=== PATIENT | female | born 1950 | race Caucasian/White ===

== ENCOUNTER 2019-07-21 15:05 | Emergency (ER) | payer OTHER, BC ==
--- OUTSIDE RECORDS SUMMARY | 2019-07-21 15:08 | XMS REPORT | Summary of Care ---
:1950 Author Organization [facility] - Health Address [address] [place] [address] Care Team Providers Name Role Phone David Justyn Primary Care Provider Reason for Visit Reason Comments Intake Referral Encounter Details Date Type Department Care Team Description 11/07/2018 Telephone [facility] Transplant- Juana Falk, Intake Referral [place] [facility] 24[address] [facility] [address] [place] [address] [place], [place] [phone] Allergies No Known Allergiesdocumented as of this encounter (statuses as of 11/07/2018) Medications Medication Sig Dispensed Refills Start Date End Date Status INSULIN SYRINGES /" 31guage 1 month 0 01/09/2008 Active (DISPOSABLE) 1 ML MISC SYRG nebivolol (BYSTOLIC) Take 10 mg by 0 Active 10 mg tablet mouth daily. cloniDINE (CATAPRES) Take 0.2 mg by 0 Active 0.2 mg tablet mouth 3 (three) times daily. PREGABALIN (LYRICA Take by mouth. 0 Active ORAL) ERGOCALCIFEROL, Take by mouth. 0 Active VITAMIN D2, (VITAMIN D ORAL) amLODIPine (NORVASC) 5 Take 5 mg by mouth 0 Active mg tablet daily. allopurinol 100 mg Take 100 mg by 0 Active tablet mouth daily. calcitriol 0.25 mcg Take 0.25 mcg by 0 Active capsuleIndications: mouth. Type 2 diabetes mellitus with ESRD (end-stage renal disease) sevelamer (RENVELA) TK 1 T PO WITH 0 02/01/2017 Active 800 mg EACH MEAL tabletIndications: Type 2 diabetes mellitus with ESRD (end-stage renal disease) Insulin [place], Use as directed- 4 360 Each 3 09/11/2017 Active Disposable, (BD times daily with INSULIN PEN NEEDLE UF) lantus and NOvolog 31 gauge x 5/16" NdleIndications: Type 2 diabetes mellitus with ESRD (end-stage renal disease) blood sugar diagnostic Use as directed. 300 Strip 3 09/11/2017 Active stripIndications: Type Up to 3 times 2 diabetes mellitus daily. E 11.22 with ESRD (end-stage renal disease) insulin aspart U-100 INJECT 10 TO 16 45 mL 0 02/28/2018 Active (NOVOLOG FLEXPEN U-100 UNITS UNDER THE INSULIN) 100 unit/mL SKIN THREE TIMES injectionIndications: DAILY BEFORE MEALS Type 2 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 disease not on chronic dialysis, with long-term current use of insulin flash glucose scanning 1 Each daily. 1 Each 0 03/13/2018 Active reader (FREESTYLE CRISTHIAN 10 DAY READER) MiscIndications: Type 2 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 disease not on chronic dialysis, with long-term current use of insulin flash glucose sensor 1 Each every 10 3 Kit 5 03/13/2018 Active (FREESTYLE CRISTHIAN 10 (ten) days. DAY SENSOR) KitIndications: Type 2 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 disease not on chronic dialysis, with long-term current use of insulin insulin degludec inject 36-44 Units 40 mL 3 08/13/2018 Active (TRESIBA FLEXTOUCH under the skin U-100) 100 unit/mL (3 every morning. mL) InPnIndications: Type 2 diabetes mellitus with ESRD (end-stage renal disease) documented as of this encounter (statuses as of 11/07/2018) Active Problems Problem Noted Date Type 2 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 d isease not on 10/31/2016 chronic dialysis, with long-term current use of insuli n Essential hypertension 05/03/2016 CKD (chronic kidney disease), stage 5 05/03/2016 documented as of this encounter (statuses as of 11/07/2018) Resolved Problems Problem Noted Date Resolved Date Type 2 diabetes mellitus without complications 07/06/2015 10/31/2016 documented as of this encounter (statuses as of 11/07/2018) Social History Tobacco Use Types Packs/Day Years Used Date Never Smoker Alcohol Use Drinks/Week oz/Week Comments No 0 Standard drinks or equivalent 0.0 Sex Assigned at Date Recorded Not on file Job Start Date Occupation Industry Not on file Not on file Not on file Travel History Travel Start Travel End No recent travel history available. documented as of this encounter Last Filed Vital Signs Not on filedocumented in this encounter Plan of Treatment Date Type Specialty Care Team Description 03/13/2019 Office Visit Endocrinology Diabetes & Taty Mckeon Iqb al, Metabolism MD Health Maintenance Due Date Last Done Comments HEPATITIS C (HCV) SCREEN 1950 CREATININE (SERUM) 08/12/1959 EYE EXAM 08/12/1959 LDL-C 08/12/1959 DTaP,Tdap,and Td Vaccines (1 - 1968 Tdap) MAMMOGRAM 1989 COLONOSCOPY 08/12/1999 Zoster Recombinant Vaccine 08/12/1999 (SHINGRIX) (1 of 2) Medicare Wellness Visit 2014 Osteoporosis Screening 2014 PNEUMOCOCCAL VACCINES 65+ (1 of 2 2014 - PCV13) HgA1C 09/11/2018 03/13/2018, 09/11/2017, 06/08/2017, Additional history exists INFLUENZA VACCINE 12/09/2018 FOOT EXAM 03/13/2019 03/13/2018, 03/13/2018, 09/11/2017, Additional history exists documented as of this encounter Results Not on filedocumented in this encounter Insurance Payer Benefit Plan / Subscriber ID Effective Phone Address T ype Group Dates MEDICARE MEDICARE PART A xxxxxxxxxxx 2014-Pres [phone] [address] [place] X Medicare & B ent [phone] [place] [address] BCBS OF BCBS [id number] 2014-Pres [phone] [facility] TRADITIONAL ent [phone] [place] [address] documented as of this encounter
--- OUTSIDE RECORDS SUMMARY | 2019-07-21 15:08 | XMS REPORT ---
:1950 Author Organization [facility] t Address [address] [place] [address] [address]. Bust[address] [place] [address] Care Team Providers Name Role Phone Unavailable Unavailable Unavailable Payers Payer Name Policy Type Policy Number Effective Date Expiration D ate Problems This patient has no known problems. Allergies, Adverse Reactions, Alerts This patient has no known allergies or adverse reactions. Medications This patient has no known medications. Procedures and Interventions Procedure Date / Time Performed Performing Clinici an [id number] 2019-05-24 00:00:00 8U4DSTD 2019-05-24 00:00:00 3K4OYVJ 2019-05-24 00:00:00 7U0GEDP 2019-05-24 00:00:00 9J1Z58S 2019-05-12 00:00:00 7D0X41K 2019-05-12 00:00:00 9F6T09Q 2019-05-12 00:00:00 8Z9O56Z 2019-05-12 00:00:00 8N2O51B 2019-05-12 00:00:00 0K9J27H 2019-05-12 00:00:00 8R5M00W 2019-05-12 00:00:00 2S3L27C 2019-05-12 00:00:00 0T0A36F 2019-05-12 00:00:00 5J3R92M 2019-05-12 00:00:00 8W9J70K 2019-05-12 00:00:00 2R7R91T 2019-05-12 00:00:00 0L8O60D 2019-05-12 00:00:00 7E1Y64C 2019-05-12 00:00:00 3I3S72D 2019-05-12 00:00:00 3L4L70G 2019-05-12 00:00:00 0J3L12X 2019-05-12 00:00:00 6Z7N95R 2019-05-12 00:00:00 6N5E56T 2019-05-12 00:00:00 9D9C36K 2019-05-12 00:00:00 7J9J26Z 2019-05-12 00:00:00 7G2W52X 2019-05-12 00:00:00 2C8Q79F 2019-05-12 00:00:00 7T3C20T 2019-05-12 00:00:00 1F9P05M 2019-05-12 00:00:00 4F1P37B 2019-05-12 00:00:00 6O5T18R 2019-05-12 00:00:00 8L6A56P 2019-05-12 00:00:00 2Q4I57R 2019-05-12 00:00:00 6E8H37E 2019-05-12 00:00:00 3R0E38U 2019-05-12 00:00:00 4W2P82F 2019-05-12 00:00:00 4G1T07P 2019-05-12 00:00:00 1H2Z50A 2019-05-12 00:00:00 7E5V48P 2019-05-12 00:00:00 5N0HHSS 2019-04-23 00:00:00 6U8NIBZ 2019-04-23 00:00:00 8P6NTES 2019-04-23 00:00:00 3J8HKBA 2019-04-23 00:00:00 7U3JFLH 2019-04-23 00:00:00 3X1RDPS 2019-04-23 00:00:00
--- OUTSIDE RECORDS SUMMARY | 2019-07-21 15:08 | XMS REPORT | Summary of Care ---
:1950 Author Organization [facility] - [facility] Address [address] [place] [address] Care Team Providers Name Role Phone Justyn Hernandez Primary Care Provider Encounter Details Date Type Department Care Team Description 11/07/2018 Hospital Encounter [facility] Tissue Antigen Lab Radha, Casi Hatch MD [address] [place] [id number] [id number] [place], [place] [id number] Allergies No Known Allergiesdocumented as of this encounter (statuses as of 11/10/2018) Medications Medication Sig Dispensed Refills Start Date End Date Status INSULIN SYRINGES 04/11" 31guage 1 month 0 01/09/2008 Active (DISPOSABLE) [...] mellitus with ESRD (end-stage renal disease) Insulin [place], Use as directed- 4 360 Each 3 [...] as of this encounter (statuses as of 11/10/2018) Active Problems Problem Noted Date Type 2 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 d isease not on 10/31/2016 chronic dialysis, with long-term current use of insuli n Essential hypertension 05/03/2016 CKD (chronic kidney disease), stage 5 05/03/2016 documented as of this encounter (statuses as of 11/10/2018) Resolved Problems Problem Noted Date Resolved Date Type 2 diabetes mellitus without complications 07/06/2015 10/31/2016 documented as of this encounter (statuses as of 11/10/2018) Social History Tobacco Use Types Packs/Day Years [...] [place] X Medicare & B ent [id number] [place] [address] BCBS OF BCBS [id number] 2014-Pres [phone] [facility] TRADITIONAL ent [phone] [place] [address] documented as of this encounter
--- OUTSIDE RECORDS SUMMARY | 2019-07-21 15:08 | XMS REPORT | Summary of Care ---
:1950 Author Organization [facility] Address [address] [place] [address] Care Team Providers Name Role Phone David Justyn Primary Care Provider Encounter Details Date Type Department Care Team Description 11/07/2018 Letter (Out) [facility] MD [place] 2660 [facility] 301 [facility] [id number] [place], [place] [phone] [place], [place] [phone] Allergies No Known Allergiesdocumented as of this [...] mellitus with ESRD (end-stage renal disease) Insulin [place], Use as directed- 4 360 Each 3 [...] TORITO X Medicare & B ent [id number] [place] [address] BCBS OF BCBS [id number] 2014-Pres [phone] [facility] TRADITIONAL ent [phone] [place] [address] documented as of this encounter
--- OUTSIDE RECORDS SUMMARY | 2019-07-21 15:08 | XMS REPORT | Summary of Care ---
:1950 Author Organization [facility] - Health Address [address] [place] [address] Care Team Providers Name Role Phone David Justyn Primary Care Provider Reason for Visit Reason Comments Intake Referral Encounter Details Date Type Department Care Team Description 11/07/[address] [facility] Transplant- Juana Falk, Intake Referral [place] [facility] 2440 [facility] [address] [place] [address] [place], [place] [phone] Allergies No Known Allergiesdocumented as of this encounter (statuses as of 11/08/2018) Medications Medication Sig Dispensed Refills Start Date End Date Status INSULIN SYRINGES /2" 31guage 1 month 0 01/09/2008 Active (DISPOSABLE) [...] mellitus with ESRD (end-stage renal disease) Insulin [place], Use as directed- 4 360 Each 3 [...] as of this encounter (statuses as of 11/08/2018) Active Problems Problem Noted Date Type 2 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 d isease not on 10/31/2016 chronic dialysis, with long-term current use of insuli n Essential hypertension 05/03/2016 CKD (chronic kidney disease), stage 5 05/03/2016 documented as of this encounter (statuses as of 11/08/2018) Resolved Problems Problem Noted Date Resolved Date Type 2 diabetes mellitus without complications 07/06/2015 10/31/2016 documented as of this encounter (statuses as of 11/08/2018) Social History Tobacco Use Types Packs/Day Years [...] [place] X Medicare & B ent [id number] [place] [address] BCBS OF BCBS [id number] 2014-Pres [phone] [facility] TRADITIONAL ent [phone] [place] [address] documented as of this encounter
--- OUTSIDE RECORDS SUMMARY | 2019-07-21 15:09 | XMS REPORT | Summary of Care ---
:1950 Author Organization [facility] - [facility] Address [address] [place] [address] Care Team Providers Name Role Phone Justyn Hernandez Primary Care Provider Reason for Visit Reason Comments Refill Request Encounter Details Date Type Department Care Team Description 11/13/2018 Refill [facility] Endocrinology- Ramirez iLm Refill Request [address] Professional Office Compa [address] [place], [place] [phone] [place] [address] [address] [place] [address] Allergies No Known Allergiesdocumented as of this encounter (statuses as of 11/13/2018) Medications Medication Sig Dispensed Refills Start Date End Date Status INSULIN SYRINGES 04/11" 31guage 1 month 0 01/09/2008 Active (DISPOSABLE) 1 ML MISC SYRG nebivolol Take 10 mg by 0 Active (BYSTOLIC) 10 mg mouth daily. tablet cloniDINE Take 0.2 mg by 0 Activ e (CATAPRES) 0.2 mg mouth 3 tablet (three) times daily. PREGABALIN (LYRICA Take by 0 A ctive ORAL) mouth. ERGOCALCIFEROL, Take by 0 Acti ve VITAMIN D2, mouth. (VITAMIN D ORAL) amLODIPine Take 5 mg by 0 Active (NORVASC) 5 mg mouth daily. tablet allopurinol 100 mg Take 100 mg by 0 Active tablet mouth daily. calcitriol 0.25 Take 0.25 mcg 0 Active mcg by mouth. capsuleIndications : Type 2 diabetes mellitus with ESRD (end-stage renal disease) sevelamer TK 1 T PO 0 02/01/2017 Active (RENVELA) 800 mg WITH EACH MEAL tabletIndications: Type 2 diabetes mellitus with ESRD (end-stage renal disease) Insulin [place], Use as 360 Each 3 09/11/2017 Ac tive Disposable, (BD directed- 4 INSULIN PEN NEEDLE times daily UF) 31 gauge x with lantus 5/16" and NOvolog NdleIndications: Type 2 diabetes mellitus with ESRD (end-stage renal disease) blood sugar Use as 300 Strip 3 09/11/2017 Active diagnostic directed. Up stripIndications: to 3 times Type 2 diabetes daily. E 11.22 mellitus with ESRD (end-stage renal disease) flash glucose 1 Each daily. 1 Each 0 03/13/2018 A ctive scanning reader (FREESTYLE CRISTHIAN 10 DAY READER) MiscIndications: Type 2 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 disease not on chronic dialysis, with long-term current use of insulin flash glucose 1 Each every 3 Kit 5 03/13/2018 Ac tive sensor (FREESTYLE 10 (ten) days. CRISTHIAN 10 DAY SENSOR) KitIndications: Type 2 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 disease not on chronic dialysis, with long-term current use of insulin insulin degludec inject 36-44 40 mL 3 08/13/2018 Active (TRESIBA FLEXTOUCH Units under U-100) 100 unit/mL the skin every (3 mL) morning. InPnIndications: Type 2 diabetes mellitus with ESRD (end-stage renal disease) insulin aspart INJECT 10 TO 45 mL 0 11/13/2018 A ctive U-100 (NOVOLOG 16 UNITS UNDER FLEXPEN U-100 THE SKIN THREE INSULIN) 100 TIMES DAILY unit/mL (3 mL) BEFORE MEALS injectionIndicatio ns: Type 2 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 disease not on chronic dialysis, with long-term current use of insulin insulin aspart INJECT 10 TO 45 mL 0 02/28/2018 11/13/2018 Discontinued U-100 (NOVOLOG 16 UNITS UNDER FLEXPEN U-100 THE SKIN THREE INSULIN) 100 TIMES DAILY unit/mL BEFORE MEALS injectionIndicatio ns: Type 2 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 disease not on chronic dialysis, with long-term current use of insulin documented as of this encounter (statuses as of 11/13/2018) Active Problems Problem Noted Date Type 2 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 d isease not on 10/31/2016 chronic dialysis, with long-term current use of insuli n Essential hypertension 05/03/2016 CKD (chronic kidney disease), stage 5 05/03/2016 documented as of this encounter (statuses as of 11/13/2018) Resolved Problems Problem Noted Date Resolved Date Type 2 diabetes mellitus without complications 07/06/2015 10/31/2016 documented as of this encounter (statuses as of 11/13/2018) Social History Tobacco Use Types Packs/Day Years [...] 03/13/2019 Office Visit Endocrinology Diabetes & Taty Mckeonb al, Metabolism MD Health Maintenance Due Date [...] Results Not on filedocumented in this encounter Visit Diagnoses Diagnosis Type 2 diabetes mellitus with stage 5 ch ronic kidney disease not on chronic dialysis, with long-term current use of insulin documented in this encounter Insurance Payer Benefit Plan / Subscriber ID Effective Phone Address T ype Group Dates MEDICARE MEDICARE PART A xxxxxxxxxxx 2014-Pres [phone] [address] [place] X Medicare & B ent [phone] [id number] [place]ICH[place] [phone] BCBS OF [facility] [id number] 2014-Pres [phone] [facility] ent [phone] [place] [address] documented as of this encounter
--- OUTSIDE RECORDS SUMMARY | 2019-07-21 15:09 | XMS REPORT | Summary of Care ---
:1950 Author Organization [facility] - Health Address [address] [place] [address] Care Team Providers Name Role Phone David Justyn Primary Care Provider Reason for Visit Reason Comments Appointment Encounter Details Date Type Department Care Team Description 05/16/2019 Telephone [facility] Transplant- Juana Falk MD Appointment [place] [facility] 2440 [place] [address] 2660 [facility] [phone] [place], [place] [address] [phone] Allergies No Known Allergiesdocumented as of this encounter (statuses as of 05/16/2019) Medications Medication Sig Dispensed Refills Start Date [...] mellitus with ESRD (end-stage renal disease) Insulin [place], Use as directed- 4 360 Each 3 09/11/2017 Active Disposable, (BD times daily with INSULIN PEN NEEDLE UF) lantus and NOvolog 31 gauge x 5/16" NdleIndications: Type 2 diabetes mellitus with ESRD (end-stage renal disease) blood sugar diagnostic Use as directed. 300 Strip 3 09/11/2017 Active stripIndications: Type Up to 3 times 2 diabetes mellitus daily. E 11.22 with ESRD (end-stage renal disease) flash glucose scanning 1 Each daily. 1 Each 0 03/13/2018 Active reader (FREESTYLE CRISTHIAN 10 DAY READER) MiscIndications: Type 2 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 disease not on chronic dialysis, with long-term current use of insulin flash glucose sensor 1 Each every 10 3 Kit 5 03/13/2018 Active (FREESTYLE CRISTHAIN 10 (ten) days. DAY SENSOR) KitIndications: Type [...] INJECT 10 TO 16 45 mL 0 11/13/2018 Active (NOVOLOG FLEXPEN U-100 UNITS UNDER THE INSULIN) 100 unit/mL SKIN THREE TIMES (3 mL) DAILY BEFORE MEALS injectionIndications: Type 2 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 disease not on chronic dialysis, with long-term current use of insulin documented as of this encounter (statuses as of 05/16/2019) Active Problems Problem Noted Date Type 2 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 d isease not on 10/31/2016 chronic dialysis, with long-term current use of insuli n Essential hypertension 05/03/2016 CKD (chronic kidney disease), stage 5 05/03/2016 documented as of this encounter (statuses as of 05/16/2019) Resolved Problems Problem Noted Date Resolved Date Type 2 diabetes mellitus without complications 07/06/2015 10/31/2016 documented as of this encounter (statuses as of 05/16/2019) Social History Tobacco Use Types Packs/Day Years [...] Treatment Date Type Specialty Care Team Description 05/29/2019 Office Visit Endocrinology Diabetes & Andrés, Koby manuel MD Metabolism 2660 [place] [address] [phone] 06/05/2019 Office Visit Nephrology Juana Falk MD 2440 [place] [address] [phone] Health Maintenance Due Date Last Done Comments HEPATITIS C (HCV) SCREEN 1950 CREATININE (SERUM) 08/12/1959 EYE EXAM 08/12/1959 LDL-C 08/12/1959 DTaP,Tdap,and Td Vaccines (1 - 1960 Tdap) Breast Cancer Screening 1989 (MAMMOGRAM) COLONOSCOPY 08/12/1999 Zoster Recombinant Vaccine 08/12/1999 (SHINGRIX) (1 of 2) Medicare Wellness Visit 2014 Osteoporosis Screening 2014 PNEUMOCOCCAL VACCINES 65+ (1 of 2 2014 - PCV13) HgA1C 09/11/2018 03/13/2018, 09/11/2017, 06/08/2017, Additional history exists INFLUENZA VACCINE (#1) 2018 FOOT EXAM 03/13/2019 03/13/2018, 03/13/2018, 09/11/2017, Additional history exists documented as of this encounter Results Not on filedocumented in this encounter Insurance Payer Benefit Plan / Subscriber ID Effective Phone Address T ype Group Dates MEDICARE MEDICARE PART A xxxxxxxxxxx 2014-Pres [phone] [address] [place] X Medicare & B ent [id number] [place] [address] BCBS OF [facility] [id number] 2014-Pres [phone] O [facility] ent [phone] [place] [address] documented as of this encounter
--- OUTSIDE RECORDS SUMMARY | 2019-07-21 15:10 | XMS REPORT | Summary of Care ---
:1950 Author Organization [facility] Address [address] [place] [address] Care Team Providers Name Role Phone Justyn Hernandez Primary Care Provider Reason for Visit Reason Comments Rx Concern/Question Encounter Details Date Type Department Care Team Description 05/31/2019 Telephone [facility] ividence Ramirez Dorman MD Rx Concern/Question Endocrinology- [address] Professional Office Compa [address] [place], [place] [address] [place] [address] [address] [place] [address] [facility] [phone] Allergies No Known Allergiesdocumented as of this encounter (statuses as of 05/31/2019) Medications Medication Sig Dispensed Refills Start Date [...] mellitus with ESRD (end-stage renal disease) Insulin [place], Use as directed- 4 360 Each 3 [...] as of this encounter (statuses as of 05/31/2019) Active Problems Problem Noted Date Type 2 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 d isease not on 10/31/2016 chronic dialysis, with long-term current use of insuli n Essential hypertension 05/03/2016 CKD (chronic kidney disease), stage 5 05/03/2016 documented as of this encounter (statuses as of 05/31/2019) Resolved Problems Problem Noted Date Resolved Date Type 2 diabetes mellitus without complications 07/06/2015 10/31/2016 documented as of this encounter (statuses as of 05/31/2019) Social History Tobacco Use Types Packs/Day Years [...] Treatment Date Type Specialty Care Team Description 07/02/2019 Office Visit Nephrology Melina Matthews MD [address] [place], [place] [address] 09/04/2019 Office Visit Endocrinology Diabetes & Bowen, Koby manuel MD Metabolism 2660 [place] [address] [phone] Health Maintenance Due Date Last Done Comments [...] TORITO X Medicare & B ent [id number] [place] [phone] BCBS OF [facility] [id number] 2014-Pres [phone] O [facility] ent [phone] [place] [address] documented as of this encounter
--- OUTSIDE RECORDS SUMMARY | 2019-07-21 15:10 | XMS REPORT | Summary of Care ---
:1950 Author Organization [facility] Address [address] [place] [address] Care Team Providers Name Role Phone Hernandez Justyn Primary Care Provider Reason for Visit Reason Comments Pre-Transplant Appointment Encounter Details Date Type Department Care Team Description 06/13/2019 Telephone [facility] [employer] Dileep Juana Pre-Transp lant; Transplant-[place] MD Belen Appointment [facility] [address] [facility] [address] [place] [address] [phone] Allergies No Known Allergiesdocumented as of this encounter (statuses as of 06/18/2019) Medications Medication Sig Dispensed Refills Start Date End Date Status INSULIN SYRINGES 1/2" 31guage 1 month 0 01/09/2008 Active (DISPOSABLE) [...] mellitus with ESRD (end-stage renal disease) Insulin [place], Use as directed- 4 360 Each 3 [...] as of this encounter (statuses as of 06/18/2019) Active Problems Problem Noted Date Type 2 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 d isease not on 10/31/2016 chronic dialysis, with long-term current use of insuli n Essential hypertension 05/03/2016 CKD (chronic kidney disease), stage 5 05/03/2016 documented as of this encounter (statuses as of 06/18/2019) Resolved Problems Problem Noted Date Resolved Date Type 2 diabetes mellitus without complications 07/06/2015 10/31/2016 documented as of this encounter (statuses as of 06/18/2019) Social History Tobacco Use Types Packs/Day Years [...] Treatment Date Type Specialty Care Team Description 09/04/2019 Office Visit Endocrinology Diabetes & Koby Bowen MD Metabolism [address] [place] [address] [phone] Health Maintenance Due Date Last Done Comments [...] [place] X Medicare & B ent [id number] UNRUL[place] RICHARDS [address] BCBS OF BCBS [id number] 2014-Pres [phone] [facility] TRADITIONAL ent [phone] [place] [address] documented as of this encounter
--- OUTSIDE RECORDS SUMMARY | 2019-07-21 15:10 | XMS REPORT | Summary of Care ---
:1950 Author Organization [facility] - [facility] Address [address] [place] [address] Care Team Providers Name Role Phone Justyn Hernandez Primary Care Provider Reason for Visit Reason Comments Pre Evaluation Lab work. Encounter Details Date Type Department Care Team Description 05/16/2019 Case Management [facility] Transplant- Cassie, Pre Evaluation (Lab [place] Melina Vee MD work.) [facility]ty [facility] [address] [place] [address] [phone] Allergies No Known Allergiesdocumented as of this [...] mellitus with ESRD (end-stage renal disease) Insulin [place], Use as directed- 4 360 Each 3 [...] daily. 1 Each 0 03/13/2018 Active reader ([employer] CRISTHI[employer] 10 DAY READER) MiscIndications: Type 2 [...] Signs Not on filedocumented in this encounter Progress Notes Salome García RN - 05/16/2019 12:28 PM CSTLab per MD delegation orders for pre kidney transplant evaluation. [employer] IN[employer] documented in this encounter Plan of Treatment Date Type Specialty Care Team Description 05/29/2019 Office Visit Endocrinology Diabetes & Bowen, Koby manuel MD Metabolism [address] [place] [address] [phone] 06/05/2019 Office Visit Nephrology Juana Falk MD [address] [place] [address] [phone] Name Type Priority Associated Diagnoses Order S chedule C-Peptide, Serum or LAB Routine End stage renal Expec bette: Plasma disease 05/16/2019, Pre-transplant Expires: evaluation for 11/14/2019 kidney transplan t Other specified pre-operative examination CBC with Differential LAB Routine End stage renal Exp ected: disease 05/16/2019, Pre-transplant Expires: evaluation for 11/14/2019 kidney transplan t Other specified pre-operative examination Prothrombin Time / INR LAB Routine End stage renal Ex pected: disease 05/16/2019, Pre-transplant Expires: evaluation for 11/14/2019 kidney transplan t Other specified pre-operative examination aPTT LAB Routine End stage renal Expected: disease 05/16/2019, Pre-transplant Expires: evaluation for 11/14/2019 kidney transplan t Other specified pre-operative examination Complete Metabolic Panel LAB Routine End stage renal Expected: disease 05/16/2019, Pre-transplant Expires: evaluation for 11/14/2019 kidney transplan t Other specified pre-operative examination ABO RH LAB Routine End stage renal Expected: disease 05/16/2019, Pre-transplant Expires: evaluation for 11/14/2019 kidney transplan t Other specified pre-operative examination ABO RH LAB Routine End stage renal Expected: disease 05/16/2019, Pre-transplant Expires: evaluation for 11/14/2019 kidney transplan t Other specified pre-operative examination Lipase, Serum LAB Routine End stage renal Expected: disease 05/16/2019, Pre-transplant Expires: evaluation for 11/14/2019 kidney transplan t Other specified pre-operative examination Amylase, Serum LAB Routine End stage renal Expected: disease 05/16/2019, Pre-transplant Expires: evaluation for 11/14/2019 kidney transplan t Other specified pre-operative examination Intact PTH Calcium Group LAB Routine End stage renal Expected: disease 05/16/2019, Pre-transplant Expires: evaluation for 11/14/2019 kidney transplan t Other specified pre-operative examination Lipid Panel (Total LAB Routine End stage renal Expect ed: Cholesterol, disease 05/16/2019, Triglycerides, HDL) Pre-transplant s: evaluation for 11/14/2019 kidney transplan t Other specified pre-operative examination Misc. Sendout- Drugs of LAB Routine End stage renal E xpected: Abuse 9 Panel, Serum or disease 05/16/2019, Plasma -KYUP# :[id number] Pre-transplant Ex gerardo: (Screen with Reflex to evaluation for 09/2019 Confirmation/Quantitation kidney transplant ) Other specified pre-operative examination Glycosylated Henoglobin LAB Routine End stage renal E xpected: (A1C) disease 05/16/2019, Pre-transplant Expires: evaluation for 11/14/2019 kidney transplan t Other specified pre-operative examination Hepatitis B Surface LAB Routine End stage renal Expec bette: Antigen disease 05/16/2019, Pre-transplant Expires: evaluation for 11/14/2019 kidney transplan t Other specified pre-operative examination Hepatitis B Surface LAB Routine End stage renal Expec bette: Antibody disease 05/16/2019, Pre-transplant Expires: evaluation for 11/14/2019 kidney transplan t Other specified pre-operative examination HBC Antibody (IGM & IGG) LAB Routine End stage renal Expected: disease 05/16/2019, Pre-transplant Expires: evaluation for 11/14/2019 kidney transplan t Other specified pre-operative examination HCV Antibody LAB Routine End stage renal Expected: disease 05/16/2019, Pre-transplant Expires: evaluation for 11/14/2019 kidney transplan t Other specified pre-operative examination HAV Antibody (IGG & IGM) LAB Routine End stage renal Expected: disease 05/16/2019, Pre-transplant Expires: evaluation for 11/14/2019 kidney transplan t Other specified pre-operative examination HIV 1/2 AG-AB WITH REFLEX LAB Routine End stage renal Expected: disease 05/16/2019, Pre-transplant Expires: evaluation for 11/14/2019 kidney transplan t Other specified pre-operative examination Cytomegalovirus (CMV) LAB Routine End stage renal Exp ected: Antibody IGG disease 05/16/2019, Pre-transplant Expires: evaluation for 11/14/2019 kidney transplan t Other specified pre-operative examination Alexx- Bai Virus (EBV) LAB Routine End stage renal Expected: Antibody IGG disease 05/16/2019, Pre-transplant Expires: evaluation for 11/14/2019 kidney transplan t Other specified pre-operative examination Toxoplasma IGG Antibody LAB Routine End stage renal E xpected: disease 05/16/2019, Pre-transplant Expires: evaluation for 11/14/2019 kidney transplan t Other specified pre-operative examination HSV 1 and 2 Glycoprotein LAB Routine End stage renal Expected: G IGG disease 05/16/2019, Pre-transplant Expires: evaluation for 11/14/2019 kidney transplan t Other specified pre-operative examination GALV ONLY - SYPHILIS LAB Routine Pre-transplant Expec bette: IGG/IGM evaluation for 05/16/2019, kidney transplan t Expires: Other specified 11/14/2019 pre-operative examination End stage renal disease VZV Antibody Screen LAB Routine End stage renal Expec bette: disease 05/16/2019, Pre-transplant Expires: evaluation for 11/14/2019 kidney transplan t Other specified pre-operative examination Thyroid Stimulating LAB Routine End stage renal Expec bette: Hormone (TSH) disease 05/16/2019, Pre-transplant Expires: evaluation for 11/14/2019 kidney transplan t Other specified pre-operative examination Urinalysis (UA) LAB Routine End stage renal Expected: disease 05/16/2019, Pre-transplant Expires: evaluation for 11/14/2019 kidney transplan t Other specified pre-operative examination Serum Protein LAB Routine End stage renal Expected: Electrophoresis - Age > disease 05/16/2019, 40 years old or UA w/+ Pre-transplant Exp ires: protein. evaluation for 11/14/2019 kidney transplan t Other specified pre-operative examination HLA-ABC-DR Typing Renal LAB Routine End stage renal E xpected: disease 05/16/2019, Pre-transplant Expires: evaluation for 11/14/2019 kidney transplan t Other specified pre-operative examination Antibody Screen (PRA LAB Routine End stage renal Expe cted: (RENAL)) disease 05/16/2019, Pre-transplant Expires: evaluation for 11/14/2019 kidney transplan t Other specified pre-operative examination QUANTIFERON-TB GOLD LAB Routine End stage renal Expec bette: disease 05/16/2019, Pre-transplant Expires: evaluation for 11/14/2019 kidney transplan t Other specified pre-operative examination CHEST 2 VIEWS IMAGING Routine Pre-transplant Expected: evaluation for 05/16/2019, kidney transplan t Expires: Other specified 11/14/2019 pre-operative examination End stage renal disease EKG-12 LEAD ROUTINE HEART STATION Routine Pre-transplant Expec bette: evaluation for 05/16/2019, kidney transplan t Expires: Other specified 11/14/2019 pre-operative examination End stage renal disease LYMPHOCYTE CROSSMATCH LAB Routine Pre-transplant Expe cted: evaluation for 05/16/2019, kidney transplan t Expires: Other specified 11/14/2019 pre-operative examination End stage renal disease Health Maintenance Due Date Last Done Comments [...] filedocumented in this encounter Visit Diagnoses Diagnosis Pre-transplant evaluation for kidney tra nsplant - Primary Other specified pre-operative examinatio n End stage renal disease documented in this encounter Insurance Payer Benefit Plan / Subscriber ID Effective Phone Address T e Group Dates MEDICARE MEDICARE PART A xxxxxxxxxxx 2014-Pres [phone] [address] [place] Medicare & B ent [id number] UNRULY RICHARDS [phone] BCBS OF BCBS [id number] 2014-Pres [phone] [facility] TRADITIONAL ent [phone] [place] [address] documented as of this encounter
--- OUTSIDE RECORDS SUMMARY | 2019-07-21 15:11 | XMS REPORT | Summary of Care ---
:[address] [facility] Address [address] [place] [address] Care Team Providers Name Role Phone Justyn Hernandez Primary Care Provider Reason for Visit Reason Comments Refill Request Encounter Details Date Type Department Care Team Description 07/13/2019 Refill [facility] Endocrinology- Taty Mckeon MD Refill Request [facility] [address] [place] [address] Dr. 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 d isease not on 10/31/2016 chronic dialysis, with long-term current use of insuli n Essential hypertension 05/03/2016 CKD (chronic kidney disease), stage 5 05/03/2016 documented as of this encounter (statuses as of 07/15/2019) Resolved Problems Problem Noted Date Resolved Date Type 2 diabetes mellitus without complications 07/06/2015 10/31/2016 documented as of this encounter (statuses as of 07/15/2019) Social History Tobacco Use Types Packs/Day Years [...] Diabetes & Koby Bowen MD Metabolism [address] [place], [place] [id number] Health Maintenance Due Date Last Done Comments [...] Diagnoses Diagnosis Type 2 diabetes mellitus with ESRD (end- stage renal disease) Type II or unspecified type diabetes radha litus with renal manifestations, not stated as uncontrolled documented in this encounter Insurance Payer Benefit Plan / Subscriber ID Effective Phone Address T ype Group Dates MEDICARE MEDICARE PART A xxxxxxxxxxx 2014-Pres [phone] [address] [place] Medicare & B ent [phone] UNRULY RICHARDS [phone] BCBS OF BCBS [id number] 2014-Pres [phone] [facility] TRADITIONAL ent [phone] [place] [address] documented as of this encounter
--- OUTSIDE RECORDS SUMMARY | 2019-07-21 15:11 | XMS REPORT | Summary of Care ---
:1950 Author Organization [facility] Address [address] [place] [address] Care Team Providers Name Role Phone David Justyn Primary Care Provider Reason for Visit Reason Comments Follow-up appointment Encounter Details Date Type Department Care Team Description 07/15/2019 Telephone [facility] Darlene Bowen MD Follow-up (appointment Endocrinology- [address] [place] [address] ) [facility] [address] [place] [address] Allergies No Known Allergiesdocumented as of this encounter (statuses as of 07/17/2019) Medications Medication Sig Dispensed Refills Start Date [...] mellitus with ESRD (end-stage renal disease) Insulin [place], Use as directed- 4 360 Each 3 [...] as of this encounter (statuses as of 07/17/2019) Active Problems Problem Noted Date Type 2 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 d isease not on 10/31/2016 chronic dialysis, with long-term current use of insuli n Essential hypertension 05/03/2016 CKD (chronic kidney disease), stage 5 05/03/2016 documented as of this encounter (statuses as of 07/17/2019) Resolved Problems Problem Noted Date Resolved Date Type 2 diabetes mellitus without complications 07/06/2015 10/31/2016 documented as of this encounter (statuses as of 07/17/2019) Social History Tobacco Use Types Packs/Day Years [...] Treatment Date Type Specialty Care Team Description 07/23/2019 Telemedicine Visit Endocrinology Diabetes & BowenDarlene MD Metabolism [address] [place] [address] [phone] Health Maintenance Due Date Last Done Comments [...] [place]OR[place]O X Medicare & B ent [id number] [id number] UNRUL[place] RICHARDS [phone] BCBS OF BC [id number] 2014-Pres [phone] [facility] TRADITIONAL ent [phone] [place] [address] documented as of this encounter
--- OUTSIDE RECORDS SUMMARY | 2019-07-21 15:11 | XMS REPORT | Summary of Care ---
:1950 Author Organization [facility] Address [address] [place] [address] Care Team Providers Name Role Phone Justyn Hernandez Primary Care Provider Reason for Visit Reason Comments Refill Request Encounter Details Date Type Department Care Team Description 07/13/2019 Refill [facility] Endocrinology- Taty Mckeon MD Refill Request [facility] [address] [place] [address] Dr. Sharma [address] [place] [address] Allergies No Known Allergiesdocumented as of [...] mellitus with ESRD (end-stage renal disease) Insulin [place], Use as directed- 4 360 Each 3 [...] Diabetes & Koby Bowen MD Metabolism [address] [place], [place] 727743 Health Maintenance Due Date Last Done Comments [...] TORITO X Medicare & B ent [id number] [place] RICHAR[place] [phone] BCBS OF BCBS [id number] 2014-Pres [phone] [facility] TRADITIONAL ent [phone] [place] [address] documented as of this encounter
--- OUTSIDE RECORDS SUMMARY | 2019-07-21 15:11 | XMS REPORT | Summary of Care ---
:1950 Author Organization [facility] Address [address] [place] [address] Care Team Providers Name Role Phone David Justyn Primary Care Provider Reason for Visit Reason Comments Pre Evaluation Drop letter sent to patient Encounter Details Date Type Department Care Team Description 06/27/2019 Case Management [facility] Transplant- Saundra Falk re Evaluation [place] Juana Glover MD (Drop letter sent [facility] [address] [place] [address] to patient ) [address] [place] [address] [phone] Allergies No Known Allergiesdocumented as of this encounter (statuses as of 06/27/2019) Medications Medication Sig Dispensed Refills Start Date [...] mellitus with ESRD (end-stage renal disease) Insulin [place], Use as directed- 4 360 Each 3 [...] daily. 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 Patient is hospitalized and at her request her case is being dropped. documented in this encounter Plan of Treatment Date Type Specialty Care Team Description 09/04/2019 Office Visit Endocrinology Diabetes & Koby Bowen MD [address] 018373 Health Maintenance Due Date Last Done Comments [...] TORITO X Medicare & B ent [id number] [place] RICHAR[place] [address] BCBS [facility] [id number] 2014-Pres [phone] O [facility] TRADITIONAL ent [phone] [place] [address] documented as of this encounter
[2019-07-21 15:46] LABS: Absolute Lymphocytes (CBC) 1.9 K/uL (0.7-4.9); Basophils % 0.4 % (0-1.3); Hematocrit 32.8 % (36.0-45.0); Lymphocytes % 15.6 % (15.3-44.8); MPV 9.6 fL (7.6-11.3); RBC Red Blood Cell Count 3.51 M/uL (3.86-4.86)
[2019-07-21] MEDS ORDERED: CEFTRIAXONE/SWI 1gm 1 GM/10 ML SYR ONE (15:47)
[2019-07-21 15:55] LABS: Protime INR 1.03
[2019-07-21 16:16] LABS: ALT/SGPT 13 U/L (12-78); AST/SGOT 14 U/L (15-37); Albumin 2.1 g/dL (3.4-5.0); Alkaline Phosphatase 109 U/L (45-117); Amylase Level 33 U/L (25-115); BUN Blood Urea Nitrogen 48 mg/dL (7-18); Bicarbonate 26 mmol/L (21-32); Bilirubin Direct 0.1 mg/dL (0-0.2); Bilirubin Total 0.2 mg/dL (0.2-1.0); CKMB Creatine Kinase MB 3.8 ng/mL (0.3-3.6); Creatine Phosphokinase 35 U/L (26-192); Glucose Level 111 mg/dL (74-106); Lipase 60 U/L (73-393); Potassium 4.8 mmol/L (3.5-5.1); Protein, Total 5.8 g/dL (6.4-8.2); Sodium Level 137 mmol/L (136-145); Troponin (Emerg Dept Use Only) < 0.02 ng/mL (0.0-0.045)
--- NOTE | 2019-07-21 16:27 | RAD REPORT ---
EXAM DESCRIPTION: CT - Head Brain Wo Cont - 07/21/2019 4:19 pm CLINICAL HISTORY: Alteration of awareness/confusion COMPARISON: None TECHNIQUE: Computed axial tomography of the head was obtained. IV contrast was not requested. All CT scans are performed using dose optimization technique as appropriate and may include automated exposure control or mA/KV adjustment according to patient size. FINDINGS: An intracranial bleed is not seen . The ventricles are normal in caliber. No extra-axial fluid collection is noted. Fluid is present within left maxillary sinus which may indicate acute sinusitis IMPRESSION: No acute intracranial abnormality is seen. If patient's symptoms persist MRI of the bra in would be recommended.
--- NOTE | 2019-07-21 16:46 | RAD REPORT ---
EXAM DESCRIPTION: [place] Single View07/21/2019 3:53 pm CLINICAL HISTORY: abd pain COMPARISON: 2017 FINDINGS: The lungs appear clear of acute infiltrate. The heart is normal size IMPRESSION: No acute abnormalities displayed
--- NOTE | 2019-07-21 16:46 | RAD REPORT ---
EXAM DESCRIPTION: CT - Abdomen Pelvis Wo Contrast - 07/21/2019 4:20 pm CLINICAL HISTORY: Abdominal pain COMPARISON: None TECHNIQUE: Computed axial tomography of the abdomen and pelvis was obtained. IV and oral contrast we re not requested. All CT scans are performed using dose optimization technique as appropriate and may include automated exposure control or mA/KV adjustment according to patient size. FINDINGS: The evaluation of solid organs, vessels and bowel is limited secondary to the lack of con trast administration. Small densities within the gallbladder. Gallbladder wall is not thickened. A 5 millimeter density wit hin the common bile duct. Mild dilatation of the common bile duct Coarse vascular calcifications. Renal cortical thinning. Small renal cysts suspected. No hydronephrosis. The liver, spleen, and pancreas appear grossly normal. 15 millimeter right adrenal nodule. Left adren al gland are unremarkable Diverticula without evidence of diverticulitis. Peritoneal catheter within the pelvis IMPRESSION: Cholelithiasis. 5 millimeter density within the common bile duct probably a stone. There is mild dilatation of the co mmon bile duct 15 millimeter right adrenal nodule nonspecific but probably benign. Follow up CT could be obtained in 6 months to assess stability. Alternatively an MRI could be obtained
--- NOTE | 2019-07-21 17:57 | ER ---
Nurse's Notes [facility] Name: Marquita Ramirez Age: 68 yrs Sex: Female : 1950 Arrival Date: 07/21/2019 Time: 15:06 Bed 5 Private MD: Diagnosis: Altered mental status, unspecified;End stage renal disease-peritoneal dialysis Presentation: 07/20 15:02 Initial Sepsis Screen: Does the patient meet any 2 criteria? No. Patient's initial sv sepsis screen is negative. Does the patient have a suspected source of infection? No. Patient's initial sepsis screen is negative. Risk Assessment: Do you want to hurt yourself or someone else? Unable to obtain. Onset of symptoms was July 21, 2019. 15:04 Chief complaint: EMS states: AMS noted today, granddaughter reports she had a fall sv yesterday after tripping, bruising to BLE. BS-94 97.9. A\T\O x 2-3. 15:24 Chief complaint: Patient's son or daughter states: AMS that began this morning. ss Daughter reports that patient was admitted end of April with a UTI that also caused a change in her mental status similar to today. Pt has bruising to her L calf/ and foot that was reportedly caused by a fall from standing yesterday. Denies cough/ fever. Coronavirus screen: Proceed with normal triage. Patient denies a cough. Patient denies shortness of breath or difficulty breathing. Patient denies measured and/or subjective temperature greater than 100.4F prior to today's visit. Patient denies travel on a cruise ship or to a country the [facility] currently lists as an affected area. Patient denies contact with known and/or suspected case of COVID-19. Ebola Screen: Patient denies exposure to infectious person. Patient denies travel to an Ebola-affected area in the 21 days before illness onset. 15:24 Method Of Arrival: EMS: [facility] 15:24 Acuity: SHADIA 3 Triage Assessment: 15:10 General: Appears in no apparent distress. comfortable, obese, well developed, Behavior sv is calm, cooperative, appropriate for age. Pain: Denies pain. Neuro: Level of Consciousness is obeys commands, confused, lethargic, Oriented to person, Moves all extremities. Cardiovascular: Patient's skin is warm and dry. Pulses are palpable in right radial artery and left radial artery Rhythm is sinus rhythm. Respiratory: Airway is patent Respiratory effort is even, unlabored, Respiratory pattern is regular, symmetrical. Derm: Skin is normal, Bruising that is dark purple, on right leg and left leg. Musculoskeletal: Range of motion: intact in all extremities. Historical: - Allergies: 16:38 No Known Allergies; sv - Home Meds: 16:38 Tylenol #3 1 tab TID prn Oral [Active]; allopurinol 100 mg Oral tab nightly [Active]; sv aspirin 81 mg Oral TbEC 1 tab once daily [Active]; bethanechol chloride 5 mg oral tab 3 times per day [Active]; bumetanide 2 mg Oral tab 1 tab 2 times per day [Active]; Plavix 75 mg Oral tab 1 tab once daily [Active]; Colace 100 mg oral cap 1 cap once daily [Active]; gabapentin 100 mg oral cap 2 caps 3 times per day [Active]; Protonix 40 mg Oral TbEC nightly [Active]; Pravachol 40 mg Oral tab 1 tab nightly [Active]; Renvela 800 mg oral tab 4 tabs 3 times per day [Active]; Vitqamin B1 1 tab daily [Active]; Dialy-kp 1 tab daily [Active]; Probiotics [Active]; calcitriol oral oral every other day [Active]; Vitamin D2 50,000 units a week for 12 weeks [Active]; Vitamin D3 50,000 units a month [Active]; midodrine 2.5 mg oral tab 2 tabs BID [Active]; alprazolam 0.25 mg Oral tab daily prn [Active]; hydroxyzine HCl 25 mg Oral tab BID prn [Active]; Zofran 4mg QID prn [Active]; Baclofen Oral bedtime prn [Active]; - PMHx: 16:38 Peritoneal dialysis; sv - Immunization history:: Adult Immunizations up to date. - Social history:: Smoking status: Patient denies any tobacco usage or history of. Screenin:52 Abuse screen: Denies threats or abuse. Denies injuries from another. Nutritional sv screening: No deficits noted. Tuberculosis screening: No symptoms or risk factors identified. Fall Risk Fall in past 12 months (25 points). No secondary diagnosis (0 pts). IV access (20 points). Ambulatory Aid- None/Bed Rest/Nurse Assist (0 pts). Gait- Normal/Bed Rest/Wheelchair (0 pts) Mental Status- Overestimates/Forgets Limitations (15 pts.). Total Gonsalez Fall Scale indicates High Risk Score (45 or more points). Fall prevention measures have been instituted. Side Rails Up X 2 Placed Close to Nursing Station Frequent Obs/Assessments Occuring As available patient and family educated on Fall Prevention Program and Strategies. Assessment: 16:30 Reassessment: returned from CT. em 16:30 Reassessment: Patient appears in no apparent distress at this time. No changes from sv previously documented assessment. 17:23 Reassessment: Patient appears in no apparent distress at this time. Patient and/or em family updated on plan of care and expected duration. Pain level reassessed. pt resting with eyes closed, respirations even and unlabored, skin pink warm and dry. 18:15 Reassessment: Patient appears in no apparent distress at this time. Patient and/or em family updated on plan of care and expected duration. Pain level reassessed. pending transfer. 19:00 General: Appears uncomfortable, Behavior is calm, cooperative, appropriate for age. ea Pain: Denies pain. Neuro: Level of Consciousness is awake, Oriented to person. Cardiovascular: Patient's skin is warm and dry. Respiratory: Derm: Skin is pink, warm \T\ dry. 20:32 Reassessment: Pt resting with eyes closed, respirations even and unlabored. Pt responds ea to verbal stimulus, oriented to self. Respirations even and unlabored, chest expansion even and symmetrical. 21:18 Reassessment: Patient and/or family updated on plan of care and expected duration. Pain ea level reassessed. [facility] at facility for transfer. Pt alert and oriented to self. Respirations even and unlabored, chest expansions even and symmetrical. No s/s of pain or discomfort noted at this time. Pt left ED via stretcher per EMS. Pt tolerating well. Vital Signs: 15:02 BP 140 / 71; Pulse 86; Resp 15; Temp 98.2; Pulse Ox 100% ; Pain 0/10; sv 16:37 BP 139 / 49; Pulse 83; Resp 18; Pulse Ox 100% on R/A; em 17:25 BP 113 / 44; Pulse 79; Resp 15; Pulse Ox 99% on R/A; em 18:14 BP 132 / 57; Pulse 76; Resp 16; Pulse Ox 99% on R/A; em 19:00 BP 146 / 55; Pulse 86; Resp 15; Pulse Ox 100% ; ea 20:30 BP 134 / 57; Pulse 80; Resp 16; Pulse Ox 100% ; ea ED Course: 15:06 Patient arrived in ED. sv 15:07 Ramos Raymundo NP is PHCP. pm1 15:07 Deandre Haywood MD is Attending Physician. pm1 15:10 Patient has correct armband on for positive identification. Bed in low position. Call sv light in reach. Side rails up X2. threat monitoring analyst on. Pulse ox on. NIBP on. Door closed. Warm blanket given. Head of bed elevated. 15:15 First set of blood cultures drawn by me. Inserted saline lock: 22 gauge in right upper sv arm, using aseptic technique. Blood collected. Flushed right with 5 ml normal saline. 15:15 Arm band placed on. sv 15:27 Triage completed. ss 15:36 Guille Anton, RN is Primary Nurse. em 15:44 attempted straight cath pt did not produce any urine. due to pt being on dialysis pt kj1 unable to produce urine ,UNRULY Beasley notified. 15:53 Primary Nurse role handed off by Guille Anton, WHITNEY sv 15:53 Misti Baxter, RN is Primary Nurse. sv 15:53 Chest Single View XRAY In Process Unspecified. EDMS 16:19 CT Head Brain wo Cont In Process Unspecified. EDMS 16:19 CT Abd/Pelvis - Without Contrast In Process Unspecified. EDMS 16:24 Patient moved back from CT. sv 16:34 Inserted saline lock: 20 gauge in left antecubital area, using aseptic technique. Blood em collected. 16:34 Second set of blood cultures drawn by me. em 18:07 Knee Right 3 View XRAY In Process Unspecified. EDMS 18:08 Knee Left 3 View XRAY In Process Unspecified. EDMS 19:10 Primary Nurse role handed off by Misti Baxter, RN sv 19:51 Shonda Mckeon, RN is Primary Nurse. ea 21:21 No provider procedures requiring assistance completed. Patient transferred, IV remains ea in place. Administered Medications: 15:47 Drug: Rocephin 1 grams Route: IV; Rate: calculated rate; Site: right upper arm; sv 15:50 Follow up: Response: No adverse reaction; IV Status: Completed infusion; IV Intake: 10mlsv Intake: 15:50 IV: 10ml; Total: 10ml. sv Outcome: 17:57 ER care complete, transfer ordered by . pm1 20:20 Transferred Note: report called to WHITNEY ROB sg 21:21 Condition: stable ea 21:22 Patient left the ED. ea Signatures: Dispatcher [employer] Misti Leiva, RN Liborio Carlos RN Guille Aldana RN Kori Vilchis RN WHITNEY ss Ramos Raymundo, SOLUTION ARCHITECT SOLUTION ARCHITECT pm1 Shonda Mckeon RN RN ea Jackson, Kandis kj1
--- NOTE | 2019-07-21 17:58 | EDPHYS ---
Physician Documentation [facility] Name: Marquita Ramirez Age: 68 yrs Sex: Female : 1950 Arrival Date: 07/21/2019 Time: 15:06 Bed 5 Private MD: ED Physician Deandre Haywood HPI: 07/20 15:31 This 68 yrs old Female presents to ER via EMS with complaints of Altered pm1 Mental Status. 15:31 The patient presents with decreased mental status. Onset: The symptoms/episode pm1 began/occurred last night. Possible causes: possible urinary tract infection. Last time the patient had altered mental status about 1 month ago she had a urinary tract infection per daughter in law. Associated signs and symptoms: Pertinent negatives: Patient with no complaints yesterday or today per daughter in law. Patient's baseline: Neuro: Motor: no deficits, Ambulation: walks with assist only, uses walker, Patient is typically alert and orient x 3 with some short term memory issues per daughter in law. hospitalization about 1 month ago at [facility] for similar presentation and was diagnosed with UTI. No fever, cough, vomiting, diarrhea. Patient alert and oriented to person only. Information obtained from daughter in law. 16:05 daughter in law reports that patient with fall yesterday on to her knees resulting in pm1 bruising to knees bilaterally. Patient uses walker for ambulation. Historical: - Allergies: 16:38 No Known Allergies; sv - Home Meds: 16:38 Tylenol #3 1 tab TID prn Oral [Active]; allopurinol 100 mg Oral tab nightly [Active]; sv aspirin 81 mg Oral TbEC 1 tab once daily [Active]; bethanechol chloride 5 mg oral tab 3 times per day [Active]; bumetanide 2 mg Oral tab 1 tab 2 times per day [Active]; Plavix 75 mg Oral tab 1 tab once daily [Active]; Colace 100 mg oral cap 1 cap once daily [Active]; gabapentin 100 mg oral cap 2 caps 3 times per day [Active]; Protonix 40 mg Oral TbEC nightly [Active]; Pravachol 40 mg Oral tab 1 tab nightly [Active]; Renvela 800 mg oral tab 4 tabs 3 times per day [Active]; Vitqamin B1 1 tab daily [Active]; Dialy-kp 1 tab daily [Active]; Probiotics [Active]; calcitriol oral oral every other day [Active]; Vitamin D2 50,000 units a week for 12 weeks [Active]; Vitamin D3 50,000 units a month [Active]; midodrine 2.5 mg oral tab 2 tabs BID [Active]; alprazolam 0.25 mg Oral tab daily prn [Active]; hydroxyzine HCl 25 mg Oral tab BID prn [Active]; Zofran 4mg QID prn [Active]; Baclofen Oral bedtime prn [Active]; - PMHx: 16:38 Peritoneal dialysis; sv - Immunization history:: Adult Immunizations up to date. - Social history:: Smoking status: Patient denies any tobacco usage or history of. ROS: 15:39 Unable to obtain ROS due to altered mental status. pm1 16:05 Constitutional: Negative for fever, chills, and weight loss, Cardiovascular: Negative pm1 for chest pain, palpitations, and edema, Respiratory: Negative for shortness of breath, cough, wheezing, and pleuritic chest pain, Abdomen/GI: Negative for abdominal pain, nausea, vomiting, diarrhea, and constipation, Back: Negative for injury and pain. 16:05 : Negative for injury, bleeding, discharge, and swelling, MS/Extremity: Negative for injury and deformity. 16:05 Neuro: Positive for altered mental status, information obtained from daughter in law in the waiting room since patient alert only to name. Exam: 16:05 Head/Face: Normocephalic, atraumatic. pm1 16:05 Neck: Trachea midline, no thyromegaly or masses palpated, and no cervical lymphadenopathy. Supple, full range of motion without nuchal rigidity, or vertebral point tenderness. No Meningismus. Chest/axilla: Normal chest wall appearance and motion. Nontender with no deformity. No lesions are appreciated. 16:05 Back: No spinal tenderness. No costovertebral tenderness. Full range of motion. 16:05 MS/ Extremity: Pulses equal, no cyanosis. Neurovascular intact. Full, normal range of motion. 16:05 Constitutional: The patient appears in no acute distress, non-diaphoretic, non-toxic, well developed, well hydrated, well groomed, well nourished. 16:05 Cardiovascular: Rate: normal, Rhythm: regular, Pulses: no pulse deficits are appreciated, Edema: is not appreciated. 16:05 Respiratory: Exam negative for acute changes, respiratory distress, shortness of breath. 16:05 Abdomen/GI: Inspection: obese no signs of cellulitis or infection around peritoneal dialysis catheter, Palpation: abdomen is soft and non-tender, in all quadrants, mass, is not appreciated, rebound tenderness, is not appreciated. 16:05 Skin: Appearance: normal except for affected area, ecchymosis, noted on the, right knee and left knee, that are mild. 16:05 Neuro: Orientation: to person, Motor: moves all fours. Vital Signs: 15:02 BP 140 / 71; Pulse 86; Resp 15; Temp 98.2; Pulse Ox 100% ; Pain 0/10; sv 16:37 BP 139 / 49; Pulse 83; Resp 18; Pulse Ox 100% on R/A; em 17:25 BP 113 / 44; Pulse 79; Resp 15; Pulse Ox 99% on R/A; em 18:14 BP 132 / 57; Pulse 76; Resp 16; Pulse Ox 99% on R/A; em 19:00 BP 146 / 55; Pulse 86; Resp 15; Pulse Ox 100% ; ea 20:30 BP 134 / 57; Pulse 80; Resp 16; Pulse Ox 100% ; ea MDM: 15:17 Patient medically screened. pm1 17:05 ED course: Daughter in law reports that the was no complaints of any abdominal pain pm1 today or yesterday. She ate breakfast today without any issues. 17:07 Data reviewed: vital signs. Data interpreted: Pulse oximetry: on room air is 100 %. pm1 Interpretation: normal. 17:52 Physician consultation: Maki Sams MD was called at 17:20, was contacted at 17:52, pm1 regarding consult, patient's condition, after a discussion of the case, a recommendation for transfer due to peritoneal dialysis. He would like [facility] and would see her there if she is able to be transferred there. 18:00 Counseling: I had a detailed discussion with the patient and/or guardian regarding: the pm1 historical points, exam findings, and any diagnostic results supporting the discharge/admit diagnosis, lab results, radiology results, the need to transfer to another facility, discussed with daughter in law discussion with her loan and credit manager and recommendation for transfer. 19:35 Physician consultation: MD Tierney Accepted to [facility] without MD to pmVictor M report. 07/20 15:21 Order name: Amylase, Serum; Complete Time: 16:29 pm07/20 15:21 Order name: Basic Metabolic Panel; Complete Time: 16:29 pm07/20 15:21 Order name: Blood Culture Adult (2) pm1 07/20 15:21 Order name: CBC with Diff; Complete Time: 15:54 pm07/20 15:21 Order name: Ckmb; Complete Time: 16:29 pm07/20 15:21 Order name: CPK; Complete Time: 16:29 pm07/20 15:21 Order name: Lactate; Complete Time: 16:06 pm07/20 15:21 Order name: LFT's; Complete Time: 16:29 pm07/20 15:21 Order name: Lipase; Complete Time: 16:29 pm07/20 15:21 Order name: Procalcitonin; Complete Time: 16:51 pm07/20 15:21 Order name: Protime (+inr); Complete Time: 16:06 pm07/20 15:21 Order name: Ptt, Activated; Complete Time: 16:06 pm07/20 15:21 Order name: Troponin (emerg Dept Use Only); Complete Time: 16:29 pm07/20 15:21 Order name: CT Head Brain wo Cont; Complete Time: 16:29 pm07/20 15:21 Order name: Chest Single View XRAY; Complete Time: 16:50 pm07/20 15:21 Order name: Accucheck; Complete Time: 15:48 pm07/20 15:21 Order name: Cardiac monitoring; Complete Time: 15:48 pm07/20 15:21 Order name: EKG - Nurse/Tech; Complete Time: 15:48 pm07/20 15:21 Order name: IV Saline Lock - Large Bore; Complete Time: 15:48 pm07/20 15:21 Order name: Labs collected and sent; Complete Time: 15:48 pm1 07/20 15:21 Order name: O2 Per Protocol; Complete Time: 15:48 pm07/20 15:21 Order name: O2 Sat Monitoring; Complete Time: 15:48 pm07/20 15:21 Order name: AMMONIA; Complete Time: 16:06 pm1 07/20 15:21 Order name: CT Abd/Pelvis - Without Contrast; Complete Time: 16:50 pm1 07/20 15:43 Order name: Glucose, Ancillary Testing; Complete Time: 15:54 EDMS 07/20 17:33 Order name: Knee Right 3 View XRAY; Complete Time: 18:33 pm1 07/20 17:33 Order name: Knee Left 3 View XRAY; Complete Time: 18:33 pm1 Administered Medications: 15:47 Drug: Rocephin 1 grams Route: IV; Rate: calculated rate; Site: right upper arm; sv 15:50 Follow up: Response: No adverse reaction; IV Status: Completed infusion; IV Intake: 10mlsv Disposition: 07/21/19 17:57 Transfer ordered to Other Acute Care Facility. Diagnosis are Altered mental status, unspecified, End stage renal disease - peritoneal dialysis. - Reason for transfer: Higher level of care. - Accepting physician is Jain [place]. - Condition is Stable. - Problem is new. - Symptoms are unchanged. Signatures: Dispatcher [employer] [facility] Misti Baxter RN RN Ramos Pat, [place] VICE PRESIDENT OF OPERATIONS pm1 Shonda Mckeon RN RN ea Corrections: (The following items were deleted from the chart) 21:22 17:57 07/21/2019 17:57 Transfer ordered to Other Acute Care Facility. Diagnosis is ea Altered mental status, unspecified; End stage renal disease - peritoneal dialysis. Reason for transfer: Higher level of care. Accepting physician is Jain [place]. Condition is Stable. Problem is new. Symptoms are unchanged. pm1
--- NOTE | 2019-07-21 18:28 | RAD REPORT ---
EXAM DESCRIPTION: RAD - Knee Left 3 View - 07/21/2019 6:08 pm CLINICAL HISTORY: Left knee pain FINDINGS: No fracture or dislocation is seen. The bones are osteoporotic. Vascular calcifications are present. Mild joint space narrowing
--- NOTE | 2019-07-21 18:28 | RAD REPORT ---
EXAM DESCRIPTION: RAD - Knee Right 3 View - 07/21/2019 6:08 pm CLINICAL HISTORY: Right knee pain FINDINGS: No fracture or dislocation is seen. Osteoporosis. Vascular calcifications. Mild joint space narrowing
[2019-07-21 21:35] VITALS: O2SAT 100
[2019-07-21 21:36] VITALS: BP 134/57
--- NOTE | 2019-07-22 16:18 | EKG ---
Test Date: 2019-07-21 Test Time: 15:17:03 Mechanical Development Engineer: MARK MEASUREMENT RESULTS: Intervals: Rate: 87 WI: 108 QRSD: 76 QT: 350 QTc: 421 [place]: P: 91 WI: 108 QRS: 32 T: -7 INTERPRETIVE STATEMENTS: Sinus rhythm with short [place] Otherwise normal ECG No previous ECG available for comparison Electronically Signed On 07-22-19 16:16:23 CDT by Farzad Gu
== END 2019-07-21 21:22 ==
LOC: ER 15:05
DX: N18.6 End stage renal disease (principal); W19.XXXA Unspecified fall, initial encounter; Y93.89 Activity, other specified; Y92.9 Unspecified place or not applicable; Z99.2 Dependence on renal dialysis; Z79.01 Long term (current) use of anticoagulants; Z79.82 Long term (current) use of aspirin
CPT/HCPCS: 93005; 87040 ×2; 85025; 80048; 36415; 82140; 82150; 82550; 85610; 82947; 80076; 83605; 85730; 84484; 82553; 83690; 84145; 70450; 74176; 71045; 73562 ×2; J0696; 96374; 99285

== ENCOUNTER 2020-01-07 12:01 | Day surgery (SDC) | payer OTHER, BC ==
--- OUTSIDE RECORDS SUMMARY | 2020-01-07 12:06 | XMS REPORT | Clinical Summary ---
:1950 Author Organization [facility] Address [address] [place] [address] Care Team Providers Name Role Phone Justyn Hernandez MD Primary Care Provider Allergies Active Allergy Reactions Severity Noted Date Comments Glycopyrrolate Anxiety Low 04/07/2017 Medications Medication Sig Dispensed Refills Start End Status Date Date allopurinol (ZYLOPRIM) Take 100 mg by 0 Active 100 MG tablet mouth nightly. nebivolol (BYSTOLIC) 5 Take 5 mg by 0 Active MG tablet mouth every evening. insulin ASPART Inject 10-16 0 Ac tive (NovoLOG) 100 unit/mL Units under injection the skin 3 (three) times a day before meals. Per Sliding Scale acetaminophen-codeine Take 1 tablet 0 Active (TYLENOL WITH CODEINE by mouth daily #3) 300-30 mg per as needed for tablet moderate pain. pantoprazole Take 40 mg by 0 Act veena (PROTONIX) 40 MG EC mouth nightly. tablet docusate sodium Take 100 mg by 0 Active (COLACE) 100 MG mouth daily. capsule clopidogrel (PLAVIX) Take 75 mg by 0 Active 75 mg tablet mouth daily. MACK-ANTON RX 1-60-300 Take 1 tablet 3 Active mg-mg-mcg tablet by mouth daily. lansoprazole Take 15 mg by 0 Act veena (PREVACID) 15 MG mouth nightly. capsule aspirin (ECOTRIN) 81 Take 81 mg by 0 Active MG enteric coated mouth daily. tablet calcium carbonate Chew 1 tablet 0 Active (TUMS) 200 mg calcium 4 (four) times (500 mg) chewable a day as tablet needed for indigestion or heartburn. thiamine mononitrate, Take 100 mg by 0 Active vit B1, (B-1) 100 mg mouth daily. tablet bethanechol Take 5 mg by 0 Activ e (URECHOLINE) 5 MG mouth 3 tablet (three) times a day. gabapentin (NEURONTIN) Take 200 mg by 0 Active 100 mg capsule mouth 3 (three) times a day. sevelamer (RENVELA) Take 800 mg by 0 Active 800 mg tablet mouth 3 (three) times a day with meals. vit B complex-vitamin Take 1 tablet 0 Active C-folic acid by mouth (NEPHRO-ANTON OTC) 0.8 daily. mg tablet CALCITRIOL ORAL Take by mouth. 0 Active ergocalciferol Take 50,000 0 Act veena (VITAMIN D2) 50,000 Units by mouth unit capsule once a week. cholecalciferol, Take 50,000 0 A ctive vitamin D3, (VITAMIN Units by mouth D3 ORAL) every 30 (thirty) days. midodrine (PROAMATINE) Take 2.5 mg by 0 Active 2.5 MG tablet mouth 2 (two) times a day. ALPRAZolam (XANAX) Take 0.25 mg 0 Active 0.25 MG tablet by mouth daily as needed for anxiety. hydrOXYzine (VISTARIL) Take 25 mg by 0 Active 25 MG capsule mouth 2 (two) times a day as needed for itching. ondansetron (ZOFRAN) 4 Take 4 mg by 0 Active MG tablet mouth 4 (four) times a day as needed for nausea or vomiting. BACLOFEN ORAL Take by mouth 0 Ac tive nightly as needed. insulin degludec Inject 22 0 Act veena (Tresiba FlexTouch Units under U-100) 100 unit/mL (3 the skin mL) insulin pen nightly. pravastatin Take 1 tablet 30 tablet 0 10/22/19 Acti ve (PRAVACHOL) 40 mg (40 mg total) 20 tablet by mouth nightly. calcitriol (ROCALTROL) Take 0.25 mcg 0 05/12 Discontinued 0.25 MCG capsule by mouth 020 (St op Taking at daily. Discharge) pregabalin (LYRICA) 75 Take 75 mg by 0 05/12 Discontinued MG capsule mouth nightly. 020 (Sto p Taking at Discharge) sevelamer (RENVELA) Take 2,400 mg 0 Discontinued 800 mg tablet by mouth 3 020 (Stop Taking at (three) times Discha rge) a day with meals. insulin degludec Inject 42 0 Dis continued (TRESIBA FLEXTOUCH Units under 020 (Stop Taking at U-100) 100 unit/mL (3 the skin Discharge) mL) insulin pen nightly. lisinopril Take 20 mg by 0 Disco ntinued (PRINIVIL,ZESTRIL) 20 mouth every 019 (Med List mg tablet morning. Cleanup) metoclopramide Take 5 mg by 0 Di scontinued (REGLAN) 5 MG tablet mouth 4 (four) 019 (Med List times a day. Cleanup ) BISACODYL ORAL Take 1 tablet 0 D iscontinued by mouth 019 (Med List daily. Cleanup) ergocalciferol Take 50,000 0 Dis continued (VITAMIN D2) 50,000 Units by mouth 020 (Med List unit capsule once a week. ( Cl eanup) Monday ) ALPRAZolam (XANAX) Take 0.25 mg 3 Discontinued 0.25 MG tablet by mouth 020 (Stop Taking at nightly as Discharge ) needed. CONTOUR NEXT TEST CHECK BLOOD 3 12/05/19 Discontinued STRIPS strip test SUGAR TID 18 019 (M ed List strips Cleanup) AURYXIA 210 mg iron 0 11/30/19 Discontinued tablet 18 019 (Med List Cleanup) gentamicin (GARAMYCIN) Apply 1 3 Discontinued 0.1 % cream application 020 (Stop Taking at topically Discharge) daily. With each dressing change. FREESTYLE 28 gauge USE 3 12/04/19 D iscontinued lancets DIRECTED UP TO 18 019 (Med List TID. Cleanup) BD ULTRA-FINE MINI PEN USE 3 12/02/19 Discontinued NEEDLE 31 gauge x DIRECTED QID 18 019 (Med List 06/23" needle WITH LANTUS Clean up) AND NOVOLOG. amLODIPine (NORVASC) Take 10 mg by 0 02/26 Discontinued 10 mg tablet mouth daily. 019 (Med List Cleanup) pravastatin Take 1 tablet 90 tablet 2 01/24/20 Disc ontinued (PRAVACHOL) 40 MG (40 mg total) 18 020 (Reorder) tablet by mouth nightly. furosemide (LASIX) 80 Take 80 mg by 0 05/12 Discontinued mg tablet mouth every 020 (Stop Ta maynor at morning. Discharge) thiamine mononitrate, Take 0.5 15 tablet 0 02/29/20 Discontinued vit B1, (B-1) 100 mg tablets (50 mg 19 019 tablet total) by mouth daily for 30 days. thiamine mononitrate, Take 0.5 15 tablet 0 02/29/20 vit B1, (B-1) 100 mg tablets (50 mg 19 019 tablet total) by mouth daily for 30 days. methylPREDNISolone Take 1 tablet 30 tablet 0 02/28/20 (MEDROL) 4 MG tablet (4 mg total) 19 019 by mouth Medrol Dose Pack Scheduling ONLY for 30 days. methylPREDNISolone Take 1 tablet 90 tablet 0 02/29/20 (MEDROL) 4 MG tablet (4 mg total) 19 019 by mouth 3 times daily around food for 30 days. methylPREDNISolone Take 1 tablet 70 tablet 0 03/01/20 (MEDROL) 4 MG tablet (4 mg total) 19 019 by mouth 4 times daily tapering for 30 days. methylPREDNISolone Take 1 tablet 30 tablet 0 02/28/20 (MEDROL) 8 MG tablet (8 mg total) 19 019 by mouth nightly - one time for 30 days. methylPREDNISolone Take 1 tablet 30 tablet 0 02/29/20 (MEDROL) 8 MG tablet (8 mg total) 19 019 by mouth nightly - one time for 30 days. cholecalciferol, Take 50,000 0 D iscontinued vitamin D3, 1,250 mcg Units by mouth 020 (Stop Taking at (50,000 unit) capsule every 30 Discharge) (thirty) days. First of month levETIRAcetam (KEPPRA) Take 250 mg by 0 Discontinued 250 MG tablet mouth nightly. 020 ALPRAZolam (XANAX) Take 1 tablet 0 05/12/19 0.25 MG tablet (0.25 mg 20 020 total) by mouth 2 (two) times a day as needed for anxiety for up to 14 days. furosemide (LASIX) 40 Take 3 tablets 42 tablet 0 05/13/1927/05 mg tablet (120 mg total) 20 020 by mouth every morning for 14 days. insulin GLARGINE Inject 10 10 mL 11 05/12/19 Exp ired (LANTUS) 100 unit/mL Units under 20 020 injection (vial) the skin nightly for 30 days. pregabalin (LYRICA) 25 Take 1 capsule 0 05/12/19 MG capsule (25 mg total) 20 020 by mouth nightly for 30 days. sevelamer (RENVELA) Take 4 tablets 360 tablet 0 05/12/1906/09 800 mg tablet (3,200 mg 20 020 total) by mouth 3 (three) times a day with meals for 30 days. hydrOXYzine (ATARAX) Take 1 tablet 0 05/12/1905/19 25 MG tablet (25 mg total) 20 020 by mouth every 8 (eight) hours as needed for itching for up to 7 days. levoFLOXacin Take 1 tablet 7 tablet 0 05/12/19 Exp ired (LEVAQUIN) 250 MG (250 mg total) 20 020 tablet by mouth every other day for 15 days. BUMETanide (BUMEX) 2 Take 2 mg by 0 Discontinued MG tablet mouth 2 (two) 020 (Stop Taking at times a day. Dischar ge) amoxicillin (AMOXIL) Take 1 capsule 5 capsule 0 08/01/19/ 8 500 MG capsule (500 mg total) 20 020 by mouth daily for 5 days. acetaminophen-codeine Take 1 tablet 15 tablet 0 07/31/1907/10 7 (TYLENOL WITH CODEINE by mouth every 20 020 #3) 300-30 mg per 6 (six) hours tabletIndications: as needed for acute pain moderate pain for up to 5 days .acute pain. Active Problems Patient Care Coordination Note CENTERHOLD - RECURRING UTI. Consents signed: HBV+ & KDPI> 85% Don ors (scanned into Media) Problem Noted Date Toxic metabolic encephalopathy 07/25/2019 ESRD on peritoneal dialysis 07/25/2019 Chronic hypotension 07/25/2019 Acute cystitis without hematuria 07/25/2019 Fever 07/22/2019 Left-sided weakness 02/26/2019 Dyslipidemia 11/02/2017 Hospital discharge follow-up 11/01/2017 S/P coronary angioplasty 11/01/2017 Weakness 09/19/2017 Long-term insulin use in type 2 diabetes 05/19/2017 Encounters Date Type Specialty Care Team Description 12/17/2019 Lab Franko Yancey MD 11/20/2019 Refill Cardiology Edin Rojas, Med Refill 10/28/2019 Lab Franko Yancey MD 10/22/2019 Refill Cardiology Edin Rojas, Med Refill 10/22/2019 Refill Cardiology Mila, Med Refill REGGIE Wahl 08/22/2019 Lab Franko Yancey MD 08/22/2019 Travel 08/01/2019 Telephone Urology Lisa Rodriguez MA 08/01/2019 Travel 07/31/2019 Documentation Transplant Oralia Torres, WHITNEY 07/21/2019 - Hospital Encounter General Internal Tierney, Acute cystitis without 07/31/2019 Medicine MD Nancy hematuria (Primary Dx) Marquez Montes MD 07/21/2019 Travel 07/15/2019 Lab Franko Yancey MD 07/15/2019 Travel 06/18/2019 Abstract Transplant Mildred Alexandra, WHITNEY 06/14/2019 Lab Franko Yancey MD 05/09/2019 - Emergency General Internal Guharoy, Encephalopa thy (Primary Dx); 05/12/2019 Medicine Malik Cronin MD Weakness; Kev, Salman Urinary tract i nfection without hematuria, site unspecified; MD Trudy Tremors of nerv ous system; Falls frequentl y; ESRD on periton eal dialysis (HCC) 05/01/2019 Lab Franko Yancey MD 03/27/2019 Lab Franko Yancey MD 02/25/2019 - Hospital Encounter General Internal Marj, Left- sided weakness (Primary Dx); 02/27/2019 Medicine Jennifer Hyperkalemia DO Yogi Zaragoza Asma Fazal, MD Patel, Ruchita, MD 02/21/2019 Lab Lab Franko Albrecht MD 01/17/2019 Lab Lab Franko Albrecht MD after 01/06/2019 Family History Medical History Relation Name Comments Cancer Father Hypertension Father Cancer Mother Relation Name Status Comments Father Mother Social History Tobacco Use Types Packs/Day Years Used Date Never Smoker Smokeless Tobacco: Never Used Tobacco Cessation: Counseling Given: No Alcohol Use Drinks/Week oz/Week Comments No Sex Assigned at Date Recorded Not on file Last Filed Vital Signs Vital Sign Reading Time Taken Comments Blood Pressure 128/59 07/31/2019 4:03 PM CDT Pulse 102 07/31/2019 4:03 PM CDT Temperature 36.2 C (97.2 F) 07/31/2019 12:03 PM CDT Respiratory Rate 16 07/31/2019 4:03 PM CDT Oxygen Saturation 95% 07/31/2019 4:03 PM CDT Inhaled Oxygen Concentration - - Weight 79.2 kg (174 lb 8 oz) 07/31/2019 4:58 AM CDT Height 162.6 cm (5' 4") 07/26/2019 2:46 PM CDT Body Mass Index 29.95 07/26/2019 2:46 PM CDT Plan of Treatment Health Maintenance Due Date Last Done Comments DIABETIC RETINAL EYE EXAM 1950 DIABETIC FOOT EXAM 08/12/1959 COLONOSCOPY SCREENING 08/12/1999 SHINGLES VACCINES (#1) 08/12/1999 65+ PNEUMOCOCCAL VACCINE (1 of 1 - PPSV23) 2014 INFLUENZA VACCINE 11/09/2019 BREAST CANCER SCREENING 01/12/2020 01/11/2018, 01/11/2018 Implants Implanted Type Area Crime Prevention Worker Device Shelf Model / Identifier Expiration Serial / Lot Date Stent Cornorary Syst Synergy (Mr) 2.50mm X 16mm - [id number] Coronary N/A: BSC 07/17/2018 [id number] / Implanted: Qty: 1 on 09/25/2017 by Jaswant Madrigal MD at [facility] Stents N/A INTERVENTIONAL / CARDIOLOGY [id number] Catheter Pd [place] Curl Cath 2cuff 15fr 62.5cm - [id number] Impla ntable N/A: FEDERICO 07/20/2021 [id number] / Implanted: Qty: 1 on 04/14/2017 by Esteban Rodrigues MD at [facility] Infusion Ports N/A INSTRUMENT CO / or Accessories [id number] Catheter Cv Powerline Dlmn Al 6fr - [id number] Surgical N/A: BARD ACCESS 12/08/2021 [id number] / Implanted: 09/22/2017 at [facility] (Quantity not on file) Im plants; N/A SYSTEMS / Expanders; [id number] Extenders; Surgical Wires Additional Caridac Stents (1.5t Only [facility]) Description:no documents. 1.5T only in [facility] Urinary Stent (2017) 1.5t Only ([facility]) Description:Urinary Stent (2016). NO do cuments. 1.5T only ([facility] practice) Procedures Procedure Name Priority Date/Time Associated Comments Diagnosis SINGLE ANTIGEN BEADS Routine 10/24/2019 6:00 Res ults for this PM CDT procedure are i n the results section. POC GLUCOSE Routine 07/31/2019 5:01 Results for this PM CDT procedure are i n the results section. POC GLUCOSE Routine 07/31/2019 12:05 Results for this PM CDT procedure are i n the results section. POC GLUCOSE Routine 07/31/2019 8:04 Results for this AM CDT procedure are i n the results section. POC GLUCOSE Routine 07/30/2019 8:43 Results for this PM CDT procedure are i n the results section. POC GLUCOSE Routine 07/30/2019 4:05 Results for this PM CDT procedure are i n the results section. POC GLUCOSE Routine 07/30/2019 11:36 Results for this AM CDT procedure are i n the results section. POC GLUCOSE Routine 07/30/2019 8:04 Results for this AM CDT procedure are i n the results section. ESTIMATED GFR Routine 07/30/2019 4:30 Results fo r this AM CDT procedure are i n the results section. HC COMPLETE BLD COUNT Routine 07/30/2019 4:30 Re sults for this W/AUTO DIFF AM CDT procedure are i n the results section. COMPREHENSIVE METABOLIC Routine 07/30/2019 4:30 Results for this PANEL AM CDT procedure are i n the results section. POC GLUCOSE Routine 07/29/2019 9:17 Results for this PM CDT procedure are i n the results section. POC GLUCOSE Routine 07/29/2019 6:01 Results for this PM CDT procedure are i n the results section. POC GLUCOSE Routine 07/29/2019 4:57 Results for this PM CDT procedure are i n the results section. POC GLUCOSE Routine 07/29/2019 12:45 Results for this PM CDT procedure are i n the results section. POC GLUCOSE Routine 07/29/2019 7:56 Results for this AM CDT procedure are i n the results section. SMEAR REVIEW Routine 07/29/2019 7:45 Results for this AM CDT procedure are i n the results section. ESTIMATED GFR Routine 07/29/2019 7:45 Results fo r this AM CDT procedure are i n the results section. HC COMPLETE BLD COUNT Routine 07/29/2019 7:45 Re sults for this W/AUTO DIFF AM CDT procedure are i n the results section. COMPREHENSIVE METABOLIC Routine 07/29/2019 7:45 Results for this PANEL AM CDT procedure are i n the results section. POC GLUCOSE Routine 07/28/2019 8:59 Results for this PM CDT procedure are i n the results section. POC GLUCOSE Routine 07/28/2019 4:54 Results for this PM CDT procedure are i n the results section. CT HEAD WO CONTRAST Routine 07/28/2019 2:00 Resu lts for this PM CDT procedure are i n the results section. POC GLUCOSE Routine 07/28/2019 1:39 Results for this PM CDT procedure are i n the results section. ARTERIAL BLOOD GAS Routine 07/28/2019 1:27 Resul ts for this PM CDT procedure are i n the results section. AMMONIA LEVEL Routine 07/28/2019 1:12 Results fo r this PM CDT procedure are i n the results section. POC GLUCOSE Routine 07/28/2019 12:07 Results for this PM CDT procedure are i n the results section. POC GLUCOSE Routine 07/28/2019 7:29 Results for this AM CDT procedure are i n the results section. ESTIMATED GFR Routine 07/28/2019 6:45 Results fo r this AM CDT procedure are i n the results section. HC COMPLETE BLD COUNT Routine 07/28/2019 6:45 Re sults for this W/AUTO DIFF AM CDT procedure are i n the results section. COMPREHENSIVE METABOLIC Routine 07/28/2019 6:45 Results for this PANEL AM CDT procedure are i n the results section. POC GLUCOSE Routine 07/27/2019 8:37 Results for this PM CDT procedure are i n the results section. POC GLUCOSE Routine 07/27/2019 5:41 Results for this PM CDT procedure are i n the results section. POC GLUCOSE Routine 07/27/2019 12:40 Results for this PM CDT procedure are i n the results section. POC GLUCOSE Routine 07/27/2019 8:19 Results for this AM CDT procedure are i n the results section. ESTIMATED GFR Routine 07/27/2019 6:00 Results fo r this AM CDT procedure are i n the results section. COMPREHENSIVE METABOLIC Routine 07/27/2019 6:00 Results for this PANEL AM CDT procedure are i n the results section. HC COMPLETE BLD COUNT Routine 07/27/2019 6:00 Re sults for this W/AUTO DIFF AM CDT procedure are i n the results section. POC GLUCOSE Routine 07/26/2019 8:42 Results for this PM CDT procedure are i n the results section. POC GLUCOSE Routine 07/26/2019 4:18 Results for this PM CDT procedure are i n the results section. XR FOOT 3+ VW LEFT Routine 07/26/2019 2:44 Resul ts for this PM CDT procedure are i n the results section. POC GLUCOSE Routine 07/26/2019 11:42 Results for this AM CDT procedure are i n the results section. POC GLUCOSE Routine 07/26/2019 7:28 Results for this AM CDT procedure are i n the results section. ESTIMATED GFR Routine 07/26/2019 5:30 Results fo r this AM CDT procedure are i n the results section. HC COMPLETE BLD COUNT Routine 07/26/2019 5:30 Re sults for this W/AUTO DIFF AM CDT procedure are i n the results section. BASIC METABOLIC PANEL Routine 07/26/2019 5:30 Re sults for this AM CDT procedure are i n the results section. POC GLUCOSE Routine 07/25/2019 8:42 Results for this PM CDT procedure are i n the results section. POC GLUCOSE Routine 07/25/2019 4:35 Results for this PM CDT procedure are i n the results section. XR KNEE 1 OR 2 VW LEFT Routine 07/25/2019 3:40 R esults for this PM CDT procedure are i n the results section. XR TIBIA FIBULA 2 VW Routine 07/25/2019 3:39 Res ults for this LEFT PM CDT procedure are i n the results section. US DUPLEX VENOUS LOWER Routine 07/25/2019 3:17 R esults for this EXTREMITY LEFT PM CDT procedure are in the results section. POC GLUCOSE Routine 07/25/2019 12:39 Results for this PM CDT procedure are i n the results section. POC GLUCOSE Routine 07/25/2019 7:55 Results for this AM CDT procedure are i n the results section. ESTIMATED GFR Routine 07/25/2019 5:00 Results fo r this AM CDT procedure are i n the results section. BASIC METABOLIC PANEL Routine 07/25/2019 5:00 Re sults for this AM CDT procedure are i n the results section. POC GLUCOSE Routine 07/24/2019 8:47 Results for this PM CDT procedure are i n the results section. POC GLUCOSE Routine 07/24/2019 4:42 Results for this PM CDT procedure are i n the results section. URINE CULTURE Routine 07/24/2019 4:36 Results fo r this PM CDT procedure are i n the results section. URINALYSIS SCREEN AND Routine 07/24/2019 3:55 Re sults for this MICROSCOPY, WITH REFLEX PM CDT proc edure are in TO CULTURE the results section. POC GLUCOSE Routine 07/24/2019 12:27 Results for this PM CDT procedure are i n the results section. MRI BRAIN WO CONTRAST Routine 07/24/2019 11:53 Re sults for this AM CDT procedure are i n the results section. POC GLUCOSE Routine 07/24/2019 8:20 Results for this AM CDT procedure are i n the results section. SMEAR REVIEW Routine 07/24/2019 5:45 Results for this AM CDT procedure are i n the results section. ESTIMATED GFR Routine 07/24/2019 5:45 Results fo r this AM CDT procedure are i n the results section. COMPREHENSIVE METABOLIC Routine 07/24/2019 5:45 Results for this PANEL AM CDT procedure are i n the results section. HC COMPLETE BLD COUNT Routine 07/24/2019 5:45 Re sults for this W/AUTO DIFF AM CDT procedure are i n the results section. POC GLUCOSE Routine 07/23/2019 9:44 Results for this PM CDT procedure are i n the results section. POC GLUCOSE Routine 07/23/2019 3:59 Results for this PM CDT procedure are i n the results section. POC GLUCOSE Routine 07/23/2019 11:42 Results for this AM CDT procedure are i n the results section. URINE CULTURE Routine 07/23/2019 11:36 Results fo r this AM CDT procedure are i n the results section. URINALYSIS SCREEN AND Routine 07/23/2019 11:10 Re sults for this MICROSCOPY, WITH REFLEX AM CDT proc edure are in TO CULTURE the results section. PHOSPHORUS LEVEL Routine 07/23/2019 9:29 Results for this AM CDT procedure are i n the results section. CT HEAD WO CONTRAST Routine 07/23/2019 9:14 Resu lts for this AM CDT procedure are i n the results section. CT ABDOMEN PELVIS WO Routine 07/23/2019 9:13 Res ults for this CONTRAST AM CDT procedure are i n the results section. POC GLUCOSE Routine 07/23/2019 8:01 Results for this AM CDT procedure are i n the results section. POC GLUCOSE Routine 07/23/2019 5:41 Results for this AM CDT procedure are i n the results section. POC GLUCOSE Routine 07/22/2019 11:13 Results for this PM CDT procedure are i n the results section. POC GLUCOSE Routine 07/22/2019 10:08 Results for this PM CDT procedure are i n the results section. POC GLUCOSE Routine 07/22/2019 8:59 Results for this PM CDT procedure are i n the results section. POC GLUCOSE Routine 07/22/2019 6:37 Results for this PM CDT procedure are i n the results section. EEG SLEEP/COMA Routine 07/22/2019 5:25 Results f or this PM CDT procedure are i n the results section. HEPATITIS B SURFACE AB, Routine 07/22/2019 1:10 Results for this QUANTITATIVE PM CDT procedure are i n the results section. HEPATITIS B SURFACE Routine 07/22/2019 1:10 Resu lts for this ANTIGEN PM CDT procedure are i n the results section. VENOUS BLOOD GAS Routine 07/22/2019 1:10 Results for this PM CDT procedure are i n the results section. AMMONIA LEVEL Routine 07/22/2019 1:10 Results fo r this PM CDT procedure are i n the results section. BLOOD CULTURE, AEROBIC Routine 07/22/2019 1:10 R esults for this & ANAEROBIC PM CDT procedure are i n the results section. BLOOD CULTURE, AEROBIC Routine 07/22/2019 1:10 R esults for this & ANAEROBIC PM CDT procedure are i n the results section. XR CHEST 1 VW PORTABLE Routine 07/22/2019 12:06 R esults for this PM CDT procedure are i n the results section. POC GLUCOSE Routine 07/22/2019 12:02 Results for this PM CDT procedure are i n the results section. POC GLUCOSE Routine 07/22/2019 9:20 Results for this AM CDT procedure are i n the results section. ESTIMATED GFR Routine 07/22/2019 4:53 Results fo r this AM CDT procedure are i n the results section. COMPREHENSIVE METABOLIC Routine 07/22/2019 4:53 Results for this PANEL AM CDT procedure are i n the results section. HC COMPLETE BLD COUNT Routine 07/22/2019 4:53 Re sults for this W/AUTO DIFF AM CDT procedure are i n the results section. COVID-19 QUALITATIVE Routine 07/22/2019 12:45 Res ults for this PCR AM CDT procedure are i n the results section. SINGLE ANTIGEN BEADS Routine 06/11/2019 1:27 Res ults for this PM EAR MACHINE OPERATOR procedure are i n the results section. POC GLUCOSE Routine 05/12/2019 12:58 Results for this PM EAR MACHINE OPERATOR procedure are i n the results section. POC GLUCOSE Routine 05/12/2019 7:07 Results for this AM EAR MACHINE OPERATOR procedure are i n the results section. ESTIMATED GFR Routine 05/12/2019 5:30 Results fo r this AM EAR MACHINE OPERATOR procedure are i n the results section. BASIC METABOLIC PANEL Routine 05/12/2019 5:30 Re sults for this AM EAR MACHINE OPERATOR procedure are i n the results section. HC COMPLETE BLD COUNT Routine 05/12/2019 5:30 Re sults for this W/AUTO DIFF AM EAR MACHINE OPERATOR procedure are i n the results section. PHOSPHORUS LEVEL Routine 05/12/2019 5:30 Results for this AM EAR MACHINE OPERATOR procedure are i n the results section. POC GLUCOSE Routine 05/11/2019 8:41 Results for this PM EAR MACHINE OPERATOR procedure are i n the results section. ESTIMATED GFR STAT 05/11/2019 6:30 Results fo r this PM EAR MACHINE OPERATOR procedure are i n the results section. BASIC METABOLIC PANEL STAT 05/11/2019 6:30 Re sults for this PM EAR MACHINE OPERATOR procedure are i n the results section. POC GLUCOSE Routine 05/11/2019 5:50 Results for this PM EAR MACHINE OPERATOR procedure are i n the results section. POC GLUCOSE Routine 05/11/2019 12:05 Results for this PM EAR MACHINE OPERATOR procedure are i n the results section. POC GLUCOSE Routine 05/11/2019 7:17 Results for this AM EAR MACHINE OPERATOR procedure are i n the results section. PHOSPHORUS LEVEL Routine 05/11/2019 6:48 Results for this AM EAR MACHINE OPERATOR procedure are i n the results section. POC GLUCOSE Routine 05/10/2019 8:55 Results for this PM EAR MACHINE OPERATOR procedure are i n the results section. POC GLUCOSE Routine 05/10/2019 4:57 Results for this PM EAR MACHINE OPERATOR procedure are i n the results section. XR SACRUM AND COCCYX Routine 05/10/2019 3:27 Res ults for this PM EAR MACHINE OPERATOR procedure are i n the results section. XR LUMBAR SPINE 2 OR 3 Routine 05/10/2019 3:27 R esults for this VW PM EAR MACHINE OPERATOR procedure are i n the results section. MRI CERVICAL SPINE WO Routine 05/10/2019 3:14 Re sults for this CONTRAST PM EAR MACHINE OPERATOR procedure are i n the results section. MRI BRAIN WO CONTRAST STAT 05/10/2019 3:12 Re sults for this PM EAR MACHINE OPERATOR procedure are i n the results section. POC GLUCOSE Routine 05/10/2019 9:44 Results for this AM EAR MACHINE OPERATOR procedure are i n the results section. POC GLUCOSE Routine 05/10/2019 9:19 Results for this AM EAR MACHINE OPERATOR procedure are i n the results section. CELL COUNT AND Routine 05/10/2019 8:50 Results f or this DIFFERENTIAL, BODY AM EAR MACHINE OPERATOR procedure are in FLUID the results section. ANAEROBIC CULTURE Routine 05/10/2019 8:50 Result s for this AM EAR MACHINE OPERATOR procedure are i n the results section. GRAM STAIN Routine 05/10/2019 8:50 Results for this AM EAR MACHINE OPERATOR procedure are i n the results section. AEROBIC CULTURE Routine 05/10/2019 8:50 Results for this AM EAR MACHINE OPERATOR procedure are i n the results section. POC GLUCOSE Routine 05/10/2019 7:36 Results for this AM EAR MACHINE OPERATOR procedure are i n the results section. ESTIMATED GFR Routine 05/10/2019 5:55 Results fo r this AM EAR MACHINE OPERATOR procedure are i n the results section. BASIC METABOLIC PANEL Routine 05/10/2019 5:55 Re sults for this AM EAR MACHINE OPERATOR procedure are i n the results section. HC COMPLETE BLD COUNT Routine 05/10/2019 5:55 Re sults for this W/AUTO DIFF AM EAR MACHINE OPERATOR procedure are i n the results section. POC GLUCOSE Routine 05/09/2019 9:57 Results for this PM EAR MACHINE OPERATOR procedure are i n the results section. HEPATITIS B SURFACE Routine 05/09/2019 9:08 Resu lts for this ANTIGEN PM EAR MACHINE OPERATOR procedure are i n the results section. LACTIC ACID LEVEL, Timed 05/09/2019 9:08 Resul ts for this SEPSIS - NOW AND REPEAT PM EAR MACHINE OPERATOR proc edure are in 2X EVERY 3 HOURS the results section. POC GLUCOSE Routine 05/09/2019 7:39 Results for this PM EAR MACHINE OPERATOR procedure are i n the results section. LACTIC ACID LEVEL, Timed 05/09/2019 6:08 Resul ts for this SEPSIS - NOW AND REPEAT PM EAR MACHINE OPERATOR proc edure are in 2X EVERY 3 HOURS the results section. US CAROTID DUPLEX Routine 05/09/2019 5:44 Result s for this BILATERAL PM EAR MACHINE OPERATOR procedure are i n the results section. IONIZED CALCIUM STAT 05/09/2019 3:55 Results for this PM EAR MACHINE OPERATOR procedure are i n the results section. AMMONIA LEVEL STAT 05/09/2019 3:55 Results fo r this PM EAR MACHINE OPERATOR procedure are i n the results section. HEMOGLOBIN A1C STAT 05/09/2019 3:55 Results f or this PM EAR MACHINE OPERATOR procedure are i n the results section. LIPID PANEL STAT 05/09/2019 3:55 Results for this PM EAR MACHINE OPERATOR procedure are i n the results section. THYROID STIMULATING STAT 05/09/2019 3:55 Resu lts for this HORMONE PM EAR MACHINE OPERATOR procedure are i n the results section. VITAMIN B1 LEVEL, WHOLE STAT 05/09/2019 3:55 Results for this BLOOD PM EAR MACHINE OPERATOR procedure are i n the results section. VITAMIN B12 LEVEL Routine 05/09/2019 3:55 Result s for this PM EAR MACHINE OPERATOR procedure are i n the results section. CT HEAD WO CONTRAST STAT 05/09/2019 3:18 Resu lts for this PM EAR MACHINE OPERATOR procedure are i n the results section. ESTIMATED GFR STAT 05/09/2019 2:40 Results fo r this PM EAR MACHINE OPERATOR procedure are i n the results section. THYROID STIMULATING STAT 05/09/2019 2:40 Resu lts for this HORMONE PM EAR MACHINE OPERATOR procedure are i n the results section. B NATRIURETIC PEPTIDE STAT 05/09/2019 2:40 Re sults for this PM EAR MACHINE OPERATOR procedure are i n the results section. LACTIC ACID LEVEL, STAT 05/09/2019 2:40 Resul ts for this SEPSIS - NOW AND REPEAT PM EAR MACHINE OPERATOR proc edure are in 2X EVERY 3 HOURS the results section. TROPONIN STAT 05/09/2019 2:40 Results for this PM EAR MACHINE OPERATOR procedure are i n the results section. COMPREHENSIVE METABOLIC STAT 05/09/2019 2:40 Results for this PANEL PM EAR MACHINE OPERATOR procedure are i n the results section. HC COMPLETE BLD COUNT STAT 05/09/2019 2:40 Re sults for this W/AUTO DIFF PM EAR MACHINE OPERATOR procedure are i n the results section. URINE CULTURE STAT 05/09/2019 2:39 Results fo r this PM EAR MACHINE OPERATOR procedure are i n the results section. URINALYSIS SCREEN AND STAT 05/09/2019 2:21 Re sults for this MICROSCOPY, WITH REFLEX PM EAR MACHINE OPERATOR proc edure are in TO CULTURE the results section. ECG ED PRELIMINARY Routine 05/09/2019 2:07 Resul ts for this INTERPRETATION PM EAR MACHINE OPERATOR procedure are in the results section. ECG 12-LEAD STAT 05/09/2019 2:05 Results for this PM EAR MACHINE OPERATOR procedure are i n the results section. CT LUMBAR SPINE WO Routine 02/27/2019 4:32 Resul ts for this CONTRAST PM EAR MACHINE OPERATOR procedure are i n the results section. POC GLUCOSE Routine 02/27/2019 11:30 Results for this AM EAR MACHINE OPERATOR procedure are i n the results section. POC GLUCOSE Routine 02/27/2019 7:41 Results for this AM EAR MACHINE OPERATOR procedure are i n the results section. ESTIMATED GFR Routine 02/27/2019 3:30 Results fo r this AM EAR MACHINE OPERATOR procedure are i n the results section. IONIZED CALCIUM Routine 02/27/2019 3:30 Results for this AM EAR MACHINE OPERATOR procedure are i n the results section. PHOSPHORUS LEVEL Routine 02/27/2019 3:30 Results for this AM EAR MACHINE OPERATOR procedure are i n the results section. MAGNESIUM LEVEL Routine 02/27/2019 3:30 Results for this AM EAR MACHINE OPERATOR procedure are i n the results section. COMPREHENSIVE METABOLIC Routine 02/27/2019 3:30 Results for this PANEL AM EAR MACHINE OPERATOR procedure are i n the results section. HC COMPLETE BLD COUNT Routine 02/27/2019 3:30 Re sults for this W/AUTO DIFF AM EAR MACHINE OPERATOR procedure are i n the results section. POC GLUCOSE Routine 02/26/2019 10:17 Results for this PM EAR MACHINE OPERATOR procedure are i n the results section. MRI BRAIN WO CONTRAST Routine 02/26/2019 9:26 Re sults for this PM EAR MACHINE OPERATOR procedure are i n the results section. POC GLUCOSE Routine 02/26/2019 6:40 Results for this PM EAR MACHINE OPERATOR procedure are i n the results section. EEG AWAKE/DROWSY LESS Routine 02/26/2019 6:27 Re sults for this THAN 41 MIN PM EAR MACHINE OPERATOR procedure are i n the results section. THYROID STIMULATING Routine 02/26/2019 3:00 Resu lts for this HORMONE PM EAR MACHINE OPERATOR procedure are i n the results section. TOTAL IRON BINDING Routine 02/26/2019 3:00 Resul ts for this CAPACITY PM EAR MACHINE OPERATOR procedure are i n the results section. TOTAL IRON BINDING Routine 02/26/2019 3:00 Resul ts for this CAPACITY PM EAR MACHINE OPERATOR procedure are i n the results section. FERRITIN LEVEL Routine 02/26/2019 3:00 Results f or this PM EAR MACHINE OPERATOR procedure are i n the results section. FOLATE LEVEL Routine 02/26/2019 3:00 Results for this PM EAR MACHINE OPERATOR procedure are i n the results section. HEPATITIS B SURFACE AB, Routine 02/26/2019 3:00 Results for this QUANTITATIVE PM EAR MACHINE OPERATOR procedure are i n the results section. HEPATITIS B SURFACE Routine 02/26/2019 3:00 Resu lts for this ANTIBODY PM EAR MACHINE OPERATOR procedure are i n the results section. HEPATITIS B SURFACE Routine 02/26/2019 3:00 Resu lts for this ANTIGEN PM EAR MACHINE OPERATOR procedure are i n the results section. URIC ACID LEVEL Routine 02/26/2019 3:00 Results for this PM EAR MACHINE OPERATOR procedure are i n the results section. VITAMIN B1 LEVEL, WHOLE STAT 02/26/2019 3:00 Results for this BLOOD PM EAR MACHINE OPERATOR procedure are i n the results section. VITAMIN B12 LEVEL Routine 02/26/2019 3:00 Result s for this PM EAR MACHINE OPERATOR procedure are i n the results section. POC GLUCOSE Routine 02/26/2019 12:25 Results for this PM EAR MACHINE OPERATOR procedure are i n the results section. TTE COMPLETE, WO Routine 02/26/2019 11:30 Results for this CONTRAST, W DOPPLER AM EAR MACHINE OPERATOR procedur e are in ([id number]) the results section. ESTIMATED GFR STAT 02/26/2019 9:45 Results fo r this AM EAR MACHINE OPERATOR procedure are i n the results section. HEMOGLOBIN A1C Routine 02/26/2019 9:45 Results f or this AM EAR MACHINE OPERATOR procedure are i n the results section. LIPID PANEL Routine 02/26/2019 9:45 Results for this AM EAR MACHINE OPERATOR procedure are i n the results section. BASIC METABOLIC PANEL STAT 02/26/2019 9:45 Re sults for this AM EAR MACHINE OPERATOR procedure are i n the results section. POC GLUCOSE Routine 02/26/2019 8:50 Results for this AM EAR MACHINE OPERATOR procedure are i n the results section. ESTIMATED GFR STAT 02/26/2019 3:35 Results fo r this AM EAR MACHINE OPERATOR procedure are i n the results section. BASIC METABOLIC PANEL STAT 02/26/2019 3:35 Re sults for this AM EAR MACHINE OPERATOR procedure are i n the results section. POC GLUCOSE Routine 02/26/2019 2:53 Results for this AM EAR MACHINE OPERATOR procedure are i n the results section. CT HEAD WO CONTRAST STAT 02/26/2019 12:25 Resu lts for this AM EAR MACHINE OPERATOR procedure are i n the results section. XR CHEST 1 VW PORTABLE STAT 02/26/2019 12:03 R esults for this AM EAR MACHINE OPERATOR procedure are i n the results section. ESTIMATED GFR STAT 02/25/2019 11:41 Results fo r this PM EAR MACHINE OPERATOR procedure are i n the results section. MAGNESIUM LEVEL STAT 02/25/2019 11:41 Results for this PM EAR MACHINE OPERATOR procedure are i n the results section. PHOSPHORUS LEVEL STAT 02/25/2019 11:41 Results for this PM EAR MACHINE OPERATOR procedure are i n the results section. LIPASE LEVEL STAT 02/25/2019 11:41 Results for this PM EAR MACHINE OPERATOR procedure are i n the results section. COMPREHENSIVE METABOLIC STAT 02/25/2019 11:41 Results for this PANEL PM EAR MACHINE OPERATOR procedure are i n the results section. PARTIAL THROMBOPLASTIN STAT 02/25/2019 11:41 R esults for this TIME (PTT) PM EAR MACHINE OPERATOR procedure are i n the results section. PROTHROMBIN TIME WITH STAT 02/25/2019 11:41 Re sults for this INR PM EAR MACHINE OPERATOR procedure are i n the results section. HC COMPLETE BLD COUNT STAT 02/25/2019 11:41 Re sults for this W/AUTO DIFF PM EAR MACHINE OPERATOR procedure are i n the results section. ECG ED PRELIMINARY Routine 02/25/2019 11:23 Resul ts for this INTERPRETATION PM EAR MACHINE OPERATOR procedure are in the results section. [place] [facility], E/M Routine 02/25/2019 11:23 Re sults for this 30-74 MINUTES PM EAR MACHINE OPERATOR procedure are in the results section. ECG 12-LEAD STAT 02/25/2019 10:42 Results for this PM EAR MACHINE OPERATOR procedure are i n the results section. SINGLE ANTIGEN BEADS Routine 02/14/2019 2:26 Res ults for this PM EAR MACHINE OPERATOR procedure are i n the results section. after 01/06/2019 Results Single antigen beads (10/24/2019 6:00 PM CDT)Only the most recent of3 results within the time period is included. Pathologist [facility] SAB serum ID [id number] [facility] SAB serum collection 10/24/2019 06:00 [facility] D&T [facility] SAB class I antibody B57,B58 [facility] SAB cPRA class I 11 [facility] SAB class II Negative [facility] SAB cPRA class II 0 [facility] Single antigen beads See link below [facility] for PDF Lab HOSPITAL Report Specimen Blood Performing Organization Address City/[facility]/ZIP [facility] [place] Phon e Number [facility] DEPARTMENT OF PATHOLOGY AND [address] [place], [place] [id number] [place] [address] [facility] POC glucose (07/31/2019 5:01 PM CDT)Only the most recent of64 resultswithin the time period is included. [facility] POC glucose 205 (H) 65 - 99 mg/dL [facility] Comment: [facility] Employee Relations Assistant Name: Jeaneth Perkins Device ID: [id number] Chartable: RN Notified Specimen Blood Performing Organization Address City/[facility] Phon e Number [facility] DEPARTMENT OF PATHOLOGY [address] [facility]. [facility] [address] AND [facility] [address] [facility] X [address] HOSPITAL Estimated GFR (07/30/2019 4:30 AM CDT)Only the most recent of16 resultswithin the time period is included. [facility] Estimated GFR 4 (A) mL/min/1.73 [facility] Comment: m2 [facility] Catergory Units Interpretation HOS PITAL G1 >=90 Normal or high G2 60-89 Mildly decreased G3a 45-59 Mildly to moderately decreas ed G3b 30-44 Moderately to severely decre ased G4 15-29 Severely decreased G5 <15 Kidney failure The eGFR was calculated using the Chronic Kidney Disea se Epidemiology Collaboration (CKD-EPI) equation. Interpretation is based on recommendations of the National Kidney Foundation-Kidney Disease Outcomes Delio lity Initiative (NKF-KDOQI) published in 2014. Specimen Performing Organization Address City/[facility] Phon e Number [facility] DEPARTMENT OF PATHOLOGY [address] CBC with platelet and differential (07/30/2019 4:30 AM CDT)Only the most recent of12 resultswithin the time period is included. WBC 13.3 (H) 4.5 - 11.0 k/uL [facility] RBC 3.31 (L) 4.20 - 5.50 [facility] m/uL [facility] HGB 10.2 (L) 12.0 - 16.0 [facility] g/dL [facility] HCT 33.2 (L) 37.0 - 47.0 % [facility] MCV 100.3 (H) 82.0 - 100.0 fL [facility] MCH 30.8 27.0 - 34.0 pg [facility] MCHC 30.7 (L) 31.0 - 37.0 [facility] g/dL [facility] RDW - SD 53.6 37.0 - 55.0 fL [facility] MPV 10.8 6.9 - 11.0 fL [facility] Platelet count 262 150 - 400 K/uL [facility] Nucleated RBC 0.00 /100 WBC [facility] Neutrophils 66.0 39.0 - 69.0 % [facility] Lymphocytes 24.5 (L) 25.0 - 45.0 % [facility] Monocytes 6.7 0.0 - 10.0 % [facility] Eosinophils 1.6 0.0 - 5.0 % [facility] Basophils 0.8 0.0 - 1.0 % [facility] Immature granulocytes 0.4 0.0 - 1.0 % [facility] Specimen Blood Performing Organization Address City/[facility]/ZIP [facility] [place] Phon e Number [facility] DEPARTMENT OF PATHOLOGY [address] [facility] [address] AND [facility] [id number] [place] [address] Comprehensive metabolic panel (07/30/2019 4:30 AM CDT)Only the most recent of9 resultswithin the time period is included. Pathologist Sig nature Sodium 134 (L) 135 - 148 mEq/L [facility] Potassium 3.7 3.5 - 5.0 mEq/L [facility] Chloride 95 (L) 98 - 112 mEq/L [facility] CO2 26 24 - 31 mEq/L [facility] Anion gap 13@ANIO 7 - 15 mEq/L [facility] BUN 35 (H) 8 - 23 mg/dL [facility] Creatinine 8.82 (H) 0.50 - 0.90 [facility] mg/dL [facility] Glucose 282 (H) 65 - 99 mg/dL [facility] Calcium 10.1 8.8 - 10.2 [facility] mg/dL [facility] Protein 5.2 (L) 6.3 - 8.3 g/dL [facility] Albumin 2.5 (L) 3.5 - 5.0 g/dL [facility] A/G ratio 0.9 0.7 - 3.8 [facility] Alkaline phosphatase 126 (H) 35 - 104 U/L [facility] AST 12 10 - 35 U/L [facility] ALT 9 5 - 50 U/L [facility] Total bilirubin <0.2 0.2 - 1.2 mg/dL [facility] Specimen Blood Performing Organization Address City/[facility] Code Phon e Number [facility] DEPARTMENT OF PATHOLOGY [id number] [place] [address] X [phone] AND GENOMIC MEDICINE [facility] [phone] [place] [address] X [address] HOSPITAL Smear review (07/29/2019 7:45 AM CDT)Only the most recent of2 resultswithin the time period is included. Pathologist Sig nature Platelet slide review Sanjeev adequate [facility] Anisocytosis Moderate [facility] Enlarged platelets Moderate (A) [facility] Giant platelets Occasional [facility] Specimen Performing Organization Address City/[facility] Phon e Number [facility] DEPARTMENT OF PATHOLOGY [address] [facility] X [address] AND [employer] MEDICINE [facility] [place] [address] [facility] [address] Head Wo Contrast (07/28/2019 2:00 PM CDT)Only the most recent of4 results within the time period is included. Specimen Narrative Performed At EXAMINATION: CT HEAD WO CONTRAST [facility] CLINICAL HISTORY: Altered level of con sciousness (LOC) unexplained COMPARISON: MRI brain 07/24/2019 TECHNIQUE: Noncontrast head CT performed using radiati on dose reduction techniques. Technical factors are evaluated and adju sted to ensure appropriate moderation of exposure. Automated dose m anagement technology is applied to adjust radiatio n exposure while achieving a diagnostic quality zack ge. FINDINGS: No evidence of acute intracranial hemorrhage, mass, ma ss effect, midline shift, or acute infarct. Ventricles and sulci are normal in appearance for age. Basal cisterns are clear. Calvarium is intact. Arteriosclerosis of th e cavernous and paraclinoid internal carotid arteries and V4 segments of the vertebral arteries. Orbits are normal in appearance. No significant sinus inflammatory changes. Mastoid air cells are clear. IMPRESSION: 1. No CT evidence of acute intracranial abnormality. [id number] Procedure Note Interface, Radiology Results Incoming - 07/28/2019 2:13 PM CDT EXAMINATION: CT HEAD WO CONTRAST CLINICAL HISTORY: Altered level of cons ciousness (LOC) unexplained COMPARISON: MRI brain 07/24/2019 TECHNIQUE: Noncontrast head CT performed using radiation dose reduction techniques. Technical factors are evaluated and adjusted to ensure appropriate moderation of exposure. Automated dose management technology is applied to adjust radiation exposure while achieving a diagnostic quality zack ge. FINDINGS: No evidence of acute intracranial hemorr yessy, mass, mass effect, midline shift, or acute infarct. Ventricles and sulci are normal in appea octavio for age. Basal cisterns are clear. Calvarium is intact. Arteriosclerosis of the cavernous and paraclinoid internal carotid arteries and V4 segments of the vertebral arteries. Orbits are normal in appearance. No sign ificant sinus inflammatory changes. Mastoid air cells are clear. IMPRESSION: 1. No CT evidence of acute intracranial abnormality. [id number] Performing Organization Address City/State/ZIP Code Phon e Number [facility] [address] [place] [address] Arterial blood gas (07/28/2019 1:27 PM CDT) Pathologist Sig nature pH, arterial 7.35 7.35 - 7.45 [facility] pCO2, arterial 49 (H) 35 - 45 mmHg [facility] pO2, arterial 76 (L) 80 - 90 mmHg [facility] Bicarbonate, 26.6 21.0 - 28.0 [facility] arterial mmol/L [facility] Base excess, 1 -2 - 2 mEq/L [facility] O2 saturation, 94 (L) 95 - 100 % [facility] Specimen Blood Performing Organization Address [facility] Phon e Number [facility] DEPARTMENT OF PATHOLOGY [id number] [place] [address] X [address] [address] [facility] Ammonia level (07/28/2019 1:12 PM CDT)Only the most recent of3 resultswithin the time period is included. Pathologist Sig nature Ammonia 31 11 - 51 umol/L [facility] Specimen Blood Performing Organization Address [facility] Phon e Number [facility] DEPARTMENT OF PATHOLOGY [id number] [place] [address] X [address] X [address] HOSPITAL XR Foot 3+ Vw Left (07/26/2019 2:44 PM CDT) Specimen Narrative Performed At EXAMINATION: XR FOOT 3 VW LEFT [facility] CLINICAL HISTORY: foot trauma COMPARISON: None. TECHNIQUE: 3 views of the left foot obta ined. IMPRESSION: Detail is limited as the patient's sock was not remove d prior to obtaining the x-ray, for some reason. Atherosclerotic calcification. Mild to moderate degenerative change at the ankle. N o acute fracture or dislocation identified. [facility]-[id number] Procedure Note Hm Interface, Radiology Results Incoming - 07/26/2019 2:50 PM CDT EXAMINATION: XR FOOT 3 VW LEFT CLINICAL HISTORY: foot trauma COMPARISON: None. TECHNIQUE: 3 views of the left foot obta ined. IMPRESSION: Detail is limited as the patient's sock was not removed prior to obtaining the x-ray, for some reason. Atherosclerotic calcification. Mild to moderate degenerative change at the ankle. No acute fracture or dislocation identified. [facility]-[id number] Performing Organization Address City/[facility]/ZIP Code Phon e Number [facility] [address] [place] [address] Basic metabolic panel (07/26/2019 5:30 AM CDT)Only the most recent of7 results within the time period is included. Pathologist Sig nature Sodium 136 135 - 148 mEq/L [facility] Potassium 3.6 3.5 - 5.0 mEq/L [facility] Chloride 95 (L) 98 - 112 mEq/L [facility] CO2 25 24 - 31 mEq/L [facility] Anion gap 16@ANIO (H) 7 - 15 mEq/L [facility] BUN 39 (H) 8 - 23 mg/dL [facility] Creatinine 8.26 (H) 0.50 - 0.90 mg/dL [facility] Glucose 287 (H) 65 - 99 mg/dL [facility] Calcium 9.9 8.8 - 10.2 mg/dL [facility] Specimen Blood Performing Organization Address City/State/ZIP Code Phon e Number [facility] DEPARTMENT OF PATHOLOGY [address] [facility] X [address] AND GENOMIC MEDICINE [facility] [address] [facility] X [address] HOSPITAL XR Knee 1 Or 2 Vw Left (07/25/2019 3:40 PM CDT) Specimen Narrative Performed At EXAMINATION: XR KNEE 1 OR 2 VW LEFT, X R TIBIA FIBULA 2 VW LEFT [facility] INDICATION: pain s p fall COMPARISON:None IMPRESSION: 1.Nondisplaced transverse fracture involving the proxi mal fibular diaphysis. 2.Faint sclerosis along the posterior calcaneus questi onable for stress fracture. Recommend clinical correlation. Bones are di ffusely demineralized. 3.Minimal tricompartmental joint space narrowing about the knee, as well as milder tibiotalar joint degenerative changes. Small knee joint effusion. 4.Vascular calcifications. [facility]-[id number] Procedure Note Hm Interface, Radiology Results Incoming - 07/25/2019 3:46 PM CDT EXAMINATION: XR KNEE 1 OR 2 VW LEFT, XR TIBIA FIBULA 2 VW LEFT INDICATION: pain s p fall COMPARISON:None IMPRESSION: 1.Nondisplaced transverse fracture invol ving the proximal fibular diaphysis. 2.Faint sclerosis along the posterior ca lcaneus questionable for stress fracture. Recommend clinical correlation. Bones are diffusely demineralized. 3.Minimal tricompartmental joint space n arrowing about the knee, as well as milder tibiotalar joint degenerative changes. Small knee joint effusion. 4.Vascular calcifications. [id number] Performing Organization Address [facility] Code Phon e Number [facility] [address] [place] [address] XR Tibia Fibula 2 Vw Left (07/25/2019 3:39 PM CDT) Specimen Narrative Performed At EXAMINATION: XR KNEE 1 OR 2 VW LEFT, X R TIBIA FIBULA 2 VW LEFT [facility] INDICATION: pain s p fall COMPARISON:None IMPRESSION: 1.Nondisplaced transverse fracture involving the proxi mal fibular diaphysis. 2.Faint sclerosis along the posterior calcaneus questi onable for stress fracture. Recommend clinical correlation. Bones are di ffusely demineralized. 3.Minimal tricompartmental joint space narrowing about the knee, as well as milder tibiotalar joint degenerative changes. Small knee joint effusion. 4.Vascular calcifications. [facility]-[id number] Procedure Note Interface, Radiology Results Incoming - 07/25/2019 3:46 PM CDT EXAMINATION: XR KNEE 1 OR 2 VW LEFT, XR TIBIA FIBULA 2 VW LEFT INDICATION: pain s p fall COMPARISON:None IMPRESSION: 1.Nondisplaced transverse fracture invol ving the proximal fibular diaphysis. 2.Faint sclerosis along the posterior ca lcaneus questionable for stress fracture. Recommend clinical correlation. Bones are diffusely demineralized. 3.Minimal tricompartmental joint space n arrowing about the knee, as well as milder tibiotalar joint degenerative changes. Small knee joint effusion. 4.Vascular calcifications. [id number] Performing Organization Address [facility] Code Phon e Number [facility] [address] [place] [address] Us duplex venous lower extremity (07/25/2019 3:17 PM CDT) Specimen Narrative Performed At EXAMINATION: US DUPLEX VENOUS LOWER EX TREMITY LEFT [facility] CLINICAL HISTORY: Leg swelling or pain DVT suspected COMPARISON: None. TECHNIQUE: Grayscale, color Doppler, and spectral wa veform analysis of the left lower extremity deep venous systems was perfo rmed. The left common femoral, superficial femoral, proximal deep fem oral, greater saphenous, and popliteal veins were evaluated. The calf vessels were also evaluated. Contr alateral common femoral vein was evaluated. FINDINGS: The left common femoral, superficial femoral, and popl iteal veins are compressible. They demonstrate normal venous waveforms and response to augmentation. There is flow in the visua lized calf veins. There is no evidence of a popliteal or B lee ann's cyst. IMPRESSION: Normal left lower extremity venous Doppler examination . There is no evidence of deep venous thrombosis. [facility]-[id number] Procedure Note Interface, Radiology Results Incoming - 07/25/2019 3:22 PM CDT EXAMINATION: US DUPLEX VENOUS LOWER EXTREMITY LEFT CLINICAL HISTORY: Leg swelling or pain DVT suspected COMPARISON: None. TECHNIQUE: Grayscale, color Doppler, an d spectral waveform analysis of the left lower extremity deep venous systems was performed. The left common femoral, superficial femoral, proximal deep femoral, greater saphenous, and popliteal veins were evaluated. The calf vessels were also ev aluated. Contralateral common femoral vein was evaluated. FINDINGS: The left common femoral, superficial fem oral, and popliteal veins are compressible. They demonstrate normal venous waveforms and response to augmentation. There is flow in the visualized calf veins. There is no evidence of a popliteal or B lee ann's cyst. IMPRESSION: Normal left lower extremity venous Doppl er examination. There is no evidence of deep venous thrombosis. [facility]-[id number] Performing Organization Address City/State/ZIP Code Phon e Number [facility] [address] [place] [address] Urine culture (07/24/2019 4:36 PM CDT)Only the most recent of3 resultswithin the time period is included. Urine culture Enterococcus faecalis [facility]-ISM isolate >10-5 cfu/ml HOSPITAL The performance characteristics of this assay on this isolate were validated by the Microbiology Laboratory at [facility]. This source has not been approve d by the U.S. Food and Drug Administration. The results are n ot intended to be used as the sole means for clinical demetrio gnosis or patient management. The Microbiology Laboratory i s authorized under the clinical Laboratory Improvement Amendments of 1988 (CLIA-88) to perform high complexit y testing. This organism is Vancomycin Sensitive. (A) Comment: Specimen Information Specimen Source: Urine Specimen Site: Catheterized Specimen Urine - Catheterized Organism Antibiotic Method Susceptibility Enterococcus faecalis Ampicillin LADI 2 mcg/mL: Susceptible Enterococcus faecalis Nitrofurantoin LADI <=16 mcg/m L: Susceptible Enterococcus faecalis Levofloxacin LADI >4 mcg/mL: Resistant Enterococcus faecalis Linezolid LADI <=1 mcg/mL : Susceptible Enterococcus faecalis Minocycline LADI >8 mcg/mL: Resistant Enterococcus faecalis Tetracycline LADI >8 mcg/mL: Resistant Enterococcus faecalis Vancomycin LADI 1 mcg/mL: Susceptible Enterococcus faecalis Tigecycline LADI <=0.125 mc g/mL: Susceptible Enterococcus faecalis Ciprofloxacin LADI mcg/mL: R esistant Performing Organization Address City/State/[facility] Code Phon e Number [facility] DEPARTMENT OF PATHOLOGY AND [address] [place] [phone] GENOMIC MEDICINE [address] [address] Urinalysis screen and microscopy, with reflex to culture (07/24/2019 3:55 PM CDT)Only the most recent of3 resultswithin the time period is included. Specimen site Catheterized [facility] Color, UA Yellow [facility] Appearance, UA Turbid [facility] Specific gravity, 1.010 1.001 - 1.030 [facility] pH, UA 5.0 5.0 - 9.0 [facility] Protein, UA 2+ (A) Negative [facility] Glucose, UA 1+ (A) Negative [facility] Ketones, UA Negative Negative [facility] Bilirubin, UA Negative Negative [facility] Blood, UA Moderate (A) Negative [facility] Nitrite, UA Negative Negative [facility] Urobilinogen, UA <2.0 <2.0 E.U./dL [facility] Leukocyte esterase, Moderate (A) Negative [facility] WBC, UA >200 (H) 0 - 4 /HPF [facility] RBC, UA 40 (H) 0 - 5 /HPF [facility] Bacteria, UA Moderate (A) None seen [facility] WBC clumps, UA Moderate (A) [facility] Yeast, UA None seen [facility] Yeast with None seen [facility] pseudohyphae, UA [facility] Specimen Urine Performing Organization Address City/State/ZIP Code Phon e Number [facility] DEPARTMENT OF PATHOLOGY [address] [facility] [place] [address] AND GENOMIC MEDICINE [facility] [address] [facility], [place] [address] [facility] MRI Brain Wo Contrast (07/24/2019 11:53 AM CDT)Only the most recent of3 results within the time period is included. Specimen Narrative Performed At This result has an attachment that is no t available. EXAMINATION: MRI BRAIN WO CONTRAST [facility] CLINICAL HISTORY: Altered level of consciousness (LOC) unexplained COMPARISON: MRI brain dated April and CT brain dated July 23, 2019 TECHNIQUE: Multiplanar and multisequence MRI imaging of the brain was obtained without contrast. FINDINGS: Axial diffusion weighted images of the b rain shows no diffusion restriction to suggest acute ischemia. T1 images shows no intracranial mass or mass effect. Gradient images shows no abnormal hemosiderin deposition abnormality. There is no evidence of acute hemorrhage. FLAIR imaging shows no significant FLAIR signal changes to suggest prior ischemic or inflammatory insult. There is mild age-related volume loss again noted. T2 imaging shows no acute hydrocephalus or extra-axial fluid collection identified. The major flow voids in the skull base are identified. There are some scattered mucosal thickening changes in the sinuses with no fluid level. Sagittal T1 images shows no midline mass lesion. The craniocervical junction is intact. Coronal images shows no midline shift or gross asymmetries. IMPRESSION: No acute intracranial abnormality identified. No silva e from prior exams. [facility]-[id number] Procedure Note Hm Interface, Radiology Results Incoming - 07/24/2019 12:03 PM CDT EXAMINATION: MRI BRAIN WO CONTRAST CLINICAL HISTORY: Altered level of consc iousness (LOC) unexplained COMPARISON: MRI brain dated May 10, [address] brain dated July 23, 2019 TECHNIQUE: Multiplanar and multisequence MRI imaging of the brain was obtained without contrast. FINDINGS: Axial diffusion weighted images of the b rain shows no diffusion restriction to suggest acute ischemia. T1 images shows no intracranial mass or mass effect. Gradient images shows no abnormal hemosiderin deposition abnormality. There is no evidence of acute hemorrhage. FLAIR imaging shows no significant FLAIR signal changes to suggest prior ischemic or inflammatory insult. There is mild age-related volume loss again noted. T2 imaging shows no acute hydrocephalus or extra-axial fluid collection identified. The major flow voids in the skull base are identified. There are some scattered mucosal thickening changes in the sinuses with no fluid level. Sagittal T1 images shows no midline mass lesion. The craniocervical junction is intact. Coronal images shows no midline shift or gross asymmetries. IMPRESSION: No acute intracranial abnormality identi fied. No change from prior exams. [id number] Performing Organization Address City/State/ZIP Code Phon e Number [facility] [address] [place] [address] Phosphorus level (07/23/2019 9:29 AM CDT)Only the most recent of5 resultswithin the time period is included. Pathologist Sig nature Phosphorus 6.2 (H) 2.4 - 4.5 mg/dL [facility] [place] [facility] Specimen Blood Performing Organization Address City/[facility]/ZIP Code Phon e Number [facility] DEPARTMENT OF PATHOLOGY [address] [facility] [place], [place] [address] AND GENOMIC MEDICINE [facility] [place] [address] [facility] [place] [address] [facility] [address] Abdomen Pelvis Wo Contrast (07/23/2019 9:13 AM CDT) Specimen Narrative Performed At EXAMINATION: CT ABDOMEN PELVIS WO CONT RAST [facility] CLINICAL HISTORY: PD cath malfunction TECHNIQUE: Multiple axial images of the abdomen and pelvis were obtained without intravenous administration of iodinat ed contrast. Sagittal and coronal computerized reformatted images w ere also obtained. All CT images were acquired using radi ation dose lowering technique with automated exposure control an d / or iterative reconstruction. COMPARISON: CT abdomen and pelvis 01/11 IMPRESSION: ABDOMEN: Evaluation of solid abdominal organs is limited without IV contrast. 1. Moderate coronary artery calcifications. Bibasilar atelectasis. Small hiatal hernia. 2.Prominent fecal material within the rectum may indic ate fecal impaction or constipation. Colonic diverticulosis most pronounced distally. 3.2 cm duodenal diverticulum. Bowel loop show no evide nce of obstruction or acute inflammation. 4.Layering stones or sludge in the gallbladder, which is distended, presumably from fasting though would be better assesse d by HIDA scan or gallbladder ultrasound if indicated. 5.Liver is somewhat lobulated in surface contour which may indicate chronic liver disease. Calcified granulomata. No suspi cious lesion detected on noncontrast exam. 6.An 8 mm stone in the upper common bile duct, which i s also dilated at 11 mm, series 302 images 61 through 58. The stone was not present on a prior study from 01/11/2018, though the caliber of the common bile duct has not changed since that time. 7.Pancreas somewhat atrophic as before. Spleen and rig ht adrenal unremarkable. 8.A stable benign 1.3 cm right adrenal n odule. 9.Calcified plaque in the abdominal aorta without AAA. Multifocal renal cortical scarring indicating medical renal disease, an d hypodensities up to 2.3 cm or likely all cysts. Extensive renal vascula r calcifications bilaterally. No hydronephrosis. PELVIS: 1. Peritoneal dialysis catheter entering the midline m id abdominal wall, is coiled in the left lower quadrant abdomen, with a s mall amount of pelvic free fluid. No focal fluid collection identifie d, and the catheter is intact with no acute kinks o r bends. No lymphadenopathy detected on no ncontrast exam. 2.Urinary bladder is distended arising out of the pelv ic inlet. Patient may benefit from Harding catheter decompression if unabl e to void spontaneously. Arcuate vessel calcifications in the ut erus which otherwise grossly unremarkable. SUMMARY: PD catheter appears well-maintained with a small amoun t of free fluid. No focal fluid collection identified. Choledocholithiasis, though with stable mild common bile duct dilation. Many other findings as above. [facility]-[id number] Procedure Note Hm Interface, Radiology Results Incoming - 07/23/2019 9:28 AM CDT EXAMINATION: CT ABDOMEN PELVIS WO CONTRAST CLINICAL HISTORY: PD cath malfunction TECHNIQUE: Multiple axial images of the abdomen and pelvis were obtained without intravenous administration of iodinated contrast. Sagittal and coronal computerized reformatted images were also obtained. All CT images were acquired using radiation dose lowering technique with automated expos ure control and / or iterative reconstruction. COMPARISON: CT abdomen and pelvis 2017 IMPRESSION: ABDOMEN: Evaluation of solid abdominal organs is limited without IV contrast. 1. Moderate coronary artery calcificatio ns. Bibasilar atelectasis. Small hiatal hernia. 2.Prominent fecal material within the re ctum may indicate fecal impaction or constipation. Colonic diverticulosis most pronounced distally. 3.2 cm duodenal diverticulum. Bowel loop show no evidence of obstruction or acute inflammation. 4.Layering stones or sludge in the gallb ladder, which is distended, presumably from fasting though would be better assessed by HIDA scan or gallbladder ultrasound if indicated. 5.Liver is somewhat lobulated in surface contour which may indicate chronic liver disease. Calcified granulomata. No suspicious lesion detected on noncontrast exam. 6.An 8 mm stone in the upper common bile duct, which is also dilated at 11 mm, series 302 images 61 through 58. The stone was not present on a prior study from 01/11/2018, though the caliber of the common bile duct has not changed since that time. 7.Pancreas somewhat atrophic as before. Spleen and right adrenal unremarkable. 8.A stable benign 1.3 cm right adrenal n odule. 9.Calcified plaque in the abdominal aort a without AAA. Multifocal renal cortical scarring indicating medical renal disease, and hypodensities up to 2.3 cm or likely all cysts. Extensive renal vascular calcifications bilaterally. No hydronephrosis. PELVIS: 1. Peritoneal dialysis catheter entering the midline mid abdominal wall, is coiled in the left lower quadrant abdomen, with a small amount of pelvic free fluid. No focal fluid collection identified, and the catheter is intact with no acute kinks or bends. No lymphadenopathy detected on no ncontrast exam. 2.Urinary bladder is distended arising o ut of the pelvic inlet. Patient may benefit from Harding catheter decompression if unable to void spontaneously. Arcuate vessel calcifications in the uterus which otherwise grossly unremarkable. SUMMARY: PD catheter appears well-maintained with a small amount of free fluid. No focal fluid collection identified. Choledocholithiasis, though with stable mild common bile duct dilation. Many other findings as above. [facility]-[id number] Performing Organization Address City/State/ZIP Code [facility] e Number [facility] [address] [place] [address] EEG (routine) (07/22/2019 5:25 PM CDT) Narrative Performed At This result has an attachment that is no t available. Date of Study Completion: July 22, 2019 Date of Interpretation: July 22, 2019 Ordering Provider: Amy Stark, CHELSEAC Inpatient Electroencephalogram Report History: 68 year old woman being treated for persisten t encephalopathy. Rule out status epilepticus. Technical Description: The recording was a little over 20 minutes digitally r ecorded multi-montage EEG with 21 electrodes placed according to the International 10/20 system. An EKG strip was recorded continuously. True eye leads were not employed. True temporal leads were not employed. EEG Description: Cerebral activity consisted of continuous polymorphic delta and theta frequency activity. A posterior rhythm was not observe d. Often interrupting this background were large triphasi c activity seen over the bifrontal romo. No definitive interictal epilept iform discharges or electrographic seizures were appreciated. Sleep Recording: Stage II sleep was not recorded. Activation Procedures: Neither hyperventilation nor photic stimulation were a ttempted. EEG Interpretation: This was an abnormal stuporous E EG. 1. Triphasic discharges. 2. Continuous background slowing. 3. No paroxysmal discharges were observed. Clinical Correlation: 1. There was evidence of a yqljoyuu-xm-cjpujm encephal opathy, part of which is metabolic in etiology. Clinical correlation i s recommended. 2. There was no definitive evidence of interictal epil eptiform discharges, electrographic seizures, or status epilepticus seen ov er the course of this tracing. Hepatitis B surface Ab, quantitative (07/22/2019 1:10 PM CDT)Only the most recent of2 resultswithin the time period is included. Hepatitis B surface 14.35 IU/L [facility] Comment: The anti-HBs is greater than or equal to 10 IU/L. This patient has either had an antibody response to HBV vaccination, re ceived a transfusion, or has recovered from HBV infection. This patient should be considered immune to hepatitis B. An anti-HBs result greater than or equal to 10 IU/L im plies immunity. For post-vaccination antibody testing guidel kahlil for the general public refer to MMWR April 01, 2005/Vol. 54 (No. 16);-23, and for healthcare workers refer to MMWR Mar/Vol. 62(No. 10);-19. Reference Interval: anti-HBs 9.99 IU/L or less ....... Negative 10.00 IU/L or greater .... Positive Results greater than 1,000.00 IU/L are reported as gre ater than 1,000.00 IU/L. This assay should not be used for blood donor screenin g, associated re-entry protocols, or for screening Human Cell, Tissues and Cellular and Tissue-Based Products (HCT/P) . Performed by [employer], [address] [place] [address] [email or web address], Mario Ambrocio MD, Lab. Director Specimen Serum Performing Organization Address [facility] Phon e Number [facility] [address] [place] [address] [facility] [address] [place] [address] Hepatitis B surface antigen (07/22/2019 1:10 PM CDT)Only the most recent of3 resultswithin the time period is included. Pathologist Sig nature Hepatitis B surface Non-reactive Non-reactive [facility] Specimen Blood Performing Organization Address [facility] Phon e Number [facility] DEPARTMENT OF PATHOLOGY [id number] [place] [address] AND [facility] [id number] [place] [address] X [phone] HOSPITAL Blood culture, aerobic & anaerobic (07/22/2019 1:10 PM CDT)Only the most recent of2 resultswithin the time period is included. Blood culture No growth after 5 days of incubation. [facility] [place] isolate Comment: HOSPITAL Specimen Information Specimen Source: Blood Specimen Site: Hand Right Specimen Blood - Wrist, right Performing Organization Address [facility] Phon e Number [facility] DEPARTMENT OF PATHOLOGY AND [address] [place], [place] [address] [facility] [address] [place] [phone] Venous blood gas (07/22/2019 1:10 PM CDT) Pathologist Sig nature pH, venous 7.31 (L) 7.32 - 7.42 [facility] pCO2, venous 40 (L) 45 - 51 mmHg [facility] pO2, venous 51 (H) 25 - 40 mmHg [facility] Base excess, venous -6 (L) -2 - 2 mEq/L [facility] O2 saturation, 80 (H) 40 - 70 % [facility] Bicarbonate, venous 19.3 (L) 21.0 - 28.0 [facility] mmol/L [facility] Specimen Blood Performing Organization Address City/State/ZIP Code Phon e Number [facility] DEPARTMENT OF PATHOLOGY [address] [facility], [place] [address] AND GENOMIC MEDICINE [facility] [address] [facility], [place] [address] HOSPITAL XR Chest 1 Vw Portable (07/22/2019 12:06 PM CDT)Only the most recent of2 results within the time period is included. Specimen Narrative Performed At EXAMINATION: XR CHEST 1 VW PORTABLE HM [facility] CLINICAL HISTORY: Cough Covid rule o ut COMPARISON: February 25, 2019 chest IMPRESSION: No acute abnormality single view chest The lungs are hypoexpanded but clear. The heart is not enlarged. Mild vascular ectasia and a therosclerosis becoming more prominent The bony structures are within normal li mits. No suspicious findings for COVID-19. [id number] Procedure Note Hm Interface, Radiology Results Incoming - 07/22/2019 12:13 PM CDT EXAMINATION: XR CHEST 1 VW PORTABLE CLINICAL HISTORY: Cough Covid rule out COMPARISON: February 25, 2019 chest IMPRESSION: No acute abnormality single view chest The lungs are hypoexpanded but clear. The heart is not enlarged. Mild vascular ectasia and atherosclerosis becoming more prominent The bony structures are within normal li mits. No suspicious findings for COVID-19. [id number] Performing Organization Address [facility] Phon e Number [facility] [address] [place] [address] COVID-19 qualitative PCR (07/22/2019 12:45 AM CDT) Interpretation Negative results do not prec lude 2019-nCoV infection and should not be used as the sole basis for treatment or other patient management decisions. Negative results must be combined with clinical observations, patient history, and epidemiological [place] information. [facility] COVID-19 qualitative Not-Detected Not-Detecte [place] PCR result d [facility] COVID-19 qualitative See link below for [place] PCR PDF Lab MU-ISM ReportComment: Case HOSPITAL Number: [id number] Specimen Performing Organization Address City/[facility]/ZIP Code Phon e Number [facility] DEPARTMENT OF PATHOLOGY AND [address] [place], [place] [address] GENOMIC [facility] [address] [place] [address] [facility] XR Sacrum And Coccyx (05/10/2019 3:27 PM EAR MACHINE OPERATOR) Specimen Narrative Performed At EXAMINATION: XR SACRUM AND COCCYX [facility] CLINICAL HISTORY: Polytrauma critical T L spine in jury suspected, Tail bone pain after fall COMPARISON: None IMPRESSION: No displaced fracture. No suspicious osseous abnormali ty. Minimal degenerative changes of the sacroiliac j oints with mild sclerosis. Drain is present in the pelvis. Severe degenerative disc disease at L4-5 with sclerosi s, osteophytes, and disc height loss. Facet arthropathy of the lower lumbar spine. [id number] Procedure Note Interface, Radiology Results Incoming - 05/10/2019 4:05 PM EAR MACHINE OPERATOR EXAMINATION: XR SACRUM AND COCCYX CLINICAL HISTORY: Polytrauma critical T L spine injury suspected, Tail bone pain after fall COMPARISON: None IMPRESSION: No displaced fracture. No suspicious oss eous abnormality. Minimal degenerative changes of the sacroiliac joints with mild sclerosis. Drain is present in the pelvis. Severe degenerative disc disease at L4-5 with sclerosis, osteophytes, and disc height loss. Facet arthropathy of the lower lumbar spine. [id number] Performing Organization Address City/State/[facility] Code Phon e Number [facility] [address] [place] [address] XR Lumbar Spine 2 Or 3 Vw (05/10/2019 3:27 PM EAR MACHINE OPERATOR) Specimen Narrative Performed At EXAMINATION: XR LUMBAR SPINE 2 OR 3 VW [facility] CLINICAL HISTORY: Back pain risk factors (osteoporos is or chronic steroid use or elderly), T L-spine trauma minor-mod low back pain, Tail bone pain after fall COMPARISON: None IMPRESSION: No displaced fracture. No subluxation. No suspicious o sseous abnormalities. Mild to moderate disc height loss at L4-5 and L5-S1. M oderate anterior osteophytes at L4-5 and tiny anterior os teophytes at L3-4. Calcified atherosclerosis abdominal aort a. Drain present in the pelvis. [id number] Procedure Note Interface, Radiology Results - 05/10/2019 4:19 PM EAR MACHINE OPERATOR EXAMINATION: XR LUMBAR SPINE 2 OR 3 VW CLINICAL HISTORY: Back pain risk factor s (osteoporosis or chronic steroid use or elderly), T L-spine trauma minor-mod low back pain, Tail bone pain after fall COMPARISON: None IMPRESSION: No displaced fracture. No subluxation. N o suspicious osseous abnormalities. Mild to moderate disc height loss at L4- 5 and L5-S1. Moderate anterior osteophytes at L4-5 and tiny anterior osteophytes at L3-4. Calcified atherosclerosis abdominal aort a. Drain present in the pelvis. [id number] Performing Organization Address City/State/ZIP Code Phon e Number [facility] [address] [place] [address] MRI Cervical Spine Wo Contrast (05/10/2019 3:14 PM EAR MACHINE OPERATOR) Specimen Narrative Performed At EXAMINATION: MRI CERVICAL SPINE WO CONTR AST [facility] CLINICAL HISTORY: Neck pain initial exam, C-spine st enosis, Radiculopathy COMPARISON: None TECHNIQUE: Multiplanar multisequence noncontrast enhan nahid examination was performed of the cervical spine. FINDINGS: Vertebral body heights are maintained. The cervicomed ullary junction is unremarkable. No cord signal abnormality identified. N o focal marrow lesions. No masses are present in the visualized preve rtebral soft tissues. There is mild kyphosis at C6-7. There is 1 mm anteroli sthesis of C7 and T1. Axial images through the disc spaces dem onstrate the following: C1-C2: There is narrowing of the atlantoaxial interval with spurring. There is no significant stenosis. C2-C3: No significant posterior disc disease, spinal c anal or neural foraminal stenosis. C3-C4: Uncovertebral arthrosis and facet disease is pr esent without significant foraminal narrowing. There is a shallow 2 mm posterior protrusion with mild effacement of ventral thecal sac without cord abutment. C4-C5: There is a broad-based posterior protrusion karyna suring 2 mm with minimal effacement of the ventral thecal sac. Uncovert ebral arthrosis and facet disease results in mild narrowing of bilater al foramina with partial effacement of the foraminal fat. C5-C6: There is disc desiccation and posterior spondyl osis and mild canal narrowing with partial effacement of the ventral thecal sac. Uncovertebral arthrosis and facet disease is present w ithout foraminal narrowing. C6-C7: There is disc desiccation posterior spondylosis with a 2 mm posterior protrusion and mild effacement of the ventra l thecal sac with abutment of the cord without effacement. AP dimension canal remains patent at 9 to 10 mm. Uncovertebral arth rosis and facet disease is present without for aminal narrowing. C7-T1: No significant posterior disc disease, spinal c anal or neural foraminal stenosis. No significant posterior disc disease, spinal canal or neural foraminal stenosis at other visualized levels. IMPRESSION: There is mild spondylosis from C3 through C7 as detail ed above. No acute osseous abnormality or significant steno sis identified. [id number] Procedure Note Hm Interface, Radiology Results Incoming - 05/10/2019 3:40 PM EAR MACHINE OPERATOR EXAMINATION: MRI CERVICAL SPINE WO CONTRAST CLINICAL HISTORY: Neck pain initial exa m, C-spine stenosis, Radiculopathy COMPARISON: None TECHNIQUE: Multiplanar multisequence non contrast enhanced examination was performed of the cervical spine. FINDINGS: Vertebral body heights are maintained. The cervicomedullary junction is unremarkable. No cord signal abnormality identified. No focal marrow lesions. No masses are present in the visualized prevertebral soft tissues. There is mild kyphosis at C6-7. There is 1 mm anterolisthesis of C7 and T1. Axial images through the disc spaces dem onstrate the following: C1-C2: There is narrowing of the atlanto axial interval with spurring. There is no significant stenosis. C2-C3: No significant posterior disc dis ease, spinal canal or neural foraminal stenosis. C3-C4: Uncovertebral arthrosis and facet disease is present without significant foraminal narrowing. There is a shallow 2 mm posterior protrusion with mild effacement of ventral thecal sac without cord abutment. C4-C5: There is a broad-based posterior protrusion measuring 2 mm with minimal effacement of the ventral thecal sac. Uncovertebral arthrosis and facet disease results in mild narrowing of bilateral foramina with partial effacement of the foraminal fat. C5-C6: There is disc desiccation and pos terior spondylosis and mild canal narrowing with partial effacement of the ventral thecal sac. Uncovertebral arthrosis and facet disease is present without foraminal narrowing. C6-C7: There is disc desiccation posteri or spondylosis with a 2 mm posterior protrusion and mild effacement of the ventral thecal sac with abutment of the cord without effacement. AP dimension canal remains patent at 9 to 10 mm. Uncovertebral arthrosis and facet disease is present without for aminal narrowing. C7-T1: No significant posterior disc dis ease, spinal canal or neural foraminal stenosis. No significant posterior disc disease, s tate canal or neural foraminal stenosis at other visualized levels. IMPRESSION: There is mild spondylosis from C3 throug h C7 as detailed above. No acute osseous abnormality or significant stenosis identified. [id number] Performing Organization Address [facility]/ZIP [facility] [place] Phon e Number [facility] [address] [place] [address] Aerobic culture (05/10/2019 8:50 AM EAR MACHINE OPERATOR) Aerobic culture No growth after 3 days. SONYA DELACRUZ IST isolate Comment: HOSPITAL Specimen Information Specimen Source: Peritoneal fluid Specimen Site: Peritoneal fluid Specimen Peritoneal fluid - Peritoneal fluid Performing Organization Address [facility] Phon e Number [facility] DEPARTMENT OF PATHOLOGY AND [address] [place] [address] [phone] [address] Gram stain (05/10/2019 8:50 AM EAR MACHINE OPERATOR) Gram stain isolate Rare WBC's [facility] No organisms seen HOSPITAL Comment: Specimen Information Specimen Source: Peritoneal fluid Specimen Site: Peritoneal fluid Specimen Peritoneal fluid - Peritoneal fluid Performing Organization Address [facility] Phon e Number [facility] DEPARTMENT OF PATHOLOGY AND [address] [place] [address] [phone] [address] Anaerobic culture (05/10/2019 8:50 AM EAR MACHINE OPERATOR) Anaerobic culture No anaerobic organisms isolated. [place] isolate Comment: HOSPITAL Specimen Information Specimen Source: Peritoneal fluid Specimen Site: Peritoneal fluid Specimen Peritoneal fluid - Peritoneal fluid Performing Organization Address [facility] Phon e Number [facility] DEPARTMENT OF PATHOLOGY AND [address] [place] [address] [phone] [address] Cell count and differential, body fluid (05/10/2019 8:50 AM EAR MACHINE OPERATOR) Misc fluid type PD fluid [facility] Color, fluid Colorless [facility] Appearance, fluid Clear [facility] RBC, fluid SEE /CMM [facility] COMMENTComment: 1+ [facility] (0 - 500 RBC/CMM) [facility] Nucleated cells, 37 /CMM [facility] Fluid mononuclear Diff to follow [facility] cell [facility] Neutrophils, fluid 51 % [facility] Lymphocytes, fluid 35 % [facility] Eosinophils, fluid 2 % [facility] Macrophages, fluid 12 % [facility] Specimen Fluid Performing Organization Address City/[facility] Code Phon e Number [facility] DEPARTMENT OF PATHOLOGY [address] [place] [address] [address] GEN[address] Lactic acid level, SEPSIS - Now and repeat 2x every 3 hours (05/09/2019 9:08 PM EAR MACHINE OPERATOR)Only the most recent of3 resultswithin the time period is included. Pathologist Sig nature Lactic acid 1.4 0.5 - 2.2 mmol/L [facility] Specimen Plasma specimen Performing Organization Address [facility] Phon e Number [facility] DEPARTMENT OF PATHOLOGY [address] [place] [address] [place] carotid duplex (05/09/2019 5:44 PM EAR MACHINE OPERATOR) Specimen Narrative Performed At Examination: US CAROTID DUPLEX BILATERAL [facility] CLINICAL HISTORY: New or worsening hemispheric neurolo gical symptoms (e.g. unilateral motor or sensory deficit speech imp ariment or amaurosis fugax) Eval of transient isc hemic attack or stroke. TECHNIQUE: Examination includes full duplex Doppler sc an (real-time B mode grayscale, Doppler spectral analysis, Doppler col or flow imaging) of the common carotid, internal carotid, external lipscomb tid, and vertebral arteries. Velocity parameters are based upon studies using distal internal carotid artery diam eter as a denominator for stenosis calculation. COMPARISON:None. FINDINGS: Right side:There is no hemodynamically significant ext racranial carotid arterial stenosis on the right according to grayscale or color flow imaging. Minimal plaque is present within the right distal common carotid artery and carotid bulb. The peak systolic velocities in the right internal car otid artery are 67.7 , 109.2 and 114.1 cm/s. There is antegrade flow in the right olegario tebral artery. Left side:There is no hemodynamically significant extr acranial carotid arterial stenosis on the left according to grayscale o r color flow imaging.. Minimal plaque is present within the left ca rotid bulb and distal common carotid artery. The peak systolic velocities in the left internal lipscomb tid artery are 100.5 , 109.5 and 121.5 cm/s. There is antegrade flow in the left vert ebral artery. IMPRESSION: No hemodynamically significant (greater than 50%) extr acranial carotid arterial stenosis. [facility]-[id number] Procedure Note Hm Interface, Radiology Results Incoming - 05/09/2019 6:10 PM EAR MACHINE OPERATOR Examination: US CAROTID DUPLEX BILATERAL CLINICAL HISTORY: New or worsening hemis pheric neurological symptoms (e.g. unilateral motor or sensory deficit speech impariment or amaurosis fugax) Eval of transient ischemic attack or stroke. TECHNIQUE: Examination includes full dup kathy Doppler scan (real-time B mode grayscale, Doppler spectral analysis, Doppler color flow imaging) of the common carotid, internal carotid, external carotid, and vertebral arteries. Velocity parameters are based upon studies using distal internal carot id artery diameter as a denominator for stenosis calculation. COMPARISON:None. FINDINGS: Right side:There is no hemodynamically s ignificant extracranial carotid arterial stenosis on the right according to grayscale or color flow imaging. Minimal plaque is present within the right distal common carotid artery and carotid bulb. The peak systolic velocities in the righ t internal carotid artery are 67.7 , 109.2 and 114.1 cm/s. There is antegrade flow in the right olegario tebral artery. Left side:There is no hemodynamically si gnificant extracranial carotid arterial stenosis on the left according to grayscale or color flow imaging.. Minimal plaque is present within the left carotid bulb and distal common carotid artery. The peak systolic velocities in the left internal carotid artery are 100.5 , 109.5 and 121.5 cm/s. There is antegrade flow in the left vert ebral artery. IMPRESSION: No hemodynamically significant (greater than 50%) extracranial carotid arterial stenosis. [facility]-[id number] Performing Organization Address City/State/ZIP Code Phon e Number [facility] [address] [place] [address] Vitamin B1 level, whole blood (05/09/2019 3:55 PM EAR MACHINE OPERATOR)Only the most recent of2 resultswithin the time period is included. Vitamin B1 232 (H) 70 - 180 [facility] Comment: nmol/L INTERPRETIVE INFORMATION: Vitamin B1, Whole Blood This assay measures the concentration of thiamine diph osphate (TDP), the primary active form of vitamin B1. Approxim ately 90 percent of vitamin B1 present in whole blood is TDP. T hiamine and thiamine monophosphate, which comprise the remaining 1 0 percent, are not measured. Test developed and characteristics determined by [employer]. See Compliance Statement B: [employer]/ CS Performed by [employer], [address] [place] [address] [email or web address], Mario Ambrocio MD, Lab. Director Specimen Plasma specimen Performing Organization Address [facility] Phon e Number [facility] [address] [place] [address] [facility] [address] [place] [address] Thyroid stimulating hormone (05/09/2019 3:55 PM EAR MACHINE OPERATOR)Only the most recent of3 resultswithin the time period is included. Pathologist Sig nature TSH 2.03 0.27 - 4.20 uIU/mL [facility] Specimen Blood Performing Organization Address [facility] Phon e Number [facility] DEPARTMENT OF PATHOLOGY [id number] [place] [address]. [facility] X [address] AND [facility] [id number] [place] [address]. [facility] X [phone] [place] [address] Hemoglobin A1c (05/09/2019 3:55 PM EAR MACHINE OPERATOR)Only the most recent of2 resultswithin the time period is included. Hemoglobin A1C 7.0 (H) 4.0 - 5.6 % [facility] Comment: [facility] HbA1c cutoffs for diagnosing diabetes: HO SPITAL 4.0% - 5.6% = normal 5.7% - 6.4% = increased risk for diabetes (prediabetes )9 >=6.5% = diabetes9 Goals for glycemic control (ADA 2016) < 7.0% Target for non adults with diabetes. More or less stringent targets may be appropriate for individual patients. <7.5% Target for Children and adolescents with type 1 diabetes. Specimen Blood Performing Organization Address [facility]/ZIP Code Phon e Number [facility] DEPARTMENT OF PATHOLOGY [id number] [place] [address]. [facility] X [address] AND [facility] [phone] [place] [address] X [address] [facility] Vitamin B12 level (05/09/2019 3:55 PM EAR MACHINE OPERATOR)Only the most recent of2 results within the time period is included. Vitamin B12 807 211 - 946 [facility] Comment: pg/mL HOSPITAL Significant overlap exists between normal and deficien cy states. However, most patients with deficiencies will have Ser um B12 <200 pg/mL. Specimen Serum Performing Organization Address City/[facility] Phon e Number [facility] DEPARTMENT OF PATHOLOGY AND [address] [place] [address] [facility] [address] [place] [address] Ionized calcium (05/09/2019 3:55 PM EAR MACHINE OPERATOR)Only the most recent of2 resultswithin the time period is included. Pathologist Sig nature pH 7.29 [facility] Ionized calcium 1.14 1.11 - 1.32 mmol/L [facility] Specimen Blood Performing Organization Address City/[facility] Phon e Number [facility] DEPARTMENT OF PATHOLOGY [address] [facility] X [address] AND [facility] [address] [facility] X [address] [facility] Lipid panel (05/09/2019 3:55 PM EAR MACHINE OPERATOR)Only the most recent of2 resultswithin the time period is included. Cholesterol 79 0 - 199 [place] mg/dL [facility] Triglycerides 139 0 - 149 [place] mg/dL [facility] HDL cholesterol 22 (L) 40 - 99,999 [place] mg/dL [facility] LDL cholesterol 32 0 - 99 mg/dL [facility] Lipid panel See below [place] interpretation Comment: [facility] Total Cholesterol (mg/dL) [facility] <200 Desirable 200-239 Borderline-high >=240 High Triglycerides (mg/dL) <150 Normal 150-199 Borderline-high 200-499 High >=500 Very high HDL Cholesterol (mg/dL) <40 Low (male) <50 Low (female) LDL Cholesterol (mg/dL) <100 Optimal 100-129 Near or above optimal 130-159 Borderline-high 160-189 High >=190 Very high Risk Catergories that modify LDL goals. Risk Catergories LDL goal (mg/d L) CHD and CHD risk equivalent <100 (10-year risk >20%) Multiple (2+) risk factors <130 (10-year risk =<20%) 0-1 risk factors <160 (<10-year risk) Defining levels of lipids in metabolic syndrome Triglycerides >=150 mg/dL HDL Cholesterol Men <40 mg /dL Women <50 mg/ dL Non-HDL cholesterol is a second target for therapy in persons with high triglycerides (>=200 mg/dL) Specimen Blood Performing Organization Address City/State/ZIP Code Phon e Number [facility] DEPARTMENT OF PATHOLOGY [address] [facility] [place] [address] AND GENOMIC MEDICINE [facility] [address] [facility] X [address] [facility] Troponin (05/09/2019 2:40 PM EAR MACHINE OPERATOR) [facility] Troponin 0.011 0.000 - 0.040 [facility] Comment: ng/mL [facility] In patients suspected of having a myocardial infarctio n, along with all other appropriate clinical measures and actions includ ing ECG and other diagnostics as appropriate, measure Ultra TnI at 0 hrs and at 3 hrs. Myocardial infarction VERY LIKELY The 0 hr TnI level is > 0.10 ng/mL Myocardial infarction LIKELY The 0 hr TnI level is > 0.04 ng/mL and 3 hr level is i ncreased or decreased by at least 0.020 ng/mL Myocardial infarction VERY UNLIKELY Both the 0 hr and 3 hr TnI levels <= 0.04 ng/mL(within normal limits) OR 0 hr is > 0.04 ng/mL and 3 hr is increased OR decreased by less than 0.020 ng/mL Specimen Plasma specimen Performing Organization Address [facility] Phon e Number [facility] DEPARTMENT OF PATHOLOGY [id number] [place] [address] X [address] AND [facility] [address] [place] [address] X [address] [facility] B natriuretic peptide (05/09/2019 2:40 PM EAR MACHINE OPERATOR) Pathologist [facility] BNP 75 0 - 100 pg/mL [facility] Specimen Blood Performing Organization Address [facility] Phon e Number [facility] DEPARTMENT OF PATHOLOGY [id number] [place] [address] [place], [place] X [address] AND [facility] [phone] [place] [address] X [address] [facility] ECG ED Preliminary Interpretation - Not an Order (05/09/2019 2:07 PM EAR MACHINE OPERATOR)Only the most recent of2 resultswithin the time period is included. Narrative Performed At Malik Marino MD 05/10/2019 1 2:43 PM ECG ED Preliminary Interpretation - Not an Order Performed by: Malik Marino MD Authorized by: Malik Marino MD ECG 12 lead (05/09/2019 2:05 PM EAR MACHINE OPERATOR)Only the most recent of2 resultswithin the time period is included. Pathologist Sig nature Ventricular rate 87 [facility] Atrial rate 87 [facility] [place] interval 132 [facility] QRSD interval 84 [facility] QT interval 362 [facility] QTC interval 435 [facility] P axis 1 39 [facility] QRS axis 1 2 [facility] T wave axis -4 [facility] EKG impression Normal sinus rhythm-Moderate voltage criteria for LVH, may be normal variant-Nonspecific ST and T wave abnormality-Abnormal ECG-In automated comparison with ECG of 25-FEB-2019 22:42,-ST now depressed in [facility] MUSE Inferior leads-ST elevation now present in Lateral leads-Nonspecific T wave abn ormality now evident in Lateral leads- Specimen Narrative Performed At This result has an attachment that is no t available. Performing Organization Address [facility] Phon e Number [facility] MUSE [address] [place] [address] CT Lumbar Spine Wo Contrast (02/27/2019 4:32 PM EAR MACHINE OPERATOR) Specimen Narrative Performed At EXAMINATION: CT LUMBAR SPINE WO CONTRA ST [facility] CLINICAL HISTORY: Radiculopathy > 6wks conservativ e tx persistent sx COMPARISON: None. TECHNIQUE: Axial helical CT images throughout the lumbar spine we re performed without IV contrast. Sagittal and coronal reformatted images were generated. All CT images were acquired using low-dose technique w ith automated exposure control. FINDINGS: There is no evidence of acute fracture, subluxation, o r dislocation. There is normal lumbar lordosis and alignment. Vertebr al bodies are preserved. There is no evidence of jessu tate hematoma. L3-L4 level: There is diffuse disc bulge with bilatera l facet arthropathy ligamentous hypertrophy. There is mild surinder ateral lateral recess narrowing. There is no foraminal narrowing. L4-L5 level: There is a spondylotic chronic care disc space narrowing with endplate sclerosis and vacuum phenomena. There is diffuse disc bulge with bilateral facet arthropathy ligamentous hyp ertrophy. There is moderate canal stenosis with moderate severe right lateral recess narrowing. There is a no f oraminal narrowing. L5-S1 level: There is diffuse disc bulge with left ruben tral and subarticular shallow disc protrusion with associated b ilateral facet arthropathy. There is moderate to severe left lateral recess narrowing with potential mass effect on the left S 1 nerve root. There is mild canal stenosis. There is spondylot ic moderate severe left foraminal narrowing with potential mass effect on the exiting left L5 nerve root. Visualized paraspinal soft tissues are u nremarkable. IMPRESSION: Spondylotic changes as detailed above. If clinically w arranted further evaluation with MRI or myelogram of the lumbar spine is recommended. No acute lumbar spine bony abnormality. [facility]-[id number] Procedure Note Interface, Radiology Results Incoming - 02/27/2019 5:54 PM EAR MACHINE OPERATOR EXAMINATION: CT LUMBAR SPINE WO CONTRAST CLINICAL HISTORY: Radiculopathy > 6wks conservative tx persistent sx COMPARISON: None. TECHNIQUE: Axial helical CT images throughout the l umbar spine were performed without IV contrast. Sagittal and coronal reformatted images were generated. All CT images were acquired using low-do se technique with automated exposure control. FINDINGS: There is no evidence of acute fracture, subluxation, or dislocation. There is normal lumbar lordosis and alignment. Vertebral bodies are preserved. There is no evidence of paraspinal hematoma. L3-L4 level: There is diffuse disc bulge with bilateral facet arthropathy ligamentous hypertrophy. There is mild bilateral lateral recess narrowing. There is no foraminal narrowing. L4-L5 level: There is a spondylotic [facility] disc space narrowing with endplate sclerosis and vacuum phenomena. There is diffuse disc bulge with bilateral facet arthropathy ligamentous hypertrophy. There is moderate canal stenosis with moderate severe right lateral recess narrowing. T here is a no foraminal narrowing. L5-S1 level: There is diffuse disc bulge with left central and subarticular shallow disc protrusion with associated bilateral facet arthropathy. There is moderate to severe left lateral recess narrowing with potential mass effect on the left S 1 nerve root. There is mild canal stenosis. Ther e is spondylotic moderate severe left foraminal narrowing with potential mass effect on the exiting left L5 nerve root. Visualized paraspinal soft tissues are u nremarkable. IMPRESSION: Spondylotic changes as detailed above. I f clinically warranted further evaluation with MRI or myelogram of the lumbar spine is recommended. No acute lumbar spine bony abnormality. [facility]-[id number] Performing Organization Address City/State/ZIP Code Phon e Number [facility] [address] [place] [address] Magnesium level (02/27/2019 3:30 AM EAR MACHINE OPERATOR)Only the most recent of2 resultswithin the time period is included. Pathologist [facility] nature Magnesium 2.3 1.6 - 2.4 mg/dL [facility] Specimen Plasma specimen Performing Organization Address City/[facility]/ZIP Code Phon e Number [facility] DEPARTMENT OF PATHOLOGY [address] [facility] [place] [address] AND GENOMIC MEDICINE [facility] [place] [address] [facility] [place] [address] HOSPITAL EEG (routine) (02/26/2019 6:27 PM EAR MACHINE OPERATOR) Narrative Performed At This result has an attachment that is no t available. Date of Service: February 26, 2019. Date of EEG interpretation: February 26, 2019. Routine Inpatient Electroencephalogram Report History: 68 y.o. female with a history of convulsion e valuated for underlying cerebral activity and epileptic seizures. Technical Description: The record consists of a greater than 20 minute digita lly recorded multi-montage EEG with 21 electrodes placed according to the International 10/20 system. An EKG strip was recorded continuously . True eye leads were not employed. True temporal leads were not empl oyed. EEG Description: When maximally aroused, the awake background was laurita cterized by a well-developed 7-8 Hz, 20 to 40 microvolts symmetric p osterior rhythm that attenuated appropriately to eye opening. The patient becomes drowsy over the course of the recording as evidenced by the dropou t of the posterior rhythm and the emergence of a diffuse 2 to 7 Hz, 40 to 60 microvolts irregular slow activity. Sleep Recording: Sleep was not recorded. Activation Procedures: Hyperventilation was not performed. Photic stimulation utilizing flash frequencies ranging from 5 to 30 Hz did not elicit any paroxysmal discharges. EEG Interpretation: This was an abnormal awake and d rowsy EEG. 1. Background slow. 2. No paroxysmal discharges were observed. Clinical Correlation: 1. A mild global cerebral dysfunction, nonspecific e tiology. 2. The absence of interictal epileptiform discharges does not rule out an underlying tendency for unprovoked seizures (epilepsy) . Note, however, that an EEG recording preceded by sleep deprivation or a prolonged recording during sleep would increase the statistical likelihood of detecting interictal discharges, and should be conside red if pursuing a diagnosis of epilepsy. Total iron binding capacity (02/26/2019 3:00 PM EAR MACHINE OPERATOR)Only the most recent of2 resultswithin the time period is included. Pathologist Sig [facility] Iron level 27 (L) 37 - 145 ug/dL [facility] Iron binding capacity 203 (L) 260 - 460 ug/dL [facility] % Saturation 13.3 (L) 15.0 - 38.0 % [facility] Specimen Serum Performing Organization Address City/[facility]/ZIP [facility] [place] Phon e Number [facility] DEPARTMENT OF PATHOLOGY [address] [facility] [place] [address] AND GENOMIC MEDICINE [facility] [address] [facility] [place] [address] [facility] Hepatitis B surface antibody (02/26/2019 3:00 PM EAR MACHINE OPERATOR) Pathologist Sig nature Hepatitis B surface Reactive (A) Non-reactive [facility] Specimen Blood Performing Organization Address City/[facility]/ZIP [facility] [place] Phon e Number [facility] DEPARTMENT OF PATHOLOGY AND [address] [place] [address] [phone] [address] Uric acid level (02/26/2019 3:00 PM EAR MACHINE OPERATOR) Pathologist Sig [facility] Uric acid 7.0 (H) 2.4 - 5.7 mg/dL [facility] Specimen Plasma specimen Performing Organization Address City/[facility]/ZIP Code Phon e Number [facility] DEPARTMENT OF PATHOLOGY [address] [facility] [place] [address] AND [facility] [place] [address] [facility] [place] [address] HOSPITAL Folate level (02/26/2019 3:00 PM EAR MACHINE OPERATOR) Pathologist Sig [facility] Folate >20.0 4.8 - 24.2 ng/mL [facility] Specimen Serum Performing Organization Address [facility] Phon e Number [facility] DEPARTMENT OF PATHOLOGY AND [address] [place] [address] [phone] [address] Ferritin level (02/26/2019 3:00 PM EAR MACHINE OPERATOR) Pathologist Sig [facility] Ferritin level 738 (H) 13 - 150 ng/mL [facility] Specimen Plasma specimen Performing Organization Address City/[facility] Phon e Number [facility] DEPARTMENT OF PATHOLOGY AND [address] [place] [address] [phone] [address] Echocardiogram complete w contrast and 3D if needed (02/26/2019 11:30 AM EAR MACHINE OPERATOR) Pathologist Sig nature AoV Area, Vmax 2.95 cm2 SYNGO AoV Area, VTI 3.30 cm2 SYNGO AoV Mean PG 4.00 mmHg SYNGO AoV Peak PG 5.86 mmHg [facility]NGO AoV Vmax 1.21 m/s [facility] AoV VTI 0.27 m [facility] IVS,d 0.94 cm [facility] IVS/LVPW,2D 1.15 [facility] Left Atrium Dimension Anterior 3.70 cm [facility] LV,d 4.35 cm [facility] LV EF,2D 62.39 % [facility] LV,s 3.14 cm [facility] LVOT area 3.80 cm2 [facility] LVOT Diam,S 2.20 cm [facility] LVOT Vmax 0.94 m/s [facility] LVOT VTI 0.24 m [facility] LVPWD,d 0.82 cm [facility] TR Vpeak 2.51 mm/s [facility] MV E A ratio 0.63 [facility] TR pk grad 25.20 mmHg [facility] E wave decelartion time 289.00 msec [facility] MV Peak A Jez 0.97 m/s [facility] MV valve area p 1/2 method 2.62 cm2 [facility] MV Peak E Jez 0.61 m/s [facility] MV stenosis pressure 1/2 time 83.81 ms [facility] AV LVOT peak gradient 3.52 mmHg [facility] Ao Root,d,2D 3.60 cm [facility] LV SYS VOL 39.12 ml [facility] LV MATTHEWS VOL 85.36 ml [facility] LV SV Teich 2D 46.24 ml [facility] LV Vol s Teich PSAX 39.12 ml [facility] AoV Vmn 0.92 [facility] LV FS Teich 2D 27.82 [facility] MV AE ratio 1.59 [facility] LV FS Cube 2D 27.82 [facility] LVOT Vmn 0.72 [facility] Aov area Vmn 2.95 cm2 [facility] LVOT mean grad 2.00 mmHg [facility] MAX Pred HR 150.45 [facility] 85 of MPHR 127.89 [facility] Ao d LA s ratio 0.97 [facility] Calc MPHR 150.45 bpm [facility] LV SV Cube 2D 51.35 ml [facility] LV vol d cube 2D 82.31 ml [facility] LV vol s cube 2D 30.96 ml [facility] MV Decel slope 2.12 m/s2 [facility] Pred Exer Dur R1 6.87 [facility] Pred METS R1 5.66 [facility] Velocity Ratio (V1/V2) 0.78 m/s [facility] EF 54.17 % [facility] E/A ratio 0.63 [facility] Specimen Narrative Performed At This result has an attachment that is no t available. Left ventricular systolic function is normal. [facility] Left Ventricular ejection fraction is 50 - 55%. Mild mitral annular calcification. Spectral Doppler shows impaired relaxation pattern of left ventricular diastolic filling. 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 Specimen Blood Performing Organization Address [facility] Phon e Number [facility] DEPARTMENT OF PATHOLOGY [id number] [place] [address] Prothrombin time with INR (02/25/2019 11:41 PM EAR MACHINE OPERATOR) Prothrombin time 13.7 11.5 - 14.5 [facility] INR 1.1 [place] Comment: [facility] International Normalized Ratio (INR) is a therapeu [facility] monitoring tool for patients who are stable on oral anticoagulant therapy. An INR of 2.0-3.0 is suggested for deep vein thrombosis/pulmonary embolism. Specimen Blood Performing Organization Address [facility] Phon e Number [facility] DEPARTMENT OF PATHOLOGY [address] [place] [address] AND [place] [phone] [facility] Lipase level (02/25/2019 11:41 PM EAR MACHINE OPERATOR) Pathologist Sig nature Lipase 27 13 - 60 U/L [facility] Specimen Plasma specimen Performing Organization Address [facility] Phon e Number [facility] DEPARTMENT OF PATHOLOGY [address] [place] [address] AND [place] [phone] HOSPITAL CRITICAL CARE (02/25/2019 11:23 PM EAR MACHINE OPERATOR) Narrative Performed At Jennifer Mcmahan DO 02/08 7:34 PM Critical Care Performed by: Jennifer Mcmahan DO Authorized by: Jennifer Mcmahan DO Critical care provider statement: Critical care time (minutes): 38 Critical care was necessary to treat or prevent imminent or life-threatening deterioration of the fo llowing conditions: Metabolic crisis and [employer] failure or compromise Critical care was time spent personal ly by me on the following activities: Ordering and performing tr eatments and interventions, ordering and review of laboratory studie s, ordering and review of radiographic studies, pulse oximetry, re -evaluation of patient's condition, review of old charts, obtaini ng history from patient or surrogate, examination of patient, discu ssions with consultants, development of treatment plan with patient or surrogat e and evaluation of patient's response to treatment after 01/06/2019 Insurance Payer Benefit Plan / Subscriber ID Effective Phone Address T ype Group Dates MEDICARE MEDICARE PART A [id number] 2014-Pres [place], [place] Medicare AND B ent BCBS COMMERCIAL BCBS MEDICARE [id number] 2014-Pres Commercial SUPPLEMENT ent Advance Directives For more information, please contact: [phone] Type Date Recorded 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
--- OUTSIDE RECORDS SUMMARY | 2020-01-07 12:07 | XMS REPORT | Clinical Summary ---
:1950 Author Organization [facility] Address [address] [place] [address] Care Team Providers Name Role Phone Pcp, No Primary Care Provider Unavailable Allergies Not on File Medications Not on file Active Problems Not on file Social History Tobacco Use Types Packs/Day Years Used Date Never Assessed Sex Assigned at Date Recorded Not on file Job Start Date Occupation Industry Not on file Not on file Not on file Travel History Travel Start Travel End No recent travel history available. Last Filed Vital Signs Not on file Plan of Treatment Not on file Results Not on fileafter 01/06/2019 Insurance Payer Benefit Plan / Subscriber ID Type Phone Address Group MEDICARE MEDICARE A B xxxxxxxxxxx Medicare BLUE CROSS/BLUE [place] INDEMNITY [place] xxxxxxxxxxxx O [address] [facility] [place] [address]
--- OUTSIDE RECORDS SUMMARY | 2020-01-07 12:07 | XMS REPORT | Continuity of Care Document ---
:1950 Author Organization [employer] Care Team Providers Name Role Phone [employer] Unavailable Un available Problems Problem Status Onset Classification Date Comments Sourc e Date Reported Ataxia (finding) Active Problem 12/06/2019 [facility] Neuro Diabetes mellitus Active Problem 12/06/2019 M ischer (disorder) Neuro End stage renal Active Problem 12/06/2019 Mis divina failure on Neuro dialysis (disorder) Hypertensive Active Problem 12/06/2019 M[facility] r disorder, Neuro systemic arterial (disorder) Hyperlipidemia Active Problem 12/06/2019 Misc her (disorder) Neuro Spinal cord Resolved Problem 12/06/2019 [facility] disorder Neuro (disorder) Tremor (finding) Active Problem 12/06/2019 [facility] Neuro Myoclonus Active Problem 12/06/2019 [facility] (finding) Neuro Neuropathy Active Problem 12/06/2019 [facility] (disorder) Neuro Cervical Active Problem 12/06/2019 [facility] radiculopathy Neuro (disorder) Medications Medication Details Route Status Patient Ordering Order Source Instructions Provider Date gabapentin 100 200 mg = 2 Active Mische r MG Oral Capsule cap, PO, 020 Neuro TID, # 180 cap, 2 Refill(s), Pharmacy: [facility] #[id number], 160.02, cm, 10/17/19 14:23:00 CDT, Height, 76.818, kg, 10/17/19 14:23:00 CDT, Weight pregabalin 50 MG 50 mg = 1 Active Misch er Oral Capsule cap, PO, 020 Neuro [Lyrica] Bedtime, # 30 cap, 3 Refill(s), Pharmacy: [facility] #[id number], 160.02, cm, 10/17/19 14:23:00 CDT, Height, 76.818, kg, 10/17/19 14:23:00 CDT, Weight baclofen 10 mg 10 mg = 1 Active Mischer oral tablet tab, PO, 020 Neuro Bedtime, # 30 tab, 3 Refill(s), Pharmacy: [id number] baclofen 10 mg 10 mg = 1 No Longer Misch er oral tablet tab, PO, Active 020 Neuro Bedtime, # 30 tab, 3 Refill(s) gabapentin 100 200 mg = 2 Active Mische r MG Oral Capsule cap, PO, 020 Neuro TID, # 180 cap, 2 Refill(s), Pharmacy: [facility] #[id number] bumetanide 2 mg 2 mg = 1 Active [facility]ischer oral tablet tab, PO, 020 Neuro Daily, 0 Refill(s) Hydroxyzine 25 mg = 1 Active [facility] Hydrochloride 25 tab, PO, 020 Neuro MG Oral Tablet BID, 0 Refill(s) midodrine 2.5 mg 5 mg = 2 Active Mische r oral tablet tab, PO, 020 Neuro BID, 0 Refill(s) ondansetron 4 mg 4 mg = 1 Active Mische r oral tablet tab, PO, 020 Neuro QID, 0 Refill(s) Calcitriol PO, Every Active Mischer Other Day, 0 020 Neuro Refill(s) Alprazolam 0.25 0.25 mg = 1 Active Misc her MG Oral Tablet tab, PO, 020 Neuro Daily, # 30 tab, 0 Refill(s) Aspirin 81 MG 81 mg = 1 Active [facility] Enteric Coated tab, PO, 020 Neuro Tablet Daily, # 90 tab, 3 Refill(s) bethanechol 5 mg 5 mg = 1 Active Mische r oral tablet tab, PO, 020 Neuro TID, # 42 tab, 0 Refill(s) Vitamin D3 0 Refill(s) Active Mischer 50,000 intl 020 Neuro units oral capsule sevelamer 800 mg 0 Refill(s) Active Mis divina oral tablet 020 Neuro 3 ML insulin 0 Refill(s) Active [facility] degludec 100 020 Neuro UNT/ML Pen Injector [Tresiba] sevelamer 0 Refill(s) Active Mischer carbonate 800 MG 020 Neuro Oral Tablet [Renvela] pregabalin 75 mg 0 Refill(s) Active Mis divina oral capsule 020 Neuro pravastatin 40 0 Refill(s) Active Misch er mg oral tablet 020 Neuro 3 ML Insulin, 0 Refill(s) Active Mische r Aspart, Human 020 Neuro 100 UNT/ML Pen Injector [NovoLog] Metolazone 5 MG 0 Refill(s) Active Misc her Oral Tablet 020 Neuro Furosemide 40 MG 0 Refill(s) Active Mis divina Oral Tablet 020 Neuro clopidogrel 75 0 Refill(s) Active Misch er mg oral tablet 020 Neuro nebivolol 10 MG 0 Refill(s) Active Misc her Oral Tablet 020 Neuro [Bystolic] benazepril 10 mg 0 Refill(s) Active Mis divina oral tablet 020 Neuro allopurinol 100 0 Refill(s) Active Misc her mg oral tablet 020 Neuro Acetaminophen 0 Refill(s) Active Mische r 300 MG / Codeine 020 Neuro Phosphate 30 MG Oral Tablet Levetiracetam 250 mg = 1 Active Mischer 250 MG Oral tab, PO, 020 Neuro Tablet [Keppra] Bedtime, # 30 tab, 3 Refill(s), Pharmacy: [id number] thiamine 100 mg 100 mg = 1 Active Misch er oral tablet tab, PO, 020 Neuro Daily, 0 Refill(s) Allergies, Adverse Reactions, Alerts Substance Category Reaction Severity Reaction Status Date Comments S ource type Reported No Known Assertion Drug Misch er Medication allergy Neuro Allergies Immunizations No Data Provided for This Section Results No Data Provided for This Section Pathology Reports No Data Provided for This Section Diagnostic Reports No Data Provided for This Section Consultation Notes No Data Provided for This Section Discharge Summaries No Data Provided for This Section History and Physicals No Data Provided for This Section Vital Signs Vital Sign Value Date Comments Source Systolic (mm Hg) 98 10/17/2019 [facility] [place] Diastolic (mm Hg) 59 10/17/2019 [facility] [place] [facility]ro Heart Rate 76 [facility] Respitory Rate 16 10/17/2019 [facility] [place] Height 160.02 cm 10/17/2019 [facility] [place] Weight 76.818 10/17/2019 [facility] BMI Calculated 30 [facility] Systolic (mm Hg) 93 06/19/2019 [facility] Torin ro Diastolic (mm Hg) 52 06/19/2019 [facility] Ne uro Heart Rate 99 06/19/2019 [facility] [place] Respitory Rate 16 06/19/2019 [facility] [place] Height 160.02 cm 06/19/2019 [facility] Weight 82.727 06/19/2019 [facility] [place] BMI Calculated 32.31 06/19/2019 [facility] [place] Systolic (mm Hg) 106 05/02/2019 [facility] Torin ro Diastolic (mm Hg) 48 05/02/2019 [facility] Ne uro Heart Rate 73 05/02/2019 [facility] [place] Respitory Rate 16 05/02/2019 [facility] [place] Height 160.02 cm 05/02/2019 [facility] [place] Weight 85.455 05/02/2019 [facility] [place] BMI Calculated 33.37 05/02/2019 [facility] [place] Encounters Location Location Encounter Encounter Reason Attending ADM MA Stat us Source Details Type Number For Provider Date Date Visit MNA Outpatient [id number] Melo 05/02 05/03 [facility] [place] /2019 [facility] [place] MNA Outside [id number] 06/06 [facility] Neurology Medical /2019 [place] Records Outpatient [id number] Melo 06/18 Active [facility] Kre /2020 [place] MNA Outpatient [id number] Melo 06/18 06/19 [facility] [place] /2019 [place] Outpatient [id number] Melo 07/16 Active [facility] Kre /2020 [place] MNA Outpatient [id number] Melo 07/16 07/17 [facility] [place] /2019 [place] Outpatient [id number] Melo 10/16 Active [facility] Kre /2020 [place] Outpatient [id number] Melo 10/16 Active [facility] Kre /2020 [place] MNA Ambulatory [id number] Melo 10/16 10/16 [facility] Pre-Reg [place]rell /2019 Neuro [place] MNA Outpatient [id number] Melo 10/16 10/17 [facility] [place] /2019 [place] Outpatient [id number] Melo 12/02 Active [facility] MNA Outpatient [id number] Melo 12/02 12/03 [facility] Neuro [place] Outpatient [id number] Melo 03/03 Active [facility] Procedures No Data Provided for This Section Assessment and Plan No Data Provided for This Section Plan of Care No Data Provided for This Section Social History Social History Date Source Social History TypeResponse 12/03/2019 [facility] Neur o Smoking Status Never smoker; Exposure to Tobacco Smoke Unable to obtain; Cigarette Smoking Last 365 Days No; Reg Smoking Cessation Counseling No entered on: 12/03/19 Family History No Data Provided for This Section Advance Directives No Data Provided for This Section Functional Status No Data Provided for This Section
--- OUTSIDE RECORDS SUMMARY | 2020-01-07 12:10 | XMS REPORT | Continuity of Care Document ---
:1950 Author Organization [facility] t Address [address] [place] [place] [address] Care Team Providers Name Role Phone Pcp, No Primary Care Physician Unavailable Tigre ANGELES, Franko Rios Attending Clinician Silvio Rojas Attending Clinician Bob ANGELES Attending Clinician Akosua Mckeon MD Attending Clinician Unavailable Lakia ANGELES, H Attending Clinician Mila PAREDES Attending Clinician Unavailable Michael PAREDES Attending Clinician Unavailable Pastora ANGELES Attending Clinician Simon ANGELES, P. Attending Clinician Brian OLSON Attending Clinician Unavailable Nasrin OLSON Attending Clinician Unavailable Jamila ANGELES, K. Attending Clinician Kev ANGELES, Trudy Attending Clinician Mila Mcmahan DO Attending Clinician Darryn Calix MD Attending Clinician PASTORA Admitting Clinician Unavailable KEV Admitting Clinician Unavailable GILBERTO Admitting Clinician Unavailable Payers Payer Name Policy Type Policy Effective Date Expiration Date Sour ce Number MEDICAREMEDICARE PART [id number] 2014 [place] A AND 00:00:00 [facility] [id number] 2014[facility] [place] [facility] COMMERCIALBCBS [id number] 2014 Letitia maldonado MEDICARE 4 00:00:00 [facility] [id number] -PresentComm ercial Problems Condition Condition Condition Status Onset Resolution Last Treating Co mments Source Name Details Category Date Date Treatment Clinician Date Toxic Toxic Disease Active [place] metabolic metabolic 4-16 [facility] [place] encephalop encephalop 00:00: st athy athy 00 ESRD on ESRD on Disease Active [place] peritoneal peritoneal 4-16 Me [facility] dialysis dialysis 00:00: st 00 Chronic Chronic Disease Active [place] hypotensio hypotensio 4-16 Me thodi n n 00:00: st 00 Acute Acute Disease Active [place] cystitis cystitis 4-16 Method i without without 00:00: st hematuria hematuria 00 Fever Fever Disease Active [place] 4-13 Methodi 00:00: st 00 Left-sided Left-sided Disease Active 2018-04 [place] weakness weakness 1-19 Method i 00:00: st 00 Dyslipidem Dyslipidem Disease Active [place] ia ia 7 [facility] 00:[facility]: [facility] 00 Hospital Hospital Disease Active 2017- [place] discharge discharge 7- [facility] [place] follow-up follow-up 00:00: st 00 S/P S/P Disease Active [place] coronary coronary 7-25 Method i angioplast angioplast 00:00: st y y 00 Weakness Weakness Disease Active 2017- [place] 6 [facility] 00:00: st 00 Long-term Long-term Disease Active [facility] insulin insulin 2-09 Method[facility] use in use in 00:00: st type 2 type 2 00 diabetes diabetes Spinal Problem Resolve 2019-12-06 Anthony fariba cord d 00:48:35 l disorder Spinal [place] (disorder) cord disorder (disorder) Resolved Problem 12/06/2019 [facility] Ataxia Problem Active 2019-12-06 Memor ia (finding) 00:48:35 l Ataxia [place] (finding) Active Problem 12/06/2019 [facility] Diabetes Problem Active 2019-12-06 Mem oria mellitus 00:48:35 l (disorder) Diabetes He rmann mellitus (disorder) Active Problem 12/06/2019 [facility] End stage Problem Active 2019-12-06 Me moria renal 00:48:35 l failure on End [place] dialysis stage (disorder) renal failure on dialysis (disorder) Active Problem 12/06/2019 [facility] Hypertensi Problem Active 2019-12-06 M emoria ve 00:48:35 l disorder, James systemic Hypertensi arterial ve (disorder) disorder, systemic arterial (disorder) Active Problem 12/06/2019 [facility] Hyperlipid Problem Active 2019-12-06 M emoria emia 00:48:35 l (disorder) [place] Hyperlipid emia (disorder) Active Problem 12/06/2019 [facility] Tremor Problem Active 2019-12-06 Memor ia (finding) 00:48:35 l Tremor James (finding) Active Problem 12/06/2019 [facility] Myoclonus Problem Active 2019-12-06 Me moria (finding) 00:48:35 l [place] Myoclonus (finding) Active Problem 12/06/2019 [facility] Neuropathy Problem Active 2019-12-06 M emoria (disorder) 00:48:35 l James Neuropathy (disorder) Active Problem 12/06/2019 [facility] Cervical Problem Active 2019-12-06 Mem oria radiculopa 00:48:35 l thy Cervical [place] (disorder) radiculopa thy (disorder) Active Problem 12/06/2019 [facility] Allergies, Adverse Reactions, Alerts Allergy Allergy Status Severity Reaction(s) Onset Inactive Treating Comm ents Source Name Type Date Date Clinician Glycopyr Propensi Active Anxiety 2016-04 [place] rolate ty to [facility] adverse 00:00: st reaction 00 s to drug No Known No Known Active Memori a Medicati Medicati l on on James Allergie Allergie s s Family History Family Member Diagnosis Comments Start Date Stop Date Source Natural father Cancer [facility] thodist Natural father Hypertension [place] [facility] Natural mother Cancer [facility]ist Social History Social Habit Start Date Stop Date Quantity Comments Source Sex Assigned At [facility] ethodist Tobacco use and 2019-05-09 2019-05-09 Never used [facility] ethodist exposure 00:00:00 00:00:00 Alcohol intake 2019-05-09 2019-05-09 Current [place] Me thodist 00:00:00 00:00:00 non-drinker of alcohol (finding) Smoking Status Start Date Stop Date Source Never smoker Rivas mccall Medications Ordered Filled Start Stop Current Ordering Indication Dosage Frequency Signature Comments Components Source Medication Medication Date Date Medication? Clinician (SIG) Name Name gabapentin 2020-0 Yes 200 mg = 2 M emoria 100 MG Oral 8-25 cap, PO, l Capsule 18:35: TID, # 180 Herm chioma 00 cap, 2 Refill(s), Pharmacy: [facility] #[id number], 160.02, cm, 10/17/19 14:23:00 CDT, Height, 76.818, kg, 10/17/19 14:23:00 CDT, Weight pravastatin 2020-0 Yes 40mg QD Take 1 [place] (PRAVACHOL) 7-14 tablet (40 Me thodi 40 mg 00:00: mg total) st tablet 00 by mouth nightly. pregabalin 2020-0 Yes 50 mg = 1 Me moria 50 MG Oral 7-09 cap, PO, l Capsule 20:08: Bedtime, # Herm chioma [Lyrica] 00 30 cap, 3 Refill(s), Pharmacy: [facility] #[id number], 160.02, cm, 10/17/19 14:23:00 CDT, Height, 76.818, kg, 10/17/19 14:23:00 CDT, Weight amoxicillin 2020-0 2020- No 500mg Q24H Take 1 [place] (AMOXIL) 07-31 04-28 capsule Methodi 500 MG 00:00: 23:59 ([address] capsule 00 :00 total) by mouth daily for 5 days. BUMETanide 2020-0 2020- No 2mg Q.5D Take 2 mg [place] (BUMEX) 2 4-22 04-22 by mouth 2 Met hodi MG tablet 18:07: 00:00 (two) st 42 :00 times a day. allopurinol 2020-0 Yes 100mg QD Take 100 [place] (ZYLOPRIM) 4-22 mg by Method[facility] 100 MG 18:07: mouth st tablet 38 nightly. nebivolol 2020-0 Yes 5mg QD Take 5 mg [facility] (BYSTOLIC) 4-22 by mouth Metho di 5 MG tablet 18:07: every st 38 evening. insulin 2020-0 Yes 10U Q.[id number] Inject [place] ASPART 4-22 [id number] 10-16 Method i (NovoLOG) 18:07: 3D Units st 100 unit/mL 38 under the injection skin 3 (three) times a day before meals. Per Sliding Scale acetaminoph 2020-0 Yes 1{tbl} Q24H Take 1 [place] en-codeine 4-22 tablet by Meth [place] (TYLENOL 18:07: mouth st WITH 38 daily as CODEINE #3) needed for 300-30 mg moderate per tablet pain. pantoprazol 2020-0 Yes 40mg QD Take 40 mg [place] e 4-22 by mouth [facility] (PROTONIX) 18:07: nightly. st 40 MG EC 38 tablet docusate 2020-0 Yes 100mg QD Take 100 [place] sodium 4-22 mg by [facility] (COLACE) 18:07: mouth st 100 MG 38 daily. capsule clopidogrel 2020-0 Yes 75mg QD Take 75 mg [place] (PLAVIX) 75 4-22 by mouth Meth [place] mg tablet 18:07: daily. st 38 MACK-ANTON 2020-0 Yes 1{tbl} QD Take 1 [place] RX 1-60-300 4-22 tablet by Met hodi mg-mg-mcg 18:07: mouth st tablet 38 daily. lansoprazol 2020-0 Yes 15mg QD Take 15 mg [place] e 4-22 by mouth [facility] (PREVACID) 18:07: nightly. st 15 MG 38 capsule aspirin 2020-0 Yes 81mg QD Take 81 mg [place] (ECOTRIN) 4-22 by mouth Method i 81 MG 18:07: daily. st enteric 38 coated tablet calcium 2020-0 Yes 1{tbl} Q.25D Chew 1 [place] carbonate 4-22 tablet 4 Method i (TUMS) 200 18:07: (four) st mg calcium 38 times a (500 mg) day as chewable needed for tablet indigestio n or heartburn. thiamine 2020-0 Yes 100mg QD Take 100 [place] mononitrate 4-22 mg by [facility] , vit B1, 18:07: mouth st (B-1) 100 38 daily. mg tablet bethanechol 2020-0 Yes 5mg Q.[id number] Take 5 mg [place] (URECHOLINE 4-22 [id number] by mouth 3 Methodi ) 5 MG 18:07: 3D (three) st tablet 38 times a day. gabapentin 2020-0 Yes 200mg Q.[id number] Take 200 [place] (NEURONTIN) 4-22 [id number] mg by M ethodi 100 mg 18:07: 3D mouth 3 st capsule 38 (three) times a day. sevelamer 2020-0 Yes 800mg Q.[id number] Take 800 [facility] (RENVELA) 4-22 [id number] mg by Met hodi 800 mg 18:07: 3D mouth 3 st tablet 38 (three) times a day with meals. vit B 2020-0 Yes 1{tbl} QD Take 1 [facility] complex-vit 4-22 tablet by Met hodi olivas 18:07: mouth st C-folic 38 daily. acid (NEPHRO-VIT E OTC) 0.8 mg tablet CALCITRIOL 2020-0 Yes Take by [place] ORAL 4-22 mouth. Methodi 18:07: st 38 ergocalcife 2020-0 Yes [id number] Q7D Take [place] rol 4-22 50,000 [facility] (VITAMIN 18:07: Units by st D2) 50,000 38 mouth once unit a week. capsule cholecalcif 2020-0 Yes [id number] Q30D Take [place] pamela, 4-22 50,000 [facility] vitamin D3, 18:07: Units by st (VITAMIN D3 38 mouth ORAL) every 30 (thirty) days. midodrine 2020-0 Yes 2.5mg Q.5D Take 2.5 [facility] (PROAMATINE 4-22 mg by Methodi ) 2.5 MG 18:07: mouth 2 st tablet 38 (two) times a day. ALPRAZolam 2020-0 Yes .25mg Q24H Take 0.25 [place] (XANAX) 4-22 mg by Methodi 0.25 MG 18:07: mouth st tablet 38 daily as needed for anxiety. hydrOXYzine 2020-0 Yes 25mg Q.5D Take 25 mg [place] (VISTARIL) 4-22 by mouth 2 Met hodi 25 MG 18:07: (two) st capsule 38 times a day as needed for itching. ondansetron 2020-0 Yes 4mg Q.25D Take 4 mg [place] (ZOFRAN) 4 4-22 by mouth 4 Met hodi MG tablet 18:07: (four) st 38 times a day as needed for nausea or vomiting. BACLOFEN 2020-0 Yes QD Take by [place] ORAL 4-22 mouth Methodi 18:07: nightly as st 38 needed. insulin 2020-0 Yes 22U QD Inject 22 [place] degludec 4-22 Units Methodi (Tresiba 18:07: under the st FlexTouch 38 skin U-100) 100 nightly. unit/mL (3 mL) insulin pen acetaminoph 2020-0 2020- No acute pain 1{tbl} Q6H Take 1 [place] en-codeine 07-30 04-27 tablet by Met mendoza (TYLENOL 00:00: 23:[address] WITH 00 :00 every 6 CODEINE #3) (six) 300-30 mg hours as per tablet needed for moderate pain for up to 5 days .acute pain. baclofen 10 2020-0 Yes 10 mg = 1 M emoria mg oral 4-09 tab, PO, l tablet 20:54: Bedtime, # Sarah nn 00 30 tab, 3 Refill(s), [id number] baclofen 10 2020-0 No 10 mg = 1 M emoria mg oral 4-08 tab, PO, l tablet 20:52: Bedtime, # Saarh nn 00 30 tab, 3 Refill(s) gabapentin 2020-0 Yes 200 mg = 2 M emoria 100 MG Oral 3-11 cap, PO, l Capsule 23:13: TID, # 180 Herm chioma 00 cap, 2 Refill(s), Pharmacy: [facility] #[id number] bumetanide 2020-0 Yes 2 mg = 1 Mem oria 2 mg oral 3-11 tab, PO, l tablet 21:10: Daily, 0 [place] 00 Refill(s) Hydroxyzine 2020-0 Yes 25 mg = 1 M emoria Hydrochlori 3-11 tab, PO, l de 25 MG 21:10: BID, 0 [place] Oral Tablet 00 Refill(s) midodrine 2020-0 Yes 5 mg = 2 Anthony fariba 2.5 mg oral 3-11 tab, PO, l tablet 21:10: BID, 0 James 00 Refill(s) ondansetron 2020-0 Yes 4 mg = 1 Me moria 4 mg oral 3-11 tab, PO, l tablet 21:10: QID, 0 James 00 Refill(s) Calcitriol 2020-0 Yes PO, Every Me moria 3-11 Other Day, l 21:10: 0 James 00 Refill(s) Alprazolam 2020-0 Yes 0.25 mg = Me moria 0.25 MG 3-11 1 tab, PO, l Oral Tablet 20:34: Daily, # He rmann 00 30 tab, 0 Refill(s) Aspirin 81 2020-0 Yes 81 mg = 1 Me moria MG Enteric 3-11 tab, PO, l Coated 20:34: Daily, # [place] Tablet 00 90 tab, 3 Refill(s) bethanechol 2020-0 Yes 5 mg = 1 Me moria 5 mg oral 3-11 tab, PO, l tablet 20:34: TID, # 42 [place] n 00 tab, 0 Refill(s) furosemide 2019-0 2020- No 120mg QD Take 3 [facility] (LASIX) 40 05-13 02-17 tablets Metho di mg tablet 00:00: 23:59 ([address] 00 :00 total) by mouth every morning for 14 days. calcitriol 2019- 2020- No .25ug QD Take 0.25 [place] (ROCALTROL) 05-12 mcg by Metho di 0.25 MCG 16:21: 00:[address] capsule 13 :00 daily. pregabalin 2019- 2020- No 75mg QD Take 75 mg [place] (LYRICA) 75 05-12 by mouth Met hodi MG capsule 16:21: 00:[address] 13 :00 sevelamer 2019-0 2020- No 2400mg Q.[id number] Take 2,400 [facility] (RENVELA) 05-12 [id number] mg by Tn thodi 800 mg 16:21: 00:[address] tablet 13 :00 (three) times a day with meals. insulin 2019- 2020- No 42U QD Inject 42 [place] degludec 05-12-02 Units Methodi (TRESIBA 16:21: 00:[address] FLEXTOUCH 13 :00 skin U-100) 100 nightly. unit/mL (3 mL) insulin pen ALPRAZolam 2019- No .25mg QD Take 0.25 [place] (XANAX) 05-12 mg by Methodi 0.25 MG 16:21: 00:[address] tablet 13 :00 nightly as needed. gentamicin 2019- No 1{appli QD Apply 1 [place] (GARAMYCIN) 05-12 cation} applicatio Methodi 0.1 % cream 16:21: 00:[address] 13 :00 topically daily. With each dressing change. furosemide 2019-2019- No 80mg QD Take 80 mg [place] (LASIX) 80 05-12 by mouth Meth an[place] mg tablet 16:21: 00:[address] 13 :00 morning. cholecalcif 2019-2019- No [id number] Q30D Take Iván jennan pamela, 05-12 50,000 Methodi vitamin D3, 16:21: 00:00 Units by s t 1,250 mcg 13 :00 mouth (50,000 every 30 unit) (thirty) capsule days. First of month insulin 2019-2019- No 10U QD Inject 10 [place] GLARGINE 05-12 03-03 Units Methodi (LANTUS) 00:00: 23:[address] 100 unit/mL 00 :00 skin injection nightly (vial) for 30 days. pregabalin 2019- No 25mg QD Take 1 [place] (LYRICA) 25 05-12 03-03 capsule Meth an[place] MG capsule 00:00: 23:59 ([address] 00 :00 total) by mouth nightly for 30 days. sevelamer 2019-0 2019- No 3200mg Q.[id number] Take 4 [place] (RENVELA) 05-12 03- [id number] tablets Methodi 800 mg 00:00: 23:59 3D (3,[address] tablet 00 :00 total) by mouth 3 (three) times a day with meals for 30 days. levoFLOXaci 2019-2019- No 250mg Q48H Take 1 [place] n 05-12-17 tablet [facility] (LEVAQUIN) 00:00: 23:59 ([address] 250 MG 00 :00 total) by tablet mouth every other day for 15 days. ALPRAZolam 2019-0 2020- No .25mg Q.5D Take 1 [facility] (XANAX) 05-12-16 tablet Methodi 0.25 MG 00:00: 23:59 (0.[address] tablet 00 :00 total) by mouth 2 (two) times a day as needed for anxiety for up to 14 days. hydrOXYzine 2019-0 2020- No 25mg Q8H Take 1 [facility] (ATARAX) 25 05-12-09 tablet (25 M ethodi MG tablet 00:00: 23:59 mg total) st 00 :00 by mouth every 8 (eight) hours as needed for itching for up to 7 days. levETIRAcet 2019-0 2020- No 250mg QD Take 250 [facility] am (KEPPRA) 05-0930 mg by Method i 250 MG 18:55: 00:[address] tablet 51 :00 nightly. ergocalcife 2019-0 2020- No [id number] Q7D Take [facility] rol 05-09 50,000 [facility] (VITAMIN 16:50: 00:[address] D2) 50,000 47 :00 mouth once unit a week. ( capsule Monday ) Vitamin D3 2020-0 Yes 0 Memoria 50,000 intl 1-24 Refill(s) l units oral 00:01: [place] capsule 00 sevelamer 2020-0 Yes 0 Memoria 800 mg oral 1-24 Refill(s) l tablet 00:01: [place] 00 3 ML 2020-0 Yes 0 Memoria insulin 1-24 Refill(s) l degludec 00:01: James 100 UNT/ML 00 Pen Injector [Tresiba] sevelamer 2020-0 Yes 0 Memoria carbonate 1-24 Refill(s) l 800 MG Oral 00:01: [place] Tablet 00 [Renvela] pregabalin 2020-0 Yes 0 Memoria 75 mg oral 1-24 Refill(s) l capsule 00:01: [place] 00 pravastatin 2020-0 Yes 0 Memori a 40 mg oral 1-24 Refill(s) l tablet 00:01: James 00 3 ML 2020-0 Yes 0 Memoria Insulin, 1-24 Refill(s) l Aspart, 00:01: [place] Human 100 00 UNT/ML Pen Injector [NovoLog] Metolazone 2020-0 Yes 0 Memoria 5 MG Oral 1-24 Refill(s) l Tablet 00:01: Furosemide 2020-0 Yes 0 Memoria 40 MG Oral 1-24 Refill(s) l Tablet 00:01: clopidogrel 2020-0 Yes 0 Memori a 75 mg oral 1-24 Refill(s) l tablet 00:01: nebivolol 2019-0 Yes 0 Memoria 10 MG Oral 1-24 Refill(s) l Tablet 00:01: [Bystolic] 00 benazepril 2019-0 Yes 0 Memoria 10 mg oral 1-24 Refill(s) l tablet 00:01: allopurinol 2019-0 Yes 0 Memori a 100 mg oral 1-24 Refill(s) l tablet 00:01: Acetaminoph 2019-0 Yes 0 Memori a en 300 MG / 1-24 Refill(s) l Codeine 00:01: Phosphate 00 30 MG Oral Tablet Levetiracet Yes 250 mg = 1 Memoria am 250 MG 1-23 tab, PO, l Oral Tablet 20:39: Bedtime, # [place] [Keppra] 00 30 tab, 3 Refill(s), Pharmacy: [facility] #[id number] thiamine 0 Yes 100 mg = 1 Mem oria 100 mg oral 1-23 tab, PO, l tablet 20:34: Daily, 0 Refill(s) methylPREDN 2018-04- No 4mg Take 1 Iván caruso ISolone 05-01 tablet (4 Method i (MEDROL) 4 00:00: 23:59 mg total) s t MG tablet 00 :00 by mouth 4 times daily tapering for 30 days. thiamine 2018-04- No 50mg QD Take 0.5 [place] mononitrate 04-30 tablets Meth an[place] , vit B1, 00:00: 23:59 ([address] (B-1) 100 00 :00 total) by mg tablet mouth daily for 30 days. methylPREDN 2018-04- No 4mg Q.[id number] Take 1 [place] ISolone 04-30 [id number] tablet (4 Methodi (MEDROL) 4 00:00: 23:59 3D mg total) s t MG tablet 00 :00 by mouth 3 times daily around food for 30 days. methylPREDN 2018-04- No 8mg QD Take 1 [facility] [place] ISolone 1-21 12-21 tablet (8 Method i (MEDROL) 8 00:00: 23:59 mg total) s t MG tablet 00 :00 by mouth nightly - one time for 30 days. thiamine 2018-04- No 50mg QD Take 0.5 [place] mononitrate - 11-20 tablets Meth [place] , vit B1, 00:00: 00:00 ([address] (B-1) 100 00 :00 total) by mg tablet mouth daily for 30 days. methylPREDN 2018-04 No 4mg QD Take 1 [facility] [place] ISolone 1-20 12-20 tablet (4 Method i (MEDROL) 4 00:00: 23:59 mg total) s t MG tablet 00 :00 by mouth Medrol Dose Pack Scheduling ONLY for 30 days. methylPREDN 2018-04 No 8mg QD Take 1 [place] [place] ISolone 1-20 12-20 tablet (8 Method i (MEDROL) 8 00:00: 23:59 mg total) s t MG tablet 00 :00 by mouth nightly - one time for 30 days. metoclopram 2018-04- No 5mg Q.25D Take 5 mg [place] bola 04-28 by mouth 4 Methodi (REGLAN) 5 08:24: 00:00 (four) st MG tablet 20 :00 times a day. lisinopril 2018-04- No 20mg QD Take 20 mg [place] (PRINIVIL,Z 04-28 by mouth Met hodi ESTRIL) 20 08:24: 00:[address] mg tablet 17 :00 morning. BISACODYL 2018-04- No 1{tbl} QD Take 1 [facility] ORAL 04-28- tablet by Methodi 08:21: 00:[address] 03 :00 daily. amLODIPine 2018-04- No 10mg QD Take 10 mg [place] (NORVASC) 04-28 by mouth Metho di 10 mg 08:20: 00:[address] tablet 38 :00 pravastatin 2017-04- No 40mg QD Take 1 [facility] (PRAVACHOL) 0-14 tablet (40 M ethodi 40 MG 00:00: 00:00 mg total) st tablet 00 :00 by mouth nightly. CONTOUR 2018- No CHECK [facility] NEXT TEST 12-04 BLOOD Methodi STRIPS 00:00: 00:[address] strip test 00 :00 strips FREESTYLE 2018- No USE [place] 28 gauge 12-03 DIRECTED Method i lancets 00:00: 00:[address] 00 :00 BD 2018- No USE [facility] ULTRA-FINE 12-01 DIRECTED Meth [place] MINI PEN 00:00: 00:[address] NEEDLE 31 00 :00 LANTUS AND gauge x NOVOLOG. 16" needle AURYXIA 210 2018- No [place] mg iron 11-29 Methodi tablet 00:00: 00:00 st 00 :00 Vital Signs Vital Name Observation Time Observation Value Comments Source Systolic (mm Hg) 2019-10-17 19:23:00 Anthony uli [place] Diastolic (mm Hg) 2019-10-17 19:23:00 [facility] [place] Heart Rate 2019-10-17 19:23:00 [facility] Respitory Rate 2019-10-17 19:23:00 Cori busch [place] Height 2019-10-17 19:23:00 160.02 cm [facility] Weight 2019-10-17 19:23:00 [facility] BMI Calculated 2019-10-17 19:23:00 Cori busch [place] Systolic blood 2019-07-31 16:03:21 128 mm[Hg] [place] [facility] pressure Diastolic blood 2019-07-31 16:03:21 59 mm[Hg] [place] [facility] pressure Heart rate 2019-07-31 16:03:21 102 /min Rivas Damonist Respiratory rate 2019-07-31 16:03:21 16 /min [place] ton [facility] Oxygen saturation in 2019-07-31 16:03:21 95 /min Rivas Keys Arterial blood by Pulse oximetry Body temperature 2019-07-31 12:03:42 36.22 Katherine [place] [facility] Body weight 2019-07-31 04:58:14 79.153 kg [place] [facility] BMI 2019-07-31 04:58:14 29.95 kg/m2 [place] [facility] Body height 2019-07-26 14:46:00 162.6 cm [facility] Systolic (mm Hg) 2019-06-19 19:58:00 Anthony rial James Diastolic (mm Hg) 2019-06-19 19:58:00 Mem orial James Heart Rate 2019-06-19 19:58:00 [facility] [place] Respitory Rate 2019-06-19 19:58:00 Memori al [place] Height 2019-06-19 19:58:00 160.02 cm [facility] Weight 2019-06-19 19:58:00 [facility] [place] BMI Calculated 2019-06-19 19:58:00 Memori al [place] Systolic (mm Hg) 2019-05-02 20:00:00 Anthony rial James Diastolic (mm Hg) 2019-05-02 20:00:00 Mem orial [place] Heart Rate 2019-05-02 20:00:00 [facility] Ja[facility] Respitory Rate 2019-05-02 20:00:00 Memori al [place] Height 2019-05-02 20:00:00 160.02 cm [facility] [place] Weight 2019-05-02 20:00:00 [facility] [place] BMI Calculated 2019-05-02 20:00:00 Memori al [place] Procedures Procedure Date / Time Performing Clinician Source Performed SINGLE ANTIGEN BEADS 2019-10-24 18:00:00 Franko Albrecht [facility] POC GLUCOSE 2019-07-31 17:01:00 Charisma Montes ethodist POC GLUCOSE 2019-07-31 12:05:00 Charisma Montes ethodist POC GLUCOSE 2019-07-31 08:04:00 Charisma Montes ethodist POC GLUCOSE 2019-07-30 20:43:00 Charisma Montes ethodist POC GLUCOSE 2019-07-30 16:05:00 Charisma Montes ethodist POC GLUCOSE 2019-07-30 11:36:00 Charisma Montes ethodist POC GLUCOSE 2019-07-30 08:04:00 Charisma Montes ethodist COMPREHENSIVE METABOLIC 2019-07-30 04:30:00 Vandana Felipe [facility] PANEL HC COMPLETE BLD COUNT 2019-07-30 04:30:00 FelipeVandana n [facility] W/AUTO DIFF ESTIMATED GFR 2019-07-30 04:30:00 Vandana Felipe [facility] POC GLUCOSE 2019-07-29 21:17:00 Charisma Montes ethodist POC GLUCOSE 2019-07-29 18:01:00 Charisma Montes ethodist POC GLUCOSE 2019-07-29 16:57:00 Charisma Montes ethodist POC GLUCOSE 2019-07-29 12:45:00 Charisma Monets ethodist POC GLUCOSE 2019-07-29 07:56:00 Charisma Montes ethodist COMPREHENSIVE METABOLIC 2019-07-29 07:45:00 Vandana Felipe [facility] PANEL HC COMPLETE BLD COUNT 2019-07-29 07:45:00 FelipeVandana [facility] W/AUTO DIFF ESTIMATED GFR 2019-07-29 07:45:00 Reese Felipedeedee [facility] SMEAR REVIEW 2019-07-29 07:45:00 Felipe, Vandana [facility] POC GLUCOSE 2019-07-28 20:59:00 Charisma Montes ethodist POC GLUCOSE 2019-07-28 16:54:[address] HEAD WO CONTRAST 2019-07-28 14:00:54 Vandana Felipe [facility] POC GLUCOSE 2019-07-28 13:39:00 Charisma Montes ethodist ARTERIAL BLOOD GAS 2019-07-28 13:27:00 Vandana Felipe ethodist AMMONIA LEVEL 2019-07-28 13:12:00 Vandana Felipe Meth odist POC GLUCOSE 2019-07-28 12:07:00 Charisma Montes ethodist POC GLUCOSE 2019-07-28 07:29:00 Charisma Montes ethodist COMPREHENSIVE METABOLIC 2019-07-28 06:45:00 Vandana Felipe [facility] PANEL HC COMPLETE BLD COUNT 2019-07-28 06:45:00 Vandana Felipe n [facility] W/AUTO DIFF ESTIMATED GFR 2019-07-28 06:45:00 Vandana Felipe [facility] POC GLUCOSE 2019-07-27 20:37:00 Charisma Montes ethodist POC GLUCOSE 2019-07-27 17:41:00 Charisma Montes ethodist POC GLUCOSE 2019-07-27 12:40:00 Charisma Montes ethodist POC GLUCOSE 2019-07-27 08:19:00 Charisma Montes ethodist HC COMPLETE BLD COUNT 2019-07-27 06:00:00 Vandana Felipe [facility] W/AUTO DIFF COMPREHENSIVE METABOLIC 2019-07-27 06:00:00 Vandana Felipe [facility] PANEL ESTIMATED GFR 2019-07-27 06:00:00 MatteoReesedeedee [facility] Meth odist POC GLUCOSE 2019-07-26 20:42:00 Charisma Montes ethodist POC GLUCOSE 2019-07-26 16:18:00 Charisma Montes ethodist XR FOOT 3+ VW LEFT 2019-07-26 14:44:14 Adryan Swanson on [facility] POC GLUCOSE 2019-07-26 11:42:00 Charisma Montes ethodist POC GLUCOSE 2019-07-26 07:28:00 Charisma Montes ethodist BASIC METABOLIC PANEL 2019-07-26 05:30:00 Maki Sams [facility] HC COMPLETE BLD COUNT 2019-07-26 05:30:00 Vandana Felipe [facility] W/AUTO DIFF ESTIMATED GFR 2019-07-26 05:30:00 Maki [facility] POC GLUCOSE 2019-07-25 20:42:00 [facility] POC GLUCOSE 2019-07-25 16:35:00 [facility] XR KNEE 1 OR 2 VW LEFT 2019-07-25 15:40:00 Vandana Fel[facility] XR TIBIA FIBULA 2 VW LEFT 2019-07-25 15:39:44 Vanadna Felipe [facility] US DUPLEX VENOUS LOWER 2019-07-25 15:17:49 Vandana Felipe [facility] EXTREMITY LEFT POC GLUCOSE 2019-07-25 12:39:00 [facility] POC GLUCOSE 2019-07-25 07:55:00 [facility] BASIC METABOLIC PANEL 2019-07-25 05:00:00 Maki Sams ESTIMATED GFR 2019-07-25 05:00:00 Maki Sams odist POC GLUCOSE 2019-07-24 20:47:00 Charisam Montes ethodist POC GLUCOSE 2019-07-24 16:42:00 Charisma Montes ethodist URINE CULTURE 2019-07-24 16:36:00 Maki Sams URINALYSIS SCREEN AND 2019-07-24 15:55:00 Maki Sams MICROSCOPY, WITH REFLEX TO CULTURE POC GLUCOSE 2019-07-24 12:27:00 Charisma Montes ethodist MRI BRAIN WO CONTRAST 2019-07-24 11:53:54 Bin Abdul [facility] POC GLUCOSE 2019-07-24 08:20:00 Charisma Montes ethodist HC COMPLETE BLD COUNT 2019-07-24 05:45:00 Vandana Felipe [facility] W/AUTO DIFF COMPREHENSIVE METABOLIC 2019-07-24 05:45:00 Vandana Felipe [facility] PANEL ESTIMATED GFR 2019-07-24 05:45:00 Vandana Felipe Meth odist SMEAR REVIEW 2019-07-24 05:45:00 Vandana Felipe Meth odist POC GLUCOSE 2019-07-23 21:44:00 Charisma Montes Mick ethodist POC GLUCOSE 2019-07-23 15:59:00 Charisma Montes Rivas Barton ethodist POC GLUCOSE 2019-07-23 11:42:00 Charisma Montes Rivas Barton ethodist URINE CULTURE 2019-07-23 11:36:00 Naomi Roe Meth odist URINALYSIS SCREEN AND 2019-07-23 11:10:00 Naomi Roe [facility] MICROSCOPY, WITH REFLEX TO CULTURE PHOSPHORUS LEVEL 2019-07-23 09:29:00 Maki Sams Met hodist CT HEAD WO CONTRAST 2019-07-23 09:14:[address] ABDOMEN PELVIS WO 2019-07-23 09:13:25 Maki Sams [facility] CONTRAST POC GLUCOSE 2019-07-23 08:01:00 Charisma Montes Mick ethodist POC GLUCOSE 2019-07-23 05:41:00 Charisma Montes Mick ethodist POC GLUCOSE 2019-07-22 23:13:00 Charisma Montes Mick ethodist POC GLUCOSE 2019-07-22 22:08:00 Charisma Montes Mick ethodist POC GLUCOSE 2019-07-22 20:59:00 Charisma Montes Mick ethodist POC GLUCOSE 2019-07-22 18:37:00 Charisma Montes Mick ethodist EEG SLEEP/COMA 2019-07-22 17:25:28 Amy Stark BLOOD CULTURE, AEROBIC & 2019-07-22 13:10:00 Amy Stark [facility] ANAEROBIC AMMONIA LEVEL 2019-07-22 13:10:00 Amy Stark VENOUS BLOOD GAS 2019-07-22 13:10:00 Amy Stark on [facility] HEPATITIS B SURFACE 2019-07-22 13:10:00 Maki Sams [facility] ANTIGEN HEPATITIS B SURFACE AB, 2019-07-22 13:10:00 Maki Sams [facility] QUANTITATIVE XR CHEST 1 VW PORTABLE 2019-07-22 12:06:10 Charisma Montes [facility] POC GLUCOSE 2019-07-22 12:02:00 Charisma Montes ethodist POC GLUCOSE 2019-07-22 09:20:00 Nancy Tierney Meth odist HC COMPLETE BLD COUNT 2019-07-22 04:53:00 Naomi Roe [facility] W/AUTO DIFF COMPREHENSIVE METABOLIC 2019-07-22 04:53:00 Naomi Roe [facility] PANEL ESTIMATED GFR 2019-07-22 04:53:00 Nancy Tierney Meth odist COVID-19 QUALITATIVE PCR 2019-07-22 00:45:00 Naomi Roe [facility] SINGLE ANTIGEN BEADS 2019-06-11 13:27:00 Franko Albrecht [facility] [id number] 2019-05-24 00:00:00 ENCPL 6C3EVEG 2019-05-24 00:00:00 ENCPL 2Z7STCM 2019-05-24 00:00:00 ENCPL 0S5RWGI 2019-05-24 00:00:00 ENCPL POC GLUCOSE 2019-05-12 12:58:00 Diana Angulo Me thodist POC GLUCOSE 2019-05-12 07:07:00 Diana Angulo Me [facility]odist PHOSPHORUS LEVEL 2019-05-12 05:30:00 Maki Sams hodist HC COMPLETE BLD COUNT 2019-05-12 05:30:00 Taty Vaca [facility] W/AUTO DIFF BASIC METABOLIC PANEL 2019-05-12 05:30:00 Taty Vaca [facility] ESTIMATED GFR 2019-05-12 05:30:00 Taty Vaca [facility] 0F6D24P 2019-05-12 00:00:00 ENCPL 0M8W72I 2019-05-12 00:00:00 ENCPL 4N6D05V 2019-05-12 00:00:00 ENCPL 2W0N87R 2019-05-12 00:00:00 ENCPL 2M9R94M 2019-05-12 00:00:00 ENCPL 4E2K25Y 2019-05-12 00:00:00 ENCPL 1T8Q58S 2019-05-12 00:00:00 ENCPL 4B8X11Z 2019-05-12 00:00:00 ENCPL 1W5D75P 2019-05-12 00:00:00 ENCPL 4M2C22D 2019-05-12 00:00:00 ENCPL 0K0O24J 2019-05-12 00:00:00 ENCPL 2C8S57U 2019-05-12 00:00:00 ENCPL 5D4N24O 2019-05-12 00:00:00 ENCPL 8I3S74Z 2019-05-12 00:00:00 ENCPL 6F4S28C 2019-05-12 00:00:00 ENCPL 8T0X38O 2019-05-12 00:00:00 ENCPL 7F6W06T 2019-05-12 00:00:00 ENCPL 5C3Q08U 2019-05-12 00:00:00 ENCPL 5S2D60I 2019-05-12 00:00:00 ENCPL 3L3R17T 2019-05-12 00:00:00 ENCPL 0S1K80X 2019-05-12 00:00:00 ENCPL 5G9E35V 2019-05-12 00:00:00 ENCPL 1A3C31M 2019-05-12 00:00:00 ENCPL 9O7I78Y 2019-05-12 00:00:00 ENCPL 6Y6J76P 2019-05-12 00:00:00 ENCPL 6I9H08O 2019-05-12 00:00:00 ENCPL 4O5G55Y 2019-05-12 00:00:00 ENCPL 3W7O36Y 2019-05-12 00:00:00 ENCPL 7R2E87E 2019-05-12 00:00:00 ENCPL 3X3N03X 2019-05-12 00:00:00 ENCPL 4D5B83L 2019-05-12 00:00:00 ENCPL 5R5D03N 2019-05-12 00:00:00 ENCPL 7I9X62H 2019-05-12 00:00:00 ENCPL 6G2W20M 2019-05-12 00:00:00 ENCPL 0K2R47G 2019-05-12 00:00:00 ENCPL POC GLUCOSE 2019-05-11 20:41:00 Diana Angulo [facility]ist BASIC METABOLIC PANEL 2019-05-11 18:30:00 Maki Sams Chandrika moreno [facility] ESTIMATED GFR 2019-05-11 18:30:00 Maki Sams Meth odist POC GLUCOSE 2019-05-11 17:50:00 Diana Angulo [facility] POC GLUCOSE 2019-05-11 12:05:00 Diana Angulo [facility] POC GLUCOSE 2019-05-11 07:17:00 Diana Angulo Me [facility]ist PHOSPHORUS LEVEL 2019-05-11 06:48:00 Maki Sams Met hodist POC GLUCOSE 2019-05-10 20:55:00 Diana Angulo [facility] POC GLUCOSE 2019-05-10 16:57:00 Diana Angulo Me thodist XR SACRUM AND COCCYX 2019-05-10 15:27:51 Toño Dietrich XR LUMBAR SPINE 2 OR 3 VW 2019-05-10 15:27:28 Toño Dietrich [facility] MRI CERVICAL SPINE WO 2019-05-10 15:14:38 Toño Dietrich CONTRAST MRI BRAIN WO CONTRAST 2019-05-10 15:12:49 Toño Dietrich POC GLUCOSE 2019-05-10 09:44:00 Diana Angulo Me [facility]odist POC GLUCOSE 2019-05-10 09:19:00 Diana Angulo [facility] AEROBIC CULTURE 2019-05-10 08:50:00 Maki Sams Meth odist GRAM STAIN 2019-05-10 08:50:00 Maki Sams Meth odist ANAEROBIC CULTURE 2019-05-10 08:50:00 Maki aSms Me [facility]odist CELL COUNT AND 2019-05-10 08:50:00 Maki Sams Meth odist DIFFERENTIAL, BODY FLUID POC GLUCOSE 2019-05-10 07:36:00 Diana Angulo Me [facility] HC COMPLETE BLD COUNT 2019-05-10 05:55:00 Taty Vaca joel [facility] W/AUTO DIFF BASIC METABOLIC PANEL 2019-05-10 05:55:00 Taty Vaca joel [facility] ESTIMATED GFR 2019-05-10 05:55:00 Taty Vaca [facility] POC GLUCOSE 2019-05-09 21:57:00 Diana Angulo [facility] LACTIC ACID LEVEL, SEPSIS 2019-05-09 21:08:00 Malik Marino - NOW AND REPEAT 2X EVERY 3 HOURS HEPATITIS B SURFACE 2019-05-09 21:08:00 TenishaЕлена zuniga Rivas Keys ANTIGEN POC GLUCOSE 2019-05-09 19:39:00 KevDiana simpsonrobbin [facility] LACTIC ACID LEVEL, SEPSIS 2019-05-09 18:08:00 Malik Marino - NOW AND REPEAT 2X EVERY 3 HOURS US CAROTID DUPLEX 2019-05-09 17:44:00 Toño Dietrich Me [facility]odist BILATERAL VITAMIN B12 LEVEL 2019-05-09 15:55:00 Toño Dietrich Me thodist VITAMIN B1 LEVEL, WHOLE 2019-05-09 15:55:00 Toño Dietrich [facility] BLOOD THYROID STIMULATING 2019-05-09 15:55:00 Toño Dietrich HORMONE LIPID PANEL 2019-05-09 15:55:00 Toño Dietrich Meth odist HEMOGLOBIN A1C 2019-05-09 15:55:00 Toño Dietrich Meth odist AMMONIA LEVEL 2019-05-09 15:55:00 Toño Dietrich Meth odist IONIZED CALCIUM 2019-05-09 15:55:00 Toño Dietrich Meth odist CT HEAD WO CONTRAST 2019-05-09 15:18:39 Malik Marino on [facility] HC COMPLETE BLD COUNT 2019-05-09 14:40:00 Malik Marino [facility] W/AUTO DIFF COMPREHENSIVE METABOLIC 2019-05-09 14:40:00 Malik Marino [facility] PANEL TROPONIN 2019-05-09 14:40:00 Malik Marino ethodist LACTIC ACID LEVEL, SEPSIS 2019-05-09 14:40:00 Malik Marino - NOW AND REPEAT 2X EVERY 3 HOURS B NATRIURETIC PEPTIDE 2019-05-09 14:40:00 Malik Marino [facility] THYROID STIMULATING 2019-05-09 14:40:00 Malik Marino on [facility] HORMONE ESTIMATED GFR 2019-05-09 14:40:00 Malik Marino ethodist URINE CULTURE 2019-05-09 14:39:00 Malik Marino ethodist URINALYSIS SCREEN AND 2019-05-09 14:21:00 Malik Marino [facility] MICROSCOPY, WITH REFLEX TO CULTURE ECG ED PRELIMINARY 2019-05-09 14:07:18 Malik Marino [facility] INTERPRETATION ECG 12-LEAD 2019-05-09 14:05:11 Malik Marino ethodist 9Z5QSVZ 2019-04-23 00:00:00 ENCPL 1J8FEQQ 2019-04-23 00:00:00 ENCPL 6H5MGZJ 2019-04-23 00:00:00 ENCPL 7W4JQBF 2019-04-23 00:00:00 ENCPL 8X7ZBZX 2019-04-23 00:00:00 ENCPL 8G1FEFE 2019-04-23 00:00:[address] LUMBAR SPINE WO 2019-02-27 16:32:58 Nancy Tierney ethodist CONTRAST POC GLUCOSE 2019-02-27 11:30:00 Unique Calix ethodist POC GLUCOSE 2019-02-27 07:41:00 Unique Calix ethodist HC COMPLETE BLD COUNT 2019-02-27 03:30:00 Karely Frias W/AUTO DIFF [place] COMPREHENSIVE METABOLIC 2019-02-27 03:30:00 Karely Frias [facility] PANEL Tiffanie MAGNESIUM LEVEL 2019-02-27 03:30:00 Karely Frias Meth odneto [place] PHOSPHORUS LEVEL 2019-02-27 03:30:00 Karely Frias Met hodist [place] IONIZED CALCIUM 2019-02-27 03:30:00 Karely Frias Meth odist [place] ESTIMATED GFR 2019-02-27 03:30:00 Karely Frias Meth odist [place] POC GLUCOSE 2019-02-26 22:17:00 Unique Calix M ethodist MRI BRAIN WO CONTRAST 2019-02-26 21:26:20 Toño Dietrich [facility] POC GLUCOSE 2019-02-26 18:40:00 Gilberto, Unique [facility] ethodist EEG AWAKE/DROWSY LESS THAN 2019-02-26 18:27:07 Toño Dietrich [facility] 41 MIN VITAMIN B12 LEVEL 2019-02-26 15:00:00 Toño Dietrich Tn thodist VITAMIN B1 LEVEL, WHOLE 2019-02-26 15:00:00 Toño Dietrich [facility] BLOOD URIC ACID LEVEL 2019-02-26 15:00:00 Toño Dietrich odist HEPATITIS B SURFACE 2019-02-26 15:00:00 Maki Sams [facility] ANTIGEN HEPATITIS B SURFACE AB, 2019-02-26 15:00:00 Maki Sams [facility] QUANTITATIVE FOLATE LEVEL 2019-02-26 15:00:00 Елена Dangelo [facility] FERRITIN LEVEL 2019-02-26 15:00:00 Елена Dangelo Met [facility]odist TOTAL IRON BINDING 2019-02-26 15:00:00 Елена Dangelo [facility] CAPACITY THYROID STIMULATING 2019-02-26 15:00:00 Елена Dangelo [facility] HORMONE POC GLUCOSE 2019-02-26 12:25:00 Unique Calix M ethodist TTE COMPLETE, WO CONTRAST, 2019-02-26 11:30:00 Karely Frias [facility] W DOPPLER ([id number]) Tiff[place] BASIC METABOLIC PANEL 2019-02-26 09:45:00 Jennifer Mcmahan Mila LIPID PANEL 2019-02-26 09:45:00 Rodriguez ConcepcionTara [facility] Martha susananeto Hickmanine HEMOGLOBIN A1C 2019-02-26 09:45:00 Rodriguez ConcepcionTara [facility] Martha Moreno ESTIMATED GFR 2019-02-26 09:45:00 Jennifer Mcmahan Me thodist Mila POC GLUCOSE 2019-02-26 08:50:00 Unique Calix M ethodist BASIC METABOLIC PANEL 2019-02-26 03:35:00 Jennifer Mcmahan Mil[facility] ESTIMATED GFR 2019-02-26 03:35:00 Jennifer Mcmahan Me thodist Mila POC GLUCOSE 2019-02-26 02:53:00 Unique Calix M ethodist CT HEAD WO CONTRAST 2019-02-26 00:25:03 Jennifer Mcmahan n [facility] Mila XR CHEST 1 VW PORTABLE 2019-02-26 00:03:13 Jennifer Mcmahan Mil[facility] HC COMPLETE BLD COUNT 2019-02-25 23:41:00 Jennifer Mcmahan W/AUTO DIFF Mila PROTHROMBIN TIME WITH INR 2019-02-25 23:41:00 Jennifer Mcmahan [facility] PARTIAL THROMBOPLASTIN 2019-02-25 23:41:00 Jennifer Mcmahan [facility] TIME (PTT) Mila COMPREHENSIVE METABOLIC 2019-02-25 23:41:00 Jennifer Mcmahan [facility] PANEL Mila LIPASE LEVEL 2019-02-25 23:41:00 Jennifer Mcmahan Me thodist Mila PHOSPHORUS LEVEL 2019-02-25 23:41:00 Jennifer Mcmahan M ethodist Mila MAGNESIUM LEVEL 2019-02-25 23:41:00 Jennifer Mcmahan Me thodist Mila ESTIMATED GFR 2019-02-25 23:41:00 Jennifer Mcmahan Me thodist Mila IN CRITICAL CARE, E/M 2019-02-25 23:23:08 Jennifer Mcmahan [facility] 30-74 MINUTES Mila ECG ED PRELIMINARY 2019-02-25 23:23:08 Jennifer Mcmahan INTERPRETATION Mila ECG 12-LEAD 2019-02-25 22:42:55 Jennifer Mcmahan Me thodist Mila SINGLE ANTIGEN BEADS 2019-02-14 14:26:00 Franko Albrecht [facility] Plan of Care Planned Activity Planned Date Details Comments Source Future Scheduled 2020-01-12 BREAST CANCER [facility] thodist Test 00:00:00 SCREENING [code = BREAST CANCER SCREENING] Future Scheduled 2019-11-09 [place]ZA VACCINE [place] [facility] Test 00:00:00 [code = INFLUENZA VACCINE] Future Scheduled 2014 65+ PNEUMOCOCCAL [facility] Test 00:00:00 VACCINE (1 of 1 - PPSV23) [code = 65+ PNEUMOCOCCAL VACCINE (1 of 1 - PPSV23)] Future Scheduled 1999-08-12 COLONOSCOPY SCREENING [place] [facility] Test 00:00:00 [code = COLONOSCOPY SCREENING] Future Scheduled 1999-08-12 SHINGLES VACCINES (#1) [place] [facility] Test 00:00:00 [code = SHINGLES VACCINES (#1)] Future Scheduled 1959-08-12 DIABETIC FOOT EXAM [place] [facility] Test 00:00:00 [code = DIABETIC FOOT EXAM] Future Scheduled 1949 DIABETIC RETINAL EYE [place] [facility] Test 00:00:00 EXAM [code = DIABETIC RETINAL EYE EXAM] Encounters Start End Encounter Admission Attending Care Care Encounter Source Date/Time Date/Time Type Type Clinicians Facility Department ID 2019-12-12 2019-12-12 Outpatient TIGRE [facility] [id number] [place] 00:00:00 00:00:00 FRANKO [address] 2019-12-03 2019-12-03 Outpatient SULEMA Rojas ELIDASCHSTEFF [id number] 13:15:00 23:59:59 Melo Anguiano 2019-11-15 2019-11-15 Refill ANGEL Mckeon [id number] 00:00:00 00:00:00 Taty Gan [id number] Akosua Connor [id number] Professio [id number] nal 220 [facility] 2019-11-04 2019-11-04 Telephone ANGEL Dorman [id number] 00:00:00 00:00:00 Ramirez Gan [id number] [place] 4.2.7.2.686 Professclive [id number] nal 220 [facility] 2019-10-24 2019-10-24 Outpatient TIGRE, [facility] [id number] [place] 00:00:00 00:00:00 AHMED 405 [facility] 2019-10-17 2019-10-17 Outpatient XAVIER RojasMISCHER MHMISCHER [id number] 14:45:00 23:59:59 Melo 04 [facility] 2019-10-17 2019-10-17 Outpatient XAVIER RojasMISCHER MHMISCHER [id number] 14:45:00 14:45:00 Melo 03 [facility] 2019-08-13 2019-08-13 Outpatient TIGRE, [facility] [id number] [place] 00:00:00 00:00:00 AHMED 137 [facility] 2019-07-21 2019-07-31 Inpatient JOGLEKAR, [facility] [id number] [place] 00:00:00 00:00:00 CHARISMA 367 [facility] 2019-07-21 2019-07-21 [facility] [id number] [place] 00:00:00 00:00:00 988 [facility] 2019-07-17 2019-07-17 Outpatient XAVIER RojasMISCHER MHMISCHER [id number] 15:30:00 23:59:59 Melo 02 [facility] 2019-07-11 2019-07-11 Outpatient TIGRE, [facility] [id number] [place] 00:00:00 00:00:00 AHMED 707 [facility] 2019-06-19 2019-06-19 Outpatient XAVIER RojasMISCHER MHMISCHER [id number] 14:30:00 23:59:59 Melo 01 [facility] 2019-06-11 2019-06-11 [facility] [id number] [place] 00:00:00 00:00:00 AHMED 358 [facility] 2019-06-06 2019-06-07 [facility] [id number] 12:22:16 23:59:59 00 2019-05-09 2019-05-12 Outpatient DIANA ANGULO [facility] [id number] [place] 00:00:00 00:00:[address] 2019-05-02 2019-05-02 Outpatient SULEMA Rojas [facility] [id number] 13:30:00 23:59:59 Melo 00 Silvio 2019-02-25 2019-02-27 Inpatient PASTORA [facility] [id number] [place] 00:00:00 00:00:00 NANCY [address] Results Test Description Test Time Test Comments Results Result Comments Source Single antigen beads 2019-10-31 15:13:20 Test Item Value Reference Range Interpretation Comme nts SAB serum ID (test code = 5866) [id number] SAB serum collection D&T (test code = 5867) 10/24/2019 06:00 PM SAB class I antibody assignment (test code = B57,B58 5870) SAB cPRA class I (test code = 5868) 11 SAB class II antibody assignment (test code = Negative 5871) SAB cPRA class II (test code = 5869) 0 Case number (test code = [id number]) [id number] Single antigen beads (test code = 4604) See link below for PDF Lab Report [facility] [id number] 17:02:26 Test Item Value Reference Range Interpretation Comments POC glucose (test code 205 mg/dL 65-[address] [facility] Name: = 68428-4) Jeaneth Pierre ID : [id number] able: RN Notified Lab Interpretation Abnormal (test code = 01859-0) Rivas KeysComprehensive metabolic [id number] 05:48:40 Test Item Value Reference Range Interpretation Comments Sodium (test code = 2951-2) 134 135- 148 mEq/L L Potassium (test code = 2823-3) 3.7 3.5- 5.0 mEq/L Chloride (test code = 2075-0) 95 98- 112 mEq/L L CO2 (test code = 2028-9) 26 24- 31 mEq/L Anion gap (test code = 37844-0) 13@ANIO 7- 15 mEq/L BUN (test code = 3094-0) 35 mg/dL 8-23 H Creatinine (test code = 2160-0) 8.82 mg/dL 0.5-0.9 H Glucose (test code = 2345-7) 282 mg/dL 65-99 H Calcium (test code = 60516-4) 10.1 mg/dL 8.8-10.2 Protein (test code = 2885-2) 5.2 g/dL 6.3-8.3 L Albumin (test code = 1751-7) 2.5 g/dL 3.5-5 L A/G ratio (test code = 1759-0) 0.9 0.7-3.8 Alkaline phosphatase (test code = 126 U/L 35-104 H 6768-6) AST (test code = 1920-8) 12 U/L 10-35 ALT (test code = 1742-6) 9 U/L 5-50 Total bilirubin (test code = <0.2 0.2-1.2 1974-05) Lab Interpretation (test code = Abnormal 35230-6) Rivas MethodistEstimated [id number] 05:48:40 Test Item Value Reference Range Interpretation Comments Estimated GFR (test 4 mL/min/1.73 m2 Belen Barbei monzon Units code = 5488) InterpretationG 1 >=90 Estrella l or highG2 60-89 Mildly decrease dG3a 45-59 Mil dly to moderately decr [id number] 30-44 Moderately to s everely decreasedG4 15-29 Severe ly decreasedG5 <15 Kidney bg lureThe eGFR was calcul ated using the Chron ic Kidney Disease Epidemiology Collaboration ( CKD-EPI) equation. Interpretation is based on recommendati ons of the National Ki dney Foundation-Kidn ey Disease Outcome s Quality Initiat veena (NKF-KDOQI) pub lished in 2013. Lab Interpretation Abnormal (test code = 51208-1) Rivas MethodistCBC with platelet and [id number] 05:29:47 Test Item Value Reference Range Interpretation Comments WBC (test code = 28019-2) 13.3 4.5- 11.0 k/uL H RBC (test code = 05025-1) 3.31 m/uL 4.2-5.5 L HGB (test code = 718-7) 10.2 g/dL 12-16 L HCT (test code = 4544-3) 33.2 % 37-47 L MCV (test code = 787-2) 100.3 fL 82-100 H MCH (test code = 785-6) 30.8 pg 27-34 MCHC (test code = 786-4) 30.7 g/dL 31-37 L RDW - SD (test code = 98053-1) 53.6 fL 37-55 MPV (test code = 52758-9) 10.8 fL 6.9-11 Platelet count (test code = 262 K/uL 150-400 04802-4) Nucleated RBC (test code = 09856-1) 0.00 /100 WBC Neutrophils (test code = 02243-0) 66.0 % 39-69 Lymphocytes (test code = 91852-0) 24.5 % 25-45 L Monocytes (test code = 47392-3) 6.7 % 0-10 Eosinophils (test code = 60662-9) 1.6 % 0-5 Basophils (test code = 32487-6) 0.8 % 0-1 Immature granulocytes (test code = 0.4 % 0-1 86542-0) Lab Interpretation (test code = Abnormal 64028-9) Rivas Geronimomear [id number] 09:36:06 Test Item Value Reference Range Interpretation Comments Platelet slide review (test code Sanjeev adequate = 32078-1) Anisocytosis (test code = 702-1) Moderate Enlarged platelets (test code = Moderate A 22731-9) Giant platelets (test code = Occasional 5908-9) Lab Interpretation (test code = Abnormal 18988-5) Rivas DamonistCO Head Wo [id number] 14:10:02Hm Interface, Radiology Results 07/28/2019 2:13 PM CDTEXAMINATION: CT HEAD WO CONTRASTCL INICAL HISTORY: Altered level of consciousness (LOC) unexplainedCOMPARISON: MRI brain 07/24/2019TECHNIQUE: Noncontrast head CT performed using radiation dose reduction techniques. Technical factors are evaluated and adjusted to ensure appropriate moderation of exposure. Automated dose management technology is applied to adjust radiation exposure while achieving a diagnostic quality image. FINDINGS:No evidence of acute intracranial hemorrhage, mass, mass effect, midline shift, or acute infarct. Ventricles and sulci are normal in appearance for age. Basal cisterns are clear. Calvarium is intact. Arteriosclerosis of the cavernous and paraclinoid internal carotid arteries and V4 segments of the v ertebral arteries.Orbits are normal in appearance. No significant sinus inflammatory changes. Mastoid air cells are clear. IMPRESSION:1. No CT evidence of acute intracranial abnormality.[id number] MethodistAmmonia level 2019-07-28 13:39:18 Test Item Value Reference Range Interpretation Comments Ammonia (test code = 1841-6) 31 umol/L 11-51 [place] MethodistArterial blood [id number] 13:38:44 Test Item Value Reference Range Interpretation Comments pH, arterial (test code = 2744-1) 7.35 7.35-7.45 pCO2, arterial (test code = 49 35- 45 mmHg H 2018-8) pO2, arterial (test code = 76 80- 90 mmHg L 2703-7) Bicarbonate, arterial (test code 26.6 mmol/L 21-28 = 1960-4) Base excess, arterial (test code 1 -2 - 2 mEq-L = 1925-7) O2 saturation, arterial (test 94 % 95-100 L code = 2708-6) Lab Interpretation (test code = Abnormal 55333-0) [place] MarisolistBlood culture, aerobic & [id number] 18:33:04 Test Item Value Reference Range Interpretation Comments Blood culture No growth Specimen isolate (test after 5 days InformationSpe cimen code = 600-7) of Source: BloodS pecimen incubation. Site: [facility] MethodistXR Foot 3+ Vw [id number] 14:47:12Hm Interface, Radiology Results 07/26/2019 2:50 PM CDTEXAMINATION: XR FOOT 3 VW LEFTCLI NICAL HISTORY: foot traumaCOMPARISON: None.TECHNIQUE: 3 views of the left foot obtained.IMPRESSION:Detail is limited as the patient's sock was not removed prior to obtaining the x-ray, for some reason. Atherosclerotic calcification. Mild to moderate degenerative change at the ankle. No acute fracture or dislocation identified. [facility]-[id number] MethodistBasic metabolic panel 2019-07-26 07:05:05 Test Item Value Reference Range Interpretation Comments Sodium (test code = 2951-2) 136 135- 148 mEq/L Potassium (test code = 2823-3) 3.6 3.5- 5.0 mEq/L Chloride (test code = 2075-0) 95 98- 112 mEq/L L CO2 (test code = 8-9) 25 24- 31 mEq/L Anion gap (test code = 24307-1) 16@ANIO 7- 15 mEq/L H BUN (test code = 3094-0) 39 mg/dL 8-23 H Creatinine (test code = 2160-0) 8.26 mg/dL 0.5-0.9 H Glucose (test code = 2345-7) 287 mg/dL 65-99 H Calcium (test code = 32173-7) 9.9 mg/dL 8.8-10.2 Lab Interpretation (test code = Abnormal 45318-5) [facility] MethodistXR Knee 1 Or 2 Vw [id number] 15:43:32Hm Interface, Radiology Results 07/25/2019 3:46 PM CDTEXAMINATION: XR KNEE 1 OR 2 VW LEFT, XR TIBIA FIBULA 2 VW LEFTINDICATION: pain s p fallCOMPARISON:NoneIMPRESSION:1.Nondisplaced transverse fracture involving the proximal fibular diaphysis.2.Faint sclerosis along the posterior calcaneus questionable for stress fracture. Recommend clinical correlation. Bones are diffusely demineralized.3.Minimal tricompartmental joint space narrowing about the knee, as well as milder tibiotalar joint degenerative changes. Small knee joint effusion.4.Vascular calcifications.[facility]-[id number] MethodistXR Tibia Fibula 2 Vw [id number] 15:43:32Hm Interface, Radiology Results 07/25/2019 3:46 PM CDTEXAMINATION: XR KNEE 1 OR 2 VW LEFT, XR TIBIA FIBULA 2 VW LEFTINDICATION: pain s p fallCOMPARISON:NoneIMPRESSION:1.Nondisplaced transverse fracture involving the proximal fibular diaphysis.2.Faint sclerosis along the posterior calcaneus questionable for stress fracture. Recommend clinical correlation. Bones are diffusely demineralized.3.Minimal tricompartmental joint space narrowing about the knee, as well as milder tibiotalar joint degenerative changes. Small knee joint effusion.4.Vascular calcifications.[facility]-[id number] MethodistUs duplex venous lower [id number] 15:19:09Hm Interface, Radiology Results 07/25/2019 3:22 PM CDTEXAMINATION: US DUPLEX VENOUS LOWER EXTREMITY LEFTCLINICAL HISTORY: Leg swelling or pain DVT suspectedCOMPARISON: None.TECHNIQUE: Grayscale, color Doppler, and spectral waveform analysis of the left lower extremity deep venous systems was performed. The left common femoral, superficial femoral, proximal deep femoral, greater saphenous, and popliteal veins were evaluated. The calf vessels were also evaluated. Contralateral common femoral vein was evaluated.FINDINGS:The left common femoral, superficial femoral, and popliteal veinsare compressible. They demonstrate normal venous waveforms and response to augmentation. There is flow in the visualized calf veins.There is no evidence of a popliteal or Manzanares's cyst.IMPRESSION:Normalleft lower extremity venous Doppler examination. There is no evidence of deep venous thrombosis.[id number] MethodistHepatitis B surface Ab, quantitative 2019-07-24 18:25:57 Test Item Value Reference Range Interpretation Comments Hepatitis B surface Ab 14.35 IU/L The a nti-HBs is greater (test code = 5193-8) than or equal to 10 IU/L. This patient bradshaw s either had an antibody response to HBV vaccinat ion, received a malik sfusion, or has recovere d from HBV infection. This patient should be consi dered immune to hepat itis B.An anti-HBs result greater than or equal t o 10 IU/L implies immunit y. For post-vaccinatio n antibody testing guideli mandi for the general pub lic refer to MMWR Decembe r 2004/Vol. 54(No . 16);05-02, and f or healthcare work ers refer to MMWR Decembe r 2012/Vol. 62(No . 10);-19.Refere nce Interval: anti- HBs 9.99 IU/L or less .. ..... Emufsaiy56.00 I U/L or greater .... PositiveResults greater than 1,000.00 I U/L are reported as gre ater than 1,000.00 IU/L. This assay should not be u sed for blood donor scr eening, associated re-e ntry protocols, or f or screening Human Cell, Tissues and Katherine lular and Tissue-Based Pr oducts (HCT/P).Perform ed by [facility] [employer],50 [address] [facility],[place] [address] .[facility] re[facility], Mario Gotti do, MD, Lab. Director [place] MethodistUrinalysis screen and microscopy, with reflex to culture 2019-07-24 16:36:57 Test Item Value Reference Range Interpretation Comments Specimen site (test code = Catheterized 6194322) Color, UA (test code = 5778-6) Yellow Appearance, UA (test code = Turbid 5767-9) Specific gravity, UA (test code 1.010 1.001-1.030 = 5811-5) pH, UA (test code = 5803-2) 5.0 5.0-9.0 Protein, UA (test code = 2+ Negative A 36512-1) Glucose, UA (test code = 1+ Negative A 04584-4) Ketones, UA (test code = 2514-8) Negative Negative Bilirubin, UA (test code = Negative Negative 5770-3) Blood, UA (test code = 5794-3) Moderate Negative A Nitrite, UA (test code = 5802-4) Negative Negative Urobilinogen, UA (test code = <2.0 <2.0 E.U./dL 28102-3) Leukocyte esterase, UA (test Moderate Negative A code = 5799-2) WBC, UA (test code = 5821-4) >200 0- 4 /HPF H RBC, UA (test code = 77052-4) 40 0- 5 /HPF H Bacteria, UA (test code = Moderate None seen A 15449-9) WBC clumps, UA (test code = Moderate A 63153-4) Yeast, UA (test code = 40291-5) None seen Yeast with pseudohyphae, UA None seen (test code = 20058-7) Lab Interpretation (test code = Abnormal 24711-0) [place] MethodistMRI Brain Wo [id number] 12:00:22 Interface, Radiology Results 07/24/2019 12:03 PM CDTEXAMINATION: MRI BRAIN WO CONTRASTC LINICAL HISTORY: Altered level of consciousness (LOC) unexplainedCOMPARISON: MRI brain dated May 10, [address] brain dated July 23, 2019TECHNIQUE: Multiplanar and multisequence MRI imaging of the brain was obtained without contrast.FINDINGS:Axial diffusion weighted images of the brain shows no diffusion restriction to suggest acute ischemia. T1 images shows no intracranial mass or mass effect. Gradient images shows no abnormal hemosiderin deposition abnormality. There is no evidence of acute hemorrhage.FLAIR imaging shows no significant FLAIR signal changes to suggest prior ischemic or inflammatory insult. There is mild age-related volume loss again noted.T2 imaging shows no acute hydrocephalus or extra-axial fluid collection identified. The major flow voids in the skull base are identified. There are some scattered mucosal thickening changes in the sinuses with no fluid level.SagittalT1 images shows no midline mass lesion. The craniocervical junction is intact. Coronal images showsno midline shift or gross asymmetries.IMPRESSION:No acute intracranial abnormality identified. No change from prior exams.[facility]-[id number] MethodistPhosphorus [id number] 09:51:22 Test Item Value Reference Range Interpretation Comments Phosphorus (test code = 2777-1) 6.2 mg/dL 2.4-4.5 H Lab Interpretation (test code = Abnormal 80378-2) [place] MethodistCT Abdomen Pelvis Wo Cgyfejne0454-08-12 09:25:11Hm Interface, Radiology Results 07/23/2019 9:28 AM CDTEXAMINATION: CT ABDOMEN PELVIS WOCONTRASTCLINICAL HISTORY: PD cath malfunctionTECHNIQUE: Multiple axial images of the abdomen and pelvis were obtained without intravenous administration of iodinated contrast. Sagittal and coronal computerized reformatted images were also obtained. All CT images were acquired using radiation dose lowering technique with automated exposure control and / or iterative reconstruction.COMPARISON: CT abdomen and pelvis 01/11/2018IMPRESSION:ABDOMEN:Evaluation of solid abdominal organs is limited withoutIV contrast.1. Moderate coronary artery calcifications. Bibasilar atelectasis. Small hiatal hernia.2.Prominent fecal material within the rectum may indicate fecal impaction or constipation. Colonic diverticulosis most pronounced distally.3.2 cm duodenal diverticulum. Bowel loop show no evidence of obstruction or acute inflammation.4.Layering stones or sludge in the gallbladder, which is distended, presumably from fasting though would be better assessed by HIDA scan or gallbladder ultrasound if indicated.5.Liver is somewhat lobulated in surface contour which may indicate chronic liver disease. Calcified granulomata. No suspicious lesion detected on noncontrast exam.6.An 8 mm stone in the upper common bile duct, which is also dilated at 11 mm, series 302 images 61 through 58. The stone was not present on a prior study from 01/11/2018, though the caliber of the common bile duct has not changed sincethat time.7.Pancreas somewhat atrophic as before. Spleen and right adrenal unremarkable.8.A stable be nign 1.3 cm right adrenal nodule.9.Calcified plaque in the abdominal aorta without AAA. Multifocal renal cortical scarring indicating medical renal disease, and hypodensities up to 2.3 cm or likely allcysts. Extensive renal vascular calcifications bilaterally. No hydronephrosis.PELVIS:1. Peritoneal di alysis catheter entering the midline mid abdominal wall, is coiled in the left lower quadrant abdomen, with a small amount of pelvic free fluid. No focal fluid collection identified, and the catheter is intact with no acute kinks or bends. No lymphadenopathy detected on noncontrast exam.2.Urinary bladder is distended arising out of the pelvic inlet. Patient may benefit from Harding catheter decompression if unable to void spontaneously. Arcuate vessel calcifications in the uterus which otherwise grossly unremarkable.SUMMARY:PD catheter appears well-maintained with a small amount of free fluid. No focal fluid collection identified.Choledocholithiasis, though with stable mild common bile duct dilation.Many other findings as above.[facility]-[id number] MethodistEEG (routine)2019-07-22 18:46:29Date of Study Completion: July 22, 2019Date of Interpretation: July 22, 2019Ordering Provider: KATHIE Aaron Inpatient Electroencephalogram Report History: 68 year old woman being treated for persistent encephalopathy. Rule out status epilepticus. Technical Description: The recording was a little over 20 minutes digitally recorded multi-montage EEG with 21 electrodes placed accordingto the International 10/20 system. An EKG strip was recorded continuously. True eye leads were not em ployed. True temporal leads were not employed. EEG Description:Cerebral activity consisted of continuous polymorphic delta and theta frequency activity. A posterior rhythm was not observed. Often interrupting this background were large triphasic activity seen over the bifrontal romo. No definitiveinterictal epileptiform discharges or electrographic seizures were appreciated. Sleep Recording:Stage II sleep was not recorded. Activation Procedures:Neither hyperventilation nor photic stimulation were attempted. EEG Interpretation: This was an abnormal stuporous EEG.1. Triphasic discharges. 2. Continuous background slowing. 3. No paroxysmal discharges were observed. Clinical Correlation:1. Therewas evidence of a fvknqqou-tc-xhjkkw encephalopathy, part of which is metabolic in etiology. Clinical correlation is recommended. 2. There was no definitive evidence of interictal epileptiform discharges, electrographic seizures, or status epilepticus seen over the course of this tracing.[place] MethodistHepatitis B surface cmydokp9772-29-63 17:40:01 Test Item Value Reference Range Interpretation Comments Hepatitis B surface Ag (test Non-reactive Non-reactive code = 5195-3) [place] MethodistCOVID-19 qualitative [id number] 13:39:49 Test Item Value Reference Range Interpretation Comments Interpretation (test Negative results do code = 6651773) not preclude 2019-nCoV infection and should not be used as the sole basis for treatment or other patient management decisions. Negative results must be combined with clinical observations, patient history, and epidemiological information. COVID-19 qualitative Not-Detected Not-Detected PCR result (test code = 92288-3) COVID-19 qualitative See link below for C ase Number: PCR (test code = PDF Lab Report [id number]) [place] MethodistVenous blood [id number] 13:35:36 Test Item Value Reference Range Interpretation Comments pH, venous (test code = 2746-6) 7.31 7.32-7.42 L pCO2, venous (test code = 2020-4) 40 45- 51 mmHg L pO2, venous (test code = 2705-2) 51 25- 40 mmHg H Base excess, venous (test code = -6 -2 - 2 mEq-L L 1927-3) O2 saturation, venous (test code 80 % 40-70 H = 2711-0) Bicarbonate, venous (test code = 19.3 mmol/L 21-28 L 83148-9) Lab Interpretation (test code = Abnormal 68274-9) [place] MethodistXR Chest 1 Vw [id number] 12:10:14Hm Interface, Radiology Results Incoming - 07/22/2019 12:13 PM CDTEXAMINATION: XR CHEST 1 VW PORTABLECLINICAL HISTORY: Cough Covid rule outCOMPARISON: February 25, 2019 chestIMPRESSION:No acute abnormality single view chestThe lungs are hypoexpanded but clear.The heart is not enlarged. Mild vascular ectasia and atherosclerosis becoming more prominentThe bony structures are within normal limits.Nosuspicious findings for COVID-19. [id number] MethodistAnaerobic [id number] 07:51:14 Test Item Value Reference Range Interpretation Comments Anaerobic No anaerobic Specimen culture isolate organisms InformationS pecimen (test code = isolated. Source: Periton eal 552) fluidSpecimen S ite: Peritoneal flui d [place] MethodistAerobic [id number] 21:05:18 Test Item Value Reference Range Interpretation Comments Aerobic culture No growth Specimen isolate (test after 3 days. InformationSp ecimen code = 498) Source: Periton eal fluidSpecimen S ite: Peritoneal flui d [place] MethodistVitamin B1 level, whole [id number] 11:37:25 Test Item Value Reference Range Interpretation Comments Vitamin B1 (test code 232 nmol/L 70-180 H INTERP RETIVE = 00488-9) INFORMATION: Vi tamin B1, Whole Blood This assay measures the concentration o f thiamine diphos phate (TDP), the prim jayy active form of vitamin B1. Approximate ly 90 percent of camilla min B1 present in whol e blood is TDP. Thiamin e and thiamine monophosphate, which comprise the re maining 10 percent, are not measured.Test developed and characteristics determined by [facility]. S ee Compliance Stat ement B: [employer]/CSP erforme d by [employer],[address] [facility] [place] [address] bgh .graciela peralta, Mario Caldwell MD, Lab. Direct or Lab Interpretation Abnormal (test code = 69385-9) [place] [facility] new mexicoGram [id number] 22:41:03Gram stain isolateRare WBC'sNo organisms seen Comment: Specimen InformationSpecimen Source: Peritoneal fluidSpecimen Site: Peritoneal fluid [facility] XR Lumbar Spine 2 Or 3 [id number] 16:16:47Hm Interface, Radiology Results 05/10/2019 4:19 PM CSTEXAMINATION: XR LUMBAR SPINE 2 OR 3 VWCLINICAL HISTORY: Back pain risk factors (osteoporosis or chronic steroid use or elderly), T L-spine trauma minor-mod low back pain, Tail bone pain after fallCOMPARISON: NoneIMPRESSION:No displaced fracture. No subluxation. No suspicious osseous abnormalities.Mild to moderate disc height loss at L4-5 and L5-S1. Moderate anterior osteophytes at L4-5 and tiny anterior osteophytes at L3-4.Calcified atherosclerosis abdominal aorta.Drain present in the pelvis.[facility]-[id number] MethodistXR Sacrum And [id number] 16:02:19Hm Interface, Radiology Results 05/10/2019 4:05 PM CSTEXAMINATION: XR SACRUM AND COCCYXCLINICAL HISTORY: Polytrauma critical T L spine injury suspected, Tail bone pain after fallCOMPARISON: NoneIMPRESSION:No displaced fracture. No suspicious osseous abnormality. Minimal degenerative changes of the sacroiliac joints with mild sclerosis.Drain is present in the pelvis.Severe degenerative disc disease at L4-5 with sclerosis, osteophytes, and disc height loss. Facet arthropathy of the lower lumbar spine.[facility]-[id number] Medical Center LancasterI Cervical Spine Wo [id number] 15:37:15Hm Interface, Radiology Results 05/10/2019 3:40 PM CSTEXAMINATION: MRI CERVICAL SPINE WOCONTRASTCLINICAL HISTORY: Neck pain initial exam, C-spine stenosis, RadiculopathyCOMPARISON: NoneTECHNIQUE: Multiplanar multisequence noncontrast enhanced examination was performed of the cervical spine.FINDINGS: Vertebral body heights are maintained. The cervicomedullary junction is unremarkable. No cord signal abnormality identified. No focal marrow lesions. No masses are present in the visualized prevertebral soft tissues.There is mild kyphosis at C6-7. There is 1 mm anterolisthesis of C7 and T1. Axial images through the disc spaces demonstrate the following:C1-C2: There is narrowing of the atlantoaxial interval with spurring. There is no significant stenosis.C2-C3: No significant posterior disc disease, spinal canal or neural foraminal stenosis.C3-C4: Uncovertebral arthrosis and facet disease is present without significant foraminal narrowing. There is a shallow 2 mm posterior protrusion with mild effacement of ventral thecal sac without cord abutment.C4-C5: There is a broad- based posterior protrusion measuring 2 mm with minimal effacement of the ventral thecal sac. Uncovertebral arthrosis and facet disease results in mild narrowing of bilateral foramina with partial effacement of the foraminal fat.C5-C6: There is disc desiccation and posterior spondylosis and mild canal narrowing with partial effacement of the ventral thecal sac. Uncovertebral arthrosis and facet disease is present without foraminal narrowing.C6-C7: There is disc desiccation posterior spondylosis with a 2 mm posterior protrusion and mild effacement of the ventral thecal sac with abutment of the cord without effacement. AP dimension canal remains patent at 9 to 10 mm. Uncovertebral arthrosis and facet disease is present without foraminal narrowing.C7-T1: No significant posterior disc disease, spinal canal or neural foraminal stenosis.No significant posterior disc disease, spinal canal or neural foraminal stenosisat other visualized levels.IMPRESSION: There is mild spondylosis from C3 through C7 as detailed above. No acute osseous abnormality or significant stenosis identified.[facility]-[id number] MethodistCell count and differential, body [id number] 14:19:44 Test Item Value Reference Range Interpretation Comments [facility] fluid type (test PD fluid code = 50919-3) Color, fluid (test Colorless code = 6824-7) Appearance, fluid Clear (test code = 9335-1) RBC, fluid (test code SEE COMMENT /CMM 1+ (0 - 500 = 44776-3) RBC/CMM) Nucleated cells, 37 /CMM fluid (test code = 87820-9) Fluid mononuclear Diff to follow cell (test code = 1407) Neutrophils, fluid 51 % (test code = 72139-1) Lymphocytes, fluid 35 % (test code = 49398-2) Eosinophils, fluid 2 % (test code = 19440-5) Macrophages, fluid 12 % (test code = 31502-3) [place] [facility]jvbs9384-97-09 07:38:32 Test Item Value Reference Range Interpretation Comments Ventricular rate (test 87 code = 253) Atrial rate (test code 87 = 255) IN interval (test code 132 = 266) QRSD interval (test 84 code = 260) QT interval (test code 362 = 264) QTC interval (test code 435 = 265) P axis 1 (test code = 39 267) QRS axis 1 (test code = 2 268) T wave axis (test code -4 = 270) EKG impression (test Normal sinus code = 273) rhythm-Moderate voltage criteria for LVH, may be normal variant-Nonspecific ST and T wave abnormality-Abnormal ECG-In automated comparison with ECG of 25-FEB-2019 22:42,-ST now depressed in Inferior leads-ST elevation now present in Lateral leads-Nonspecific T wave abnormality now evident in Lateral leads- [place] MethodistLactic acid level, SEPSIS - Now and repeat 2x every 3 hours 2019-05-09 21:35:40 Test Item Value Reference Range Interpretation Comments Lactic acid (test code = 95593-8) 1.4 mmol/L 0.5-2.2 [place] MethodistVitamin B12 [id number] 20:42:55 Test Item Value Reference Range Interpretation Comments Vitamin B12 (test 807 pg/mL 211-946 Significan t overlap code = 2132-9) exists betwee n normal and deficiency states.However, most patients with deficiencies wi ll have Serum B12 <2 00 pg/mL. [place] BaptistUs carotid [id number] 18:07:47 Interface, Radiology Results - 05/09/2019 6:10 PM CSTExamination: US CAROTID DUPLEX BILA TERALCLINICAL HISTORY: New or worsening hemispheric neurological symptoms (e.g. unilateral motor or sensory deficit speech impariment or amaurosis fugax) Eval of transient ischemic attack or stroke.TECHNIQUE: Examination includes full duplex Doppler scan (real-time B mode grayscale, Doppler spectral analysis, Doppler color flow imaging) of the common carotid, internal carotid, external carotid, and vertebral arteries. Velocity parameters are based upon studies using distal internal carotid arterydiameter as a denominator for stenosis calculation.COMPARISON:None.FINDINGS:Right side:There is no hemodynamically significant extracranial carotid arterial stenosis on the right according to grayscaleor color flow imaging. Minimal plaque is present within the right distal common carotid artery and carotid bulb. The peak systolic velocities in the right internal carotid artery are 67.7 , 109.2 and 114.1 cm/s.There is antegrade flow in the right vertebral artery.Left side:There is no hemodynamical ly significant extracranial carotid arterial stenosis on the left according to grayscale or color flow imaging.. Minimal plaque is present within the left carotid bulb and distal common carotid artery.The peak systolic velocities in the left internal carotid artery are 100.5 , 109.5 and 121.5 cm/s.There is antegrade flow in the left vertebral artery.IMPRESSION:No hemodynamically significant (greater than 50%) extracranial carotid arterial stenosis.[facility]-[id number] MethodistHemoglobin [id number] 16:52:29 Test Item Value Reference Range Interpretation Comments Hemoglobin A1C (test 7.0 % 4-5.6 H HbA1c c utoffs for code = 01081-1) diagnosing diabetes:4.0% - 5.6% = normal5.7% - 6.4% = increased risk for diabetes (prediabetes)9> =6.5% = uefatguf8Dllf s for glycemic contro l (ADA 2016)< 7.0% Ta rget for non adults with demetrio betes. More or less stringent targe ts may be appropriate for individual karyn ents. <7.5% Target for Children and adolescents wit h type 1 diabetes. Lab Interpretation (test Abnormal code = 66780-3) [place] MethodistThyroid stimulating [id number] 16:37:17 Test Item Value Reference Range Interpretation Comments TSH (test code = 3016-3) 2.03 0.27- 4.20 uIU/mL [place] MethodistLipid [id number] 16:27:42 Test Item Value Reference Interpretation Comments Range Cholesterol (test 79 mg/dL 0-199 code = 2093-3) Triglycerides (test 139 mg/dL 0-149 code = 2571-8) HDL cholesterol 22 mg/dL 40-67281 L (test code = 2085-9) LDL cholesterol 32 mg/dL 0-99 (test code = 9-1) Lipid panel See below Total Cholester ol (mg/dL) interpretation (test < 200 code = 00205-2) Desirable 200-239 Borderline -high >=240 Hi gh Triglyceri miles (mg/dL) <150 No rmal 150-199 Borderline-high 200-499 High >=500 Very high HDL Choles terol (mg/dL) <40 Low (male) < 50 Low (female) L DL Cholesterol (mg /dL) <100 Optimal 1 00-129 Near or above o ptimal 130-159 Borderline-high 160-189 High >=190 Very high Risk Cat ergories that modify LDL goals.Risk Catergories LDL goal (mg/dL )CHD and CHD risk equiva lent <100 (10-year risk >20%)Multiple ( 2+) risk factors < 130 (10-year risk = <20%)0-1 risk factors <160 (<10-ye ar risk) Defining levels of lipids in metabolic syndromeTriglyc erides > =150 mg/dLHDL Choles terol Men <40 mg/dL Women <50 mg/dL Non-HDL cholest pamela is a second target f or therapy in personswith high triglycerides ( >=200 mg/dL) Lab Interpretation Abnormal (test code = 29149-3) [place] MethodistIonized [id number] 16:08:42 Test Item Value Reference Range Interpretation Comments pH (test code = 2753-2) 7.29 Ionized calcium (test code = 1.14 mmol/L 1.11-1.32 ) [place] MethodistB natriuretic [id number] 15:24:36 Test Item Value Reference Range Interpretation Comments BNP (test code = 06116-3) 75 pg/mL 0-100 [place] PvikjaqxzOxkitpfb6494-45-23 15:23:56 Test Item Value Reference Range Interpretation Comments Troponin (test code 0.011 ng/mL 0-0.04 In patie nts suspected = 11053-1) of having a mary cardial infarction, tonia dom with all other appro priate clinical measur es and actions includi ng ECG and other diagn ostics as appropriate, measure Ultra TnI at 0 hrs and at 3 hrs.Myocar dial infarction VERY LIKELYThe 0 hr TnI level is > 0.10 ng/mL -------- -------- -------- --------Myocard ial infarction LIKE LYThe 0 hr TnI level is > 0.04 ng/mL and 3 hr level is increased or de creased by at least 0.0 20 ng/mL -------- -------- -------- ---Myocardial infarction VERY UNLIKELYBoth th e 0 hr and 3 hr TnI le vels <= 0.04 ng/mL(with in normal limits) OR 0 hr is > 0.04 ng/mL and 3 hr is increased OR decreased by le ss than 0.020 ng/mL [place] MethodistECG ED Preliminary Interpretation - Not an [id number] 14:07:18Malik Marino MD 05/10/2019 12:43 [facility] ED Preliminary Interpretation - Not an OrderPerformed by: Malik Marino, [facility] HOSPITALuthorized by: Malik Marino MDNew [place]ville MethodistCO Lumbar Spine Wo [id number] 17:51:13Hm Interface, Radiology Results 02/27/2019 5:54 PM CSTEXAMINATION: CT LUMBAR SPINE WO CONTRASTCLINICAL HISTORY: Radiculopathy > 6wks conservative tx persistent sxCOMPARISON: None.TECHNIQUE:Axial helical CT images throughout the lumbar spine were performed without IV contrast. Sagittal and coronal reformatted images were generated.All CT images were acquired using low-dose technique with automated exposure control.FINDINGS: There is no evidence of acute fracture, subluxation, or dislocation. There is normal lumbar lordosis and alignment. Vertebral bodies are preserved. There is no evidence of paraspinal hematoma.L3-L4 level: There is diffuse disc bulge with bilateral facet arthropathy ligamentous hypertrophy. There is mild bilateral lateral recess narrowing. There is no foraminal narrowing.L4-L5 level: There is a spondylotic chronic care disc space narrowing with endplate sclerosis and vacuum phenomena. There is diffuse disc bulge with bilateral facet arthropathy ligamentous hypertrophy. There is moderate canal stenosis with moderate severe right lateral recess narrowing. There is a no foraminal narrowing.L5-S1 level: There is diffuse disc bulge with left central and subarticular shallow disc protrusion with associated bilateral facet arthropathy. There is moderate to severe left lateral recess narrowing with potential mass effect on the left S1 nerve root. There is mild canal stenosis. There is spondylotic moderate severe left foraminal narrowing with potential mass effect on the exiting left L5 nerve root.Visualized paraspinal soft tissues are unremarkable.IMPRESSION:Spondylotic changes as detailed above. If clinically warranted further evaluation with MRI or myelogram of the lumbar spine is recommended.No acute lumbar spine bony abnormality.[facility]-[id number] MethodistMagnesium [id number] 04:33:46 Test Item Value Reference Range Interpretation Comments Magnesium (test code = 03549-5) 2.3 mg/dL 1.6-2.4 [place] MethodistHepatitis B surface [id number] 23:06:52 Test Item Value Reference Range Interpretation Comments Hepatitis B surface Ab (test code = Reactive Non-reactive A 88992-4) Lab Interpretation (test code = Abnormal 09764-9) [facility] [place]rit[facility] [id number] 22:40:11 Test Item Value Reference Range Interpretation Comments Ferritin level (test code = 2276-4) 738 ng/mL 13-150 H Lab Interpretation (test code = Abnormal 24035-3) [place] [facility] complete w contrast and 3D if [id number] 21:16:04 Test Item Value Reference Range Interpretation Comments AoV Area, Vmax (test 2.95 cm2 code = 4738955791) AoV Area, VTI (test 3.30 cm2 code = 6695889501) AoV Mean PG (test code 4.00 mmHg = 0980318775) AoV Peak PG (test code 5.86 mmHg = 5463475354) AoV Vmax (test code = 1.21 m/s 1414299782) AoV VTI (test code = 0.27 m 5101482646) IVS,d (test code = 0.94 cm 9331467916) IVS/LVPW,2D (test code 1.15 = 8758127358) Left Atrium Dimension 3.70 cm Anterior (test code = 2895715930) LV,d (test code = 4.35 cm 1854909852) LV EF,2D (test code = 62.39 % 1388152995) LV,s (test code = 3.14 cm 0142978418) LVOT area (test code = 3.80 cm2 0133268720) LVOT Diam,S (test code 2.20 cm = 0494078726) LVOT Vmax (test code = 0.94 m/s 0370840999) LVOT VTI (test code = 0.24 m 7253482256) LVPWD,d (test code = 0.82 cm 3348984762) TR Vpeak (test code = 2.51 mm/s 4786952059) MV E A ratio (test code 0.63 = 7864074390) TR pk grad (test code = 25.20 mmHg 0734433699) E wave decelartion time 289.00 msec (test code = 5564762999) MV Peak A Jez (test 0.97 m/s code = 1031397822) MV valve area p 1/2 2.62 cm2 method (test code = 4424952585) MV Peak E Jez (test 0.61 m/s code = 9714149890) MV stenosis pressure 83.81 ms 1/2 time (test code = 4794014965) AV LVOT peak gradient 3.52 mmHg (test code = 5708127580) Ao Root,d,2D (test code 3.60 cm = 7472011972) LV SYS VOL (test code = 39.12 ml 6231512236) LV MATTHEWS VOL (test code 85.36 ml = 4880909754) LV SV Teich 2D (test 46.24 ml code = 5123732643) LV Vol s Teich PSAX 39.12 ml (test code = 0660227340) AoV Vmn (test code = 0.92 5602938050) LV FS Teich 2D (test 27.82 code = 1846082877) MV AE ratio (test code 1.59 = 5966174346) LV FS Cube 2D (test 27.82 code = 8512073471) LVOT Vmn (test code = 0.72 6768178898) Aov area Vmn (test code 2.95 cm2 = 2638688187) LVOT mean grad (test 2.00 mmHg code = 4681514942) MAX Pred HR (test code 150.45 = 9285223320) 85 of MPHR (test code = 127.89 8018212812) Ao d LA s ratio (test 0.97 code = 2845419467) Calc MPHR (test code = 150.45 bpm 8431669056) LV SV Cube 2D (test 51.35 ml code = 4246858323) LV vol d cube 2D (test 82.31 ml code = 8655151521) LV vol s cube 2D (test 30.96 ml code = 6592804489) MV Decel slope (test 2.12 m/s2 code = 6198825462) Pred Exer Dur R1 (test 6.87 code = 1910169941) Pred METS R1 (test code 5.66 = 3167734350) Velocity Ratio (V1/V2) 0.78 m/s (test code = 4689) EF (test code = 54.17 % 7586538501) E/A ratio (test code = 0.63 2289162017) MARCE (test code = MARCE) Left ventricular systolic function is normal. Left Ventricular ejection fraction is 50 - 55%. Mild mitral annular calcification. Spectral Doppler shows impaired relaxation pattern of left ventricular diastolic filling. [facility] [id number] 19:38:17 Test Item Value Reference Range Interpretation Comments Folate (test code = 2284-8) >20.0 4.8-24.2 [facility] (routine)2019-02-26 19:11:11Date of Service: February 26, 2019.Date of EEG interpretation: February 26, 2019. Routine Inpatient E lectroencephalogram Report History: 68 y.o. female with a history of convulsion evaluated for underlying cerebral activity and epileptic seizures. Technical Description: The record consists of a greater than 20 minute digitally recorded multi-montage EEG with 21 electrodes placed according to the International 10/20 system. An EKG strip was recorded continuously. True eye leads were not employed.True temporal leads were not employed. EEG Description:When maximally aroused, the awake background was characterized by a well-developed 7-8 Hz, 20 to 40 microvolts symmetric posterior rhythm that attenuated appropriately to eye opening. The patient becomes drowsy over the course of the recording as evidenced by the dropout of the posterior rhythm and the emergence of a diffuse 2 to 7 Hz, 40 to 60 microvolts irregular slow activity. Sleep Recording:Sleep was not recorded. Activation Procedures:Hyperventilation was not performed. Photic stimulation utilizing flash frequencies ranging from 5 to 30Hz did not elicit any paroxysmal discharges. EEG Interpretation: This was an abnormal awake and drowsy EEG.1. Background slow.2. No paroxysmal discharges were observed. Clinical Correlation:1. A mild global cerebral dysfunction, nonspecific etiology.2. The absence of interictal epileptiform discharges does not rule out an underlying tendency for unprovoked seizures (epilepsy). Note, however, that an EEG recording preceded by sleep deprivation or a prolonged recording during sleep would increase the statistical likelihood of detecting interictal discharges, and should be considered if pursuinga diagnosis of epilepsy.[facility] [place] [facility] iron binding [id number] 17:20:04 Test Item Value Reference Range Interpretation Comments Iron level (test code = 2498-4) 27 ug/dL 37-145 L Iron binding capacity (test code = 203 ug/dL 260-460 L 2500-7) % Saturation (test code = 2502-3) 13.3 % 15-38 L Lab Interpretation (test code = Abnormal 93819-4) [place] [facility]ric acid [id number] 16:46:21 Test Item Value Reference Range Interpretation Comments Uric acid (test code = 3084-1) 7.0 mg/dL 2.4-5.7 H Lab Interpretation (test code = Abnormal 69423-1) [place] [facility]Lipase [id number] 00:36:49 Test Item Value Reference Range Interpretation Comments Lipase (test code = 3040-3) 27 U/L 13-60 [place] [facility]Partial thromboplastin time, [id number] 00:13:20 Test Item Value Reference Range Interpretation Comments PTT (test code = 36.8 23.0- 36.0 sec H PTT thera peutic range 3173-2) for unfractiona bette heparin is61.0- 112.0 seconds which corresponds to Anti-Xa0.3-0.7 U/ml. Lab Interpretation Abnormal (test code = 06513-4) [place] MethodistProthrombin time with [id number] 00:12:26 Test Item Value Reference Range Interpretation Comments Prothrombin time (test 13.7 11.5- 14.5 sec code = 5902-2) INR (test code = 1.1 [facility] 81450-5) Normalized Rati o (INR) is a therapeutic m onitoring tool for patien ts who are stable on oral anticoagulant t herapy. An INR of 2.0-3.0 is suggested for d eep vein thrombosis/pulm onary embolism. [place] [facility] [id number] 23:23:08Jennifer Mcmahan DO 02/26/2019 7:34 PMCritical CarePerformed by: Jennifer Mcmahan DOAuthorized by: Jennifer Mcmahan DO Critical care provider statement: Critical care time (minutes): 38 Critical care was necessary to treat or prevent imminent or life-threateningdeterioration of the following conditions: Metabolic crisis and ALL SOURCE INTELLIGENCE ANALYST failure or compromise Criticalcare was time spent personally by me on the following activities: Ordering and performing treatments and interventions, ordering and review of laboratory studies, ordering and review of radiographic studies, pulse oximetry, re- evaluation of patient's condition, review of old charts, obtaining historyfrom patient or surrogate, examination of patient, discussions with consultants, development of treatment plan with patient or surrogate and evaluation of patient's response to treatmentRivas Keys
[2020-01-07] MEDS ORDERED: SOD FERRIC GLUC COMPLX/SUCROSE 250 MG in NA CHLORIDE 0.9% 250 ML IV ONE (12:45)
[2020-01-07 13:19] LABS: Hematocrit 26.6 % (36.0-45.0)
[2020-01-07 13:54] VITALS: BMI 29.6
[2020-01-07 13:56] VITALS: BP 142/60; TEMP 97; O2SAT 98
== END 2020-01-07 15:15 | disposition home or self-care (01) ==
LOC: DS 12:01
PROVIDERS: ATTEND Internal Medicine
DX: N18.5 Chronic kidney disease, stage 5 (principal); D68.1 Hereditary factor XI deficiency; D63.1 Anemia in chronic kidney disease
CPT/HCPCS: 36415; 85018; 85014; 96365; 96366; J2916; J7050

== ENCOUNTER 2020-01-16 14:01 | Inpatient (IN) | payer OTHER, BC ==
[~2020-01-16 14:01] MED LIST: REGADENOSON 0.4 MG/5 ML SYR IV ONE
[2020-01-16 14:47] LABS: Absolute Lymphocytes (CBC) 2.2 K/uL (0.7-4.9); Basophils % 0.5 % (0-1.3); Hematocrit 30.8 % (36.0-45.0); Lymphocytes % 13.7 % (15.3-44.8); MPV 9.8 fL (7.6-11.3); RBC Red Blood Cell Count 3.16 M/uL (3.86-4.86)
--- NOTE | 2020-01-16 14:50 | RAD REPORT ---
EXAM DESCRIPTION: [place] Single View01/16/2020 2:42 pm CLINICAL HISTORY: Chest pain COMPARISON: July 2019 FINDINGS: The lungs appear clear of acute infiltrate. The heart is normal size IMPRESSION: No acute abnormalities displayed
[2020-01-16 14:58] LABS: Protime INR 1.13
[2020-01-16 15:28] LABS: BUN Blood Urea Nitrogen 55 mg/dL (7-18); Bicarbonate 26 mmol/L (21-32); Glucose Level 193 mg/dL (74-106); Potassium 3.3 mmol/L (3.5-5.1); Sodium Level 141 mmol/L (136-145); Troponin (Emerg Dept Use Only) < 0.02 ng/mL (0.0-0.045)
[2020-01-16] MEDS ORDERED: HYDROCODONE/APAP 10/325 TAB ONE (15:29)
--- NOTE | 2020-01-16 15:58 | ER ---
Nurse's Notes [facility] Name: Marquita Ramirez Age: 69 yrs Sex: Female : 1950 Arrival Date: 01/16/2020 Time: 14:04 Bed 5 Private MD: Diagnosis: Chest pain, unspecified Presentation: 01/15 14:04 Chief complaint: Patient states: left sided chest pain started this morning, iw intermittent, feels like indigestion, was supposed to have an iron infusion but was still having chest pains. Coronavirus screen: At this time, the client does not indicate any symptoms associated with coronavirus-19. Ebola Screen: Patient negative for fever greater than or equal to 101.5 degrees Fahrenheit, and additional compatible Ebola Virus Disease symptoms Patient denies exposure to infectious person. Patient denies travel to an Ebola-affected area in the 21 days before illness onset. No symptoms or risks identified at this time. Initial Sepsis Screen: Does the patient meet any 2 criteria? No. Patient's initial sepsis screen is negative. Does the patient have a suspected source of infection? No. Patient's initial sepsis screen is negative. Risk Assessment: Do you want to hurt yourself or someone else? Patient reports no desire to harm self or others. Onset of symptoms was January 16, 2020. 14:04 Method Of Arrival: Wheelchair iw 14:04 Acuity: SHADIA 3 iw Historical: - Allergies: 14:28 No Known Allergies; iw - Home Meds: 14:28 allopurinol 100 mg Oral tab nightly [Active]; alprazolam 0.25 mg Oral tab daily prn iw [Active]; aspirin 81 mg Oral TbEC 1 tab once daily [Active]; Baclofen Oral bedtime prn [Active]; bethanechol chloride 5 mg Oral tab 3 times per day [Active]; bumetanide 2 mg Oral tab 1 tab 2 times per day [Active]; calcitriol Oral Every other day [Active]; Colace 100 mg Oral cap 1 cap once daily [Active]; Dialy-kp 1 tab daily [Active]; gabapentin 100 mg Oral cap 2 caps 3 times per day [Active]; hydroxyzine HCl 25 mg Oral tab BID PRN [Active]; midodrine 2.5 mg Oral tab 2 tabs BID [Active]; Plavix 75 mg Oral tab 1 tab once daily [Active]; Pravachol 40 mg Oral tab 1 tab nightly [Active]; probiotics [Active]; Protonix 40 mg Oral TbEC nightly [Active]; Renvela 800 mg Oral tab 4 tabs 3 times per day [Active]; Tylenol #3 1 tab TID prn Oral [Active]; Vitamin D2 50,000 units a week for 12 weeks [Active]; Vitamin D3 50,000 units a month [Active]; Vitqamin B1 1 tab daily [Active]; Zofran 4mg QID prn [Active]; - PMHx: 14:28 PERITONEAL DIALYSIS; iw - Immunization history:: Adult Immunizations unknown. - Family history:: not pertinent. - Social history:: Smoking status: Patient denies any tobacco usage or history of. - Hospitalizations: : No recent hospitalization is reported. Screenin:30 Abuse screen: Denies threats or abuse. Denies injuries from another. Nutritional jl7 screening: No deficits noted. Tuberculosis screening: No symptoms or risk factors identified. Fall Risk IV access (20 points). Total Gonsalez Fall Scale indicates No Risk (0-24 pts). Assessment: 14:30 General: Appears in no apparent distress. uncomfortable, Behavior is calm, cooperative, jl7 appropriate for age. Pain: Complains of pain in left lateral anterior chest Pain radiates to left subscapular area Pain currently is 0 out of 10 on a pain scale. at worst was 8 out of 10 on a pain scale. Quality of pain is described as sharp, stabbing, Pain began suddenly, Is intermittent. Neuro: Level of Consciousness is awake, alert, obeys commands, Oriented to person, place, time, situation. Cardiovascular: Patient's skin is warm and dry. Respiratory: Airway is patent Respiratory effort is even, unlabored. GI: No signs and/or symptoms were reported involving the gastrointestinal system. : No signs and/or symptoms were reported regarding the genitourinary system. EENT: No signs and/or symptoms were reported regarding the EENT system. Derm: Skin is pink, warm \\T\\ dry. Musculoskeletal: No signs and/or symptoms reported regarding the musculoskeletal system. 15:45 Reassessment: Pt requesting for ER staff to start her iron infusion that she brought jl7 with her. Consulted pharmacist and pharmacist states "It's for immediate use so to be safe I'll make her a new one." Informed pt and pt verbalized understanding. 17:00 Reassessment: Patient appears in no apparent distress at this time. No changes from jl7 previously documented assessment. Patient and/or family updated on plan of care and expected duration. Pain level reassessed. Patient is alert, oriented x 3, equal unlabored respirations, skin warm/dry/pink. 18:00 Reassessment: Patient appears in no apparent distress at this time. No changes from jl7 previously documented assessment. Patient and/or family updated on plan of care and expected duration. Pain level reassessed. Patient is alert, oriented x 3, equal unlabored respirations, skin warm/dry/pink. 18:05 Reassessment: Attempted to call report, nurse unavailable. jl7 18:18 Reassessment: Attempted to call report, nurse unavailable. jl7 19:20 General: Appears in no apparent distress. comfortable, Behavior is calm, cooperative, rr5 appropriate for age. Neuro: Level of Consciousness is awake, alert, obeys commands, Oriented to person, place, time, situation. 19:20 Cardiovascular: Reports chest pain, Capillary refill < 3 seconds Patient's skin is warm rr5 and dry. Respiratory: Airway is patent Respiratory effort is even, unlabored, Respiratory pattern is regular, symmetrical. GI: No signs and/or symptoms were reported involving the gastrointestinal system. : No signs and/or symptoms were reported regarding the genitourinary system. EENT: No signs and/or symptoms were reported regarding the EENT system. Derm: Skin is intact, is healthy with good turgor, Skin temperature is warm. Derm: Skin is intact, is healthy with good turgor, Skin temperature is warm. Musculoskeletal: No signs and/or symptoms reported regarding the musculoskeletal system. 19:55 Reassessment: Patient appears in no apparent distress at this time. Patient is alert, rr5 oriented x 3, equal unlabored respirations, skin warm/dry/pink. dr. olivas at bedside. Vital Signs: 14:03 BP 143 / 62; Pulse 75; Resp 14; Temp 98.3; Pulse Ox 99% ; Weight 72.57 kg; Pain 8/10; jl7 15:49 BP 137 / 49; Pulse 71; Resp 15; Pulse Ox 100% ; jl7 16:30 BP 144 / 49; Pulse 64; Resp 19; Pulse Ox 100% ; jl7 18:05 BP 164 / 66; Pulse 65; Resp 17; Pulse Ox 100% ; jl7 19:06 BP 140 / 54; Pulse 86; Resp 16; Pulse Ox 99% ; rr5 19:50 BP 152 / 92; Pulse 69; Resp 18; Temp 98.4; Pulse Ox 97% ; rr5 ED Course: 14:04 Patient arrived in ED. iw 14:07 Triage completed. iw 14:07 Kang Bses MD is Attending Physician. rn 14:17 Kymberly Rodriguez RN is Primary Nurse. jl7 14:29 Arm band placed on. iw 14:30 Patient has correct armband on for positive identification. Placed in gown. Bed in low jl7 position. Call light in reach. Side rails up X2. personnel monitor on. Pulse ox on. NIBP on. Warm blanket given. 14:30 Initial lab(s) drawn, by me, sent to lab. EKG done, by ED staff, reviewed by Kang Bess MD. Inserted saline lock: 22 gauge in left antecubital area, using aseptic technique. Blood collected. Patient maintains SpO2 saturation greater than 95% on room air. 14:42 XRAY Chest (1 view) In Process Unspecified. EDMS 15:51 Belen Olivas MD is Hospitalizing Provider. rn 18:06 No provider procedures requiring assistance completed. Patient admitted, IV remains in jl7 place. intact, No redness/swelling at site. Administered Medications: 15:19 Drug: [place] 10 mg-325 mg 1 tabs Route: PO; rb1 18:02 Follow up: Response: No adverse reaction jl7 17:41 Drug: Robaxin 750 mg Route: PO; iw 18:02 Follow up: Response: No adverse reaction jl7 18:49 Drug: PlaVIX 75 mg Route: PO; jl7 18:49 Follow up: Response: No adverse reaction jl7 Outcome: 15:58 Decision to Hospitalize by Provider. rn 19:53 Admitted to Med/surg accompanied by tech, via wheelchair, room 231, with chart, Report rr5 called to casi 19:53 Condition: stable 19:53 Instructed on the need for admit. 20:06 Patient left the ED. rr5 Signatures: Dispatcher [employer] Halima Arteaga, RN RN Kang Merritt MD MD rn Nicol Jo, RN RN rb1 Kymberly Rodriguez RN RN jl7 Yossi Miller RN RN rr5
--- NOTE | 2020-01-16 15:59 | EDPHYS ---
Physician Documentation [facility] Name: Marquita Ramirez Age: 69 yrs Sex: Female : 1950 Arrival Date: 01/16/2020 Time: 14:04 Bed 5 Private MD: ED Physician Kang Bess HPI: 01/15 14:18 This 69 yrs old Female presents to ER via Wheelchair with complaints of Chest rn Pain. 14:18 The patient or guardian reports chest pain that is located primarily in the left rn lateral anterior chest. Onset: yesterday. The pain does not radiate. Associated signs and symptoms: Pertinent negatives: abdominal pain, headache, near syncope, palpitations, vomiting. The chest pain is described as aching, sharp. Duration: The patient or guardian reports multiple episodes, that are intermittent. Modifying factors: The symptoms are alleviated by nothing. the symptoms are aggravated by deep breath, palpation of area. Severity of pain: At its worst the pain was moderate in the emergency department the pain is unchanged. The patient has experienced a previous episode. Reports chest pain since yesterday. left sided, non-radiating, no fever, reports slept with tennis ball under her left side after it began to hurt, didn't help, got worse this AM, here for iron infusion and complained of chest pain, sent here for eval. Sees Dr. Hernandez. Has had CAD with stent in past. . Historical: - Allergies: 14:28 No Known Allergies; iw - Home Meds: 14:28 allopurinol 100 mg Oral tab nightly [Active]; alprazolam 0.25 mg Oral tab daily prn iw [Active]; aspirin 81 mg Oral TbEC 1 tab once daily [Active]; Baclofen Oral bedtime prn [Active]; bethanechol chloride 5 mg Oral tab 3 times per day [Active]; bumetanide 2 mg Oral tab 1 tab 2 times per day [Active]; calcitriol Oral Every other day [Active]; Colace 100 mg Oral cap 1 cap once daily [Active]; Dialy-kp 1 tab daily [Active]; gabapentin 100 mg Oral cap 2 caps 3 times per day [Active]; hydroxyzine HCl 25 mg Oral tab BID PRN [Active]; midodrine 2.5 mg Oral tab 2 tabs BID [Active]; Plavix 75 mg Oral tab 1 tab once daily [Active]; Pravachol 40 mg Oral tab 1 tab nightly [Active]; probiotics [Active]; Protonix 40 mg Oral TbEC nightly [Active]; Renvela 800 mg Oral tab 4 tabs 3 times per day [Active]; Tylenol #3 1 tab TID prn Oral [Active]; Vitamin D2 50,000 units a week for 12 weeks [Active]; Vitamin D3 50,000 units a month [Active]; Vitqamin B1 1 tab daily [Active]; Zofran 4mg QID prn [Active]; - PMHx: 14:28 PERITONEAL DIALYSIS; iw - Immunization history:: Adult Immunizations unknown. - Family history:: not pertinent. - Social history:: Smoking status: Patient denies any tobacco usage or history of. - Hospitalizations: : No recent hospitalization is reported. ROS: 14:18 Constitutional: Negative for fever, chills, and weight loss, Neck: Negative for injury, rn pain, and swelling, Cardiovascular: Negative for palpitations, and edema, Respiratory: Negative for cough, wheezing Abdomen/GI: Negative for abdominal pain, nausea, vomiting, diarrhea, and constipation, MS/Extremity: Negative for injury and deformity, Skin: Negative for injury, rash, and discoloration, Neuro: Negative for headache, weakness, numbness, tingling, and seizure. Exam: 14:18 Constitutional: This is a well developed, well nourished patient who is awake, alert, rn and in no acute distress. Head/Face: Normocephalic, atraumatic. Cardiovascular: Regular rate and rhythm. No pulse deficits. Respiratory: Speaking full sentences. No increased work of breathing, no retractions or nasal flaring. Seems to splint with deep breath. Abdomen/GI: soft, non-tender Skin: Warm, dry. Multiple ecchymosis extremity from IV sticks. MS/ Extremity: Pulses equal, no cyanosis. Neurovascular intact. Full, normal range of motion. Equal circumference. Neuro: Awake and alert, GCS 15, oriented to person, place, time, and situation. Cranial nerves II-XII grossly intact. Motor strength 4/5 in all extremities. Sensory grossly intact Vital Signs: 14:03 BP 143 / 62; Pulse 75; Resp 14; Temp 98.3; Pulse Ox 99% ; Weight 72.57 kg; Pain 8/10; jl7 15:49 BP 137 / 49; Pulse 71; Resp 15; Pulse Ox 100% ; jl7 16:30 BP 144 / 49; Pulse 64; Resp 19; Pulse Ox 100% ; jl7 18:05 BP 164 / 66; Pulse 65; Resp 17; Pulse Ox 100% ; jl7 19:06 BP 140 / 54; Pulse 86; Resp 16; Pulse Ox 99% ; rr5 19:50 BP 152 / 92; Pulse 69; Resp 18; Temp 98.4; Pulse Ox 97% ; rr5 MDM: 14:07 Patient medically screened. rn 15:49 Differential diagnosis: acute myocardial infarction, acute pericarditis, anxiety, rn coronary artery disease chest wall pain, costochondritis, gastroesophageal reflux disease (GERD), pleurisy, pneumonia, pneumothorax, stable angina. Data reviewed: vital signs, nurses notes, lab test result(s), EKG, radiologic studies, plain films, and as a result, I will admit patient. Counseling: I had a detailed discussion with the patient and/or guardian regarding: the historical points, exam findings, and any diagnostic results supporting the discharge/admit diagnosis, lab results, radiology results, the need for further work-up and treatment in the hospital. Response to treatment: the patient's symptoms have mildly improved after treatment, and as a result, I will admit patient. Admission orders: after a detailed discussion of the patient's condition and case, the admit orders are written by me. ED course: Neg w/u in ER, continues to have pain, is 69 years old dialysis patient with hx of PA/stent, will admit for obs and chest pain w/u, Dr. Hernandez consulted and agrees. . 01/15 14:16 Order name: CBC with Diff; Complete Time: 15:03 rn 01/15 14:16 Order name: Basic Metabolic Panel; Complete Time: 15:43 rn 01/15 14:16 Order name: Troponin (emerg Dept Use Only); Complete Time: 15:43 rn 01/15 14:16 Order name: XRAY Chest (1 view); Complete Time: 15:03 rn 01/15 14:16 Order name: Protime (+inr); Complete Time: 15:03 rn 01/15 14:16 Order name: Ptt, Activated; Complete Time: 15:03 rn 01/15 14:16 Order name: IV Start; Complete Time: 14:34 rn 01/15 14:16 Order name: EKG; Complete Time: 14:17 rn 01/15 14:16 Order name: EKG - Nurse/Tech; Complete Time: 14:17 rn Administered Medications: 15:19 Drug: [place] 10 mg-325 mg 1 tabs Route: PO; rb1 18:02 Follow up: Response: No adverse reaction jl7 17:41 Drug: Robaxin 750 mg Route: PO; iw 18:02 Follow up: Response: No adverse reaction jl7 18:49 Drug: PlaVIX 75 mg Route: PO; jl7 18:49 Follow up: Response: No adverse reaction jl7 Disposition: 01/16/20 15:58 Hospitalization ordered by Belen Hernandez for Observation. Preliminary diagnosis is Chest pain, unspecified. - Bed requested for Telemetry/MedSurg (observation). - Status is Observation. rr5 - Condition is Stable. - Problem is new. - Symptoms have improved. Signatures: Dispatcher [employer] EDMS Halima Rivas, RN RN iw Kang Bess MD MD rn Martinez, Eric em1 Nicol Jo RN RN rb1 Kymberly Rodriguez RN RN jl7 Yossi Miller RN RN rr5 Corrections: (The following items were deleted from the chart) 16:48 15:58 Hospitalization Ordered by A David ANGELES for Observation. Preliminary diagnosis is em1 Chest pain, unspecified. Bed requested for Telemetry/MedSurg (observation). Status is Observation. Condition is Stable. Problem is new. Symptoms have improved. rn 20:06 16:48 01/16/2020 15:58 Hospitalization Ordered by Belen Hernandez MD for Observation. rr5 Preliminary diagnosis is Chest pain, unspecified. Bed requested for Telemetry/MedSurg (observation). Status is Observation. Condition is Stable. Problem is new. Symptoms have improved. em1
[2020-01-16] MEDS ORDERED: methocarbamoL 500 MG TAB ONE (17:51)
[2020-01-16] MEDS ORDERED: CLOPIDOGREL 75 MG TABLET ONE (18:52)
[2020-01-16] MEDS ORDERED: ONDANSETRON 4 MG/2 ML VIAL IV PRN (19:48)
[2020-01-16 20:43] VITALS: BMI 27.3
--- NOTE | 2020-01-16 21:25 | RAD REPORT ---
EXAM DESCRIPTION: CT - Chest For Pe Angio - 01/16/2020 9:12 pm CLINICAL HISTORY: Chest pain COMPARISON: January 16, 2020 chest x-ray TECHNIQUE: Dynamically enhanced axial 3 mm thick images of the chest were obtained during administra tion of <100> mL Isovue 370 IV contrast. Coronal and oblique reconstruction images were generated and reviewed. Exam utilizes a protocol for optimal evaluation of pulmonary arterial tree. Maximum intensity projections 3D imaging was utilized All CT scans are performed using dose optimization technique as appropriate and may include automated exposure control or mA/KV adjustment according to patient size. FINDINGS: A pulmonary embolus is not seen. A thoracic aortic aneurysm is not noted. A small left pleural effusion is present. A pericardial effusion is not seen. A lung consolidation is not present. Coronary arterial calcifications IMPRESSION: Negative for a pulmonary embolism.
[2020-01-16] MEDS: MORPHINE 2 MG/ML SYR IV PRN (22:45)
[2020-01-16] MEDS ORDERED: ALPRAZOLAM 0.25 MG TABLET PO ONE (23:45)
[2020-01-16] MEDS ORDERED: MIDODRINE HCL 5 MG TABLET PO PRN (23:56)
[2020-01-16] MEDS ORDERED: ALPRAZOLAM 0.25 MG TABLET PO PRN (23:56)
[2020-01-16] MEDS ORDERED: hydrOXYzine HCL 25 MG TAB PO PRN (23:56)
--- OUTSIDE RECORDS SUMMARY | 2020-01-17 04:50 | XMS REPORT | Continuity of Care Document ---
:1950 Author Organization [employer] [facility] [employer] Care Team Providers Name Role Phone [employer] [facility] [employer] Unavailable Un available Problems Problem Status Onset [...] TID, # 180 cap, 2 Refill(s), Pharmacy: [facility] #[id number], 160.02, cm, 10/17/19 14:23:00 CDT, Height, 76.818, kg, 10/17/19 14:23:00 CDT, Weight pregabalin 50 MG 50 mg = 1 Active Misch er Oral Capsule cap, PO, 020 Neuro [Lyrica] Bedtime, # 30 cap, 3 Refill(s), Pharmacy: [facility] #[id number], 160.02, cm, 10/17/19 14:23:00 CDT, Height, 76.818, kg, 10/17/19 14:23:00 CDT, Weight baclofen 10 mg 10 mg = 1 Active [facility]ischer oral tablet tab, PO, 020 Neuro Bedtime, # 30 tab, 3 Refill(s), Pharmacy: [facility] #[id number] baclofen 10 mg 10 mg = 1 No Longer Misch er oral tablet tab, PO, Active 020 Neuro Bedtime, # 30 tab, 3 Refill(s) gabapentin 100 200 mg = 2 Active Mische r MG Oral Capsule cap, PO, 020 Neuro TID, # 180 cap, 2 Refill(s), Pharmacy: [facility] #[id number] bumetanide 2 mg 2 mg = 1 [...] Bedtime, # 30 tab, 3 Refill(s), Pharmacy: [facility] #[id number] thiamine 100 mg 100 mg = 1 [...] Comments Source Systolic (mm Hg) 98 10/17/2019 [facility] [facility] Diastolic (mm Hg) 59 10/17/2019 [facility] Ne uro Heart Rate 76 [facility] Resp[facility] Rate 16 10/17/2019 [facility] Neuro Height 160.02 cm 10/17/2019 [facility] Neuro Weight 76.818 10/17/2019 [facility] Neuro BMI Calculated 30 10/17/2019 [facility] Neuro Systolic (mm Hg) 93 06/19/2019 [facility] [place] [facility] Diastolic (mm Hg) 52 06/19/2019 [facility] Ne uro Heart Rate 99 06/19/2019 [facility] Neuro Respitory Rate 16 06/19/2019 [facility] Neuro Height 160.02 cm [facility]/19[facility] Weight 82.727 06/19/2019 [facility] Neuro BMI Calculated 32.31 06/19/2019 [facility] Neuro Systolic (mm Hg) 106 05/02/2019 [facility] [place] [facility] Diastolic (mm Hg) 48 05/02/2019 [facility] Ne uro Heart Rate 73 05/02/2019 [facility] Neuro Respitory Rate 16 05/02/2019 [facility] Neuro Height 160.02 cm 05/02/2019 [facility] Neuro Weight 85.455 05/02/2019 [facility] Neuro BMI Calculated 33.37 05/02/2019 [facility] Neuro Encounters Location Location Encounter Encounter Reason Attending ADM TX Stat us Source Details Type Number For Provider Date Date Visit MNA Outpatient [id number] Melo 05/02 05/03 [facility] Neurology [place] /2019 [facility] [place] MNA Outside [id number] 06/06 [facility] Neurology Medical /2019 [facility] [place] Records Outpatient [id number] Melo 06/18 Active [facility] /2020 [place] M[facility] Outpatient [id number] Melo 06/18 06/19 [facility] Neurology [place] /2019 [place] Outpatient [id number] Melo 07/16 Active [facility] /2020 [place] MNA Outpatient [id number] Melo 07/16 07/17 [facility] Neurology [place] /2019 [place] Outpatient [id number] Melo 10/16 Active [facility] /2020 [place] Outpatient [id number] Melo 10/16 Active [facility] /2020 [place] [facility] Ambulatory [id number] Melo 10/16 10/16 [facility] Neurology Pre-Reg [place] /2019 [facility] [place] MNA Outpatient [id number] Emlo 10/16 10/17 [facility] Neurology [place] /2019 [place] Outpatient [id number] Melo 12/02 Active [facility] [place] MNA Outpatient [id number] Melo 12/02 12/03 [facility] [place] Outpatient [id number] Melo 03/03 Active [facility] [place] Procedures No Data Provided for This Section [...]
--- OUTSIDE RECORDS SUMMARY | 2020-01-17 04:50 | XMS REPORT | Clinical Summary ---
:1950 Author Organization [facility] Address [address] [place] [address] Care Team Providers Name Role Phone Justyn [...] MD 02/21/2019 Lab Lab Franko Albrecht MD after 01/15/2019 Surgical History Surgery Date Site/Laterality Comments SECTION TUBAL LIGATION KIDNEY STONE SURGERY INSERTION, CATHETER, FOR 04/14/2017 Abdomen/N/A Procedu re: INSERTION, PERITONEAL DIALYSIS CATHETER, FO R PERITONEAL DIALYSIS; Surge on: Esteban Rodrigues MD; Location: [facility] OR; Service: General ; Laterality: N/A; Medical devices from this surgery are in t he Implants section. PERITONEAL CATHETER INSERTION CENTRAL VENOUS CATHETER 09/22/2017 Right RIJ for antibiotics TUNNELED INSERTION DOUBLE LUMEN CARDIAC CATHETERIZATION 09/25/2017 Radial Procedur e: Cv left heart cath w lv gram c ors; Surgeon: Jaswant Madrigal MD; Location: [facility] Specialist Invasive Loc ation; Service: Cardiol ogy; Laterality: Radi al; Medical devices from this surgery are in t he Implants section. CORONARY STENT PLACEMENT 09/25/2017 2.5 mm x 16 mm Synergy stent to OM2 CORONARY ANGIOPLASTY WITH STENT PLACEMENT Medical History Medical History Date Comments Diabetes mellitus (HCC) History of blood transfusion 2015 PONV (postoperative nausea and vomiting) Pt..PONV, awareness with c section, CFROM / Family...nfh ap H/O motion sickness Acid reflux occasional ... 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) Does not exercise Type 2 diabetes mellitus (HCC) 1994 Hypertension 2003 ESRD (end stage renal disease) on dialysis (HCC) Gout Secondary neuropathy (HCC) Coronary artery disease Hyperlipidemia Seizures (HCC) Arthritis Renal failure peritoneal dialysis Family History Medical History Relation Name Comments [...] 01/12/2020 01/11/2018, 01/11/2018 Implants Implanted Type Area Custom Ski Maker Device Shelf Model / Identifier Expiration Serial / Lot Date Stent Cornorary Syst Synergy (Mr) 2.50mm X 16mm - [id number] Coronary N/A: BSC 07/17/2018 [id number] / Implanted: Qty: 1 on 09/25/2017 by Jaswant Madrigal MD at [facility] Stents N/A INTERVENTIONAL / CARDIOLOGY [id number] Catheter Pd Holden Curl Cath 2cuff 15fr 62.5cm - [id number] Impla ntable N/A: FEDERICO 07/20/2021 [id number] / Implanted: Qty: 1 on 04/14/2017 by Esteban Rodrigues MD at [facility] Infusion Ports N/A INSTRUMENT CO / or Accessories [id number] Catheter Cv Powerline Dlmn Al 6fr - [id number] Surgical N/A: BARD ACCESS 12/08/2021 [id number] / Implanted: 09/22/2017 at [facility] (Quantity not on file) Im plants; N/A SYSTEMS / Expanders; [id number] Extenders; Surgical Wires Additional Caridac Stents (1.5t Only [facility]) Description:no documents. 1.5T only in [facility] Urinary Stent (2017) 1.5t Only ([facility]) Description:Urinary Stent (2017). NO do cuments. 1.5T only ([facility] practice) Procedures Procedure Name Priority Date/Time Associated [...] 06/11/2019 1:27 Res ults for this PM ACQUISITIONS LOGISTICS ANALYST procedure are i n the results section. POC GLUCOSE Routine 05/12/2019 12:58 Results for this PM ACQUISITIONS LOGISTICS ANALYST procedure are i n the results section. POC GLUCOSE Routine 05/12/2019 7:07 Results for this AM ACQUISITIONS LOGISTICS ANALYST procedure are i n the results section. ESTIMATED GFR Routine 05/12/2019 5:30 Results fo r this AM ACQUISITIONS LOGISTICS ANALYST procedure are i n the results section. BASIC METABOLIC PANEL Routine 05/12/2019 5:30 Re sults for this AM ACQUISITIONS LOGISTICS ANALYST procedure are i n the results section. HC COMPLETE BLD COUNT Routine 05/12/2019 5:30 Re sults for this W/AUTO DIFF AM ACQUISITIONS LOGISTICS ANALYST procedure are i n the results section. PHOSPHORUS LEVEL Routine 05/12/2019 5:30 Results for this AM ACQUISITIONS LOGISTICS ANALYST procedure are i n the results section. POC GLUCOSE Routine 05/11/2019 8:41 Results for this PM ACQUISITIONS LOGISTICS ANALYST procedure are i n the results section. ESTIMATED GFR STAT 05/11/2019 6:30 Results fo r this PM ACQUISITIONS LOGISTICS ANALYST procedure are i n the results section. BASIC METABOLIC PANEL STAT 05/11/2019 6:30 Re sults for this PM ACQUISITIONS LOGISTICS ANALYST procedure are i n the results section. POC GLUCOSE Routine 05/11/2019 5:50 Results for this PM ACQUISITIONS LOGISTICS ANALYST procedure are i n the results section. POC GLUCOSE Routine 05/11/2019 12:05 Results for this PM ACQUISITIONS LOGISTICS ANALYST procedure are i n the results section. POC GLUCOSE Routine 05/11/2019 7:17 Results for this AM ACQUISITIONS LOGISTICS ANALYST procedure are i n the results section. PHOSPHORUS LEVEL Routine 05/11/2019 6:48 Results for this AM ACQUISITIONS LOGISTICS ANALYST procedure are i n the results section. POC GLUCOSE Routine 05/10/2019 8:55 Results for this PM ACQUISITIONS LOGISTICS ANALYST procedure are i n the results section. POC GLUCOSE Routine 05/10/2019 4:57 Results for this PM ACQUISITIONS LOGISTICS ANALYST procedure are i n the results section. XR SACRUM AND COCCYX Routine 05/10/2019 3:27 Res ults for this PM ACQUISITIONS LOGISTICS ANALYST procedure are i n the results section. XR LUMBAR SPINE 2 OR 3 Routine 05/10/2019 3:27 R esults for this VW PM ACQUISITIONS LOGISTICS ANALYST procedure are i n the results section. MRI CERVICAL SPINE WO Routine 05/10/2019 3:14 Re sults for this CONTRAST PM ACQUISITIONS LOGISTICS ANALYST procedure are i n the results section. MRI BRAIN WO CONTRAST STAT 05/10/2019 3:12 Re sults for this PM ACQUISITIONS LOGISTICS ANALYST procedure are i n the results section. POC GLUCOSE Routine 05/10/2019 9:44 Results for this AM ACQUISITIONS LOGISTICS ANALYST procedure are i n the results section. POC GLUCOSE Routine 05/10/2019 9:19 Results for this AM ACQUISITIONS LOGISTICS ANALYST procedure are i n the results section. CELL COUNT AND Routine 05/10/2019 8:50 Results f or this DIFFERENTIAL, BODY AM ACQUISITIONS LOGISTICS ANALYST procedure are in FLUID the results section. ANAEROBIC CULTURE Routine 05/10/2019 8:50 Result s for this AM ACQUISITIONS LOGISTICS ANALYST procedure are i n the results section. GRAM STAIN Routine 05/10/2019 8:50 Results for this AM ACQUISITIONS LOGISTICS ANALYST procedure are i n the results section. AEROBIC CULTURE Routine 05/10/2019 8:50 Results for this AM ACQUISITIONS LOGISTICS ANALYST procedure are i n the results section. POC GLUCOSE Routine 05/10/2019 7:36 Results for this AM ACQUISITIONS LOGISTICS ANALYST procedure are i n the results section. ESTIMATED GFR Routine 05/10/2019 5:55 Results fo r this AM ACQUISITIONS LOGISTICS ANALYST procedure are i n the results section. BASIC METABOLIC PANEL Routine 05/10/2019 5:55 Re sults for this AM ACQUISITIONS LOGISTICS ANALYST procedure are i n the results section. HC COMPLETE BLD COUNT Routine 05/10/2019 5:55 Re sults for this W/AUTO DIFF AM ACQUISITIONS LOGISTICS ANALYST procedure are i n the results section. POC GLUCOSE Routine 05/09/2019 9:57 Results for this PM ACQUISITIONS LOGISTICS ANALYST procedure are i n the results section. HEPATITIS B SURFACE Routine 05/09/2019 9:08 Resu lts for this ANTIGEN PM ACQUISITIONS LOGISTICS ANALYST procedure are i n the results section. LACTIC ACID LEVEL, Timed 05/09/2019 9:08 Resul ts for this SEPSIS - NOW AND REPEAT PM ACQUISITIONS LOGISTICS ANALYST proc edure are in 2X EVERY 3 HOURS the results section. POC GLUCOSE Routine 05/09/2019 7:39 Results for this PM ACQUISITIONS LOGISTICS ANALYST procedure are i n the results section. LACTIC ACID LEVEL, Timed 05/09/2019 6:08 Resul ts for this SEPSIS - NOW AND REPEAT PM ACQUISITIONS LOGISTICS ANALYST proc edure are in 2X EVERY 3 HOURS the results section. US CAROTID DUPLEX Routine 05/09/2019 5:44 Result s for this BILATERAL PM ACQUISITIONS LOGISTICS ANALYST procedure are i n the results section. IONIZED CALCIUM STAT 05/09/2019 3:55 Results for this PM ACQUISITIONS LOGISTICS ANALYST procedure are i n the results section. AMMONIA LEVEL STAT 05/09/2019 3:55 Results fo r this PM ACQUISITIONS LOGISTICS ANALYST procedure are i n the results section. HEMOGLOBIN A1C STAT 05/09/2019 3:55 Results f or this PM ACQUISITIONS LOGISTICS ANALYST procedure are i n the results section. LIPID PANEL STAT 05/09/2019 3:55 Results for this PM ACQUISITIONS LOGISTICS ANALYST procedure are i n the results section. THYROID STIMULATING STAT 05/09/2019 3:55 Resu lts for this HORMONE PM ACQUISITIONS LOGISTICS ANALYST procedure are i n the results section. VITAMIN B1 LEVEL, WHOLE STAT 05/09/2019 3:55 Results for this BLOOD PM ACQUISITIONS LOGISTICS ANALYST procedure are i n the results section. VITAMIN B12 LEVEL Routine 05/09/2019 3:55 Result s for this PM ACQUISITIONS LOGISTICS ANALYST procedure are i n the results section. CT HEAD WO CONTRAST STAT 05/09/2019 3:18 Resu lts for this PM ACQUISITIONS LOGISTICS ANALYST procedure are i n the results section. ESTIMATED GFR STAT 05/09/2019 2:40 Results fo r this PM ACQUISITIONS LOGISTICS ANALYST procedure are i n the results section. THYROID STIMULATING STAT 05/09/2019 2:40 Resu lts for this HORMONE PM ACQUISITIONS LOGISTICS ANALYST procedure are i n the results section. B NATRIURETIC PEPTIDE STAT 05/09/2019 2:40 Re sults for this PM ACQUISITIONS LOGISTICS ANALYST procedure are i n the results section. LACTIC ACID LEVEL, STAT 05/09/2019 2:40 Resul ts for this SEPSIS - NOW AND REPEAT PM ACQUISITIONS LOGISTICS ANALYST proc edure are in 2X EVERY 3 HOURS the results section. TROPONIN STAT 05/09/2019 2:40 Results for this PM ACQUISITIONS LOGISTICS ANALYST procedure are i n the results section. COMPREHENSIVE METABOLIC STAT 05/09/2019 2:40 Results for this PANEL PM ACQUISITIONS LOGISTICS ANALYST procedure are i n the results section. HC COMPLETE BLD COUNT STAT 05/09/2019 2:40 Re sults for this W/AUTO DIFF PM ACQUISITIONS LOGISTICS ANALYST procedure are i n the results section. URINE CULTURE STAT 05/09/2019 2:39 Results fo r this PM ACQUISITIONS LOGISTICS ANALYST procedure are i n the results section. URINALYSIS SCREEN AND STAT 05/09/2019 2:21 Re sults for this MICROSCOPY, WITH REFLEX PM ACQUISITIONS LOGISTICS ANALYST proc edure are in TO CULTURE the results section. ECG ED PRELIMINARY Routine 05/09/2019 2:07 Resul ts for this INTERPRETATION PM ACQUISITIONS LOGISTICS ANALYST procedure are in the results section. ECG 12-LEAD STAT 05/09/2019 2:05 Results for this PM ACQUISITIONS LOGISTICS ANALYST procedure are i n the results section. CT LUMBAR SPINE WO Routine 02/27/2019 4:32 Resul ts for this CONTRAST PM ACQUISITIONS LOGISTICS ANALYST procedure are i n the results section. POC GLUCOSE Routine 02/27/2019 11:30 Results for this AM ACQUISITIONS LOGISTICS ANALYST procedure are i n the results section. POC GLUCOSE Routine 02/27/2019 7:41 Results for this AM ACQUISITIONS LOGISTICS ANALYST procedure are i n the results section. ESTIMATED GFR Routine 02/27/2019 3:30 Results fo r this AM ACQUISITIONS LOGISTICS ANALYST procedure are i n the results section. IONIZED CALCIUM Routine 02/27/2019 3:30 Results for this AM ACQUISITIONS LOGISTICS ANALYST procedure are i n the results section. PHOSPHORUS LEVEL Routine 02/27/2019 3:30 Results for this AM ACQUISITIONS LOGISTICS ANALYST procedure are i n the results section. MAGNESIUM LEVEL Routine 02/27/2019 3:30 Results for this AM ACQUISITIONS LOGISTICS ANALYST procedure are i n the results section. COMPREHENSIVE METABOLIC Routine 02/27/2019 3:30 Results for this PANEL AM ACQUISITIONS LOGISTICS ANALYST procedure are i n the results section. HC COMPLETE BLD COUNT Routine 02/27/2019 3:30 Re sults for this W/AUTO DIFF AM ACQUISITIONS LOGISTICS ANALYST procedure are i n the results section. POC GLUCOSE Routine 02/26/2019 10:17 Results for this PM ACQUISITIONS LOGISTICS ANALYST procedure are i n the results section. MRI BRAIN WO CONTRAST Routine 02/26/2019 9:26 Re sults for this PM ACQUISITIONS LOGISTICS ANALYST procedure are i n the results section. POC GLUCOSE Routine 02/26/2019 6:40 Results for this PM ACQUISITIONS LOGISTICS ANALYST procedure are i n the results section. EEG AWAKE/DROWSY LESS Routine 02/26/2019 6:27 Re sults for this THAN 41 MIN PM ACQUISITIONS LOGISTICS ANALYST procedure are i n the results section. THYROID STIMULATING Routine 02/26/2019 3:00 Resu lts for this HORMONE PM ACQUISITIONS LOGISTICS ANALYST procedure are i n the results section. TOTAL IRON BINDING Routine 02/26/2019 3:00 Resul ts for this CAPACITY PM ACQUISITIONS LOGISTICS ANALYST procedure are i n the results section. TOTAL IRON BINDING Routine 02/26/2019 3:00 Resul ts for this CAPACITY PM ACQUISITIONS LOGISTICS ANALYST procedure are i n the results section. FERRITIN LEVEL Routine 02/26/2019 3:00 Results f or this PM ACQUISITIONS LOGISTICS ANALYST procedure are i n the results section. FOLATE LEVEL Routine 02/26/2019 3:00 Results for this PM ACQUISITIONS LOGISTICS ANALYST procedure are i n the results section. HEPATITIS B SURFACE AB, Routine 02/26/2019 3:00 Results for this QUANTITATIVE PM ACQUISITIONS LOGISTICS ANALYST procedure are i n the results section. HEPATITIS B SURFACE Routine 02/26/2019 3:00 Resu lts for this ANTIBODY PM ACQUISITIONS LOGISTICS ANALYST procedure are i n the results section. HEPATITIS B SURFACE Routine 02/26/2019 3:00 Resu lts for this ANTIGEN PM ACQUISITIONS LOGISTICS ANALYST procedure are i n the results section. URIC ACID LEVEL Routine 02/26/2019 3:00 Results for this PM ACQUISITIONS LOGISTICS ANALYST procedure are i n the results section. VITAMIN B1 LEVEL, WHOLE STAT 02/26/2019 3:00 Results for this BLOOD PM ACQUISITIONS LOGISTICS ANALYST procedure are i n the results section. VITAMIN B12 LEVEL Routine 02/26/2019 3:00 Result s for this PM ACQUISITIONS LOGISTICS ANALYST procedure are i n the results section. POC GLUCOSE Routine 02/26/2019 12:25 Results for this PM ACQUISITIONS LOGISTICS ANALYST procedure are i n the results section. TTE COMPLETE, WO Routine 02/26/2019 11:30 Results for this CONTRAST, W DOPPLER AM ACQUISITIONS LOGISTICS ANALYST procedur e are in ([id number]) the results section. ESTIMATED GFR STAT 02/26/2019 9:45 Results fo r this AM ACQUISITIONS LOGISTICS ANALYST procedure are i n the results section. HEMOGLOBIN A1C Routine 02/26/2019 9:45 Results f or this AM ACQUISITIONS LOGISTICS ANALYST procedure are i n the results section. LIPID PANEL Routine 02/26/2019 9:45 Results for this AM ACQUISITIONS LOGISTICS ANALYST procedure are i n the results section. BASIC METABOLIC PANEL STAT 02/26/2019 9:45 Re sults for this AM ACQUISITIONS LOGISTICS ANALYST procedure are i n the results section. POC GLUCOSE Routine 02/26/2019 8:50 Results for this AM ACQUISITIONS LOGISTICS ANALYST procedure are i n the results section. ESTIMATED GFR STAT 02/26/2019 3:35 Results fo r this AM ACQUISITIONS LOGISTICS ANALYST procedure are i n the results section. BASIC METABOLIC PANEL STAT 02/26/2019 3:35 Re sults for this AM ACQUISITIONS LOGISTICS ANALYST procedure are i n the results section. POC GLUCOSE Routine 02/26/2019 2:53 Results for this AM ACQUISITIONS LOGISTICS ANALYST procedure are i n the results section. CT HEAD WO CONTRAST STAT 02/26/2019 12:25 Resu lts for this AM ACQUISITIONS LOGISTICS ANALYST procedure are i n the results section. XR CHEST 1 VW PORTABLE STAT 02/26/2019 12:03 R esults for this AM ACQUISITIONS LOGISTICS ANALYST procedure are i n the results section. ESTIMATED GFR STAT 02/25/2019 11:41 Results fo r this PM ACQUISITIONS LOGISTICS ANALYST procedure are i n the results section. MAGNESIUM LEVEL STAT 02/25/2019 11:41 Results for this PM ACQUISITIONS LOGISTICS ANALYST procedure are i n the results section. PHOSPHORUS LEVEL STAT 02/25/2019 11:41 Results for this PM ACQUISITIONS LOGISTICS ANALYST procedure are i n the results section. LIPASE LEVEL STAT 02/25/2019 11:41 Results for this PM ACQUISITIONS LOGISTICS ANALYST procedure are i n the results section. COMPREHENSIVE METABOLIC STAT 02/25/2019 11:41 Results for this PANEL PM ACQUISITIONS LOGISTICS ANALYST procedure are i n the results section. PARTIAL THROMBOPLASTIN STAT 02/25/2019 11:41 R esults for this TIME (PTT) PM ACQUISITIONS LOGISTICS ANALYST procedure are i n the results section. PROTHROMBIN TIME WITH STAT 02/25/2019 11:41 Re sults for this INR PM ACQUISITIONS LOGISTICS ANALYST procedure are i n the results section. HC COMPLETE BLD COUNT STAT 02/25/2019 11:41 Re sults for this W/AUTO DIFF PM ACQUISITIONS LOGISTICS ANALYST procedure are i n the results section. ECG ED PRELIMINARY Routine 02/25/2019 11:23 Resul ts for this INTERPRETATION PM ACQUISITIONS LOGISTICS ANALYST procedure are in the results section. WI CRITICAL CARE, E/M Routine 02/25/2019 11:23 Re sults for this 30-74 MINUTES PM ACQUISITIONS LOGISTICS ANALYST procedure are in the results section. ECG 12-LEAD STAT 02/25/2019 10:42 Results for this PM ACQUISITIONS LOGISTICS ANALYST procedure are i n the results section. SINGLE ANTIGEN BEADS Routine 02/14/2019 2:26 Res ults for this PM ACQUISITIONS LOGISTICS ANALYST procedure are i n the results section. after 01/15/2019 Results Single antigen beads (10/24/2019 6:00 PM CDT)Only the most recent of3 results within the time period is included. SAB serum ID [id number] [facility] SAB serum collection 10/24/2019 06:00 [facility] SAB class I antibody B57,B58 [facility] SAB cPRA class I 11 [facility] SAB class II Negative [facility] SAB cPRA class II 0 [facility] Single antigen beads See link below [facility] for PDF Lab HOSPITAL Report Specimen Blood Performing Organization Address City/State/ZIP Code Phon e Number [facility] DEPARTMENT OF PATHOLOGY AND [address] [place] [address], [place] [address] [facility] [address] [place] [address] [facility] POC glucose (07/31/2019 5:01 PM CDT)Only the most recent of64 resultswithin the time period is included. [facility] POC glucose 205 (H) 65 - 99 mg/dL [facility] Comment: [facility] Platform Attendant Name: Jeaneth Perkins Device ID: [id number] Chartable: RN Notified Specimen Blood Performing Organization Address City/[facility] Phon e Number [facility] DEPARTMENT OF PATHOLOGY [id number] [place] [address] Estimated GFR (07/30/2019 4:30 AM CDT)Only the most recent of16 resultswithin the time period is included. [facility] Estimated GFR 4 (A) mL/min/1.73 [facility] Comment: m2 DEXTER C[employer]gory Units Interpretation HOS PITAL G1 >=90 [...] published in 2014. Specimen Performing Organization Address [facility] Phon e Number [facility] DEPARTMENT OF PATHOLOGY [address] [place] [address] CBC with platelet and differential (07/30/2019 4:30 AM CDT)Only the most recent of12 resultswithin the time period is included. Pathologist [facility] WBC 13.3 (H) 4.5 - 11.0 k/uL [facility] RBC 3.31 (L) 4.20 - 5.50 [facility] m/uL [facility] HGB 10.2 (L) 12.0 - 16.0 [facility] g/dL [facility] HCT 33.2 (L) 37.0 - 47.0 % [facility] MCV 100.3 (H) 82.0 - 100.0 fL [facility] MCH 30.8 27.0 - 34.0 pg [facility] MCHC 30.7 (L) 31.0 - 37.0 [facility] g/dL [facility] RDW - SD 53.6 37.0 - 55.0 fL [facility] MPV 10.8 6.9 - 11.0 fL [facility] Platelet count 262 150 - 400 K/uL [facility] Nucleated RBC 0.00 /100 WBC [facility] Neutrophils 66.0 39.0 - 69.0 % [facility] Lymphocytes 24.5 (L) 25.0 - 45.0 % [facility] Monocytes 6.7 0.0 - 10.0 % [facility] Eosinophils 1.6 0.0 - 5.0 % [facility] Basophils 0.8 0.0 - 1.0 % [facility] Immature granulocytes 0.4 0.0 - 1.0 % [facility] Specimen Blood Performing Organization Address City/State/ZIP Code Phon e Number [facility] DEPARTMENT OF PATHOLOGY [address] [facility] [place] [address] AND GENOMIC MEDICINE [facility] [address] [facility] [place] [address] [facility] Comprehensive metabolic panel (07/30/2019 4:30 AM CDT)Only the most recent of9 resultswithin the time period is included. Pathologist Sig nature Sodium 134 (L) 135 - 148 mEq/L [facility] Potassium 3.7 3.5 - 5.0 mEq/L [facility] Chloride 95 (L) 98 - 112 mEq/L [facility] CO2 26 24 - 31 mEq/L [facility] Anion gap 13@ANIO 7 - 15 mEq/L [facility] BUN 35 (H) 8 - 23 mg/dL [facility] Creatinine 8.82 (H) 0.50 - 0.90 [facility] mg/dL [facility] Glucose 282 (H) 65 - 99 mg/dL [facility] Calcium 10.1 8.8 - 10.2 [facility] mg/dL [facility] Protein 5.2 (L) 6.3 - 8.3 g/dL [facility] Albumin 2.5 (L) 3.5 - 5.0 g/dL [facility] A/G ratio 0.9 0.7 - 3.8 [facility] Alkaline phosphatase 126 (H) 35 - 104 U/L [facility] AST 12 10 - 35 U/L [facility] ALT 9 5 - 50 U/L [facility] Total bilirubin <0.2 0.2 - 1.2 mg/dL [facility] Specimen Blood Performing Organization Address City/[facility] Phon e Number [facility] DEPARTMENT OF PATHOLOGY [id number] [place] [address] Smear review (07/29/2019 7:45 AM CDT)Only the most recent of2 resultswithin the time period is included. Pathologist Sig nature Platelet slide review Sanjeev adequate [facility] Anisocytosis Moderate [facility] Enlarged platelets Moderate (A) [facility] Giant platelets Occasional [facility] Specimen Performing Organization Address [facility] Phon e Number [facility] DEPARTMENT OF PATHOLOGY [id number] [place] [address] Head Wo Contrast (07/28/2019 2:00 PM CDT)Only the most recent of4 results within the time period is included. Specimen Narrative Performed At EXAMINATION: CT HEAD WO CONTRAST [facility] CLINICAL HISTORY: Altered level of con [...] No CT evidence of acute intracranial abnormality. [id number] Procedure Note Hm Interface, Radiology Results Incoming - 07/28/2019 2:13 [...] No CT evidence of acute intracranial abnormality. [facility]-[id number] Performing Organization Address City/[facility]/ZIP Code Phon e Number [facility] [address] [place] [address] Arterial blood gas (07/28/2019 1:27 PM CDT) Pathologist Sig nature pH, arterial 7.35 7.35 - 7.45 [facility] pCO2, arterial 49 (H) 35 - 45 mmHg [facility] [facility] pO2, arterial 76 (L) 80 - 90 mmHg [facility] Bicarbonate, 26.6 21.0 - 28.0 [facility] arterial mmol/L [facility] Base excess, 1 -2 - 2 mEq/L [facility] O2 saturation, 94 (L) 95 - 100 % [facility] Specimen Blood Performing Organization Address City/State/ZIP Code Phon e Number [facility] DEPARTMENT OF PATHOLOGY [address] [facility]. [place], [place] [address] AND GENOMIC [facility] [address] [facility] X [address] [facility] Ammonia level (07/28/2019 1:12 PM CDT)Only the most recent of3 resultswithin the time period is included. Pathologist Sig nature Ammonia 31 11 - 51 umol/L [facility] Specimen Blood Performing Organization Address [facility]/ZIP [facility] Phon e Number [facility] DEPARTMENT OF PATHOLOGY [address] [facility] [address] AND [facility] [id number] [place] [address] X [address] [facility] XR Foot 3+ Vw Left (07/26/2019 [...] N o acute fracture or dislocation identified. [facility]-[id number] Procedure Note Interface, Radiology Results Incoming - 07/26/2019 2:50 [...] ankle. No acute fracture or dislocation identified. [facility]-[id number] Performing Organization Address City/[facility] Phon e Number [facility] [address] [place] [address] Basic metabolic panel (07/26/2019 5:30 AM CDT)Only the most recent of7 results within the time period is included. Pathologist Sig nature Sodium 136 135 - 148 mEq/L [facility] Potassium 3.6 3.5 - 5.0 mEq/L [facility] Chloride 95 (L) 98 - 112 mEq/L [facility] CO2 25 24 - 31 mEq/L [facility] Anion gap 16@ANIO (H) 7 - 15 mEq/L [facility] BUN 39 (H) 8 - 23 mg/dL [facility] Creatinine 8.26 (H) 0.50 - 0.90 mg/dL [facility] Glucose 287 (H) 65 - 99 mg/dL [facility] Calcium 9.9 8.8 - 10.2 mg/dL [facility] Specimen Blood Performing Organization Address [facility]/ZIP Code Phon e Number [facility] DEPARTMENT OF PATHOLOGY [address] [facility], [place] [address] AND GENOMIC MEDICINE [facility] [address] [facility] [place] [address] [facility] XR Knee 1 Or 2 Vw [...] changes. Small knee joint effusion. 4.Vascular calcifications. [facility]-[id number] Procedure Note Hm Interface, Radiology Results Incoming [...] changes. Small knee joint effusion. 4.Vascular calcifications. [facility]-[id number] Performing Organization Address City/State/ZIP Code Phon e Number [facility] [address] [place] [address] XR Tibia Fibula 2 Vw Left (07/25/2019 3:39 PM CDT) Specimen Narrative Performed At EXAMINATION: XR KNEE 1 OR 2 VW LEFT, X R TIBIA FIBULA 2 VW LEFT [facility] INDICATION: pain s p fall COMPARISON:None IMPRESSION: 1.Nondisplaced transverse fracture involving the proxi mal fibular diaphysis. 2.Faint sclerosis along the posterior calcaneus questi onable for stress fracture. Recommend clinical correlation. Bones are di ffusely demineralized. 3.Minimal tricompartmental joint space narrowing about the knee, as well as milder tibiotalar joint degenerative changes. Small knee joint effusion. 4.Vascular calcifications. [facility]-[id number] Procedure Note Interface, Radiology Results - 07/25/2019 3:46 PM CDT EXAMINATION: XR [...] changes. Small knee joint effusion. 4.Vascular calcifications. [id number] Performing Organization Address City/State/ZIP Code Phon e Number [facility] [address] [place] [address] Us duplex venous lower extremity (07/25/2019 3:17 [...] is no evidence of deep venous thrombosis. [facility]-[id number] Procedure Note Interface, Radiology Results - 07/25/2019 3:22 PM CDT EXAMINATION: US [...] is no evidence of deep venous thrombosis. [facility]-[id number] Performing Organization Address [facility] Phon e Number [facility] [address] [place] [address] Urine culture (07/24/2019 4:36 PM CDT)Only the most recent of3 resultswithin the time period is included. Urine culture Enterococcus faecalis [facility] isolate >10-5 cfu/ml HOSPITAL The performance characteristics of this assay on this isolate were validated by the Microbiology Laboratory at [facility]. This source has not been approve [...] LADI mcg/mL: R esistant Performing Organization Address City/State/[facility] Code Phon e Number [facility] DEPARTMENT OF PATHOLOGY AND [address] [place], [place] [address] GENOMIC [facility] [address] [place] [address] Urinalysis screen and microscopy, with reflex to culture (07/24/2019 3:55 PM CDT)Only the most recent of3 resultswithin the time period is included. Specimen site Catheterized [facility] Color, UA Yellow [facility] Appearance, UA Turbid [facility] Specific gravity, 1.010 1.001 - 1.030 [facility] pH, UA 5.0 5.0 - 9.0 [facility] Protein, UA 2+ (A) Negative [facility] Glucose, UA 1+ (A) Negative [facility] Ketones, UA Negative Negative [facility] Bilirubin, UA Negative Negative [facility] Blood, UA Moderate (A) Negative [facility] Nitrite, UA Negative Negative [facility] Urobilinogen, UA <2.0 <2.0 E.U./dL [facility] Leukocyte esterase, Moderate (A) Negative [facility] WBC, UA >200 (H) 0 - 4 /HPF [facility] RBC, UA 40 (H) 0 - 5 /HPF [facility] Bacteria, UA Moderate (A) None seen [facility] WBC clumps, UA Moderate (A) [facility] Yeast, UA None seen [facility] Yeast with None seen [facility] pseudohyphae, UA [facility] Specimen Urine Performing Organization Address City/State/ZIP Code Phon e Number [facility] DEPARTMENT OF PATHOLOGY [address] [facility], [place] [address] AND GENOMIC MEDICINE [facility] [address] [facility] [place] [address] [facility] MRI Brain Wo Contrast (07/24/2019 11:53 AM CDT)Only the most recent of3 results within the time period is included. Specimen Narrative Performed At [facility] has an attachment that is no t [...] identified. No silva e from prior exams. [facility]-[id number] Procedure Note Interface, Radiology Results Incoming - 07/24/2019 12:03 [...] identi fied. No change from prior exams. [facility]-[id number] Performing Organization Address City/State/ZIP Code Phon e Number [facility] [address] [place] [address] Phosphorus level (07/23/2019 9:29 AM CDT)Only the most recent of5 resultswithin the time period is included. Pathologist Sig nature Phosphorus 6.2 (H) 2.4 - 4.5 mg/dL [facility] Specimen Blood Performing Organization Address City/State/ZIP Code Phon e Number [facility] DEPARTMENT OF PATHOLOGY [address] [facility] [place] [address] AND GENOMIC MEDICINE [facility] MIROSLAVA [facility]AYNES [address] [facility] [place] [address] [facility] [address] Abdomen Pelvis Wo Contrast (07/23/2019 9:13 AM CDT) Specimen Narrative Performed At EXAMINATION: CT ABDOMEN PELVIS WO CONT RAST HM [facility] CLINICAL HISTORY: PD cath malfunction TECHNIQUE: [...] duct dilation. Many other findings as above. [id number] Procedure Note Hm Interface, Radiology Results Incoming [...] duct dilation. Many other findings as above. [facility]-[id number] Performing Organization Address City/State/ZIP Code [facility] e Number [facility] [address] [place] [address] EEG (routine) (07/22/2019 5:25 PM CDT) Narrative Performed At This result has an attachment that is no t available. Date of Study Completion: July 22, 2019 Date of Interpretation: July 22, 2019 Ordering Provider: KATHIE Aaron Inpatient Electroencephalogram Report History: [...] Correlation: 1. There was evidence of a smqpinqw-qh-taoftq encephal opathy, part of which is metabolic in etiology. Clinical correlation i s recommended. 2. There was no definitive evidence of interictal epil eptiform discharges, electrographic seizures, or status epilepticus seen ov er the course of this tracing. Hepatitis B surface Ab, quantitative (07/22/2019 1:10 PM CDT)Only the most recent of2 resultswithin the time period is included. Hepatitis B surface 14.35 IU/L [facility] Ab Comment: The anti-HBs is [...] to MMWR April 01, 2005/Vol. 54 (No. 16);05-02, and for healthcare workers refer to MMWR Mar/Vol. 62(No. 10);-. Reference Interval: anti-HBs 9.99 IU/L or less ....... Negative 10.00 IU/L or greater .... Positive Results greater than 1,000.00 IU/L are reported as gre ater than 1,000.00 IU/L. This assay should not be used for blood donor screenin g, associated re-entry protocols, or for screening Human Cell, Tissues and Cellular and Tissue-Based Products (HCT/P) . Performed by [employer] [address] [place] [address] [email or web address], Mario Ambrocio MD, Lab. Director Specimen Serum Performing Organization Address [facility] Phon e Number [employer] LABOR[facility] [address] [place] [address] [facility] REF LAB [address] [place] [address] Hepatitis B surface antigen (07/22/2019 1:10 PM CDT)Only the most recent of3 resultswithin the time period is included. Pathologist Sig nature Hepatitis B surface Non-reactive Non-reactive [facility] Specimen Blood Performing Organization Address City/[facility] Phon e Number [facility] DEPARTMENT OF PATHOLOGY [address] [facility] [place] [address] AND [facility] [id number] [place] [address] X [address] [facility] Blood culture, aerobic & anaerobic (07/22/2019 1:10 PM CDT)Only the most recent of2 resultswithin the time period is included. Blood culture No growth after 5 days of incubation. [facility] isolate Comment: HOSPITAL Specimen Information Specimen Source: Blood Specimen Site: Hand Right Specimen Blood - Wrist, right Performing Organization Address [facility] Phon e Number [facility] DEPARTMENT OF PATHOLOGY AND [address] [place], [place] [address] [facility] [address] [place] [address] Venous blood gas (07/22/2019 1:10 PM CDT) Pathologist Sig nature pH, venous 7.31 (L) 7.32 - 7.42 [facility] pCO2, venous 40 (L) 45 - 51 mmHg [facility] pO2, venous 51 (H) 25 - 40 mmHg [facility] Base excess, venous -6 (L) -2 - 2 mEq/L [facility] O2 saturation, 80 (H) 40 - 70 % [facility] Bicarbonate, venous 19.3 (L) 21.0 - 28.0 [facility] mmol/L [facility] Specimen Blood Performing Organization Address City/[facility] Phon e Number [facility] DEPARTMENT OF PATHOLOGY [address] [facility] [place] [address] AND [facility] [id number] [place] [address] X [address] [facility] XR Chest 1 Vw Portable (07/22/2019 12:06 PM CDT)Only the most recent of2 results within the time period is included. Specimen Narrative Performed At EXAMINATION: XR CHEST 1 VW PORTABLE [facility] CLINICAL HISTORY: Cough Covid rule o ut COMPARISON: February 25, 2019 chest IMPRESSION: No acute abnormality single view chest The lungs are hypoexpanded but clear. The heart is not enlarged. Mild vascular ectasia and a therosclerosis becoming more prominent The bony structures are within normal li mits. No suspicious findings for COVID-19. [id number] Procedure Note Interface, Radiology Results Incoming - 07/22/2019 12:13 [...] findings for COVID-19. [id number] Performing Organization Address [facility] Phon e Number [facility] [address] [place] [address] COVID-19 qualitative PCR (07/22/2019 12:45 AM CDT) Interpretation Negative results do not prec lude 2019-nCoV infection and should not be used as the sole basis for treatment or other patient management decisions. Negative results must be combined with clinical observations, patient history, and epidemiological [facility] information. [facility] COVID-19 qualitative Not-Detected Not-Detecte [facility] PCR result d [facility] COVID-19 qualitative See link below for [facility] PCR PDF Lab MU-ISM ReportComment: Case HOSPITAL Number: [id number] Specimen Performing Organization Address City/[facility] Phon e Number [facility] DEPARTMENT OF PATHOLOGY AND [address] [place], [place] [address] GENOMIC MEDICINE [facility] [address] [place] [address] [facility] XR Sacrum And Coccyx (05/10/2019 3:27 PM ACQUISITIONS LOGISTICS ANALYST) Specimen Narrative Performed At EXAMINATION: XR SACRUM [...] Facet arthropathy of the lower lumbar spine. [id number] Procedure Note Interface, Radiology Results Incoming - 05/10/2019 4:05 PM ACQUISITIONS LOGISTICS ANALYST EXAMINATION: XR SACRUM AND COCCYX CLINICAL HISTORY: [...] Facet arthropathy of the lower lumbar spine. [id number] Performing Organization Address [facility] Code Phon e Number [facility] [address] [place] [address] XR Lumbar Spine 2 Or 3 Vw (05/10/2019 3:27 PM ACQUISITIONS LOGISTICS ANALYST) Specimen Narrative Performed At EXAMINATION: XR LUMBAR [...] aort a. Drain present in the pelvis. [id number] Procedure Note Hm Interface, Radiology Results Incoming - 05/10/2019 4:19 PM ACQUISITIONS LOGISTICS ANALYST EXAMINATION: XR LUMBAR SPINE 2 OR 3 [...] aort a. Drain present in the pelvis. [id number] Performing Organization Address [facility] Code Phon e Number [facility] [address] [place] [address] MRI Cervical Spine Wo Contrast (05/10/2019 3:14 PM ACQUISITIONS LOGISTICS ANALYST) Specimen Narrative Performed At EXAMINATION: MRI CERVICAL SPINE WO CONTR AST [facility] CLINICAL HISTORY: Neck pain initial exam, [...] osseous abnormality or significant steno sis identified. [id number] Procedure Note Hm Interface, Radiology Results - 05/10/2019 3:40 PM ACQUISITIONS LOGISTICS ANALYST EXAMINATION: MRI CERVICAL SPINE WO CONTRAST CLINICAL [...] acute osseous abnormality or significant stenosis identified. [id number] Performing Organization Address City/State/ZIP Code Phon e Number [facility] [address] [place] [address] Aerobic culture (05/10/2019 8:50 AM ACQUISITIONS LOGISTICS ANALYST) Aerobic culture No growth after 3 days. [facility] isolate Comment: HOSPITAL Specimen Information Specimen Source: Peritoneal fluid Specimen Site: Peritoneal fluid Specimen Peritoneal fluid - Peritoneal fluid Performing Organization Address City/State/ZIP Code Phon e Number [facility] DEPARTMENT OF PATHOLOGY AND [address] [place] [phone] GENOMIC MEDICINE [address] [address] Gram stain (05/10/2019 8:50 AM ACQUISITIONS LOGISTICS ANALYST) Gram stain isolate Rare WBC's [facility] No organisms seen HOSPITAL Comment: Specimen Information Specimen Source: Peritoneal fluid Specimen Site: Peritoneal fluid Specimen Peritoneal fluid - Peritoneal fluid Performing Organization Address City/[facility] Phon e Number [facility] DEPARTMENT OF PATHOLOGY AND [address] [place] [address] [phone] [address] Anaerobic culture (05/10/2019 8:50 AM ACQUISITIONS LOGISTICS ANALYST) Anaerobic culture No anaerobic organisms isolated. [facility] isolate Comment: HOSPITAL Specimen Information Specimen Source: Peritoneal fluid Specimen Site: Peritoneal fluid Specimen Peritoneal fluid - Peritoneal fluid Performing Organization Address [facility] Phon e Number [facility] DEPARTMENT OF PATHOLOGY AND [address] [place] [address] [phone] [address] Cell count and differential, body fluid (05/10/2019 8:50 AM ACQUISITIONS LOGISTICS ANALYST) Misc fluid type PD fluid [facility] Color, fluid Colorless [facility] Appearance, fluid Clear [facility] RBC, fluid SEE /CMM [facility] COMMENTComment: 1+ DEXTER (0 - 500 RBC/CMM) [facility] Nucleated cells, 37 /CMM [facility] Fluid mononuclear Diff to follow [facility] Neutrophils, fluid 51 % [facility] Lymphocytes, fluid 35 % [facility] Eosinophils, fluid 2 % [facility] Macrophages, fluid 12 % [facility] Specimen Fluid Performing Organization Address [facility] Phon e Number [facility] DEPARTMENT OF PATHOLOGY [address] [facility], [place] [address] AND [facility] [address] [facility] X [id number] [place] [address] Lactic acid level, SEPSIS - Now and repeat 2x every 3 hours (05/09/2019 9:08 PM ACQUISITIONS LOGISTICS ANALYST)Only the most recent of3 resultswithin the time period is included. Pathologist Sig nature Lactic acid 1.4 0.5 - 2.2 mmol/L [facility] Specimen Plasma specimen Performing Organization Address City/State/ZIP Code Phon e Number [facility] DEPARTMENT OF PATHOLOGY [address] [facility]. [place], [place] [address] AND GENOMIC MEDICINE [facility] [address] [facility]. [place] [address] [facility] Us carotid duplex (05/09/2019 5:44 PM ACQUISITIONS LOGISTICS ANALYST) Specimen Narrative Performed At Examination: US CAROTID DUPLEX BILATERAL [facility] CLINICAL HISTORY: New or worsening hemispheric [...] than 50%) extr acranial carotid arterial stenosis. [facility]-[id number] Procedure Note Hm Interface, Radiology Results Incoming - 05/09/2019 6:10 PM ACQUISITIONS LOGISTICS ANALYST Examination: US CAROTID DUPLEX BILATERAL CLINICAL HISTORY: [...] (greater than 50%) extracranial carotid arterial stenosis. [facility]-[id number] Performing Organization Address City/[facility]/ZIP [facility] Phon e Number [facility] [address] [place] [address] Vitamin B1 level, whole blood (05/09/2019 3:55 PM ACQUISITIONS LOGISTICS ANALYST)Only the most recent of2 resultswithin the time period is included. [facility] Vitamin B1 232 (H) 70 - 180 [...] measured. Test developed and characteristics determined by [employer] See Compliance Statement B: [employer]/ CS Performed by [employer] [address] [place] [address] www.[email or web address], Mario Ambrocio MD, Lab. Director Specimen Plasma specimen Performing Organization Address [facility]/ZIP [facility] Phon e Number [employer] LABORATORY [address] [place] [address] [facility] [address] [place] [address] Thyroid stimulating hormone (05/09/2019 3:55 PM ACQUISITIONS LOGISTICS ANALYST)Only the most recent of3 resultswithin the time period is included. Pathologist Sig nature TSH 2.03 0.27 - 4.20 uIU/mL [facility] Specimen Blood Performing Organization Address City/[facility]/ZIP [facility] Phon e Number [facility] DEPARTMENT OF PATHOLOGY [address] [facility]. [facility] [place] [address] AND [facility] [id number] [place] [address]. [facility] [phone] [place] [address] Hemoglobin A1c (05/09/2019 3:55 PM ACQUISITIONS LOGISTICS ANALYST)Only the most recent of2 resultswithin the time period is included. Hemoglobin A1C 7.0 (H) 4.0 - 5.6 % [facility] Comment: DEXTER HbA1c cutoffs for diagnosing diabetes: HO SPITAL [...] 1 diabetes. Specimen Blood Performing Organization Address [facility] Phon e Number [facility] DEPARTMENT OF PATHOLOGY [address] [facility]. [facility] [place] [address] [facility] [address] [facility] Vitamin B12 level (05/09/2019 3:55 PM ACQUISITIONS LOGISTICS ANALYST)Only the most recent of2 results within the time period is included. Vitamin B12 807 211 - 946 [facility] Comment: pg/mL HOSPITAL Significant overlap exists between normal and deficien cy states. However, most patients with deficiencies will have Ser um B12 <200 pg/mL. Specimen Serum Performing Organization Address City/[facility] Code Phon e Number [facility] DEPARTMENT OF PATHOLOGY AND [address] [place], [place] [address] [address] Ionized calcium (05/09/2019 3:55 PM ACQUISITIONS LOGISTICS ANALYST)Only the most recent of2 resultswithin the time period is included. Pathologist Sig nature pH 7.29 [facility] Ionized calcium 1.14 1.11 - 1.32 mmol/L [facility] Specimen Blood Performing Organization Address [facility] Phon e Number [facility] DEPARTMENT OF PATHOLOGY [address] [facility] [address] AND GENOMIC MEDICINE [address] [place] [address] [facility] Lipid panel (05/09/2019 3:55 PM ACQUISITIONS LOGISTICS ANALYST)Only the most recent of2 resultswithin the time period is included. Cholesterol 79 0 - 199 [facility] mg/dL [facility] Triglycerides 139 0 - 149 [facility] mg/dL [facility] HDL cholesterol 22 (L) 40 - 99,999 [facility] mg/dL [facility] LDL cholesterol 32 0 - 99 mg/dL [facility] Lipid panel See below [facility] interpretation Comment: [facility] Total Cholesterol (mg/dL) [facility] <200 Desirable 200-239 Borderline-high >=240 High [...] (>=200 mg/dL) Specimen Blood Performing Organization Address [facility] Phon e Number [facility] DEPARTMENT OF PATHOLOGY [address] [facility] [place] [address] AND GENOMIC MEDICINE [facility] [id number] [place] [id number] [facility] Troponin (05/09/2019 2:40 PM ACQUISITIONS LOGISTICS ANALYST) Troponin 0.011 0.000 - 0.040 [facility] Comment: ng/mL [facility] In patients suspected of having a myocardial [...] ng/mL Specimen Plasma specimen Performing Organization Address City/[facility] Phon e Number [facility] DEPARTMENT OF PATHOLOGY [address] [place] [address] [address] [address] [facility] B natriuretic peptide (05/09/2019 2:40 PM ACQUISITIONS LOGISTICS ANALYST) Pathologist Max nature BNP 75 0 - 100 pg/mL [facility] Specimen Blood Performing Organization Address [facility] Phon e Number [facility] DEPARTMENT OF PATHOLOGY [address] [place] [address] [address] [facility] ECG ED Preliminary Interpretation - Not an Order (05/09/2019 2:07 PM ACQUISITIONS LOGISTICS ANALYST)Only the most recent of2 resultswithin the time period is included. Narrative Performed At Malik Marino MD 05/10/2019 1 2:43 PM ECG ED Preliminary Interpretation - Not an Order Performed by: Malik Marino MD Authorized by: Malik Marino MD ECG 12 lead (05/09/2019 2:05 PM ACQUISITIONS LOGISTICS ANALYST)Only the most recent of2 resultswithin the time period is included. Pathologist Sig nature Ventricular rate 87 [facility] Atrial rate 87 [facility] [place] interval 132 [facility] QRSD interval 84 [...] ECG of 25-FEB-2019 22:42,-ST now depressed in [facility] MUSE Inferior leads-ST elevation now present in Lateral leads-Nonspecific T wave abn ormality now evident in Lateral leads- Specimen Narrative Performed At This result has an attachment that is no t available. Performing Organization Address City/State/ZIP Code Phon e Number [facility] MUSE [address] [place] [address] CT Lumbar Spine Wo Contrast (02/27/2019 4:32 PM ACQUISITIONS LOGISTICS ANALYST) Specimen Narrative Performed At EXAMINATION: CT LUMBAR SPINE WO CONTRA ST [facility] CLINICAL HISTORY: Radiculopathy > 6wks conservativ [...] are preserved. There is no evidence of jesus tate hematoma. L3-L4 level: There is diffuse [...] recommended. No acute lumbar spine bony abnormality. [facility]-[id number] Procedure Note Hm Interface, Radiology Results Incoming - 02/27/2019 5:54 PM ACQUISITIONS LOGISTICS ANALYST EXAMINATION: CT LUMBAR SPINE WO CONTRAST CLINICAL [...] narrowing. L4-L5 level: There is a spondylotic tag stringer kristina care disc space narrowing with endplate [...] recommended. No acute lumbar spine bony abnormality. [facility]-[id number] Performing Organization Address City/[facility]/ZIP Code Phon e Number [facility] [address] [place] [address] Magnesium level (02/27/2019 3:30 AM ACQUISITIONS LOGISTICS ANALYST)Only the most recent of2 resultswithin the time period is included. Pathologist Sig nature Magnesium 2.3 1.6 - 2.4 mg/dL [facility] Specimen Plasma specimen Performing Organization Address City/[facility] Code Phon e Number [facility] DEPARTMENT OF PATHOLOGY [address] [facility]. [place] [address] AND GENOMIC MEDICINE [facility] [place] [address] [facility] [place] [address] HOSPITAL EEG (routine) (02/26/2019 6:27 PM ACQUISITIONS LOGISTICS ANALYST) Narrative Performed At This result has an [...] Total iron binding capacity (02/26/2019 3:00 PM ACQUISITIONS LOGISTICS ANALYST)Only the most recent of2 resultswithin the time period is included. Pathologist Sig [facility] Iron level 27 (L) 37 - 145 ug/dL [facility] Iron binding capacity 203 (L) 260 - 460 ug/dL [facility] % Saturation 13.3 (L) 15.0 - 38.0 % [facility] Specimen Serum Performing Organization Address [facility] Phon e Number [facility] DEPARTMENT OF PATHOLOGY [address] [place] [address] [id number] [place] [address] Hepatitis B surface antibody (02/26/2019 3:00 PM ACQUISITIONS LOGISTICS ANALYST) Pathologist Sig [facility] Hepatitis B surface Reactive (A) Non-reactive [facility] Specimen Blood Performing Organization Address [facility] Phon e Number [facility] DEPARTMENT OF PATHOLOGY AND [address] [place], [place] [address] [address] Uric acid level (02/26/2019 3:00 PM ACQUISITIONS LOGISTICS ANALYST) Pathologist Sig [facility] Uric acid 7.0 (H) 2.4 - 5.7 mg/dL [facility] Specimen Plasma specimen Performing Organization Address City/[facility] Phon e Number [facility] DEPARTMENT OF PATHOLOGY [address] [place] [address] [address] [address] [facility] Folate level (02/26/2019 3:00 PM ACQUISITIONS LOGISTICS ANALYST) Pathologist Sig [facility] Folate >20.0 4.8 - 24.2 ng/mL [facility] Specimen Serum Performing Organization Address City/[facility]/ZIP Code Phon e Number [facility] DEPARTMENT OF PATHOLOGY AND [address] [place], [place] [address] [facility] [address] [place] [address] Ferritin level (02/26/2019 3:00 PM ACQUISITIONS LOGISTICS ANALYST) Pathologist Sig [facility] Ferritin level 738 (H) 13 - 150 ng/mL [facility] Specimen Plasma specimen Performing Organization Address City/[facility] Phon e Number [facility] DEPARTMENT OF PATHOLOGY AND [address] [place] [address] [facility] [address] [place] [address] Echocardiogram complete w contrast and 3D if needed (02/26/2019 11:30 AM ACQUISITIONS LOGISTICS ANALYST) Pathologist Sig [facility] AoV Area, Vmax 2.95 cm2 [facility] AoV Area, VTI 3.30 cm2 HM [facility] AoV Mean PG 4.00 mmHg HM [facility] AoV Peak PG 5.86 mmHg HM [facility] AoV Vmax 1.21 m/s HM [facility] [...] 0.24 m HM [facility] LVPWD,d 0.82 cm [facility] TR Vpeak 2.51 mm/s HM [facility] MV E A ratio 0.63 HM [facility] TR pk grad 25.20 mmHg [facility] E wave decelartion time 289.00 msec HM [facility] MV Peak A Jez 0.97 m/s HM [facility] MV valve area p 1/2 method 2.62 cm2 HM [facility] MV Peak E Jez 0.61 m/s HM [facility] MV stenosis pressure 1/2 time 83.81 ms [facility] AV LVOT peak gradient 3.52 mmHg [facility] Ao Root,d,2D 3.60 cm HM [facility] [...] 54.17 % HM [facility] E/A ratio 0.63 HM [facility] Specimen Narrative Performed At This result has an attachment that is no t available. Left ventricular systolic function is normal. HM [facility] Left Ventricular ejection fraction is 50 - 55%. Mild mitral annular calcification. Spectral Doppler shows impaired relaxation pattern of left ventricular diastolic filling. Performing Organization Address City/State/ZIP Code Phon e Number [facility] [address] [place] [address], Partial thromboplastin time, activated (02/25/2019 11:41 PM ACQUISITIONS LOGISTICS ANALYST) Pathologist [facility] PTT 36.8 (H) 23.0 - 36.0 [facility] Comment: sec [facility] PTT therapeutic range for unfractionated heparin is HOSPITAL 61.0-112.0 seconds which corresponds to Anti-Xa 0.3-0.7 U/ml. Specimen Blood Performing Organization Address City/State/ZIP Code Phon e Number [facility] DEPARTMENT OF PATHOLOGY [address] [facility], [place] [address] AND GENOMIC MEDICINE [facility] [address] [facility] [address] HOSPITAL Prothrombin time with INR (02/25/2019 11:41 PM ACQUISITIONS LOGISTICS ANALYST) Prothrombin time 13.7 11.5 - 14.5 [facility] INR 1.1 [facility] Comment: MU-ISM [facility] International Normalized Ratio (INR) is a [facility] monitoring tool for patients who are stable on oral anticoagulant therapy. An INR of 2.0-3.0 is suggested for deep vein thrombosis/pulmonary embolism. Specimen Blood Performing Organization Address [facility] Phon e Number 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
--- OUTSIDE RECORDS SUMMARY | 2020-01-17 04:50 | XMS REPORT | Clinical Summary ---
:1950 Author Organization [facility] Address [address] [place] [address] Care Team Providers Name Role Phone Pcp, [...] Not on file Results Not on fileafter 01/15/2019 Insurance Payer Benefit Plan / Subscriber ID Type Phone Address Group MEDICARE MEDICARE A B xxxxxxxxxxx Medicare BLUE CROSS/[place]MN[place] xxxxxxxxxxxx O [address] [place] [address]
--- OUTSIDE RECORDS SUMMARY | 2020-01-17 04:53 | XMS REPORT | Continuity of Care Document ---
:1950 Author Organization [facility] t Address [address] 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 [place] encephalop encephalop 00:00: st athy athy 00 ESRD on ESRD on Disease Active [place] peritoneal peritoneal 4-16 Me thodi dialysis dialysis 00:00: st 00 Chronic Chronic Disease Active [place] hypotensio hypotensio 4-16 Me thodi n n 00:00: st 00 Acute Acute Disease Active [place] cystitis cystitis 4-16 Method i without without 00:00: st hematuria hematuria 00 Fever Fever Disease Active [place] 4-13 Methodi 00:00: st 00 Left-sided Left-sided Disease Active 2018-04 [place] weakness weakness 1-19 Method i 00:00: st 00 Dyslipidem Dyslipidem Disease Active [place] ia ia 7 Methodi 00:00: st 00 Hospital Hospital Disease Active 2017- [place] discharge discharge 7- Meth an[place] follow-up follow-up 00:00: st 00 S/P S/P Disease Active [place] coronary coronary 7-25 Method i angioplast angioplast 00:00: st y y 00 Weakness Weakness Disease Active [place] 6-12 Methodi 00:00: st 00 Long-term Long-term Disease Active [facility] st[facility] insulin insulin 2-09 Methodi use in use in 00:00: st type 2 type 2 00 diabetes diabetes Spinal Problem Resolve 2019-12-06 Anthony fariba cord d 00:48:35 l disorder Spinal [place] n (disorder) cord disorder (disorder) Resolved Problem 12/06/2019 [facility] Ataxia Problem Active 2019-12-06 Memor ia (finding) 00:48:35 l Ataxia Outlook (finding) Active Problem 12/06/2019 [facility] Diabetes [...] 2019-12-06 M emoria ve 00:48:35 l disorder, [place] systemic Hypertensi arterial ve (disorder) disorder, systemic arterial (disorder) Active Problem 12/06/2019 [facility] Hyperlipid Problem Active 2019-12-06 M emoria emia 00:48:35 l (disorder) [place] Hyperlipid emia (disorder) Active Problem 12/06/2019 [facility] Tremor Problem Active 2019-12-06 Memor ia (finding) 00:48:35 l Tremor Outlook (finding) Active Problem 12/06/2019 [facility] Myoclonus Problem Active 2019-12-06 Me moria (finding) 00:48:35 l James Myoclonus (finding) Active Problem 12/06/2019 [facility] Neuropathy Problem Active 2019-12-06 M emoria (disorder) 00:48:35 l [place] Neuropathy (disorder) Active Problem 12/06/2019 [facility] [...] Date Stop Date Source Natural father Cancer [facility] thodist Natural father Hypertension [place] [facility] Natural mother Cancer [facility] thodi Social History Social Habit Start Date Stop Date Quantity Comments Source Sex [facility] Tobacco use and 2019-05-09 2019-05-09 [facility] exposure 00:00:00 00:00:00 Alcohol intake 2019-05-09 2019-05-09 Current [facility] thodist 00:00:00 00:00:00 non-drinker of alcohol (finding) Smoking Status Start Date Stop Date Source Never smoker Rivas mccall Medications Ordered Filled Start Stop Current Ordering Indication Dosage Frequency Signature Comments Components Source Medication Medication Date Date Medication? Clinician (SIG) Name Name gabapentin 2019-0 Yes 200 mg = 2 M emoria 100 MG Oral 8-25 cap, PO, l Capsule 18:35: TID, # 180 Herm chioma 00 cap, 2 Refill(s), [id number], 160.02, cm, 10/17/19 14:23:00 CDT, Height, 76.818, [...] [Lyrica] 00 30 cap, 3 Refill(s), [id number], 160.02, cm, 10/17/19 14:23:00 CDT, Height, 76.818, kg, 10/17/19 14:23:00 CDT, Weight amoxicillin 2019-0 2020- No 500mg Q24H Take 1 Ho [...] st 38 evening. insulin 2020-0 Yes 10U Q.[id number] Inject [place] ASPART 4-22 [id number] 10-16 Method i (NovoLOG) 18:07: 3D Units [...] daily. mg tablet bethanechol 2020-0 Yes 5mg Q.[id number] Take 5 mg [facility] (URECHOLINE 4-22 [id number] by mouth 3 Methodi ) 5 MG 18:07: 3D (three) st tablet 38 times a day. gabapentin 2020-0 Yes 200mg Q.[id number] Take 200 [facility] (NEURONTIN) 4-22 [id number] mg by M ethodi 100 mg 18:07: 3D mouth 3 st capsule 38 (three) times a day. sevelamer 2020-0 Yes 800mg Q.[id number] Take 800 [facility] (RENVELA) 4-22 [id number] mg by Met hodi 800 mg 18:07: [...] Methodi 18:07: st 38 ergocalcife 2020-0 Yes [id number] Q7D Take [place] rol 4-22 50,000 Method[facility] (VITAMIN 18:07: Units by st D2) 50,000 38 mouth once unit a week. capsule cholecalcif 2020-0 Yes [id number] Q30D Take [place] pamela, 4-22 50,000 [...] vomiting. BACLOFEN 2020-0 Yes QD Take by [place] n ORAL 4-22 mouth Methodi 18:07: nightly [...] nn 00 30 tab, 3 Refill(s), [id number] baclofen 10 2020-0 No 10 mg = 1 M emoria mg oral 4-08 tab, PO, l tablet 20:52: Bedtime, # Sarah nn 00 30 tab, 3 Refill(s) gabapentin 2020-0 Yes 200 mg = 2 M emoria 100 MG Oral 3-11 cap, PO, l Capsule 23:13: TID, # 180 Herm chioma 00 cap, 2 Refill(s), Pharmacy: [facility] #[id number] bumetanide 2020-0 Yes 2 mg = 1 Mem oria 2 mg oral 3-11 tab, PO, l tablet 21:10: Daily, 0 Outlook 00 Refill(s) Hydroxyzine 2020-0 Yes 25 mg = 1 M emoria Hydrochlori 3-11 tab, PO, l de 25 MG 21:10: BID, 0 James Oral Tablet 00 Refill(s) midodrine 2020-0 Yes 5 mg = 2 Anthony fariba 2.5 mg oral 3-11 tab, PO, l tablet 21:10: BID, 0 James 00 Refill(s) ondansetron 2020-0 Yes 4 mg = 1 Me moria 4 mg oral 3-11 tab, PO, l tablet 21:10: QID, 0 Outlook 00 Refill(s) Calcitriol 2020-0 Yes PO, Every Me moria 3-11 Other Day, l 21:10: 0 Outlook 00 Refill(s) Alprazolam 2020-0 Yes 0.25 mg = Me moria 0.25 MG 3-11 1 tab, PO, l Oral Tablet 20:34: Daily, # He rmann 00 30 tab, 0 Refill(s) Aspirin 81 2020-0 Yes 81 mg = 1 Me moria MG Enteric 3-11 tab, PO, l Coated 20:34: Daily, # James Tablet 00 90 tab, 3 Refill(s) bethanechol 2020-0 Yes 5 mg = 1 Me moria 5 mg oral 3-11 tab, PO, l tablet 20:34: TID, # 42 [place] n 00 tab, 0 Refill(s) furosemide 2019-0 2020- No 120mg QD Take 3 Iván ston (LASIX) 40 05-13-17 tablets Metho di mg tablet 00:00: 23:59 [...] 16:21: 00:[address] 13 :00 sevelamer 2019- 2020- No 2400mg Q.[id number] Take 2,400 [facility] (RENVELA) 05-12 [id number] mg by Mo thodi 800 mg 16:21: 00:00 3D mouth [...] tablet 13 :00 nightly as needed. gentamicin 2019-2019- No 1{appli QD Apply 1 [facility] (GARAMYCIN) 05-12 cation} applicatio Methodi 0.1 % cream 16:21: 00:[address] 13 :00 topically daily. With each dressing change. furosemide 2019-2019- No 80mg QD Take 80 mg [facility] (LASIX) 80 05-12 by mouth Meth antonette mg tablet 16:21: 00:[address] 13 :00 morning. cholecalcif 2019-2019- No [id number] Q30D Take Iván jennan pamela, 05-12 50,000 Methodi vitamin D3, 16:21: 00:00 Units by s t 1,250 mcg 13 :00 mouth (50,000 every 30 unit) (thirty) capsule days. First of month insulin 2019-2019- No 10U QD Inject 10 [place] GLARGINE 05-12 03-03 Units Methodi (LANTUS) 00:00: 23:[address] 100 unit/mL 00 :00 skin injection nightly (vial) for 30 days. pregabalin 2019-2019- No 25mg QD Take 1 [place] (LYRICA) 25 05-12 03-03 capsule Meth antonette MG capsule 00:00: 23:59 ([address] 00 :00 total) by mouth nightly for 30 days. sevelamer 2019-0 2019- No 3200mg Q.[id number] Take 4 [facility] (RENVELA) 05-12- [id number] tablets Methodi 800 mg 00:00: 23:59 3D [...] .25mg Q.5D Take 1 Iván ston (XANAX) 05-12 02-16 tablet Methodi 0.25 MG 00:00: 23:59 (0.25 [...] 51 :00 nightly. ergocalcife 2019-0 2020- No [id number] Q7D Take Iván ston rol 05-09 50,000 Methodi (VITAMIN 16:50: 00:[address] D2) 50,000 47 :00 mouth once unit a week. ( capsule Monday ) Vitamin D3 2020-0 Yes 0 Memoria 50,000 intl 1-24 Refill(s) l units oral 00:01: Outlook capsule 00 sevelamer 2020-0 Yes 0 Memoria 800 mg oral 1-24 Refill(s) l tablet 00:01: Outlook 00 3 ML 2020-0 Yes 0 Memoria insulin 1-24 Refill(s) l degludec 00:01: James 100 UNT/ML 00 Pen Injector [Tresiba] sevelamer 2020-0 Yes 0 Memoria carbonate 1-24 Refill(s) l 800 MG Oral 00:01: [place] n Tablet 00 [Renvela] pregabalin 2020-0 Yes 0 Memoria 75 mg oral 1-24 Refill(s) l capsule 00:01: James 00 pravastatin 2020-0 Yes 0 Memori a 40 mg oral 1-24 Refill(s) l tablet 00:01: [place] 00 3 ML 2020-0 Yes 0 Memoria Insulin, 1-24 Refill(s) l Aspart, 00:01: James Human 100 00 UNT/ML Pen Injector [NovoLog] [...] mg = 1 Memoria am 250 MG -23 tab, PO, l Oral Tablet 20:39: Bedtime, # James [Keppra] 00 30 tab, 3 Refill(s), Pharmacy: [facility] #[id number] thiamine 2019-0 Yes 100 mg = 1 Mem oria [...] for 30 days. methylPREDN 2018-04- No 4mg Q.[id number] Take 1 [facility] ISolone -03-30 [id number] tablet (4 Methodi (MEDROL) 4 00:00: 23:59 [...] 50mg QD Take 0.5 [place] mononitrate -21 11-20 tablets Meth antonette , vit B1, [...] 1{tbl} QD Take 1 Iván ston ORAL 04-28 tablet by Methodi 08:21: 00:[address] [...] Systolic (mm Hg) 2019-10-17 19:23:00 Anthony uli Outlook Diastolic (mm Hg) 2019-10-17 19:23:00 [facility] Heart Rate 2019-10-17 19:23:00 [facility] Respitory Rate 2019-10-17 19:23:00 Cori busch Outlook Height 2019-10-17 19:23:00 160.02 cm [facility] Weight 2019-10-17 19:23:00 [facility] BMI Calculated 2019-10-17 19:23:00 Cori busch James Systolic blood 2019-07-31 16:03:21 128 mm[Hg] [place] [facility] pressure Diastolic blood 2019-07-31 16:03:21 59 mm[Hg] [place] [facility] pressure Heart rate 2019-07-31 16:03:21 102 /min Rivas [facility] Respiratory rate 2019-07-31 16:03:21 16 /min [place] ton [facility] Oxygen saturation in 2019-07-31 16:03:21 95 /min Rivas Keys Arterial blood by Pulse oximetry Body temperature 2019-07-31 12:03:42 36.22 Katherine Letit[place] ton [facility] Body weight 2019-07-31 04:58:14 79.153 kg [place] [facility] BMI 2019-07-31 04:58:14 29.95 kg/m2 [place] [facility] Body height 2019-07-26 14:46:00 162.6 cm [place] [facility] Systolic (mm Hg) 2019-06-19 19:58:00 Anthony rial James Diastolic (mm Hg) 2019-06-19 19:58:00 Mem orial James Heart Rate 2019-06-19 19:58:00 [facility] [place] Respitory Rate 2019-06-19 19:58:00 Memori al Outlook Height 2019-06-19 19:58:00 160.02 cm [facility] James Weight 2019-06-19 19:58:00 [facility] BMI Calculated 2019-06-19 19:58:00 Memori al James Systolic (mm Hg) 2019-05-02 20:00:00 Anthony rial Outlook Diastolic (mm Hg) 2019-05-02 20:00:00 Mem orial Outlook Heart Rate 2019-05-02 20:00:00 [facility] James Respitory Rate 2019-05-02 20:00:00 Memori al Outlook Height 2019-05-02 20:00:[address] [facility] Outlook Weight 2019-05-02 20:00:00 [facility] James BMI Calculated 2019-05-02 20:00:00 Memori al Outlook Procedures Procedure Date / Time Performing Clinician Source Performed SINGLE ANTIGEN BEADS 2019-10-24 18:00:[address] [facility] POC GLUCOSE 2019-07-31 17:01:00 Charisma Montes ethodist POC GLUCOSE 2019-07-31 12:05:00 Charisma Montes ethodist POC GLUCOSE 2019-07-31 08:04:00 Charisma Montes ethodist POC GLUCOSE 2019-07-30 20:43:00 Charisma Montes ethodist POC GLUCOSE 2019-07-30 16:05:00 Charisma Montes ethodist POC GLUCOSE 2019-07-30 11:36:00 Charisma Montes ethodist POC GLUCOSE 2019-07-30 08:04:00 Charisma Montes ethodist COMPREHENSIVE METABOLIC 2019-07-30 04:30:00 Felipe Vandana maldonado [facility] PANEL HC COMPLETE BLD COUNT 2019-07-30 04:30:00 Felipe, Vandana moreno [facility] W/AUTO DIFF ESTIMATED GFR 2019-07-30 04:30:00 Vandana Felipe Meth odist POC GLUCOSE 2019-07-29 21:17:00 Charisma Montes ethodist POC GLUCOSE 2019-07-29 18:01:00 Charisma Montes ethodist POC GLUCOSE 2019-07-29 16:57:00 Charisma Montes ethodist POC GLUCOSE 2019-07-29 12:45:00 Charisma Montes ethodist POC GLUCOSE 2019-07-29 07:56:00 Charisma Montes ethodist COMPREHENSIVE METABOLIC 2019-07-29 07:45:00 Vandana Felipe [facility] PANEL HC COMPLETE BLD COUNT 2019-07-29 07:45:00 FelipeVandana [facility] W/AUTO DIFF ESTIMATED GFR 2019-07-29 07:45:00 Reese Felipedeedee [facility]ist SMEAR REVIEW 2019-07-29 07:45:00 Felipe, Vandana [facility] Meth odist POC GLUCOSE 2019-07-28 20:59:00 Charisma Montes ethodist POC GLUCOSE 2019-07-28 16:54:[address] HEAD WO CONTRAST 2019-07-28 14:00:54 Vandana Felipe [facility] POC GLUCOSE 2019-07-28 13:39:00 Charisma Montes ethodist ARTERIAL BLOOD GAS 2019-07-28 13:27:00 Vandana Felipe ethodist AMMONIA LEVEL 2019-07-28 13:12:00 Vandana Felipe Meth odist POC GLUCOSE 2019-07-28 12:07:00 Charisma Montes ethodist POC GLUCOSE 2019-07-28 07:29:00 Charisma Montes ethodist COMPREHENSIVE METABOLIC 2019-07-28 06:45:00 Matteo Vandana maldonado [facility] PANEL HC COMPLETE BLD COUNT 2019-07-28 06:45:00 Vandana Felipe n [facility] W/AUTO DIFF ESTIMATED GFR 2019-07-28 06:45:00 Vandana Felipe Meth odist POC GLUCOSE 2019-07-27 20:37:00 Charisma Montes ethodist POC GLUCOSE 2019-07-27 17:41:00 Charisma Montes ethodist POC GLUCOSE 2019-07-27 12:40:00 Charisma Montes ethodist POC GLUCOSE 2019-07-27 08:19:00 Charisma Montes ethodist HC COMPLETE BLD COUNT 2019-07-27 06:00:00 Vandana Felipe [facility] W/AUTO DIFF COMPREHENSIVE METABOLIC 2019-07-27 06:00:00 Vandana Felipe [facility] PANEL ESTIMATED GFR 2019-07-27 06:00:00 FelipeReesedeedee [facility] Meth odist POC GLUCOSE 2019-07-26 20:42:00 Charisma Montes ethodist POC GLUCOSE 2019-07-26 16:18:00 Charisma Montes ethodist XR FOOT 3+ VW LEFT 2019-07-26 14:44:14 Adryan Swanson on [facility] POC GLUCOSE 2019-07-26 11:42:00 Charisma Montes ethodist POC GLUCOSE 2019-07-26 07:28:00 Charisma Montes ethodist BASIC METABOLIC PANEL 2019-07-26 05:30:00 Maki Sams [facility] HC COMPLETE BLD COUNT 2019-07-26 05:30:00 Vandana Felipe [facility] W/AUTO DIFF ESTIMATED GFR 2019-07-26 05:30:00 Maki Sams Meth odist POC GLUCOSE 2019-07-25 20:42:00 Charisma Montes ethodist POC GLUCOSE 2019-07-25 16:35:00 Charisma Montes ethodist XR KNEE 1 OR 2 VW LEFT 2019-07-25 15:40:00 Vandana Felipe on [facility] XR TIBIA FIBULA 2 VW LEFT 2019-07-25 15:39:44 Vandana Felipe [place] [facility] US DUPLEX VENOUS LOWER 2019-07-25 15:17:49 Vandana Felipe on [facility] EXTREMITY LEFT POC GLUCOSE 2019-07-25 12:39:00 Charisma Montes ethodist POC GLUCOSE 2019-07-25 07:55:00 Charisma Montes ethodist BASIC METABOLIC PANEL 2019-07-25 05:00:00 Maki Sams ESTIMATED GFR 2019-07-25 05:00:00 Maki Sams odist POC GLUCOSE 2019-07-24 20:47:00 Charisma Montes ethodist POC GLUCOSE 2019-07-24 16:42:00 Charisma Montes [facility]ist URINE CULTURE 2019-07-24 16:36:00 Maki Sams URINALYSIS SCREEN AND 2019-07-24 15:55:00 Maki Sams MICROSCOPY, WITH REFLEX TO CULTURE POC GLUCOSE 2019-07-24 12:27:00 Charisma Montes [facility]ist MRI BRAIN WO CONTRAST 2019-07-24 11:53:54 Bin Abdul [facility] POC GLUCOSE 2019-07-24 08:20:00 Charisma Montes ethodist HC COMPLETE BLD COUNT 2019-07-24 05:45:00 Vandana Felipe [facility] W/AUTO DIFF COMPREHENSIVE METABOLIC 2019-07-24 05:45:00 Vandana eFlipe [facility] PANEL ESTIMATED GFR 2019-07-24 05:45:00 Vandana Felipe Meth odist SMEAR REVIEW 2019-07-24 05:45:00 Vandana Felipe Meth odist POC GLUCOSE 2019-07-23 21:44:00 Charisma Montes Rivas Barton ethodist POC GLUCOSE 2019-07-23 15:59:00 Simon Charisma PCyrus Barton ethodist POC GLUCOSE 2019-07-23 11:42:00 Charisma MontesCyrus Barton ethodist URINE CULTURE 2019-07-23 11:36:00 Naomi Roe Meth odist URINALYSIS SCREEN AND 2019-07-23 11:10:00 Naomi Roe [facility] MICROSCOPY, WITH REFLEX TO CULTURE PHOSPHORUS LEVEL 2019-07-23 09:29:00 Maki Sams Met hodist CT HEAD WO CONTRAST 2019-07-23 09:14:22 Bin Abdul on [facility] CT ABDOMEN PELVIS WO 2019-07-23 09:13:25 Maki Sams [facility] CONTRAST POC GLUCOSE 2019-07-23 08:01:00 Charisma Montes Mick ethodist POC GLUCOSE 2019-07-23 05:41:00 Charisma Montes Mick ethodist POC GLUCOSE 2019-07-22 23:13:00 Charisma Montes Mick ethodist POC GLUCOSE 2019-07-22 22:08:00 Charisma Montes Rivas Barton ethodist POC GLUCOSE 2019-07-22 20:59:00 Simon Charisma P. Rivas Barton ethodist POC GLUCOSE 2019-07-22 18:37:00 Charisma Montes Rivas Barton ethodist EEG SLEEP/COMA 2019-07-22 17:25:28 Amy Stark BLOOD CULTURE, AEROBIC & 2019-07-22 13:10:00 Amy Stark [facility] ANAEROBIC AMMONIA LEVEL 2019-07-22 13:10:00 Amy Stark VENOUS BLOOD GAS 2019-07-22 13:10:00 Amy Stark on [facility] HEPATITIS B SURFACE 2019-07-22 13:10:00 Maki Sams [facility] ANTIGEN HEPATITIS B SURFACE AB, 2019-07-22 13:10:00 Maki Sams [facility] QUANTITATIVE XR CHEST 1 VW PORTABLE 2019-07-22 12:06:10 Charisma Montes [facility] POC GLUCOSE 2019-07-22 12:02:00 Charisma Montes ethodist POC GLUCOSE 2019-07-22 09:20:00 Nancy Tierney [facility] Meth od[facility] HC COMPLETE BLD COUNT 2019-07-22 04:53:00 Naomi Roe [facility] W/AUTO DIFF COMPREHENSIVE METABOLIC 2019-07-22 04:53:00 Naomi Roe [facility] PANEL ESTIMATED GFR 2019-07-22 04:53:00 Nancy Tierney [facility]ist COVID-19 QUALITATIVE PCR 2019-07-22 00:45:00 Naomi Roe [facility] SINGLE ANTIGEN BEADS 2019-06-11 13:27:00 Franko Albrecht [facility] 3T2SSSY 2019-05-24 00:00:00 ENCPL 3Y0CBSJ 2019-05-24 00:00:00 ENCPL 9A0NQWQ 2019-05-24 00:00:00 ENCPL 6H3GIKD 2019-05-24 00:00:00 ENCPL POC GLUCOSE 2019-05-12 12:58:00 Diana Angulo Me thodist POC GLUCOSE 2019-05-12 07:07:00 Diana Angulo [facility]odist PHOSPHORUS LEVEL 2019-05-12 05:30:00 Maki Sams hodist HC COMPLETE BLD COUNT 2019-05-12 05:30:00 Taty Vaca [facility] W/AUTO DIFF BASIC METABOLIC PANEL 2019-05-12 05:30:00 Taty Vaca [facility] ESTIMATED GFR 2019-05-12 05:30:00 Taty Vaca [facility] [id number] 2019-05-12 00:00:00 ENCPL 3F6R04I 2019-05-12 00:00:00 ENCPL 0P7P45V 2019-05-12 00:00:00 ENCPL 4G2V75V 2019-05-12 00:00:00 ENCPL 3W6Y56H 2019-05-12 00:00:00 ENCPL 1Z5A76E 2019-05-12 00:00:00 ENCPL 9O5O84F 2019-05-12 00:00:00 ENCPL 5E4X91D 2019-05-12 00:00:00 ENCPL 4S8B94J 2019-05-12 00:00:00 ENCPL 7S7U47F 2019-05-12 00:00:00 ENCPL 7O2A55Y 2019-05-12 00:00:00 ENCPL 9Q2W63U 2019-05-12 00:00:00 ENCPL 7I7H51C 2019-05-12 00:00:00 ENCPL 9D6K15K 2019-05-12 00:00:00 ENCPL 8V9J81C 2019-05-12 00:00:00 ENCPL 7D4T84C 2019-05-12 00:00:00 ENCPL 5M5V23N 2019-05-12 00:00:00 ENCPL 4J9C82L 2019-05-12 00:00:00 ENCPL 7H9D77S 2019-05-12 00:00:00 ENCPL 7Z0P98V 2019-05-12 00:00:00 ENCPL 9Z7J97N 2019-05-12 00:00:00 ENCPL 3J7S33U 2019-05-12 00:00:00 ENCPL 0F7Y93E 2019-05-12 00:00:00 ENCPL 1W7W17Z 2019-05-12 00:00:00 ENCPL 6J4R33Q 2019-05-12 00:00:00 ENCPL 8I4Q16Z 2019-05-12 00:00:00 ENCPL 4J0C40F 2019-05-12 00:00:00 ENCPL 8E4P04D 2019-05-12 00:00:00 ENCPL 2Y4U06G 2019-05-12 00:00:00 ENCPL 2X8F95S 2019-05-12 00:00:00 ENCPL 3H3S83D 2019-05-12 00:00:00 ENCPL 6N3S19O 2019-05-12 00:00:00 ENCPL 0B8D40K 2019-05-12 00:00:00 ENCPL 4B0Q55W 2019-05-12 00:00:00 ENCPL 1I4G16M 2019-05-12 00:00:00 ENCPL POC GLUCOSE 2019-05-11 20:41:00 Diana Angulo [facility]od[facility] BASIC METABOLIC PANEL 2019-05-11 18:30:00 Maki Samsradha moreno [facility] ESTIMATED GFR 2019-05-11 18:30:00 Maki Sams Meth [...] OR 3 VW 2019-05-10 15:27:28 Toño Dietrich [facility] MRI CERVICAL SPINE WO 2019-05-10 15:14:38 Toño Dietrich CONTRAST MRI BRAIN WO CONTRAST 2019-05-10 15:12:49 Toño Dietrich POC GLUCOSE 2019-05-10 09:44:00 Diana Angulo [facility] POC GLUCOSE 2019-05-10 09:19:00 Diana Angulo [facility] AEROBIC CULTURE 2019-05-10 08:50:00 Maki Sams Meth odist GRAM STAIN 2019-05-10 08:50:00 Maki Sams Meth odist ANAEROBIC CULTURE 2019-05-10 08:50:00 Maki Sams [facility] CELL COUNT AND 2019-05-10 08:50:00 Maki Sams [facility] DIFFERENTIAL, BODY FLUID POC GLUCOSE 2019-05-10 07:36:00 Diana Angulo [facility] HC COMPLETE BLD COUNT 2019-05-10 05:55:00 Taty Vaca joel [facility] W/AUTO DIFF BASIC METABOLIC PANEL 2019-05-10 05:55:00 Taty Vaca joel [facility] ESTIMATED GFR 2019-05-10 05:55:00 Taty Vaca [facility] POC GLUCOSE 2019-05-09 21:57:00 Diana Angulo [facility] LACTIC ACID LEVEL, SEPSIS 2019-05-09 21:08:00 Malik Marino - NOW AND REPEAT 2X EVERY 3 HOURS HEPATITIS B SURFACE 2019-05-09 21:08:00 MukundЕлена tucker Rivas Keys ANTIGEN POC GLUCOSE 2019-05-09 19:39:00 KevDiana simposnrobbin [facility] LACTIC ACID LEVEL, SEPSIS 2019-05-09 18:08:00 Malik Marino - NOW AND REPEAT 2X EVERY 3 HOURS US CAROTID DUPLEX 2019-05-09 17:44:00 Toño Dietrich [facility] BILATERAL VITAMIN B12 LEVEL 2019-05-09 15:55:00 Toño Dietrich [facility] VITAMIN B1 LEVEL, WHOLE 2019-05-09 15:55:00 Toño Dietrich [facility] BLOOD THYROID STIMULATING 2019-05-09 15:55:00 Toño Dietrich HORMONE LIPID PANEL 2019-05-09 15:55:00 Toño Dietrich [facility] HEMOGLOBIN A1C 2019-05-09 15:55:00 Toño Dietrich [facility] AMMONIA LEVEL 2019-05-09 15:55:00 Toño Dietrich odist IONIZED CALCIUM 2019-05-09 15:55:[address] Toño Diet[address] Meth odist CT HEAD WO CONTRAST 2019-05-09 15:18:39 Malik Marino on [facility] HC COMPLETE BLD COUNT 2019-05-09 14:40:00 Malik Marino [facility] W/AUTO DIFF COMPREHENSIVE METABOLIC 2019-05-09 14:40:00 Malik Marino [facility] PANEL TROPONIN 2019-05-09 14:40:00 Malik Marino ethodist LACTIC ACID LEVEL, SEPSIS 2019-05-09 14:40:00 Malik Marino - NOW AND REPEAT 2X EVERY 3 HOURS B NATRIURETIC PEPTIDE 2019-05-09 14:40:00 Malik Marino [facility] THYROID STIMULATING 2019-05-09 14:40:00 Malik Marino on [facility] HORMONE ESTIMATED GFR 2019-05-09 14:40:00 Malik Marino ethodist URINE CULTURE 2019-05-09 14:39:00 Malik Marino ethantonettest URINALYSIS SCREEN AND 2019-05-09 14:21:00 Malik Marino [facility] MICROSCOPY, WITH REFLEX TO CULTURE ECG ED PRELIMINARY 2019-05-09 14:07:18 Malik Marino [facility] INTERPRETATION ECG 12-LEAD 2019-05-09 14:05:11 Malik Marino ethodist [id number] 2019-04-23 00:00:00 ENCPL 3O0KULJ 2019-04-23 00:00:00 ENCPL 4V1PFFL 2019-04-23 00:00:00 ENCPL 0G7HNZI 2019-04-23 00:00:00 ENCPL 3P4UHLH 2019-04-23 00:00:00 ENCPL [id number] 2019-04-23 00:00:[address] LUMBAR SPINE WO 2019-02-27 16:32:58 Nancy Tierney [facility] CONTRAST POC GLUCOSE 2019-02-27 11:30:00 Unique [facility] POC GLUCOSE 2019-02-27 07:41:00 [facility] HC COMPLETE BLD COUNT 2019-02-27 03:30:00 Karely Frias W/AUTO DIFF [place] COMPREHENSIVE METABOLIC 2019-02-27 03:30:00 [facility] PANEL [place] MAGNESIUM LEVEL 2019-02-27 03:30:00 Karely Frias [facility] [place] PHOSPHORUS LEVEL 2019-02-27 03:30:00 Karely Frias [facility] [place] IONIZED CALCIUM 2019-02-27 03:30:00 Karely Frias [facility] [place] ESTIMATED GFR 2019-02-27 03:30:00 Karely Frias [facility] [place] POC GLUCOSE 2019-02-26 22:17:00 [facility] MRI BRAIN WO CONTRAST 2019-02-26 21:26:20 To[facility] POC GLUCOSE 2019-02-26 18:40:00 [facility] EEG AWAKE/DROWSY LESS THAN 2019-02-26 18:27:07 Toño [facility]rich [facility] 41 MIN VITAMIN B12 LEVEL 2019-02-26 15:00:00 Toño Dietrich [facility] VITAMIN B1 LEVEL, WHOLE 2019-02-26 15:00:00 [facility]ño [facility] BLOOD URIC ACID LEVEL 2019-02-26 15:00:00 Toño Dietrich odist HEPATITIS B SURFACE 2019-02-26 15:00:00 M[facility] ANTIGEN HEPATITIS B SURFACE AB, 2019-02-26 15:00:00 [facility] QUANTITATIVE FOLATE LEVEL 2019-02-26 15:00:00 Елена Dangelo [facility] FERRITIN LEVEL 2019-02-26 15:00:00 Елена Dangelo [facility] TOTAL IRON BINDING 2019-02-26 15:00:00 Елена Dangelo [facility] CAPACITY THYROID STIMULATING 2019-02-26 15:00:00 Елена Dangelo [facility] HORMONE POC GLUCOSE 2019-02-26 12:25:00 [facility] TTE COMPLETE, WO CONTRAST, 2019-02-26 11:30:00 K[facility]ly [facility] W DOPPLER ([id number]) [place] BASIC METABOLIC PANEL 2019-02-26 09:45:00 Jennifer Mcmahan [facility] LIPID PANEL 2019-02-26 09:45:00 Karely Frias [facility] Moreno HEMOGLOBIN A1C 2019-02-26 09:45:00 Rodriguez ConcepcionTara Hathaway Martha Moreno ESTIMATED GFR 2019-02-26 09:45:00 Jennifer Mcmahan [facility] POC GLUCOSE 2019-02-26 08:50:00 [facility] BASIC METABOLIC PANEL 2019-02-26 03:35:00 Jennifer Mcmahanist Mila ESTIMATED GFR 2019-02-26 03:35:00 Jennifer Mcmahan [facility] POC GLUCOSE 2019-02-26 02:53:00 [facility] M ethodist CT HEAD WO CONTRAST 2019-02-26 00:25:03 Jennifer Mcmahan n [facility] Mila XR CHEST 1 VW PORTABLE 2019-02-26 00:03:13 Jennifer Mcmahan Mil[facility] HC COMPLETE BLD COUNT 2019-02-25 23:41:00 Jennifer Mcmahan W/AUTO DIFF Mila PROTHROMBIN TIME WITH INR 2019-02-25 23:41:00 Jennifer Mcmahan [facility] PARTIAL THROMBOPLASTIN 2019-02-25 23:41:00 Jennifer Mcmahan [facility] TIME (PTT) Mila COMPREHENSIVE METABOLIC 2019-02-25 23:41:00 Jennifer Mcmahan [facility] PANEL Mila LIPASE LEVEL 2019-02-25 23:41:00 Jennifer Mcmahan Me thodist Mila PHOSPHORUS LEVEL 2019-02-25 23:41:00 Jennifer Mcmahan M ethodist Mila MAGNESIUM LEVEL 2019-02-25 23:41:00 Jennifer Mcmahan [facility] Mila ESTIMATED GFR 2019-02-25 23:41:00 Jennifer Mcmahan Me [facility]odist Mila [place] CRITICAL CARE, E/M 2019-02-25 23:23:08 Jennifer Mcmahan [facility] 30-74 MINUTES Mila ECG ED PRELIMINARY 2019-02-25 23:23:08 Jennifer Mcmahan INTERPRETATION Mila ECG 12-LEAD 2019-02-25 22:42:55 Jennifer Mcmahan Me thodist Mila SINGLE ANTIGEN BEADS 2019-02-14 14:26:00 Franko Albrecht [facility] Plan of Care Planned Activity Planned Date Details Comments Source Future Scheduled 2020-01-12 BREAST CANCER [facility] thodist Test 00:00:00 SCREENING [code = BREAST CANCER SCREENING] Future Scheduled 2019-11-09 INFL[place]ZA VACCINE [place] [facility] Test 00:00:00 [code = INFLUENZA VACCINE] Future Scheduled 2014 65+ PNEUMOCOCCAL [place] [facility] Test 00:00:00 VACCINE (1 of 1 - PPSV23) [code = 65+ PNEUMOCOCCAL VACCINE (1 of 1 - PPSV23)] Future Scheduled 1999-08-12 COLONOSCOPY SCREENING [place] [facility] Test 00:00:00 [code = COLONOSCOPY SCREENING] Future Scheduled 1999-08-12 SHINGLES VACCINES (#1) [place] [facility] Test 00:00:00 [code = SHINGLES VACCINES (#1)] Future Scheduled 1959-08-12 DIABETIC FOOT EXAM [place] [facility] Test 00:00:00 [code = DIABETIC FOOT EXAM] Future Scheduled 1950 DIABETIC RETINAL EYE [place] [facility] Test 00:00:00 EXAM [code = DIABETIC RETINAL EYE EXAM] Encounters Start End Encounter Admission Attending Care Care Encounter Source Date/Time Date/Time Type Type Clinicians Facility Department ID 2019-12-12 2019-12-12 Outpatient TIGRE [facility] [id number] [place] 00:00:00 00:00:00 FRANKO [address] 2019-12-03 2019-12-03 Outpatient SULEMA Rojas ELIDASCHSTEFF [id number] 13:15:00 23:59:59 Melo Chasity Silvio 2019-11-15 2019-11-15 Refill ANGEL Mckeon [id number] 00:00:00 00:00:00 Taty Gan 350.1.13.10 Akosua Connor 4.2.7.2.686 Professio [id number] nal [facility] 2019-11-04 2019-11-04 Telephone ANGEL Dorman [id number] 00:00:00 00:00:00 Ramirez Gan 350.1.13.10 [place] 4.2.7.2.686 Professclive [id number] [facility] 2019-10-24 2019-10-24 Outpatient TIGRE, [facility] [id number] [place] 00:00:00 00:00:00 AHMED 405 [facility] 2019-10-17 2019-10-17 Outpatient Bob MHMISCHER MHMISCHER [id number] 14:45:00 23:59:59 Melo 04 [facility] 2019-10-17 2019-10-17 Outpatient XAVIER RojasMISCHER MHMISCHER [id number] 14:45:00 14:45:00 Melo 03 [facility] 2019-08-13 2019-08-13 Outpatient TIGRE, [facility] [id number] [place] 00:00:00 00:00:00 AHMED 137 [facility] 2019-07-21 2019-07-31 Inpatient JOGLEKAR, [facility] [id number] [place] 00:00:00 00:00:00 CHARISMA 367 [facility] 2019-07-21 2019-07-21 Emergency [facility] Sejal [id number] [place] 00:00:00 00:00:00 988 [facility] 2019-07-17 2019-07-17 Outpatient XAVIER RojasMISCHER MHMISCHER [id number] 15:30:00 23:59:59 Melo 02 [facility] 2019-07-11 2019-07-11 Outpatient TIGRE, [facility] [id number] [place] 00:00:00 00:00:00 AHMED 707 [facility] 2019-06-19 2019-06-19 Outpatient XAVIER RojasMISCHER MHMISCHER [id number] 14:30:00 23:59:59 Melo 01 [facility] 2019-06-11 2019-06-11 [facility] [id number] [place] 00:00:00 00:00:00 AHMED 358 [facility] 2019-06-06 2019-06-07 Outpatient [facility] [id number] 12:22:16 23:59:59 00 2019-05-09 2019-05-12 Outpatient DIANA ANGULO [facility] [id number] [place] 00:00:00 00:00:[address] 2019-05-02 2019-05-[address] [facility] [id number] 13:30:00 23:59:59 Melo 00 Silvio 2019-02-25 2019-02-27 Inpatient PASTORA [facility] [id number] [place] 00:00:00 00:00:00 NANCY [address] Results Test Description Test Time Test Comments Results Result Comments Source Single antigen beads 2019-10-31 15:13:20 Test Item Value Reference Range Interpretation Comme nts SAB serum ID (test code = 5866) [id number] SAB serum collection D&T (test code = 5867) 10/24/2019 06:00 PM SAB class I antibody assignment (test code = B57,B58 5870) SAB cPRA class I (test code = 5868) 11 SAB class II antibody assignment (test code = Negative 5871) SAB cPRA class II (test code = 5869) 0 Case number (test code = [id number]) [id number] Single antigen beads (test code = 4604) See link below for PDF Lab Report [facility] [facility] [id number] 17:02:26 Test Item Value Reference Range Interpretation Comments POC glucose (test code 205 mg/dL 65-99 H [facility] Name: = 47926-3) Jeaneth Pierre ID : [id number] able: RN Notified Lab Interpretation Abnormal (test code = 18928-5) [place] [facility]Com[facility] metabolic egnpf7250-16-90 05:48:40 Test Item Value Reference Range Interpretation Comments Sodium (test code = 2951-2) 134 135- 148 mEq/L L Potassium (test code = 2823-3) 3.7 3.5- 5.0 mEq/L Chloride (test code = 2075-0) 95 98- 112 mEq/L L CO2 (test code = 2028-9) 26 24- 31 mEq/L Anion gap (test code = 80576-6) 13@ANIO 7- 15 mEq/L BUN (test code = 3094-0) 35 mg/dL 8-23 H Creatinine (test code = 2160-0) 8.82 mg/dL 0.5-0.9 H Glucose (test code = 2345-7) 282 mg/dL 65-99 H Calcium (test code = 83113-0) 10.1 mg/dL 8.8-10.2 Protein (test code = [...] 1974-05) Lab Interpretation (test code = Abnormal 80615-1) Rivas MethodistEstimated [id number] 05:48:40 Test Item Value Reference Range Interpretation Comments Estimated GFR (test 4 mL/min/1.73 m2 Belen Barbie monzon Units code = 5488) InterpretationG 1 >=90 Estrella l or highG2 60-89 Mildly decrease dG3a 45-59 Mil dly to moderately decr gxsnyR5c 30-44 Moderately to s everely decreasedG4 15-29 Severe ly decreasedG5 <15 Kidney bg lureThe eGFR was calcul ated using the Chron ic Kidney Disease Epidemiology Collaboration ( CKD-EPI) equation. Interpretation is based on recommendati ons of the National Ki dney Foundation-Kidn ey Disease Outcome s Quality Initiat veena (NKF-KDOQI) pub lished in 2013. Lab Interpretation Abnormal (test code = 95229-6) Rivas DamonistCBC with platelet and judiihlgwrvn8543-92-05 05:29:47 Test Item Value Reference Range Interpretation Comments WBC (test code = 34006-0) 13.3 4.5- 11.0 k/uL H RBC (test code = 15851-4) 3.31 m/uL 4.2-5.5 L HGB (test code = 718-7) 10.2 g/dL 12-16 L HCT (test code = 4544-3) 33.2 % 37-47 L MCV (test code = 787-2) 100.3 fL 82-100 H MCH (test code = 785-6) 30.8 pg 27-34 MCHC (test code = 786-4) 30.7 g/dL 31-37 L RDW - SD (test code = 78201-4) 53.6 fL 37-55 MPV (test code = 66660-9) 10.8 fL 6.9-11 Platelet count (test code = 262 K/uL 150-400 07397-5) Nucleated RBC (test code = 45934-6) 0.00 /100 WBC Neutrophils (test code = 40630-1) 66.0 % 39-69 Lymphocytes (test code = 45287-9) 24.5 % 25-45 L Monocytes (test code = 13149-0) 6.7 % 0-10 Eosinophils (test code = 66482-0) 1.6 % 0-5 Basophils (test code = 46879-5) 0.8 % 0-1 Immature granulocytes (test code = 0.4 % 0-1 99193-8) Lab Interpretation (test code = Abnormal 01849-8) Rivas DamonistSmear oxpqxa7846-66-46 09:36:06 Test Item Value Reference Range Interpretation Comments Platelet slide review (test code Sanjeev adequate = 27733-0) Anisocytosis (test code = 702-1) Moderate Enlarged platelets (test code = Moderate A 50704-0) Giant platelets (test code = Occasional 5908-9) Lab Interpretation (test code = Abnormal 90138-7) [place] MethodistRI Head Wo Uomdrtwm6336-39-86 14:10:02Hm Interface, Radiology Results 07/28/2019 2:13 PM [...] IMPRESSION:1. No CT evidence of acute intracranial abnormality.[id number] MethodistAmmonia level 2019-07-28 13:39:18 Test Item Value Reference Range Interpretation Comments Ammonia (test code = 1841-6) 31 umol/L 11-51 [place] MethodistArterial blood xrj6504-06-19 13:38:44 Test Item Value Reference Range Interpretation Comments pH, arterial (test code = 2744-1) 7.35 7.35-7.45 pCO2, arterial (test code = 49 35- 45 mmHg H 2019-8) pO2, arterial (test code = 76 80- 90 mmHg L 2703-7) Bicarbonate, arterial (test code 26.6 mmol/L 21-28 = 1960-4) Base excess, arterial (test code 1 -2 - 2 mEq-L = 1925-7) O2 saturation, arterial (test 94 % 95-100 L code = 2708-6) Lab Interpretation (test code = Abnormal 28220-8) [place] MarisolistBlood culture, aerobic & iticqoypa7325-27-63 18:33:04 Test Item Value Reference Range Interpretation Comments Blood culture No growth Specimen isolate (test after 5 days InformationSpe cimen code = 600-7) of Source: BloodS pecimen incubation. [facility] MethodistXR Foot 3+ Vw Inon1687-69-76 14:47:12Hm Interface, Radiology Results 07/26/2019 2:50 PM CDTEXAMINATION: XR FOOT 3 VW LEFTCLI NICAL HISTORY: foot traumaCOMPARISON: None.TECHNIQUE: 3 views of the left foot obtained.IMPRESSION:Detail is limited as the patient's sock was not removed prior to obtaining the x-ray, for some reason. Atherosclerotic calcification. Mild to moderate degenerative change at the ankle. No acute fracture or dislocation identified. [facility]-[id number] MethodistBasic metabolic panel 2019-07-26 07:05:05 Test Item Value Reference Range Interpretation Comments Sodium (test code = 2951-2) 136 135- 148 mEq/L Potassium (test code = 2823-3) 3.6 3.5- 5.0 mEq/L Chloride (test code = 2075-0) 95 98- 112 mEq/L L CO2 (test code = 8-9) 25 24- 31 mEq/L Anion gap (test code = 99130-9) 16@ANIO 7- 15 mEq/L H BUN (test code = 3094-0) 39 mg/dL 8-23 H Creatinine (test code = 2160-0) 8.26 mg/dL 0.5-0.9 H Glucose (test code = 2345-7) 287 mg/dL 65-99 H Calcium (test code = 16726-4) 9.9 mg/dL 8.8-10.2 Lab Interpretation (test code = Abnormal 57210-3) [place] MethodistXR Knee 1 Or 2 Vw [id number] 15:43:32Hm Interface, Radiology Results 07/25/2019 3:46 PM [...] joint degenerative changes. Small knee joint effusion.4.Vascular calcifications.[facility]-[id number] MethodistXR Tibia Fibula 2 Vw Xmfz6216-01-55 15:43:32Hm Interface, Radiology Results 07/25/2019 3:46 PM [...] joint degenerative changes. Small knee joint effusion.4.Vascular calcifications.[facility]-[id number] MethodistUs duplex venous lower trwvojqvm0397-00-85 15:19:09Hm Interface, Radiology Results 07/25/2019 3:22 PM [...] There is no evidence of deep venous thrombosis.[id number] MethodistHepatitis B surface Ab, quantitative 2019-07-24 18:25:57 [...] HBs 9.99 IU/L or less .. ..... Ldeyixxb94.00 I U/L or greater .... PositiveResults greater than 1,000.00 I U/L are reported as gre ater than 1,000.00 IU/L. This assay should not be u sed for blood donor scr eening, associated re-e ntry protocols, or f or screening Human Cell, Tissues and Katherine lular and Tissue-Based Pr oducts (HCT/P).Perform ed by [facility] Hot Potato,50 0 [facility] 08 hac .[facility] serviceslab.c reba, Mario Gotti do, MD, Lab. Director [place] MethodistUrinalysis screen and microscopy, with reflex to culture 2019-07-24 16:36:57 Test Item Value Reference Range Interpretation Comments Specimen site (test code = Catheterized 8172008) Color, UA (test code = 5778-6) Yellow Appearance, UA (test code = Turbid 5767-9) Specific gravity, UA (test code 1.010 1.001-1.030 = 5811-5) pH, UA (test code = 5803-2) 5.0 5.0-9.0 Protein, UA (test code = 2+ Negative A 55381-9) Glucose, UA (test code = 1+ Negative A 17201-0) Ketones, UA (test code = 2514-8) Negative Negative Bilirubin, UA (test code = Negative Negative 5770-3) Blood, UA (test code = 5794-3) Moderate Negative A Nitrite, UA (test code = 5802-4) Negative Negative Urobilinogen, UA (test code = <2.0 <2.0 E.U./dL 61940-0) Leukocyte esterase, UA (test Moderate Negative A code = 5799-2) WBC, UA (test code = 5821-4) >200 0- 4 /HPF H RBC, UA (test code = 01254-1) 40 0- 5 /HPF H Bacteria, UA (test code = Moderate None seen A 41112-8) WBC clumps, UA (test code = Moderate A 41605-1) Yeast, UA (test code = 72568-1) None seen Yeast with pseudohyphae, UA None seen (test code = 31693-7) Lab Interpretation (test code = Abnormal 22369-2) [place] MethodistMRI Brain Wo Bxblgdvl6565-12-12 12:00:22Hm Interface, Radiology Results 07/24/2019 12:03 PM CDTEXAMINATION: [...] intracranial abnormality identified. No change from prior exams.[facility]-[id number] MethodistPhosphorus saeia8777-48-15 09:51:22 Test Item Value Reference Range Interpretation Comments Phosphorus (test code = 2777-1) 6.2 mg/dL 2.4-4.5 H Lab Interpretation (test code = Abnormal 96807-1) [place] MethodistCT Abdomen Pelvis Wo Garhkpmq1722-01-19 09:25:11Hm Interface, Radiology Results 07/23/2019 9:28 AM [...] common bile duct dilation.Many other findings as above.[facility]-[id number] MethodistEEG (routine)2019-07-22 18:46:29Date of Study Completion: July [...] observed. Clinical Correlation:1. Therewas evidence of a cebmylkh-qn-ridsjn encephalopathy, part of which is metabolic in etiology. Clinical correlation is recommended. 2. There was no definitive evidence of interictal epileptiform discharges, electrographic seizures, or status epilepticus seen over the course of this tracing.[place] MethodistHepatitis B surface khalvbf2568-91-74 17:40:01 Test Item Value Reference Range Interpretation Comments Hepatitis B surface Ag (test Non-reactive Non-reactive code = 5195-3) [facility] ChildrenistCOVID-19 qualitative SNN6325-71-20 13:39:49 Test Item Value Reference Range Interpretation Comments Interpretation (test Negative results do code = 3027887) not preclude 2019-nCoV infection and should not be used as the sole basis for treatment or other patient management decisions. Negative results must be combined with clinical observations, patient history, and epidemiological information. COVID-19 qualitative Not-Detected Not-Detected PCR result (test code = 66772-8) COVID-19 qualitative See link below for C ase Number: PCR (test code = PDF Lab Report [id number] 7070) [facility] ChildrenistVenous blood [id number] 13:35:36 Test Item Value Reference Range Interpretation [...] (test code = 19.3 mmol/L 21-28 L 69188-7) Lab Interpretation (test code = Abnormal 82745-5) [place] MethodistXR Chest 1 Vw Csakzgrs0347-42-63 12:10:14Hm Interface, Radiology Results Incoming - 07/22/2019 12:13 PM CDTEXAMINATION: XR CHEST 1 VW PORTABLECLINICAL HISTORY: Cough Covid rule outCOMPARISON: February 25, 2019 chestIMPRESSION:No acute abnormality single view chestThe lungs are hypoexpanded but clear.The heart is not enlarged. Mild vascular ectasia and atherosclerosis becoming more prominentThe bony structures are within normal limits.Nosuspicious findings for COVID-19. [id number] MethodistAnaerobic rbtwhfn2469-54-79 07:51:14 Test Item Value Reference Range Interpretation Comments Anaerobic No anaerobic Specimen culture isolate organisms InformationS pecimen (test code = isolated. Source: Periton eal 552) fluidSpecimen S ite: Peritoneal flui d [place] MethodistAerobic hsioimc5600-41-04 21:05:18 Test Item Value Reference Range Interpretation Comments Aerobic culture No growth Specimen isolate (test after 3 days. InformationSp ecimen code = 498) Source: Periton eal fluidSpecimen S ite: Peritoneal flui d [place] MethodistVitamin B1 level, whole [id number] 11:37:25 Test Item Value Reference Range Interpretation Comments Vitamin B1 (test code 232 nmol/L 70-180 H INTERP RETIVE = 24768-9) INFORMATION: Vi tamin B1, Whole Blood This assay measures the concentration o f thiamine diphos phate (TDP), the prim jayy active form of vitamin B1. Approximate ly 90 percent of camilla min B1 present in whol e blood is TDP. Thiamin e and thiamine monophosphate, which comprise the re maining 10 percent, are not measured.Test developed and characteristics determined by [facility]. S ee Compliance Stat ement B: [employer] erforme d by [employer],50 0 [facility] [place], [place] [address] hqr .graciela peralta, Mario Caldwell MD, Lab. Direct or Lab Interpretation Abnormal (test code = 85074-3) [facility] ijrwf3551-94-02 22:41:03Gram stain isolateRare WBC'sNo organisms seen Comment: Specimen InformationSpecimen Source: Peritoneal fluidSpecimen Site: Peritoneal fluid [facility] XR Lumbar Spine 2 Or 3 [id number] 16:16:47Hm Interface, Radiology Results 05/10/2019 4:19 PM [...] L3-4.Calcified atherosclerosis abdominal aorta.Drain present in the pelvis.[id number] MethodistXR Sacrum And Vkaxqm3101-58-48 16:02:19Hm Interface, Radiology Results 05/10/2019 4:05 PM [...] loss. Facet arthropathy of the lower lumbar spine.[facility]-[id number] Palmas Medical CenterI Cervical Spine Wo Bmuggwwp6563-97-45 15:37:15Hm Interface, Radiology Results 05/10/2019 3:40 PM [...] No acute osseous abnormality or significant stenosis identified.[facility]-[id number] MethodistCell count and differential, body sytsj6597-33-86 14:19:44 Test Item Value Reference Range Interpretation Comments Misc fluid type (test PD fluid code = 70016-7) Color, fluid (test Colorless code = 6824-7) Appearance, fluid Clear (test code = 9335-1) RBC, fluid (test code SEE COMMENT /CMM 1+ (0 - 500 = 10272-0) RBC/CMM) Nucleated cells, 37 /CMM fluid (test code = 71932-3) Fluid mononuclear Diff to follow cell (test code = 1407) Neutrophils, fluid 51 % (test code = 72105-5) Lymphocytes, fluid 35 % (test code = 59574-1) Eosinophils, fluid 2 % (test code = 11290-3) Macrophages, fluid 12 % (test code = 25066-8) [place] [facility] odth9320-27-93 07:38:32 Test Item Value Reference Range Interpretation Comments Ventricular rate (test 87 code = 253) Atrial rate (test code 87 = 255) OH interval (test code 132 = 266) QRSD [...] wave abnormality now evident in Lateral leads- [place] MethodistLactic acid level, SEPSIS - Now and repeat 2x every 3 hours 2019-05-09 21:35:40 Test Item Value Reference Range Interpretation Comments Lactic acid (test code = 58634-6) 1.4 mmol/L 0.5-2.2 [place] MethodistVitamin B12 uiobm8396-48-73 20:42:55 Test Item Value Reference Range Interpretation Comments Vitamin B12 (test 807 pg/mL 211-946 Significan t overlap code = 2132-9) exists betwee n normal and deficiency states.However, most patients with deficiencies wi ll have Serum B12 <2 00 pg/mL. [place] EpiscopalUs carotid ircnkv2405-17-34 18:07:47Hm Interface, Radiology Results - 05/09/2019 6:10 PM [...] significant (greater than 50%) extracranial carotid arterial stenosis.[facility]-[id number] MethodistHemoglobin Z9o2217-74-94 16:52:29 Test Item Value Reference Range Interpretation Comments Hemoglobin A1C (test 7.0 % 4-5.6 H HbA1c c utoffs for code = 37023-1) diagnosing diabetes:4.0% - 5.6% = normal5.7% - 6.4% = increased risk for diabetes (prediabetes)9> =6.5% = yfwkhyaq5Wcxg s for glycemic contro l (ADA 2016)< 7.0% Ta rget for non adults with demetrio betes. More or less stringent targe ts may be appropriate for individual karyn ents. <7.5% Target for Children and adolescents wit h type 1 diabetes. Lab Interpretation (test Abnormal code = 99426-4) [place] MethodistThyroid stimulating yphauew3775-70-03 16:37:17 Test Item Value Reference Range Interpretation Comments TSH (test code = 3016-3) 2.03 0.27- 4.20 uIU/mL [place] MethodistLipid jfaad8307-06-37 16:27:42 Test Item Value Reference Interpretation Comments Range Cholesterol (test 79 mg/dL 0-199 code = 2093-3) Triglycerides (test 139 mg/dL 0-149 code = 2571-8) HDL cholesterol 22 mg/dL 40-37958 L (test code = 2085-9) LDL cholesterol 32 mg/dL 0-99 (test code = 2089-1) Lipid panel See below Total Cholester ol (mg/dL) interpretation (test < 200 code = 26401-7) Desirable 200-239 Borderline -high >=240 Hi gh [...] mg/dL) Lab Interpretation Abnormal (test code = 78366-7) [place] MethodistIonized lzixuzw9021-99-45 16:08:42 Test Item Value Reference Range Interpretation Comments pH (test code = 2753-2) 7.29 Ionized calcium (test code = 1.14 mmol/L 1.11-1.32 ) [place] MethodistB natriuretic wptejzf2797-21-96 15:24:36 Test Item Value Reference Range Interpretation Comments BNP (test code = 98785-0) 75 pg/mL 0-100 [place] SqgwzotjzMdjkjdwz6955-40-98 15:23:56 Test Item Value Reference Range Interpretation Comments Troponin (test code 0.011 ng/mL 0-0.04 In patie nts suspected = 68038-6) of having a mary cardial infarction, tonia [...] decreased by le ss than 0.020 ng/mL [place] MethodistECG ED Preliminary Interpretation - Not an Zjsuf4115-74-26 14:07:18Malik Marino MD 05/10/2019 12:43 [facility] ED Preliminary Interpretation - Not an OrderPerformed by: Malik Marino, [facility]OSPITALuthorized by: Malik Marino MDGranite Qu[place]ry MethodistRI Lumbar Spine Wo Nssvdykx1656-47-97 17:51:13Hm Interface, Radiology Results - 02/27/2019 5:54 PM CSTEXAMINATION: CT LUMBAR SPINE [...] spine is recommended.No acute lumbar spine bony abnormality.[facility]-[id number] MethodistMagnesium uvewn2709-44-23 04:33:46 Test Item Value Reference Range Interpretation Comments Magnesium (test code = 60651-4) 2.3 mg/dL 1.6-2.4 [place] MethodistHepatitis B surface jbzqeolv3194-30-89 23:06:52 Test Item Value Reference Range Interpretation Comments Hepatitis B surface Ab (test code = Reactive Non-reactive A 37872-2) Lab Interpretation (test code = Abnormal 00925-2) [place] MethodistFerritin irsem8740-19-85 22:40:11 Test Item Value Reference Range Interpretation Comments Ferritin level (test code = 2276-4) 738 ng/mL 13-150 H Lab Interpretation (test code = Abnormal 65820-0) [place] MethodistEchocardiogram complete w contrast and 3D if lgilzy1326-58-95 21:16:04 Test Item Value Reference Range Interpretation Comments AoV Area, Vmax (test 2.95 cm2 code = 6468066756) AoV Area, VTI (test 3.30 cm2 code = 9447761269) AoV Mean PG (test code 4.00 mmHg = 4739889284) AoV Peak PG (test code 5.86 mmHg = 4754088096) AoV Vmax (test code = 1.21 m/s 3088799199) AoV VTI (test code = 0.27 m 2339661409) IVS,d (test code = 0.94 cm 7700991670) IVS/LVPW,2D (test code 1.15 = 3732266629) Left Atrium Dimension 3.70 cm Anterior (test code = 0370327312) LV,d (test code = 4.35 cm 6797490859) LV EF,2D (test code = 62.39 % 8338705538) LV,s (test code = 3.14 cm 3349558255) LVOT area (test code = 3.80 cm2 0161882516) LVOT Diam,S (test code 2.20 cm = 3565347283) LVOT Vmax (test code = 0.94 m/s 3646452152) LVOT VTI (test code = 0.24 m 8154319719) LVPWD,d (test code = 0.82 cm 8100278024) TR Vpeak (test code = 2.51 mm/s 3529748720) MV E A ratio (test code 0.63 = 8916467476) TR pk grad (test code = 25.20 mmHg 7816627309) E wave decelartion time 289.00 msec (test code = 8497691252) MV Peak A Jez (test 0.97 m/s code = 1900349021) MV valve area p 1/2 2.62 cm2 method (test code = 1636153434) MV Peak E Jez (test 0.61 m/s code = 7502207933) MV stenosis pressure 83.81 ms 1/2 time (test code = 1266044568) AV LVOT peak gradient 3.52 mmHg (test code = 4331450064) Ao Root,d,2D (test code 3.60 cm = 6659446335) LV SYS VOL (test code = 39.12 ml 8768139200) LV MATTHEWS VOL (test code 85.36 ml = 7069498765) LV SV Teich 2D (test 46.24 ml code = 1588293952) LV Vol s Teich PSAX 39.12 ml (test code = 8670285198) AoV Vmn (test code = 0.92 [id number]) LV FS Teich 2D (test 27.82 code = 3154578887) MV AE ratio (test code 1.59 = 9627847081) LV FS Cube 2D (test 27.82 code = 0707547355) LVOT Vmn (test code = 0.72 3956184754) Aov area Vmn (test code 2.95 cm2 = 9772310529) LVOT mean grad (test 2.00 mmHg code = 5913773416) MAX Pred HR (test code 150.45 = 8414423117) 85 of MPHR (test code = 127.89 1267128408) Ao d LA s ratio (test 0.97 code = 4784003142) Calc MPHR (test code = 150.45 bpm 4510012567) LV SV Cube 2D (test 51.35 ml code = 7599886556) LV vol d cube 2D (test 82.31 ml code = 0279020327) LV vol s cube 2D (test 30.96 ml code = 9558898847) MV Decel slope (test 2.12 m/s2 code = 6309675554) Pred Exer Dur R1 (test 6.87 code = 4646287876) Pred METS R1 (test code 5.66 = 4896593841) Velocity Ratio (V1/V2) 0.78 m/s (test code = 4689) EF (test code = 54.17 % 5315596416) E/A ratio (test code = 0.63 9853716086) MARCE (test code = MARCE) Left ventricular systolic function is normal. Left Ventricular ejection fraction is 50 - 55%. Mild mitral annular calcification. Spectral Doppler shows impaired relaxation pattern of left ventricular diastolic filling. [facility] MethodistF[facility] [id number] 19:38:17 Test Item Value Reference Range Interpretation Comments Folate (test code = 2284-8) >20.0 4.8-24.2 [facility] (routine)2019-02-26 19:11:11Date of Service: February 26, 2019.Date [...] should be considered if pursuinga diagnosis of epilepsy.[facility] MethodistTotal iron binding [id number] 17:20:04 Test Item Value Reference Range Interpretation Comments Iron level (test code = 2498-4) 27 ug/dL 37-145 L Iron binding capacity (test code = 203 ug/dL 260-460 L 2500-7) % Saturation (test code = 2502-3) 13.3 % 15-38 L Lab Interpretation (test code = Abnormal 69934-3) [facility] MethodistUric acid [id number] 16:46:21 Test Item Value Reference Range Interpretation Comments Uric acid (test code = 3084-1) 7.0 mg/dL 2.4-5.7 H Lab Interpretation (test code = Abnormal 01258-4) [facility] MethodistLipase [id number] 00:36:49 Test Item Value Reference Range Interpretation Comments Lipase (test code = 3040-3) 27 U/L 13-60 [facility] MethodistPartial thromboplastin time, [id number] 00:13:20 Test Item Value Reference Range Interpretation Comments PTT (test code = 36.8 23.0- 36.0 sec H PTT thera peutic range 3173-2) for unfractiona bette heparin is61.0- 112.0 seconds which corresponds to Anti-Xa0.3-0.7 U/ml. Lab Interpretation Abnormal (test code = 19676-8) [facility] MethodistProthrombin time with [id number] 00:12:26 Test Item Value Reference Range Interpretation Comments Prothrombin time (test 13.7 11.5- 14.5 sec code = 5902-2) INR (test code = 1.1 [facility] Normalized Rati o (INR) is a therapeutic m onitoring tool for patien ts who are stable on oral anticoagulant t herapy. An INR of 2.0-3.0 is suggested for d eep vein thrombosis/pulm onary embolism. 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
[2020-01-17 06:14] LABS: Absolute Lymphocytes (CBC) 2.5 K/uL (0.7-4.9); Basophils % 0.7 % (0-1.3); Hematocrit 23.8 % (36.0-45.0); Lymphocytes % 22.4 % (15.3-44.8); MPV 9.5 fL (7.6-11.3); RBC Red Blood Cell Count 2.46 M/uL (3.86-4.86)
[2020-01-17] MEDS: PANTOPRAZOLE 40MG TABLET PO SCH (06:14)
[2020-01-17 06:35] LABS: Potassium 3.1 mmol/L (3.5-5.1)
[2020-01-17] MEDS: SEVELAMER CARBONATE 800 MG TABLET PO SCH ×3 (08:00→18:27)
[2020-01-17] MEDS ORDERED: CLOPIDOGREL 75 MG TABLET PO SCH (09:00)
[2020-01-17] MEDS: GABAPENTIN 300 MG CAP PO SCH ×3 (09:58→22:37)
[2020-01-17] MEDS: THIAMINE HCL 100 MG TABLET PO SCH (09:58)
[2020-01-17] MEDS: ASPIRIN EC 81 MG TAB PO SCH (10:00)
[2020-01-17] MEDS: CLOPIDOGREL 75 MG TABLET PO SCH (10:00)
[2020-01-17] MEDS: AMLODIPINE 10 MG TAB PO SCH (10:02)
[2020-01-17] MEDS: DOCUSATE NA 100 MG CAP PO SCH (10:06)
--- NOTE | 2020-01-17 10:23 | RAD REPORT ---
EXAM DESCRIPTION: US - Abdomen Exam Complete - 01/17/2020 9:45 am CLINICAL HISTORY: Abdominal pain. indigestion COMPARISON: EXAM COMPLETE dated 09/18/2014 FINDINGS: The liver is normal in size, shape and echotexture. No focal liver lesions or intrahepatic biliary dilatation is seen. Small shadowing stones are present in the gallbladder. Common bile duct is normal in caliber measuri ng 5 millimeters. Both kidneys are normal in size, shape and echotexture. No hydronephrosis. Small benign renal cysts b ilaterally. Small calcifications in both kidneys may represent small caliceal stones. The spleen is normal in size measuring 12 cm. The pancreas and aorta are obscured by bowel gas. The visualized aspects of the IVC are grossly normal. IMPRESSION: Cholelithiasis without sonographic evidence of acute cholecystitis. Probable punctate caliceal stones bilaterally. No hydronephrosis.
[2020-01-17] MEDS ORDERED: EPOETIN 4,000 UNIT/ML VIAL IV SCH (10:45)
--- NOTE | 2020-01-17 10:49 | P.CNS ---
Date of Consult: 01/17/20 Reason for Consult: ESRD , hypokalemia Chief Complaint: Chest pain History of Present Illness: A 69 Y/o woman with PMHX of ESRD on PD, DM with neuropathy and HTN Pt was admitted for hest pain, pain aggravated by deep inspiration , non radiating , had no similar pain before denied fever, chills, nausea or vomiting in ER WBC 16 general: AAOX3, NAD , obese Neck; Supple, No elevated JVD hear: RRR, normal S1,2 no murmur or rub Chest: CTAB, no rlaes or wheezes Abdomen: Soft , Nt Extremities No edema or ulcer ESRD on PD will hold on dialysis for now , if pt will require more than 2 night of admission then will need to be transferred to resume PD renal dose meds Anemia of chronic disease will resume epogem will start IV iron Hb dropped today , will repeat chest pain likely pleuritic chest pain F/U stress test MBD cont binders leuckocytosis likely reactive DM as per primary Allergies No Known Allergies Allergy (Verified 01/07/20 14:01) Home Medications: ALPRAZolam [Xanax*] 1 tab PO DAILYPRN PRN 01/16/20 Allopurinol 1 tab PO BEDTIME 01/16/20 Amlodipine [Norvasc*] 1 tab PO DAILY 01/16/20 Aspirin Chewable [Aspirin Chewable*] 1 tab PO DAILY 01/16/20 Cephalexin [Keflex*] 1 tab PO DAILY 01/16/20 Clopidogrel Bisulfate [Plavix*] 1 tab PO DAILY 01/16/20 Codeine/APAP [Tylenol #3*] 1 tab PO TIDP PRN 01/16/20 Docusate [Colace Cap*] 1 tab PO DAILY 01/16/20 Ergocalciferol (Vitamin D2) [Vitamin D2] 1 tab PO SEECOM 01/16/20 Gabapentin 1 tab PO TID 01/16/20 Hydroxyzine HCl [Atarax] 25 mg PO DAILYPRN PRN 01/16/20 Insulin Aspart [Novolog] See Protocol SQ DAILY 01/16/20 Insulin Degludec [Tresiba] 0.6 unit SQ DAILY 01/16/20 Lactobacillus Acidophilus [Probiotic] 1 tab PO BEDTIME 01/16/20 Midodrine HCl [Proamatine*] 1 tab PO BIDP PRN 01/16/20 Nebivolol HCl [Bystolic*] 1 tab PO BEDTIME 01/16/20 Ondansetron [Zofran (Odt)*] 1 tab PO QIDP PRN 01/16/20 Pantoprazole [Protonix Tab*] 1 tab PO DAILY 01/16/20 Pravastatin Sodium 1 tab PO BEDTIME 01/16/20 Sevelamer Carbonate [Renvela*] 1 tab PO TID 01/16/20 Thiamine HCl [Vitamin B-1] 50 mg PO DAILY 01/16/20 metOLazone [Metolazone] 1 tab PO SEECOM 01/16/20 - Past Medical/Surgical History Diabetic: Yes -: peritoneal dialysis 2.5 years -: IDDM -: Hypertension -: anemia -: CS x3 -: kidney stones removal -: heart stent x1 -2018 - Family History Father Medical History: Cancer Brother Medical History: Lung disease Notes: PE Mother Medical History: Cancer - Social History Alcohol use: No CD- Drugs: No Caffeine use: Yes Place of Residence: Home Physical Examination Temp Pulse Resp BP Pulse Ox 97.5 F 66 16 160/70 H 98 01/17/20 08:00 01/17/20 10:02 01/17/20 08:00 01/17/20 10:02 01/17/20 08:00 Laboratory Data (last 24 hrs) 01/16/20 14:30: PT 13.3 H, INR 1.13, APTT 34.6 01/16/20 14:30: Sodium 141, Potassium 3.3 L, BUN 55 H, Creatinine 8.17 H*, Glucose 193 H 01/16/20 14:30: WBC 16.3 H D, Hgb 9.7 L, Hct 30.8 L D, Plt Count 284
--- NOTE | 2020-01-17 12:03 | RAD REPORT ---
EXAM DESCRIPTION: NM - Rest Stress Cardiac Imaging - 01/17/2020 11:57 am CLINICAL HISTORY: CP Chest pain. COMPARISON: No comparisons TECHNIQUE: The patient was administered approximately 10mCi of Tc 99m Sestamibi prior to resting SPE CT imaging of the heart. The patient was then administered approximately 30 mCi of Tc 99m Sestamibi f ollowing exercise or pharmacologic stress. Multiplanar SPECT images were reviewed. FINDINGS: No stress induced ischemic defect is seen to suggest stress induced ischemia. No fixed def ect is seen to suggest hibernating myocardium or scarred myocardium. The end diastolic volume is 105 ml, the end systolic volume is 39 ml, and the ejection fraction is 63 %. IMPRESSION: No stress induced ischemia.
[2020-01-17] MEDS: ONDANSETRON 4 MG/2 ML VIAL IV PRN ×2 (12:50→20:23)
[2020-01-17 13:37] LABS: Basophils % 0.9 % (0-1.3); Hematocrit 26.3 % (36.0-45.0); Lymphocytes % 16.2 % (15.3-44.8); MPV 9.6 fL (7.6-11.3); RBC Red Blood Cell Count 2.71 M/uL (3.86-4.86)
[2020-01-17] MEDS ORDERED: GLUCAGON 1 MG/VIAL IM PRN (15:48)
[2020-01-17] MEDS ORDERED: D50W 25 GM/50 ML SYRINGE/VIAL IV PRN (15:48)
[2020-01-17] MEDS: NA CHLORIDE 0.9% 500 ML ONE ×2 (16:29→16:30)
[2020-01-17] MEDS: INSULIN -REGULAR HUMAN 50 UNIT/0.5 ML ML SQ SCH ×2 (16:30→23:01)
--- NOTE | 2020-01-17 16:30 | PREOPCON ---
Reason: Patient needs emergent dialysis. History Of Present Illness: Patient is a 69-year-old female, who came in with chest pain aggravated by deep inspiration and who had a cardiac and a pulmonary embolus workup done and received IV contras t for the CT scan, and she is on peritoneal dialysis and in order to salvage whatever kidney function she does have. The Nephrology Service feels that she would benefit from hemodialysis for at least _ tomorrow to try to salvage the kidney function as much as possible and therefore, I was con sulted for the placement of a Dickson catheter. Patient is awake and alert. Has no complaints. No fever or chills and no current chest pain. Review of Systems: Otherwise unremarkable. Past Medical History: Significant for diabetes, hypertension, end-stage renal disease. Past Surgical History: Significant for access of peritoneal dialysis catheter. Allergies: NONE. Social History: Patient does not smoke. Does not drink. Family History: Noncontributory. Physical Examination: Vital Signs: Stable. She is afebrile. General: She is awake, alert, and oriented x3. Head and Neck: No masses. Chest: Clear. Heart: S1, S2. Abdomen: Soft. Extremities: Neurovascularly intact. Neuro: Nonfocal. Laboratory Data: Her potassium is 3.1, BUN is 58, creatinine is 8.52. Troponin is less than 0.02. INR is 1.13. White count is 12.5 and H and H is 8.5 and 26.3. There is no left shift. Assessment: A 69-year-old female with multiple medical problems including end-stage renal disease wi th peritoneal dialysis, requires emergent hemodialysis for salvage of kidney function. Recommendation: We will go ahead and place a Dickson catheter. This case was discussed with Dr. Carl alexander and Dr. Hernandez. Patient understands the risks, benefits, and alternatives and agrees to procedur e. /MODL Voice ID: [id number] Report ID: [id number]
[2020-01-17 16:33] LABS: Absolute Lymphocytes (CBC) 3.4 K/uL (0.7-4.9); Basophils % 1.1 % (0-1.3); Hematocrit 25.1 % (36.0-45.0); Lymphocytes % 15.9 % (15.3-44.8); MPV 10.1 fL (7.6-11.3)
[2020-01-17] MEDS ORDERED: NS 0.9% VIAL 10 ML ONE ×2 (16:41→17:17)
[2020-01-17 16:53] LABS: Blood Morphology Comment NOT SEEN (NOT SEEN); Platelet Estimate ADEQ
[2020-01-17] MEDS ORDERED: CEFAZOLIN/SWI 1gm 1 GM/10 ML SYR ONE (16:56)
[2020-01-17] MEDS ORDERED: MIDAZOLAM HCL 2 MG/2 ML INJ ONE (16:57)
[2020-01-17] MEDS ORDERED: FENTANYL CITR 100 MCG/2 ML ONE (16:57)
--- NOTE | 2020-01-17 17:16 | P.OP ---
Cooker Loader: NONE,NONE Preoperative diagnosis: ARF Postoperative diagnosis: same Primary procedure: RIJ Dickson Catheter, Fluoroscopy Secondary procedure: same Anesthesia: Local Estimated blood loss: min Specimen: None Findings: Normal anatomy Complications: None Transferred to: Recovery Room Condition: Good
--- NOTE | 2020-01-17 17:39 | OP ---
Date of Procedure: 01/17/2020 Surgeon: Vijay Fernandez MD Engineering Scientist: None. Preoperative Diagnosis: Acute renal failure. Postoperative Diagnosis: Acute renal failure. Procedure: Placement of right IJ Dickson catheter. Interpretation of intraoperative fluoroscopy. Findings: Normal anatomy. Specimens: None. Anesthesia: Local. Complications: None. Disposition: Patient tolerated the procedure in stable condition, taken to Recovery in good conditio n. Procedure In Detail: Patient was brought to the OR and placed in supine position, prepped and draped in the usual sterile fashion. Lidocaine 1% infiltrated locally in the right IJ region. An 18-gauge needle was used to access the right IJ vein. Guidewire was passed. Position was confirmed with flu oroscopy. Then, Seldinger technique used. Vein dilated. Tip of the catheter was placed at the SVC right atrial junction under fluoroscopy. Catheter flushed with heparin and packed with heparin with good blood flow, and then 2-0 nylon used to secure the tube to the neck into the skin, and then steri le dressing was applied. Patient was awakened and taken to Recovery in good general condition. Chest x-ray has been ordered. /MODL Voice ID: [id number] Report ID: [id number]
--- NOTE | 2020-01-17 17:58 | RAD REPORT ---
EXAM DESCRIPTION: RAD - Chest Single View - 01/17/2020 5:29 pm CLINICAL HISTORY: post port placement COMPARISON: January 15 TECHNIQUE: AP portable chest image was obtained 01/17/2020 5:29 pm . FINDINGS: Right-sided vascular access catheter has been placed. Tip is in the right atrium. No pneumothorax. No acute lung parenchymal process. cardiomediastinal silhouette is stable. Findings discussed with the PACU nurse 5:40 p.m. IMPRESSION: Right jugular vascular access catheter placement. Tip is in the right atrium. No pneumothorax.
[2020-01-17] MEDS ORDERED: CEFOTAXIME SODIUM 1 GM/VIAL IV SCH (18:00)
--- NOTE | 2020-01-17 20:04 | RAD REPORT ---
EXAM DESCRIPTION: RAD - Fluoroscopy <1 Hour - 01/17/2020 7:05 pm FINDINGS: There were 6 portable C-arm views obtained during fluoroscopic assisted placement of a vas cular access catheter. No suspicious or unexpected findings. Fluoro time was 0.1 minutes. Cumulative dose was 2.12 mGy.
--- NOTE | 2020-01-17 21:54 | PN ---
Date of Progress Note: 01/17/2020 Subjective: Patient was seen this morning for followup. She was lying in bed, not in distress. Her left-sided chest pain, which is pleuritic chest pain remains unchanged. No nausea, vomiting. No ab dominal pain. Objective: Vital Signs: Reviewed. HEENT: Unremarkable. Lungs: Clear to auscultation. Heart: Sounds normal. Abdomen: Soft. Bowel sounds normal. No guarding, rigidity, tenderness, distention. The patient bradshaw s a peritoneal dialysis catheter present over lower anterior abdominal wall and insertion site appear s normal. Extremities: No leg edema. Laboratory Data: White count 11.2, hemoglobin 7.5, platelets 251 and repeat white count 12.5, hemogl obin 8.5, platelets 274 this afternoon and later on, repeat white count went up to 21.7 with hemoglob in 8.1, platelets 273. Chemistry today; sodium 140, potassium 3.1, chloride 103, bicarb 27, BUN 58, creatinine 8.52, glucose 89. Abdominal ultrasound shows evidence of gallstone without any evidence o f gallbladder wall thickening. No evidence of any acute cholecystitis. Probable punctate calyceal s tone bilaterally. No hydronephrosis. Small benign renal cyst present on both side. Common bile damon t normal. Impression: 1.Pleurisy. 2.Leukocytosis. 3.Anemia due to chronic kidney disease. 4.Anemia due to iron deficiency. 5.End-stage renal disease. 6.Hypertension. 7.Coronary artery disease. Plan: The patient's Lexiscan stress test came back negative for any stress-induced ischemia. Her le ft lateral chest pain is due to pleurisy. There is no evidence of any pneumonia. No evidence of any pulmonary hemorrhage or pulmonary embolism to cause that. The patient's leukocytosis is concerning. Last blood work from today has shown significantly higher white count compared to before. We will go ahead and start empiric antibiotics. We will obtain blood culture, urine culture, and considering she has peritoneal dialysis catheter, one has to keep in mind about possibility of peritonitis, even though clinically if she has no symptoms indicating that except now elevated white count. On basis of clinical exam, it is not clear regarding the source of this elevated white count, so we will go ah ead and start the empiric antibiotics right now. Monitor her blood work. Monitor her with daily fol lowup and examination. I did communicate with Dr. Sams today and he suggested patient to get demetrio lysis session today and tomorrow in view of her getting IV contrast dye with the CAT scan yesterday, so Dr. Fernandez was consulted from General Surgery to place temporary dialysis catheter and the patient will have 1 dialysis session today and 1 tomorrow. Details were discussed with the patient as well. ELENA/MODL Voice ID: [id number] Report ID: [id number]
[2020-01-17] MEDS: allopurinoL 100 MG TAB PO SCH (22:37)
[2020-01-17] MEDS: ATORVASTATIN 10 MG TAB PO SCH (22:37)
[2020-01-17] MEDS: CEFTRIAXONE/SWI 1gm 1 GM/10 ML SYR IVP SCH (22:37)
[2020-01-17] MEDS: CALCIUM CARBONATE CHEW 500MG TAB PO SCH (22:37)
[2020-01-17] MEDS: NEBIVOLOL HCL 5 MG TAB PO SCH (22:37)
[2020-01-17] MEDS: MORPHINE 2 MG/ML SYR IV PRN (22:38)
--- NOTE | 2020-01-18 01:34 | HP ---
Date of Admission: 01/16/2020 Chief Complaint: Chest pain. History Of Present Illness: This is a very pleasant 69-year-old female patient who came into same-da y surgery for IV iron infusion and while she was there, she started to complain of some chest pain an d she was sent to emergency room where she was evaluated and admitted to the hospital. I saw her in the emergency room. The patient reports that she did have chest pain about a day ago and then it sub sided and today, she started having this crushing type of chest pain just a little left to the left s ternal border and said that it radiated to her left shoulder blade area. No associated nausea, diaph oresis, or shortness of breath. She also complained of some indigestion type of feeling and was conc erned about if she has any gallbladder problem also or not. The other complaint she has is left late ral chest pain, which gets worse with deep breathing. Denies any fever or chills. Denies any hemopt ysis. No fall. No injury. No rash. After she was evaluated in the ER, she was admitted and I also visited her in the emergency room and obtained all these details and histories from her. Allergies: TO REGLAN CAUSING HER TO FEEL NERVOUS. Medications: List reviewed. Review of Systems: Cardiovascular: As mentioned above. Respiratory: As mentioned above. GI: As mentioned above. All other systems reviewed and negative. Past Medical History: Significant for posterior reversible encephalopathy syndrome diagnosed in 2016 ; history of seizure disorder; neuropathy; diabetes mellitus; hypertension; mixed hyperlipidemia; cor onary artery disease; end-stage renal disease, on peritoneal dialysis; osteoarthritis; gout; anemia d ue to chronic kidney disease; and insomnia. Past Surgical History: Coronary artery stent placement in October 2017, appendectomy, ureteral stent, a nd . Family History: Father , had throat cancer. Mother had diabetes and breast cancer. Social History: Negative for smoking. Negative for alcohol use. Physical Examination: Vital Signs: Temperature 98.3, pulse 75, respiratory rate 14, blood pressure 143/62, oxygen saturati on 99%. Height 5 feet 4 inches, weight 159 pounds. General: Awake, alert, oriented, not in distress. HEENT: Head atraumatic, normocephalic. Conjunctivae nonerythematous. Sclerae white. Mouth, no thr ush or edema noted. Ears/Nose, no mass, lesion, discharge noted. Neck: Supple. No JVD, lymph nodes, bruit, thyromegaly noted. Lungs: Bilateral good equal air entry. Clear to auscultation. No rales. No wheezing. Patient has significant pain in the left lateral chest wall with any attempt to take deep breath. Heart: Normal heart sounds, no murmur or gallop. Abdomen: Presence of peritoneal dialysis catheter in the lower anterior abdominal wall. Surrounding skin appears normal. No evidence of any redness, discharge from the catheter insertion site or arou nd it. Skin appears normal. Rest of the abdominal exam is unremarkable. Extremities: No leg edema. No calf tenderness. Skin: No rash, ulcer, cellulitis. Lymphatics: No lymph node enlargement in neck, supraclavicular, infraclavicular region. Neuro: No focal neurological deficit. Chest: Unremarkable. External Genitalia: Deferred. Rectal: Deferred. Laboratory Data: Sodium 141, potassium 3.3, chloride 102, bicarb 26, BUN 55, creatinine 8.17, glucos e 193. Troponin less than 0.02. White count 16.3, hemoglobin 9.7, platelets 284. Chest x-ray, no a cute abnormality detected. CT scan of the chest per PE protocol was negative for pulmonary embolism and no acute intrathoracic changes. Impression: 1.Pleurisy. 2.Coronary artery disease. 3.Leukocytosis. 4.End-stage renal disease, on peritoneal dialysis. 5.Diabetes mellitus with neuropathy. 6.Hypertension. 7.Mixed hyperlipidemia. 8.Osteoarthritis, multiple sites. 9.Anemia due to chronic kidney disease. 10.Anemia due to iron deficiency. 11.Gout. 12.Insomnia. 13.Posterior reversible encephalopathy syndrome. Plan: Admit patient to hospital for further evaluation and management of this problem. We will go a head and get an abdominal ultrasound done tomorrow morning. Consult senior instrumentation engineer, consult cardiologi st. We will get a stress test done tomorrow. With patient's chest pain complaint, I was concerned a bout possibility of pulmonary embolism and we have ruled that out. I will follow up with nephrologis t tomorrow. We will continue home medications per order. Stress test will be done tomorrow and depe nding on that result, we will decide about further plan of treatment. We will repeat blood work christy rrow. Patient does have leukocytosis, but there is no obvious infection anywhere that we can see so we will monitor her. Details and plan of treatment discussed with her. KEVIN Voice ID: [id number]
[2020-01-18] MEDS: ONDANSETRON 4 MG/2 ML VIAL IV PRN ×3 (04:41→23:20)
[2020-01-18 05:02] LABS: Urine Appearance CLEAR; Urine Bilirubin NEGATIVE (NEG); Urine Blood NEGATIVE (NEG); Urine Color YELLOW; Urine Glucose TRACE (NEG); Urine Protein 2+ (NEG); Urine Urobilinogen 0.2 mg/dL (0.2-1.0); Urine pH 5.5 (5.0-7.0)
[2020-01-18 05:17] LABS: Urine Bacteria 20-50 /HPF (<20); Urine Culture Reflex Order REFLEXED; Urine Mucus 1+ /HPF (NONE SEEN); Urine RBC <5 /HPF (NONE SEEN)
[2020-01-18] MEDS: PANTOPRAZOLE 40MG TABLET PO SCH (05:52)
[2020-01-18 06:33] LABS: Absolute Lymphocytes (CBC) 1.9 K/uL (0.7-4.9); Basophils % 0.9 % (0-1.3); Hematocrit 23.8 % (36.0-45.0); Lymphocytes % 15.9 % (15.3-44.8); MPV 9.8 fL (7.6-11.3)
[2020-01-18 06:47] LABS: Magnesium 1.6 mg/dL (1.8-2.4); Potassium 3.5 mmol/L (3.5-5.1)
[2020-01-18] MEDS: INSULIN -REGULAR HUMAN 50 UNIT/0.5 ML ML SQ SCH ×4 (07:30→21:00)
[2020-01-18] MEDS: CALCIUM CARBONATE CHEW 500MG TAB PO SCH ×2 (08:58→22:39)
[2020-01-18] MEDS: GABAPENTIN 300 MG CAP PO SCH ×2 (08:58→22:41)
[2020-01-18] MEDS: DOCUSATE NA 100 MG CAP PO SCH (08:58)
[2020-01-18] MEDS: ASPIRIN EC 81 MG TAB PO SCH (08:58)
[2020-01-18] MEDS: AMLODIPINE 10 MG TAB PO SCH (08:58)
[2020-01-18] MEDS: SOD FERRIC GLUC COMPLX/SUCROSE 125 MG in NA CHLORIDE 0.9% 100 ML IV SCH ×2 (08:58→09:00)
[2020-01-18] MEDS: CLOPIDOGREL 75 MG TABLET PO SCH (09:01)
[2020-01-18] MEDS: CEFTRIAXONE/SWI 1gm 1 GM/10 ML SYR IVP SCH ×2 (09:03→19:47)
[2020-01-18] MEDS: SEVELAMER CARBONATE 800 MG TABLET PO SCH ×3 (09:24→15:27)
[2020-01-18] MEDS: FAMOTIDINE 20 MG/2 ML VIAL IV SCH (10:00)
[2020-01-18] MEDS: HEPARIN 5000 UNIT/ML 1 ML VIAL SQ SCH ×2 (10:00→22:41)
[2020-01-18] MEDS: THIAMINE HCL 100 MG TABLET PO SCH (11:21)
[2020-01-18] MEDS: LIDOCAINE 4% PATCH TOP SCH (11:21)
[2020-01-18] MEDS ORDERED: GABAPENTIN 100 MG CAP PO SCH (14:00)
[2020-01-18] MEDS ORDERED: EPOETIN 4,000 UNIT/ML VIAL IV SCH (14:00)
--- NOTE | 2020-01-18 14:07 | PN ---
Date of Progress Note: 01/18/2020 Subjective: The patient was seen this morning for followup. No new complaints, problems reported by patient, lying in bed, not in distress. She does not feel good today. No specific complaints except just complaint of not feeling good. She continues to have some indigestion and bloating type of feeling, which is something new in last couple of weeks. She also has some headache off and on in last couple of weeks which what she describes as nystagmus, which is also new in last couple of weeks. Objective: Vital Signs: Reviewed. HEENT: Examination unremarkable. Lungs: Clear to auscultation. No wheezing. No rales. Chest: The patient still continues to have sharp left lateral posterolateral chest pain with deep breathing. No rash noted on the skin. Heart: Sounds normal. Abdomen: Soft. Bowel sounds normal. No guarding, rigidity, tenderness, distention. Extremities: No leg edema. Laboratory Data: White count 11.9, hemoglobin 7.7, platelets 221. Sodium 141, potassium 3.5, chloride 105, bicarb 28, BUN 32, creatinine 5.75, glucose 84, magnesium 1.6. Impression: 1. Leukocytosis. 2. End-stage renal disease, on hemodialysis. 3. Pleurisy. 4. Anemia due to iron deficiency. 5. Anemia due to chronic kidney disease. Plan: We will go ahead and continue current antibiotic, which is ceftriaxone. The patient had 1 session of hemodialysis last night and she will have second session today. After that, Dr. Sams has given order to nursing staff that her Dickson catheter can be removed. Our plan is to keep her in a hospital overnight considering she is not feeling too well today and we will go ahead and give her IV iron per order today. Start her on lidocaine patch, apply 1 patch to her chest wall over the area of her pain every day and she was instructed to keep this patch 12 hours on and 12 hours off. Patient was also instructed about this. We will get a CAT scan of the head without contrast and I will see her tomorrow for followup and we possibly will plan to discharge her to go home tomorrow. Her peritoneal dialysis catheter insertion site appears normal and abdominal exam is unremarkable for her indigestion and bloating problem, which could be due to gallstones. We did talk about no evidence of any cholecystitis, so no need for any surgical intervention. In ideal situation, one would consider HIDA scan and possible surgical intervention but considering her multiple comorbidities, we would like to avoid any surgical intervention if at all possible. The patient understands and agrees with that. We did talk about possibility of using Prudence type of medication and she is willing to try that. On discussion we had, asked to discontinue her pantoprazole and try famotidine in view of her chronic kidney disease problem. ELENA/MODL Voice ID: [id number] Report ID: [id number] MATIAS
--- NOTE | 2020-01-18 15:10 | PN ---
Date of Progress Note: 01/18/2020 Subjective: The patient was admitted with shortness of breath, pleurisy. The patient's workup included CT with contrast was negative. Diagnosed with the pleurisy. The patient had a hemodialysis catheter temporarily placed yesterday. Received dialysis yesterday. Objective: Vital Signs: When I saw the patient, blood pressure 126/58, pulse of 68. Chest: Clear to auscultation. Heart: S1, S2. Regular. Abdomen: Soft, nontender. Extremities: Trace edema. Neurological: Alert, oriented x3. Laboratory Data: WBC 11.9, H and H 7.7/23.8, platelet 221. Sodium 141, potassium 3.5, bicarb 28, BUN 32, creatinine 5.7, calcium 8.6, magnesium 1.6. Current Medications: Include: 1. Aspirin. 2. Ceftriaxone. 3. Atarax. 4. Midodrine. 5. Iron IV. 6. Epogen. 7. Heparin. 8. Calcium carbonate. 9. Atorvastatin. 10. Bystolic. 11. Amlodipine. 12. Gabapentin. 13. Renvela. Assessment And Plan: 1. End-stage renal disease, on peritoneal dialysis. The patient had contrast and she had residual kidney function. I am going to do another session of dialysis today for clearance of the contrast and we will monitor. The patient can be discharged after the dialysis. 2. Hypertension, controlled, optimal to avoid low blood pressure. We will discontinue amlodipine. Continue p.r.n. midodrine. 3. Iron deficiency anemia and chronic kidney disease. Anemia; the patient receive already a full series of IV iron as outpatient. We will transfuse 2 units today. I am going to go ahead and increase Epogen to 10,000. 4. Pleurisy, still. I am going to start the patient on prednisone oral and we will follow up. 5. Diabetes as by primary. 6. Neuropathy. The patient is on peritoneal dialysis. The patient had a history of overdose on the gabapentin. I am going to go ahead and decrease gabapentin to 200 and we will follow up. Time spent coordinating the care, discuss him with all of our team members including othere bi consultant and hospitalist and [id number] with the patient and please go out of 35 min AMARI Voice ID: [id number] Report ID: [id number] MTDJoy
[2020-01-18] MEDS: CODEINE 30MG/APAP 300MG TAB PO PRN ×2 (15:26→22:40)
[2020-01-18] MEDS ORDERED: NA CHLORIDE 0.9% 250 ML ONE (20:10)
--- NOTE | 2020-01-18 21:13 | CON ---
Date of Consultation: 01/17/2020 Reason For Consultation: Chest pain. History Of Present Illness: Ms. Ramirez is a 69-year-old woman. She has a history of end-stage joanne l disease, for which she does peritoneal dialysis at home. She also has a history of hypertension, d iabetes, gastroesophageal reflux disease, and orthostatic hypotension. She has chronic anemia. She came in with rather atypical chest pain radiating to the shoulder, was mostly under the left breast, sharp, stabbing, worse on inspiration. Denied any PND, orthopnea, pedal edema, palpitation, or synco pe. Denied any fever or chills. Past Medical History: As stated above. Allergies: NONE. Review of Systems: Negative. Social History: Negative. Family History: Noncontributory. Medications: At home include aspirin, Norvasc, Plavix, Xanax, Bystolic, midodrine, insulin, Pravacho l, Protonix, and metolazone. Physical Examination: General: She appeared to be in no acute distress. Vital Signs: Stable. She is afebrile. HEENT: Negative. Neck: Supple without any bruit, lymphadenopathy, JVD, or thyromegaly. Chest: Clear to auscultation and percussion. Cardiac: Regular rhythm and rate without any murmurs, gallops, or rubs. Abdomen: Benign. Extremities: No clubbing, cyanosis, or edema. Diagnostic Data: Her creatinine was 8.17. Hemoglobin is 7.5. Her potassium was 3.1. Her EKG was n ormal. Troponin was normal. Chest x-ray was normal. Her white count was 16,000. Impression And Plan: Chest pain that is atypical, certainly maybe pleuritic. I am concerned about h er white count and her history of peritoneal dialysis. She certainly could have rather an occult per itonitis. The case was discussed with Dr. Hernandez. Potassium needs to be gently corrected. She is ane herb secondary to chronic renal disease. A stress test is pending. We will see what that shows befor e making further decisions. Ms. Ramirez has multiple other problems including end-stage renal diseas e, on peritoneal dialysis. She has hypertension, orthostatic hypotension, diabetes, and dyslipidemia as well as gastroesophageal reflux, all of which is stable at this point. If her stress test is neg ative, she can go home and continue treatment for possible peritonitis. If it is positive, we will p urvashi a heart catheterization. PORTILLO/ANAMARIA Voice ID: [id number] Report ID: [id number]
[2020-01-18] MEDS: NEBIVOLOL HCL 5 MG TAB PO SCH (22:40)
[2020-01-18] MEDS: ATORVASTATIN 10 MG TAB PO SCH (22:40)
[2020-01-18] MEDS: allopurinoL 100 MG TAB PO SCH (22:40)
[2020-01-18 23:59] LABS: Hematocrit 31.9 % (36.0-45.0)
[2020-01-19] MEDS: ONDANSETRON 4 MG/2 ML VIAL IV PRN (04:03)
[2020-01-19] MEDS: INSULIN -REGULAR HUMAN 50 UNIT/0.5 ML ML SQ SCH ×2 (07:30→11:43)
[2020-01-19] MEDS: THIAMINE HCL 100 MG TABLET PO SCH (08:17)
[2020-01-19] MEDS: ASPIRIN EC 81 MG TAB PO SCH (08:17)
[2020-01-19] MEDS: CALCIUM CARBONATE CHEW 500MG TAB PO SCH (08:18)
[2020-01-19] MEDS: LIDOCAINE 4% PATCH TOP SCH (08:18)
[2020-01-19] MEDS: CEFTRIAXONE/SWI 1gm 1 GM/10 ML SYR IVP SCH (08:18)
[2020-01-19] MEDS: GABAPENTIN 300 MG CAP PO SCH ×2 (08:18→13:16)
[2020-01-19] MEDS: SEVELAMER CARBONATE 800 MG TABLET PO SCH ×2 (08:18→11:43)
[2020-01-19] MEDS: CLOPIDOGREL 75 MG TABLET PO SCH (08:19)
[2020-01-19] MEDS: DOCUSATE NA 100 MG CAP PO SCH (08:19)
[2020-01-19] MEDS: FAMOTIDINE 20 MG/2 ML VIAL IV SCH (08:19)
[2020-01-19] MEDS: HEPARIN 5000 UNIT/ML 1 ML VIAL SQ SCH (08:20)
[2020-01-19] MEDS ORDERED: prednisoLONE 15 MG/5 ML OSYR PO SCH (09:00)
[2020-01-19 09:54] VITALS: TEMP 97.5
[2020-01-19 11:42] VITALS: O2SAT 96
--- NOTE | 2020-01-19 12:58 | PN ---
Date of Progress Note: 01/19/2020 Subjective: The patient was admitted with chest pain, atypical, seen by Cardiology, cleared. CT with contrast done, ruled out PE. No shortness of breath currently. Pain has been subsided. The patient was started on prednisone yesterday. Physical Examination: Vital Signs: When I saw the patient, blood pressure 150/80, pulse of 68, afebrile. Chest: Clear to auscultation. Heart: S1, S2. Regular. Systolic murmur. Abdomen: Soft, nontender. Extremities: No edema. Neuro: Alert, oriented. No focal. Laboratory Data: Hemoglobin 10.7, hematocrit 31.9. Sodium 141, potassium 3.5, bicarb 28, BUN 32, creatinine 5.7. Assessment And Plan: 1. End-stage renal disease with residual kidney function, status post 2 sessions of dialysis to clear up the contrast exposure. We will resume PD tonight. 2. Hypertension, controlled, optimal. Continue current medication. 3. Secondary hyperparathyroidism. Continue Renvela. 4. Hypokalemia. We will hold on any supplement. 5. Pleurisy. Continue prednisone for the time being. 6. Diabetes as by primary. 7. Chest pain, atypical, pleurisy, to rule out any coronary syndrome. We will follow up with Cardiology, plan for cardiac stress test as outpatient. We will do PD fluid analysis to rule out any peritonitis. We will continue ciprofloxacin for the time being after discharge. Current medications; the patient on Renvela, calcium carbonate, prednisone, midodrine p.r.n., and Lasix. The patient cleared from the Renal standpoint for discharge planning. Time spent coordinating the care, discuss him with all of our team members including othere furniture sales consultant and hospitalist and [id number] with the patient and please go out of 35 min AMARI Voice ID: [id number] Report ID: [id number] MATIAS
[2020-01-19 14:09] VITALS: BP 151/68
--- NOTE | 2020-01-19 21:13 | DS ---
Date of Discharge: 01/19/2020 Disposition: Discharged to go home. Physical Examination: HEENT: Unremarkable. Lungs: Clear to auscultation. Heart: Sounds normal. Abdomen: Soft. Bowel sounds normal. No guarding, rigidity, tenderness, or distention. Extremities: No leg edema. Laboratory Data: On 01/16/2020 upon admission, white count 16.3, hemoglobin 9.7, platelets 284. On 01/17/2020, white count 11.2, hemoglobin 7.5, platelets 251. Highest white count was on 01/17/2020, which was 21.7, hemoglobin 8.1, platelets 273. Yesterday, hemoglobin was 7.7 with WBC 11.9. The pat ient did receive 1 unit of PRBC blood transfusion and after blood transfusion, hemoglobin came up to 10.7. Chemistry on 01/18/2020, which is yesterday, white sodium 141, potassium 3.5, chloride 105, bi carb 28, BUN 32, creatinine 5.75, and this was after first hemodialysis session that she had on 01/16. The patient had a second hemodialysis session yesterday on 01/18/2020. Her initial creatinin e was 8.17 with potassium 3.3 when she came into the hospital on 01/16/2020. Highest creatinine was 8.82 on 01/17/2020. Chest x-ray was unremarkable. CAT scan of the chest per PE protocol was negativ e for pulmonary embolism. Abdominal ultrasound was unremarkable except presence of gallstones, but n o evidence of cholecystitis. Stress test was negative for stress-induced ischemia. Hospital Course: This is a 69-year-old female patient, who was admitted to the hospital with complai nts of chest pain. Please see dictated H and P for more information. The patient had some indigesti on and 2 different type of chest pain. For her pleuritic chest pain, workup included chest x-ray as well as CT scan of the chest per PE protocol, which was negative for pulmonary embolism. Pleuritic c hest pain problem continued, but she did respond very well to lidocaine patch and this morning, she r eported that her pain had almost resolved. Her cardiac enzymes were negative for any evidence of mary cardial infarction. Cardiology consultation was obtained from Dr. Gu and the patient had a nega tive stress test. Nephrology consultation was obtained from her employee operations examiner and because the patient had a CT scan with dye for the PE protocol, Dr. Sams suggested 2 sessions of hemodialysis to rosanna ar out the dye and Dickson catheter was placed by Dr. Fernandez and the patient had first hemodialysis on 01/17/2020 and second hemodialysis on 01/18/2020. The patient tolerated dialysis very well and toda y her Dickson catheter was removed as the patient informed very clearly that she does not want to go home with a Dickson catheter. Dr. Sams gave order to discontinue Dickson catheter today and the patient will be discharged to go home in stable condition. Her pleuritic chest pain has resolved now . She is ambulating well in the room. On basis of her creatinine clearance, Dr. Sams suggested to reduce her dose of gabapentin from 300 mg 3 times a day to 200 mg 3 times a day, and the patient d id not agree to that, so this morning I did talk to her and suggested for her to try and take her 300 mg capsules that she has at home and take one capsules 2 times a day instead of her usual dose of 3 times a day and she is willing to do so. If that does not help to control her neuropathy problem, she will resume her dose of 300 mg 3 times a day. The patient reports that she has been on 300 mg 3 times a day for long time and that has helped to control her neuropathy pain very well. In the when she did try to lower the dose, her neuropathy problem got worse and bad enough that she was n ot able to ambulate, but at least she is willing to try as per my discussion with her today. She is also on pantoprazole and in place of that, we will try famotidine and if that does not work to contro l her GERD symptoms, then she will stop famotidine and restart her pantoprazole. For her elevated wh ite count, we did start her on empiric antibiotic, ceftriaxone, and that actually has brought her whi te count down. We do not have any definite source of an infection anywhere. So upon discharge, we w ill go ahead and give her oral antibiotics. Final Diagnoses: 1.Pleurisy. 2.Coronary artery disease. 3.Leukocytosis. 4.Gallstones without obstruction and without acute cholecystitis. 5.End-stage renal disease, on peritoneal dialysis. 6.Diabetes mellitus with neuropathy. 7.Anemia due to chronic kidney disease. 8.Anemia due to iron deficiency. 9.Hypertension. 10.Mixed hyperlipidemia. 11.Osteoarthritis, multiple sites. 12.Gout. 13.Insomnia. 14.Posterior reversible encephalopathy syndrome. Discharge Medications And Instructions: 1.Continue all prior home medication except reduce gabapentin dose from 300 mg 3 times a day to 300 mg 2 times a day. 2.Stop pantoprazole. 3.Start famotidine 20 mg p.o. daily. 4.Lidocaine patch 4% applied to left chest wall daily and the patient was instructed to keep it on 1 2 hours, so for example, apply every morning and take it off at bedtime, and she was instructed to us e it for about 1 week and after that, she can try to stop using it. 5.Cefuroxime 250 mg 1 tablet p.o. every other day for 5 days. 6.Continue to follow with employee operations examiner. 7.Follow up at my office this coming week on Monday or . The patient to call office for appointment. ELENA/ANAMARIA Voice ID: [id number] Report ID: [id number]
--- NOTE | 2020-01-20 09:33 | TREADPHA ---
DX: CHEST PAIN Date of Study: 01/17/2020 Ht: 5' 4 " Wt: 164 lb 9.6 oz Consulting Physician: KEY MEDICATIONS: TYLENOL, NORVASC, LIPITOR, PLAVIX, ATARAX, ASPIRIN, PROCEMATINE, NEURONTIN, XANAX HISTORY: 69 YEAR OLD FEMALE WITH COMPLAINTS OF CHEST PAIN. MEDICAL HISTORY OF DIABETES MELLITUS, CARDIAC STENTS, DIALYSIS (PERITONEAL) PHYSICIAL EXAMINATION: RESTING B.P.: 138/52 RESTING H.R.: 68 RESTING EKG: SINUS RHYTHM, NON-SPECIFIC T WAVE, ARTIFACT PROTOCOL: PHARMACOLOGIC EXERCISE TIME: 3:30 B.P. AT PEAK STRESS: 115/56 IMPRESSION: LEXISCAN INJECTED, CARDIOLITE INJECTED PER PROTOCOL. SEE NUCLEAR MEDICINE REPORT. NO SUPRAVENTRICULAR TACHYCARDIA, NO VENTRICULAR TACHYCARDIA, NO PREMATURE VENTRICULAR COMPLEXES. NINE OUT OF TEN ON PAIN SCALE AFTER ADMINISTRATION OF INJECTED ION.
--- NOTE | 2020-01-23 07:09 | EKG ---
Test Date: 2020-01-16 Test Time: 13:36:15 Dry Cleaning Supervisor: CHARLES MEASUREMENT RESULTS: Intervals: Rate: 77 CT: 136 QRSD: 94 QT: 420 QTc: 475 [place]: P: 70 CT: 136 QRS: 21 T: 33 INTERPRETIVE STATEMENTS: Normal sinus rhythm Normal ECG Compared to ECG 07/21/2019 15:17:[address] interval no longer present Electronically Signed On 01-23-20 07:04:23 CDT by Farzad Gu
[2020-01-27 15:19] LABS: HBsAG Nonreactive
== END 2020-01-19 14:59 | disposition home or self-care (01) | DRG 193 ==
LOC: ER 14:01 → INTOOBSV 16:11 → ERHOLD 16:11 → OBSVTOIN 16:11 → 2ND 19:41 → OBSVTOIN 01-17 21:42
PROVIDERS: ADMIT Internal Medicine; ATTEND Internal Medicine
PROC: 02H633Z Insertion of Infusion Device into Right Atrium, Percutaneous Approach (ICD-10-PCS; 2020-01-17)
PROC: 3E1M39Z Irrigation of Peritoneal Cavity using Dialysate, Percutaneous Approach (ICD-10-PCS; 2020-01-17)
PROC: 02HV33Z Insertion of Infusion Device into Superior Vena Cava, Percutaneous Approach (ICD-10-PCS; principal; 2020-01-17 16:00)
PROC: 30233K1 Transfusion of Nonautologous Frozen Plasma into Peripheral Vein, Percutaneous Approach (ICD-10-PCS; 2020-01-18)
PROC: 30233N1 Transfusion of Nonautologous Red Blood Cells into Peripheral Vein, Percutaneous Approach (ICD-10-PCS; 2020-01-18)
DX: R09.1 Pleurisy (principal); N18.6 End stage renal disease; I67.83 Posterior reversible encephalopathy syndrome; I12.0 Hypertensive chronic kidney disease with stage 5 chronic kidney disease or end stage renal disease; N17.9 Acute kidney failure, unspecified; N25.81 Secondary hyperparathyroidism of renal origin; Z79.899 Other long term (current) drug therapy; Z79.02 Long term (current) use of antithrombotics/antiplatelets; Z79.82 Long term (current) use of aspirin; E11.22 Type 2 diabetes mellitus with diabetic chronic kidney disease; Z68.28 Body mass index [BMI] 28.0-28.9, adult; E66.9 Obesity, unspecified; D63.8 Anemia in other chronic diseases classified elsewhere; D72.829 Elevated white blood cell count, unspecified; Z79.01 Long term (current) use of anticoagulants; Z79.4 Long term (current) use of insulin; E11.40 Type 2 diabetes mellitus with diabetic neuropathy, unspecified; Z95.5 Presence of coronary angioplasty implant and graft; D63.1 Anemia in chronic kidney disease; D50.9 Iron deficiency anemia, unspecified; I25.10 Atherosclerotic heart disease of native coronary artery without angina pectoris; Z88.8 Allergy status to other drugs, medicaments and biological substances; E78.2 Mixed hyperlipidemia; M19.90 Unspecified osteoarthritis, unspecified site; M10.9 Gout, unspecified; G47.00 Insomnia, unspecified; K21.9 Gastro-esophageal reflux disease without esophagitis; E87.6 Hypokalemia; K80.80 Other cholelithiasis without obstruction; Z99.2 Dependence on renal dialysis; Z20.828 Contact with and (suspected) exposure to other viral communicable diseases
CPT/HCPCS: 36415; 71045; 71275; 76000; 76700; 78452; 80048; 81001; 83735; 84484; 85014; 85018; 85025; 85610; 85730; 86317; 86850; 86900; 86901; 87040; 87086; 87088; 87340; 90935; 93005; 93017; 99285; A9500; G0378; J0690; J0696; J1644; J2250; J2270; J2405; J2785; J2916; J3010; J7040; J7050; J7510; P9016; Q5105; Q9967; U0002

== ENCOUNTER 2020-02-06 13:05 | Inpatient (IN) | payer OTHER, BC ==
--- OUTSIDE RECORDS SUMMARY | 2020-02-06 13:43 | XMS REPORT | Clinical Summary ---
:1950 Author Organization [facility] Address [address] [place] [address] Care Team Providers Name Role Phone Justyn [...] Encounters Date Type Specialty Care Team Description 01/21/2020 Lab Lab Franko Albrecht MD 12/17/2019 Lab Lab Franko Albrecht MD 11/20/2019 Refill Cardiology Edin Rojas, Med Refill 10/28/2019 Lab Lab Franko Albrecht MD 10/22/2019 Refill Cardiology Edin Rojas, Med [...] Dx); 05/12/2019 Medicine Malik Cronin MD Weakness; KevDiana Urinary tract i nfection without hematuria, site unspecified; MD Trudy Tremors of nerv ous system; Falls frequentl y; ESRD on periton eal dialysis (HCC) 05/01/2019 Lab Franko Yancey MD 03/27/2019 Lab Lab Franko Albrecht MD 02/25/2019 - Hospital Encounter General Internal Marj, Left- sided weakness (Primary Dx); 02/27/2019 Medicine Jennifer Hyperkalemia DO Yogi Zaragoza Asma Fazal, MD Patel, Ruchita, MD 02/21/2019 Lab Lab Franko Albrecht MD after 02/05/2019 Surgical History Surgery Date Site/Laterality Comments SECTION TUBAL LIGATION KIDNEY STONE SURGERY INSERTION, CATHETER, FOR 04/14/2017 Abdomen/N/A Procedu re: INSERTION, PERITONEAL DIALYSIS CATHETER, FO R PERITONEAL DIALYSIS; Surge on: Esteban Rodrigues MD; [facility] NN OR; Service: General ; Laterality: N/A; Medical devices from this surgery are in t he Implants section. PERITONEAL CATHETER INSERTION CENTRAL VENOUS CATHETER 09/22/2017 Right RIJ for antibiotics TUNNELED INSERTION DOUBLE LUMEN CARDIAC CATHETERIZATION 09/25/2017 Radial Procedur e: Cv left heart cath w lv gram c ors; Surgeon: Jaswant Madrigal MD; Location: [facility] Logging Supervisor Invasive Loc ation; Service: Cardiol ogy; Laterality: [...] Health Maintenance Due Date Last Done Comments DIABETES: RETINAL EYE EXAM 08/12/1959 DIABETIC FOOT EXAM 08/12/1959 COLONOSCOPY SCREENING 08/12/1999 SHINGLES VACCINES (#1) 08/12/1999 65+ PNEUMOCOCCAL VACCINE (1 of 1 - PPSV23) 2014 INFLUENZA VACCINE 11/09/2019 BREAST CANCER SCREENING 01/12/2020 01/11/2018, 01/11/2018 Implants Implanted Type Area Center Machine Operator Device Shelf Model / Identifier Expiration Serial / Lot Date Stent Cornorary Syst Synergy (Mr) 2.50mm X 16mm - [id number] Coronary N/A: BSC 07/17/2018 [id number] / Implanted: Qty: 1 on 09/25/2017 by Jaswant Madrigal MD at [facility] Stents N/A INTERVENTIONAL / CARDIOLOGY [id number] Catheter Pd [place] Curl Cath 2cuff 15fr 62.5cm - [id number] Impla ntable N/A: FEDERICO 07/20/2021 [id number] / Implanted: Qty: 1 on 04/14/2017 by Esteban Rodrigues MD at [facility] Infusion Ports N/A INSTRUMENT CO / or Accessories [id number] Catheter Cv Powerline Dlmn Al 6fr - [id number] Surgical N/A: BARD ACCESS 12/08/2021 [id number] / Implanted: 09/22/2017 at [facility] (Quantity not on file) Im plants; N/A SYSTEMS / Expanders; [id number] Extenders; Surgical Wires Additional Caridac Stents (1.5t Only [facility]) Description:no documents. 1.5T only in [facility] Urinary Stent (2017) 1.5t Only ([facility]) Description:Urinary Stent (2017). NO do cuments. 1.5T only ([facility] practice) Procedures Procedure Name Priority [...] 06/11/2019 1:27 Res ults for this PM PER DIEM NURSE procedure are i n the results section. POC GLUCOSE Routine 05/12/2019 12:58 Results for this PM PER DIEM NURSE procedure are i n the results section. POC GLUCOSE Routine 05/12/2019 7:07 Results for this AM PER DIEM NURSE procedure are i n the results section. ESTIMATED GFR Routine 05/12/2019 5:30 Results fo r this AM PER DIEM NURSE procedure are i n the results section. BASIC METABOLIC PANEL Routine 05/12/2019 5:30 Re sults for this AM PER DIEM NURSE procedure are i n the results section. HC COMPLETE BLD COUNT Routine 05/12/2019 5:30 Re sults for this W/AUTO DIFF AM PER DIEM NURSE procedure are i n the results section. PHOSPHORUS LEVEL Routine 05/12/2019 5:30 Results for this AM PER DIEM NURSE procedure are i n the results section. POC GLUCOSE Routine 05/11/2019 8:41 Results for this PM PER DIEM NURSE procedure are i n the results section. ESTIMATED GFR STAT 05/11/2019 6:30 Results fo r this PM PER DIEM NURSE procedure are i n the results section. BASIC METABOLIC PANEL STAT 05/11/2019 6:30 Re sults for this PM PER DIEM NURSE procedure are i n the results section. POC GLUCOSE Routine 05/11/2019 5:50 Results for this PM PER DIEM NURSE procedure are i n the results section. POC GLUCOSE Routine 05/11/2019 12:05 Results for this PM PER DIEM NURSE procedure are i n the results section. POC GLUCOSE Routine 05/11/2019 7:17 Results for this AM PER DIEM NURSE procedure are i n the results section. PHOSPHORUS LEVEL Routine 05/11/2019 6:48 Results for this AM PER DIEM NURSE procedure are i n the results section. POC GLUCOSE Routine 05/10/2019 8:55 Results for this PM PER DIEM NURSE procedure are i n the results section. POC GLUCOSE Routine 05/10/2019 4:57 Results for this PM PER DIEM NURSE procedure are i n the results section. XR SACRUM AND COCCYX Routine 05/10/2019 3:27 Res ults for this PM PER DIEM NURSE procedure are i n the results section. XR LUMBAR SPINE 2 OR 3 Routine 05/10/2019 3:27 R esults for this VW PM PER DIEM NURSE procedure are i n the results section. MRI CERVICAL SPINE WO Routine 05/10/2019 3:14 Re sults for this CONTRAST PM PER DIEM NURSE procedure are i n the results section. MRI BRAIN WO CONTRAST STAT 05/10/2019 3:12 Re sults for this PM PER DIEM NURSE procedure are i n the results section. POC GLUCOSE Routine 05/10/2019 9:44 Results for this AM PER DIEM NURSE procedure are i n the results section. POC GLUCOSE Routine 05/10/2019 9:19 Results for this AM PER DIEM NURSE procedure are i n the results section. CELL COUNT AND Routine 05/10/2019 8:50 Results f or this DIFFERENTIAL, BODY AM PER DIEM NURSE procedure are in FLUID the results section. ANAEROBIC CULTURE Routine 05/10/2019 8:50 Result s for this AM PER DIEM NURSE procedure are i n the results section. GRAM STAIN Routine 05/10/2019 8:50 Results for this AM PER DIEM NURSE procedure are i n the results section. AEROBIC CULTURE Routine 05/10/2019 8:50 Results for this AM PER DIEM NURSE procedure are i n the results section. POC GLUCOSE Routine 05/10/2019 7:36 Results for this AM PER DIEM NURSE procedure are i n the results section. ESTIMATED GFR Routine 05/10/2019 5:55 Results fo r this AM PER DIEM NURSE procedure are i n the results section. BASIC METABOLIC PANEL Routine 05/10/2019 5:55 Re sults for this AM PER DIEM NURSE procedure are i n the results section. HC COMPLETE BLD COUNT Routine 05/10/2019 5:55 Re sults for this W/AUTO DIFF AM PER DIEM NURSE procedure are i n the results section. POC GLUCOSE Routine 05/09/2019 9:57 Results for this PM PER DIEM NURSE procedure are i n the results section. HEPATITIS B SURFACE Routine 05/09/2019 9:08 Resu lts for this ANTIGEN PM PER DIEM NURSE procedure are i n the results section. LACTIC ACID LEVEL, Timed 05/09/2019 9:08 Resul ts for this SEPSIS - NOW AND REPEAT PM PER DIEM NURSE proc edure are in 2X EVERY 3 HOURS the results section. POC GLUCOSE Routine 05/09/2019 7:39 Results for this PM PER DIEM NURSE procedure are i n the results section. LACTIC ACID LEVEL, Timed 05/09/2019 6:08 Resul ts for this SEPSIS - NOW AND REPEAT PM PER DIEM NURSE proc edure are in 2X EVERY 3 HOURS the results section. US CAROTID DUPLEX Routine 05/09/2019 5:44 Result s for this BILATERAL PM PER DIEM NURSE procedure are i n the results section. IONIZED CALCIUM STAT 05/09/2019 3:55 Results for this PM PER DIEM NURSE procedure are i n the results section. AMMONIA LEVEL STAT 05/09/2019 3:55 Results fo r this PM PER DIEM NURSE procedure are i n the results section. HEMOGLOBIN A1C STAT 05/09/2019 3:55 Results f or this PM PER DIEM NURSE procedure are i n the results section. LIPID PANEL STAT 05/09/2019 3:55 Results for this PM PER DIEM NURSE procedure are i n the results section. THYROID STIMULATING STAT 05/09/2019 3:55 Resu lts for this HORMONE PM PER DIEM NURSE procedure are i n the results section. VITAMIN B1 LEVEL, WHOLE STAT 05/09/2019 3:55 Results for this BLOOD PM PER DIEM NURSE procedure are i n the results section. VITAMIN B12 LEVEL Routine 05/09/2019 3:55 Result s for this PM PER DIEM NURSE procedure are i n the results section. CT HEAD WO CONTRAST STAT 05/09/2019 3:18 Resu lts for this PM PER DIEM NURSE procedure are i n the results section. ESTIMATED GFR STAT 05/09/2019 2:40 Results fo r this PM PER DIEM NURSE procedure are i n the results section. THYROID STIMULATING STAT 05/09/2019 2:40 Resu lts for this HORMONE PM PER DIEM NURSE procedure are i n the results section. B NATRIURETIC PEPTIDE STAT 05/09/2019 2:40 Re sults for this PM PER DIEM NURSE procedure are i n the results section. LACTIC ACID LEVEL, STAT 05/09/2019 2:40 Resul ts for this SEPSIS - NOW AND REPEAT PM PER DIEM NURSE proc edure are in 2X EVERY 3 HOURS the results section. TROPONIN STAT 05/09/2019 2:40 Results for this PM PER DIEM NURSE procedure are i n the results section. COMPREHENSIVE METABOLIC STAT 05/09/2019 2:40 Results for this PANEL PM PER DIEM NURSE procedure are i n the results section. HC COMPLETE BLD COUNT STAT 05/09/2019 2:40 Re sults for this W/AUTO DIFF PM PER DIEM NURSE procedure are i n the results section. URINE CULTURE STAT 05/09/2019 2:39 Results fo r this PM PER DIEM NURSE procedure are i n the results section. URINALYSIS SCREEN AND STAT 05/09/2019 2:21 Re sults for this MICROSCOPY, WITH REFLEX PM PER DIEM NURSE proc edure are in TO CULTURE the results section. ECG ED PRELIMINARY Routine 05/09/2019 2:07 Resul ts for this INTERPRETATION PM PER DIEM NURSE procedure are in the results section. ECG 12-LEAD STAT 05/09/2019 2:05 Results for this PM PER DIEM NURSE procedure are i n the results section. CT LUMBAR SPINE WO Routine 02/27/2019 4:32 Resul ts for this CONTRAST PM PER DIEM NURSE procedure are i n the results section. POC GLUCOSE Routine 02/27/2019 11:30 Results for this AM PER DIEM NURSE procedure are i n the results section. POC GLUCOSE Routine 02/27/2019 7:41 Results for this AM PER DIEM NURSE procedure are i n the results section. ESTIMATED GFR Routine 02/27/2019 3:30 Results fo r this AM PER DIEM NURSE procedure are i n the results section. IONIZED CALCIUM Routine 02/27/2019 3:30 Results for this AM PER DIEM NURSE procedure are i n the results section. PHOSPHORUS LEVEL Routine 02/27/2019 3:30 Results for this AM PER DIEM NURSE procedure are i n the results section. MAGNESIUM LEVEL Routine 02/27/2019 3:30 Results for this AM PER DIEM NURSE procedure are i n the results section. COMPREHENSIVE METABOLIC Routine 02/27/2019 3:30 Results for this PANEL AM PER DIEM NURSE procedure are i n the results section. HC COMPLETE BLD COUNT Routine 02/27/2019 3:30 Re sults for this W/AUTO DIFF AM PER DIEM NURSE procedure are i n the results section. POC GLUCOSE Routine 02/26/2019 10:17 Results for this PM PER DIEM NURSE procedure are i n the results section. MRI BRAIN WO CONTRAST Routine 02/26/2019 9:26 Re sults for this PM PER DIEM NURSE procedure are i n the results section. POC GLUCOSE Routine 02/26/2019 6:40 Results for this PM PER DIEM NURSE procedure are i n the results section. EEG AWAKE/DROWSY LESS Routine 02/26/2019 6:27 Re sults for this THAN 41 MIN PM PER DIEM NURSE procedure are i n the results section. THYROID STIMULATING Routine 02/26/2019 3:00 Resu lts for this HORMONE PM PER DIEM NURSE procedure are i n the results section. TOTAL IRON BINDING Routine 02/26/2019 3:00 Resul ts for this CAPACITY PM PER DIEM NURSE procedure are i n the results section. TOTAL IRON BINDING Routine 02/26/2019 3:00 Resul ts for this CAPACITY PM PER DIEM NURSE procedure are i n the results section. FERRITIN LEVEL Routine 02/26/2019 3:00 Results f or this PM PER DIEM NURSE procedure are i n the results section. FOLATE LEVEL Routine 02/26/2019 3:00 Results for this PM PER DIEM NURSE procedure are i n the results section. HEPATITIS B SURFACE AB, Routine 02/26/2019 3:00 Results for this QUANTITATIVE PM PER DIEM NURSE procedure are i n the results section. HEPATITIS B SURFACE Routine 02/26/2019 3:00 Resu lts for this ANTIBODY PM PER DIEM NURSE procedure are i n the results section. HEPATITIS B SURFACE Routine 02/26/2019 3:00 Resu lts for this ANTIGEN PM PER DIEM NURSE procedure are i n the results section. URIC ACID LEVEL Routine 02/26/2019 3:00 Results for this PM PER DIEM NURSE procedure are i n the results section. VITAMIN B1 LEVEL, WHOLE STAT 02/26/2019 3:00 Results for this BLOOD PM PER DIEM NURSE procedure are i n the results section. VITAMIN B12 LEVEL Routine 02/26/2019 3:00 Result s for this PM PER DIEM NURSE procedure are i n the results section. POC GLUCOSE Routine 02/26/2019 12:25 Results for this PM PER DIEM NURSE procedure are i n the results section. TTE COMPLETE, WO Routine 02/26/2019 11:30 Results for this CONTRAST, W DOPPLER AM PER DIEM NURSE procedur e are in ([id number]) the results section. ESTIMATED GFR STAT 02/26/2019 9:45 Results fo r this AM PER DIEM NURSE procedure are i n the results section. HEMOGLOBIN A1C Routine 02/26/2019 9:45 Results f or this AM PER DIEM NURSE procedure are i n the results section. LIPID PANEL Routine 02/26/2019 9:45 Results for this AM PER DIEM NURSE procedure are i n the results section. BASIC METABOLIC PANEL STAT 02/26/2019 9:45 Re sults for this AM PER DIEM NURSE procedure are i n the results section. POC GLUCOSE Routine 02/26/2019 8:50 Results for this AM PER DIEM NURSE procedure are i n the results section. ESTIMATED GFR STAT 02/26/2019 3:35 Results fo r this AM PER DIEM NURSE procedure are i n the results section. BASIC METABOLIC PANEL STAT 02/26/2019 3:35 Re sults for this AM PER DIEM NURSE procedure are i n the results section. POC GLUCOSE Routine 02/26/2019 2:53 Results for this AM PER DIEM NURSE procedure are i n the results section. CT HEAD WO CONTRAST STAT 02/26/2019 12:25 Resu lts for this AM PER DIEM NURSE procedure are i n the results section. XR CHEST 1 VW PORTABLE STAT 02/26/2019 12:03 R esults for this AM PER DIEM NURSE procedure are i n the results section. ESTIMATED GFR STAT 02/25/2019 11:41 Results fo r this PM PER DIEM NURSE procedure are i n the results section. MAGNESIUM LEVEL STAT 02/25/2019 11:41 Results for this PM PER DIEM NURSE procedure are i n the results section. PHOSPHORUS LEVEL STAT 02/25/2019 11:41 Results for this PM PER DIEM NURSE procedure are i n the results section. LIPASE LEVEL STAT 02/25/2019 11:41 Results for this PM PER DIEM NURSE procedure are i n the results section. COMPREHENSIVE METABOLIC STAT 02/25/2019 11:41 Results for this PANEL PM PER DIEM NURSE procedure are i n the results section. PARTIAL THROMBOPLASTIN STAT 02/25/2019 11:41 R esults for this TIME (PTT) PM PER DIEM NURSE procedure are i n the results section. PROTHROMBIN TIME WITH STAT 02/25/2019 11:41 Re sults for this INR PM PER DIEM NURSE procedure are i n the results section. HC COMPLETE BLD COUNT STAT 02/25/2019 11:41 Re sults for this W/AUTO DIFF PM PER DIEM NURSE procedure are i n the results section. ECG ED PRELIMINARY Routine 02/25/2019 11:23 Resul ts for this INTERPRETATION PM PER DIEM NURSE procedure are in the results section. TN CRITICAL CARE, E/M Routine 02/25/2019 11:23 Re sults for this 30-74 MINUTES PM PER DIEM NURSE procedure are in the results section. ECG 12-LEAD STAT 02/25/2019 10:42 Results for this PM PER DIEM NURSE procedure are i n the results section. SINGLE ANTIGEN BEADS Routine 02/14/2019 2:26 Res ults for this PM PER DIEM NURSE procedure are i n the results section. after 02/05/2019 Results Single antigen beads (10/24/2019 6:00 PM CDT)Only the most recent of3 results within the time period is included. SAB serum ID [id number] [facility] SAB serum collection 10/24/2019 06:00 [facility] SAB class I antibody B57,B58 [facility] SAB cPRA class I 11 [facility] SAB class II Negative [facility] SAB cPRA class II 0 [facility] Single antigen beads See link below [facility] for PDF Lab HOSPITAL Report Specimen Blood Performing Organization Address City/State/ZIP Code Phon e Number [facility] DEPARTMENT OF PATHOLOGY AND [address] [place], [place] [address] [facility] [address] [place] [address] [facility] POC glucose (07/31/2019 5:01 PM CDT)Only the most recent of64 resultswithin the time period is included. Pathologist [facility] POC glucose 205 (H) 65 - 99 mg/dL [facility] Comment: [facility] Cruise Guide Name: Jeaneth Perkins Device ID: [id number] Chartable: RN Notified Specimen Blood Performing Organization Address City/[facility] Phon e Number [facility] DEPARTMENT OF PATHOLOGY [id number] [place] [address] Estimated GFR (07/30/2019 4:30 AM CDT)Only the most recent of16 resultswithin the time period is included. [facility] Estimated GFR 4 (A) mL/min/1.73 [facility] Comment: m2 MINDEN Catergory Units Interpretation HOS PITAL G1 >=90 [...] published in 2014. Specimen Performing Organization Address City/[facility]/ZIP [facility] [place] [place] Phon e Number [facility] DEPARTMENT OF PATHOLOGY [id number] [place] [address] CBC with platelet and differential (07/30/2019 4:30 AM CDT)Only the most recent of12 resultswithin the time period is included. [facility] WBC 13.3 (H) 4.5 - 11.0 k/uL [facility] RBC 3.31 (L) 4.20 - 5.50 [facility] m/uL [facility] HGB 10.2 (L) 12.0 - 16.0 [facility] g/dL [facility] HCT 33.2 (L) 37.0 - 47.0 % [facility] MCV 100.3 (H) 82.0 - 100.0 fL [facility] MCH 30.8 27.0 - 34.0 pg [facility] MCHC 30.7 (L) 31.0 - 37.0 [facility] g/dL [facility] RDW - SD 53.6 37.0 [...] Organization Address City/State/ZIP Code Phon e Number [facility] DEPARTMENT OF PATHOLOGY [address] [facility] [place] [address] AND GENOMIC MEDICINE [facility] [address] [facility] [place] [address] [facility] Comprehensive metabolic panel (07/30/2019 4:30 AM [...] HOSPITAL Creatinine 8.82 (H) 0.50 - 0.90 [facility] mg/dL [facility] Glucose 282 (H) 65 - 99 mg/dL [facility] Calcium 10.1 8.8 - 10.2 [facility] mg/dL [facility] Protein 5.2 (L) 6.3 - [...] [facility] Specimen Blood Performing Organization Address City/[facility] Phon e Number [facility] DEPARTMENT OF PATHOLOGY [id number] [place] [address] Smear review (07/29/2019 7:45 AM CDT)Only the most recent of2 resultswithin the time period is included. Pathologist Sig nature Platelet slide review Sanjeev adequate [facility] Anisocytosis Moderate [facility] Enlarged platelets Moderate (A) [facility] Giant platelets Occasional [facility] Specimen Performing Organization Address [facility] Phon e Number [facility] DEPARTMENT OF PATHOLOGY [address] [place] [address] Head Wo Contrast (07/28/2019 2:00 [...] No CT evidence of acute intracranial abnormality. [id number] Procedure Note Hm Interface, Radiology Results Incoming [...] No CT evidence of acute intracranial abnormality. [facility]-[id number] Performing Organization Address [facility]/ZIP Code Phon e Number [facility] [address] [place] [address] Arterial blood gas (07/28/2019 1:27 PM CDT) Pathologist Sig nature pH, arterial 7.35 7.35 - 7.45 [facility] pCO2, arterial 49 (H) 35 - 45 mmHg [facility] pO2, arterial 76 (L) 80 - 90 mmHg [facility] Bicarbonate, 26.6 21.0 - 28.0 [facility] arterial mmol/L [facility] Base excess, 1 -2 - 2 mEq/L [facility] O2 saturation, 94 (L) 95 - 100 % [facility] arterial [facility] Specimen Blood Performing Organization Address City/State/ZIP Code Phon e Number [facility] DEPARTMENT OF PATHOLOGY [address] [facility] [place] [address] [address] [facility] [id number] [place] [address] X [address] HOSPITAL Ammonia level (07/28/2019 1:12 PM CDT)Only the most recent of3 resultswithin the time period is included. Pathologist Sig nature Ammonia 31 11 - 51 umol/L [facility] Specimen Blood Performing Organization Address [facility]/ZIP Code Phon e Number [facility] DEPARTMENT OF PATHOLOGY [address] [facility] [place] [facility] [address] AND [facility] MEDICINE [facility] [id number] [place] [id number] [place] [address] XR Foot 3+ Vw Left (07/26/2019 2:44 [...] N o acute fracture or dislocation identified. [facility]-[id number] Procedure Note Interface, Radiology Results Incoming - [...] ankle. No acute fracture or dislocation identified. [facility]-[id number] Performing Organization Address City/[facility] Code Phon e Number [facility] [address] [place] [address] Basic metabolic panel (07/26/2019 5:30 AM CDT)Only [...] [facility] Specimen Blood Performing Organization Address [facility]/ZIP Code Phon e Number [facility] DEPARTMENT OF PATHOLOGY [address] [facility] [place] [address] AND GENOMIC MEDICINE [facility] [address] [facility] [address] HOSPITAL XR Knee 1 Or 2 Vw [...] changes. Small knee joint effusion. 4.Vascular calcifications. [id number] Procedure Note Hm Interface, Radiology Results Incoming [...] changes. Small knee joint effusion. 4.Vascular calcifications. [id number] Performing Organization Address City/State/ZIP Code Phon e Number [facility] [address] [place] [address] XR Tibia Fibula 2 Vw Left (07/25/2019 [...] Small knee joint effusion. 4.Vascular calcifications. [id number] Procedure Note Interface, Radiology Results Incoming - [...] changes. Small knee joint effusion. 4.Vascular calcifications. [facility]-[id number] Performing Organization Address City/State/ZIP Code Phon e Number [facility] [address] [place] [address] Us duplex venous lower extremity (07/25/2019 3:17 [...] is no evidence of deep venous thrombosis. [facility]-[id number] Procedure Note Interface, Radiology Results Incoming - [...] is no evidence of deep venous thrombosis. [facility]-[id number] Performing Organization Address City/[facility] e Number HM RADIANT [address] [place] [address] Urine culture (07/24/2019 4:36 PM CDT)Only the most recent of3 resultswithin the time period is included. Urine culture Enterococcus faecalis [place] isolate >10-5 cfu/ml HOSPITAL The performance characteristics of this assay on this isolate were validated by the Microbiology Laboratory at [facility]. This source has not been approve d [...] LADI mcg/mL: R esistant Performing Organization Address City/[facility]/ZIP [facility] [place] [place] Phon e Number [facility] DEPARTMENT OF PATHOLOGY AND [address] [place], [place] [address] GENOMIC MEDICINE [facility] [address] [place] [address] Urinalysis screen and microscopy, with reflex to culture (07/24/2019 3:55 PM CDT)Only the most recent of3 resultswithin the time period is included. Specimen site Catheterized [facility] Color, UA Yellow [facility] Appearance, UA Turbid [facility] Specific gravity, 1.010 1.001 - 1.030 [facility] pH, UA 5.0 5.0 - 9.0 [...] [facility] Leukocyte esterase, Moderate (A) Negative [facility] WBC, UA >200 (H) 0 - 4 /HPF [facility] RBC, UA 40 (H) 0 - 5 /HPF [facility] Bacteria, UA Moderate (A) None seen [facility] WBC clumps, UA Moderate (A) [facility] Yeast, UA None seen [facility] Yeast with None seen [facility] pseudohyphae, UA [facility] Specimen Urine Performing Organization Address City/[facility] Phon e Number [facility] DEPARTMENT OF PATHOLOGY [address] [facility] [address] AND GENOMIC MEDICINE [facility] [address] [facility] [place] [address] [facility] MRI Brain Wo Contrast (07/24/2019 11:53 [...] identified. No silva e from prior exams. [facility]-[id number] Procedure Note Interface, Radiology Results Incoming - [...] identi fied. No change from prior exams. [facility]-[id number] Performing Organization Address City/State/ZIP Code Phon e Number RAD[facility]ANT [address] [place] [address] Phosphorus level (07/23/2019 9:29 AM CDT)Only the most recent of5 resultswithin the time period is included. Pathologist Sig nature Phosphorus 6.2 (H) 2.4 - 4.5 mg/dL [facility] Specimen Blood Performing Organization Address City/State/ZIP Code Phon e Number [facility] DEPARTMENT OF PATHOLOGY [address] [facility] [address] AND GENOMIC MEDICINE [place] [address] [facility] [place] [address] [facility] [address] Abdomen Pelvis Wo Contrast (07/23/2019 [...] duct dilation. Many other findings as above. [id number] Procedure Note Hm Interface, Radiology Results Incoming [...] duct dilation. Many other findings as above. [facility]-[id number] Performing Organization Address City/State/ZIP Code Phon e Number [facility] [address] [place] [address] EEG (routine) (07/22/2019 5:25 PM CDT) Narrative [...] Correlation: 1. There was evidence of a eepwhmsk-wt-xksdwc encephal opathy, part of which is metabolic [...] and Tissue-Based Products (HCT/P) . Performed by [facility], [address] [place] [id number] [email or web address], Mario Ambrocio MD, Lab. Director Specimen Serum Performing Organization Address City/State/ZIP Code Phon e Number [facility] [address] [place] [address] [facility] REF LAB [address] [place] [address] Hepatitis B surface antigen (07/22/2019 1:10 PM CDT)Only the most recent of3 resultswithin the time period is included. Pathologist Sig nature Hepatitis B surface Non-reactive Non-reactive [facility] Specimen Blood Performing Organization Address City/[facility] Phon e Number [facility] DEPARTMENT OF PATHOLOGY [address] [facility] [address] [address] [facility] [id number] [place] [address] [facility] Blood culture, aerobic & anaerobic (07/22/2019 1:10 PM CDT)Only the most recent of2 resultswithin the time period is included. Blood culture No growth after 5 days of incubation. [place] isolate Comment: HOSPITAL Specimen Information Specimen Source: Blood Specimen Site: Hand Right Specimen Blood - Wrist, right Performing Organization Address [facility] Phon e Number [facility] DEPARTMENT OF PATHOLOGY AND [address] [place], [place] [address] [address] Venous blood gas (07/22/2019 1:10 PM CDT) [...] saturation, 80 (H) 40 - 70 % [facility] Bicarbonate, venous 19.3 (L) 21.0 - 28.0 [facility] mmol/L [facility] Specimen Blood Performing Organization Address [facility] Phon e Number [facility] DEPARTMENT OF PATHOLOGY [address] [facility] [place] [address] AND [facility] [id number] [place] [address] HOSPITAL XR Chest 1 Vw Portable (07/22/2019 [...] findings for COVID-19. [id number] Performing Organization Address City/[facility] Phon e Number [facility] [address] [place] [address] COVID-19 qualitative PCR (07/22/2019 12:45 AM CDT) Interpretation Negative results do not prec lude 2019-nCoV infection and should not be used as the sole basis for treatment or other patient management decisions. Negative results must be combined with clinical observations, patient history, and epidemiological [place] information. [facility] [place] COVID-19 qualitative Not-Detected Not-Detecte [place] PCR result d [facility] [place] COVID-19 qualitative See link below for [place] PCR PDF Lab CATHOLIC ReportComment: Case HOSPITAL Number: [id number] Specimen Performing Organization Address City/[facility] Phon e Number [facility] DEPARTMENT OF PATHOLOGY AND [address] [place], [place] [address] GENOMIC MEDIC[address] [address] [facility] XR Sacrum And Coccyx (05/10/2019 3:27 PM PER DIEM NURSE) Specimen Narrative Performed At EXAMINATION: XR SACRUM [...] Facet arthropathy of the lower lumbar spine. [id number] Procedure Note Interface, Radiology Results Incoming - 05/10/2019 4:05 PM PER DIEM NURSE EXAMINATION: XR SACRUM AND COCCYX CLINICAL HISTORY: [...] Facet arthropathy of the lower lumbar spine. [id number] Performing Organization Address [facility] Phon e Number [facility] [address] [place] [address] XR Lumbar Spine 2 Or 3 Vw (05/10/2019 3:27 PM PER DIEM NURSE) Specimen Narrative Performed At EXAMINATION: XR LUMBAR [...] aort a. Drain present in the pelvis. [id number] Procedure Note Hm Interface, Radiology Results Incoming - 05/10/2019 4:19 PM PER DIEM NURSE EXAMINATION: XR LUMBAR SPINE 2 OR 3 [...] aort a. Drain present in the pelvis. [id number] Performing Organization Address [facility] Code Phon e Number [facility] [address] [place] [address] MRI Cervical Spine Wo Contrast (05/10/2019 3:14 PM PER DIEM NURSE) Specimen Narrative Performed At EXAMINATION: MRI CERVICAL [...] osseous abnormality or significant steno sis identified. [id number] Procedure Note Hm Interface, Radiology Results Incoming - 05/10/2019 3:40 PM PER DIEM NURSE EXAMINATION: MRI CERVICAL SPINE WO CONTRAST CLINICAL [...] acute osseous abnormality or significant stenosis identified. [id number] Performing Organization Address City/State/ZIP Code Phon e Number [facility] [address] [place] [address] Aerobic culture (05/10/2019 8:50 AM PER DIEM NURSE) Aerobic culture No growth after 3 days. [facility] isolate Comment: HOSPITAL Specimen Information Specimen Source: Peritoneal fluid Specimen Site: Peritoneal fluid Specimen Peritoneal fluid - Peritoneal fluid Performing Organization Address City/State/ZIP Code Phon e Number [facility] DEPARTMENT OF PATHOLOGY AND [address] [facility] [place], [place] [address] [address] Gram stain (05/10/2019 8:50 AM PER DIEM NURSE) Gram stain isolate Rare WBC's [facility] No organisms seen HOSPITAL Comment: Specimen Information Specimen Source: Peritoneal fluid Specimen Site: Peritoneal fluid Specimen Peritoneal fluid - Peritoneal fluid Performing Organization Address City/[facility] Phon e Number [facility] DEPARTMENT OF PATHOLOGY AND [address] [place] [address] [address] [address] Anaerobic culture (05/10/2019 8:50 AM PER DIEM NURSE) Anaerobic culture No anaerobic organisms isolated. [place] isolate Comment: HOSPITAL Specimen Information Specimen Source: Peritoneal fluid Specimen Site: Peritoneal fluid Specimen Peritoneal fluid - Peritoneal fluid Performing Organization Address [facility] Phon e Number [facility] DEPARTMENT OF PATHOLOGY AND [address] [place] [address] [address] [address] Cell count and differential, body fluid (05/10/2019 8:50 AM PER DIEM NURSE) Misc fluid type PD fluid [facility] Color, fluid Colorless [facility] Appearance, fluid Clear [facility] RBC, fluid SEE /CMM [facility] COMMENTComment: 1+ MINDEN (0 - 500 RBC/CMM) [facility] Nucleated cells, 37 /CMM [facility] Fluid mononuclear Diff to follow [facility] Neutrophils, fluid 51 % [facility] Lymphocytes, fluid 35 % [facility] Eosinophils, fluid 2 % [facility] Macrophages, fluid 12 % [facility] Specimen Fluid Performing Organization Address [facility] Phon e Number [facility] DEPARTMENT OF PATHOLOGY [address] [facility] [address] AND [facility] [address] [facility] [place] [address] HOSPITAL Lactic acid level, SEPSIS - Now and repeat 2x every 3 hours (05/09/2019 9:08 PM PER DIEM NURSE)Only the most recent of3 resultswithin the time period is included. Pathologist Sig yasmany Lactic acid 1.4 0.5 - 2.2 mmol/L [facility] Specimen Plasma specimen Performing Organization Address City/State/ZIP Code Phon e Number [facility] DEPARTMENT OF PATHOLOGY [address] [facility] [address] AND GENOMIC MEDICINE [facility] [address] [facility] [address] [facility] Us carotid duplex (05/09/2019 5:44 PM PER DIEM NURSE) Specimen Narrative Performed At Examination: US CAROTID [...] than 50%) extr acranial carotid arterial stenosis. [facility]-[id number] Procedure Note Hm Interface, Radiology Results Incoming - 05/09/2019 6:10 PM PER DIEM NURSE Examination: US CAROTID DUPLEX BILATERAL CLINICAL HISTORY: [...] (greater than 50%) extracranial carotid arterial stenosis. [facility]-[id number] Performing Organization Address City/[facility]/ZIP Code Phon e Number RAD[facility]ANT [address] [place] [address] Vitamin B1 level, whole blood (05/09/2019 3:55 PM PER DIEM NURSE)Only the most recent of2 resultswithin the time period is included. [facility] Vitamin B1 232 (H) 70 - 180 HM [facility] REF LAB Comment: nmol/L INTERPRETIVE INFORMATION: Vitamin B1, Whole Blood This assay measures the concentration of thiamine diph osphate (TDP), the primary active form of vitamin B1. Approxim ately 90 percent of vitamin B1 present in whole blood is TDP. T hiamine and thiamine monophosphate, which comprise the remaining 1 0 percent, are not measured. Test developed and characteristics determined by [facility]. See Compliance Statement B: [employer]/ CS Performed by [employer], [address] [place] [address] www.[email or web address], Mario Ambrocio MD, Lab. Director Specimen Plasma specimen Performing Organization Address City/State/ZIP Code Phon e Number [facility] [address] [place] [address] [facility] [address] [place] [address] Thyroid stimulating hormone (05/09/2019 3:55 PM PER DIEM NURSE)Only the most recent of3 resultswithin the time period is included. Pathologist Sig nature TSH 2.03 0.27 - 4.20 uIU/mL [facility] Specimen Blood Performing Organization Address City/[facility] Phon e Number [facility] DEPARTMENT OF PATHOLOGY [id number] [place] [address]. [facility] [place] [address] AND [facility] [id number] [place] [address] [facility] Hemoglobin A1c (05/09/2019 3:55 PM PER DIEM NURSE)Only the most recent of2 resultswithin the time period is included. Hemoglobin A1C 7.0 (H) 4.0 - 5.6 % [facility] Comment: [place] HbA1c cutoffs for diagnosing diabetes: HO SPITAL [...] 1 diabetes. Specimen Blood Performing Organization Address [facility] Phon e Number [facility] DEPARTMENT OF PATHOLOGY [id number] [place] [address] [address] [facility] [address] HOSPITAL Vitamin B12 level (05/09/2019 3:55 PM PER DIEM NURSE)Only the most recent of2 results within the time period is included. Vitamin B12 807 211 - 946 [facility] Comment: pg/mL HOSPITAL Significant overlap exists between normal and deficien cy states. However, most patients with deficiencies will have Ser um B12 <200 pg/mL. Specimen Serum Performing Organization Address City/[facility]/ZIP [facility] [place] [place] Phon e Number [facility] DEPARTMENT OF PATHOLOGY AND [address] [place], [place] [address] [facility] [address] [place] [address] Ionized calcium (05/09/2019 3:55 PM PER DIEM NURSE)Only the most recent of2 resultswithin the time period is included. Pathologist Sig nature pH 7.29 [facility] Ionized calcium 1.14 1.11 - 1.32 mmol/L [facility] Specimen Blood Performing Organization Address [facility] Phon e Number [facility] DEPARTMENT OF PATHOLOGY [id number] [place] [address] AND GENOMIC MEDICINE [address] [place] [address] HOSPITAL Lipid panel (05/09/2019 3:55 PM PER DIEM NURSE)Only the most recent of2 resultswithin the time period is included. Cholesterol 79 0 - 199 [place] mg/dL [facility] Triglycerides 139 0 - 149 [place] mg/dL [facility] HDL cholesterol 22 (L) 40 - 99,999 [place] mg/dL [facility] LDL cholesterol 32 0 - 99 mg/dL [facility] Lipid panel See below [place] interpretation Comment: [facility] Total Cholesterol (mg/dL) [facility] <200 Desirable 200-239 Borderline-high >=240 [...] (>=200 mg/dL) Specimen Blood Performing Organization Address City/[facility] Phon e Number [facility] DEPARTMENT OF PATHOLOGY [id number] [place] [address] AND [facility] MEDICINE [address] [place] [address] [facility] Troponin (05/09/2019 2:40 PM PER DIEM NURSE) Pathologist Adia Troponin 0.011 0.000 - 0.040 [place] Comment: ng/mL [facility] In patients suspected of having [...] ng/mL Specimen Plasma specimen Performing Organization Address City/[facility] Code Phon e Number [facility] DEPARTMENT OF PATHOLOGY [id number] [place] [address] AND GENOMIC MEDICINE [facility] [phone] [place] [address] [facility] B natriuretic peptide (05/09/2019 2:40 PM PER DIEM NURSE) Pathologist Max jade BNP 75 0 - 100 pg/mL [facility] Specimen Blood Performing Organization Address City/[facility]/ZIP Code Phon e Number [facility] DEPARTMENT OF PATHOLOGY [address] [facility] [place] [address] AND GENOMIC MEDICINE [facility] [id number] [place] [address] [facility] ECG ED Preliminary Interpretation - Not an Order (05/09/2019 2:07 PM PER DIEM NURSE)Only the most recent of2 resultswithin the time period is included. Narrative Performed At Malik Marino MD 05/10/2019 1 2:43 PM ECG ED Preliminary Interpretation - Not an Order Performed by: Malik Marino MD Authorized by: Malik Marino MD ECG 12 lead (05/09/2019 2:05 PM PER DIEM NURSE)Only the most recent of2 resultswithin the time period is included. Pathologist Sig nature Ventricular rate 87 [facility]USE Atrial rate 87 [facility] TN interval 132 [facility] QRSD interval 84 [...] ECG of 25-FEB-2019 22:42,-ST now depressed in [facility] MUSE Inferior leads-ST elevation now present in Lateral leads-Nonspecific T wave abn ormality now evident in Lateral leads- Specimen Narrative Performed At This result has an attachment that is no t available. Performing Organization Address City/State/ZIP Code Phon e Number [facility] MUSE [address] [place] [address] CT Lumbar Spine Wo Contrast (02/27/2019 4:32 PM PER DIEM NURSE) Specimen Narrative Performed At EXAMINATION: CT LUMBAR [...] recommended. No acute lumbar spine bony abnormality. [facility]-[id number] Procedure Note Interface, Radiology Results Incoming - 02/27/2019 5:54 PM PER DIEM NURSE EXAMINATION: CT LUMBAR SPINE WO CONTRAST CLINICAL [...] narrowing. L4-L5 level: There is a spondylotic coal mine inspector kristina care disc space narrowing with endplate [...] recommended. No acute lumbar spine bony abnormality. [facility]-[id number] Performing Organization Address City/[facility]/ZIP Code Phon e Number [facility] [address] [place] [address] Magnesium level (02/27/2019 3:30 AM PER DIEM NURSE)Only the most recent of2 resultswithin the time period is included. Pathologist [facility] nature Magnesium 2.3 1.6 - 2.4 mg/dL [facility] SUGAR L AND [facility] Specimen Plasma specimen Performing Organization Address City/[facility]/ZIP Code Phon e Number [facility] DEPARTMENT OF PATHOLOGY [id number] [place] [address]. [place] [address] AND GENOMIC MEDICINE [facility] [employer] [place] [address] [facility] [place] [address] HOSPITAL EEG (routine) (02/26/2019 6:27 PM PER DIEM NURSE) Narrative Performed At This result has an [...] Total iron binding capacity (02/26/2019 3:00 PM PER DIEM NURSE)Only the most recent of2 resultswithin the time period is included. Pathologist [facility] Iron level 27 (L) 37 - 145 ug/dL [facility] Iron binding capacity 203 (L) 260 - 460 ug/dL [facility] % Saturation 13.3 (L) 15.0 - 38.0 % [facility] Specimen Serum Performing Organization Address [facility] Phon e Number [facility] DEPARTMENT OF PATHOLOGY [address] [place] [address] Hepatitis B surface antibody (02/26/2019 3:00 PM PER DIEM NURSE) Pathologist [facility] Hepatitis B surface Reactive (A) Non-reactive [facility] Specimen Blood Performing Organization Address [facility] Phon e Number [facility] DEPARTMENT OF PATHOLOGY AND [address] [place], [place] [address] [address] Uric acid level (02/26/2019 3:00 PM PER DIEM NURSE) Pathologist [facility] Uric acid 7.0 (H) 2.4 - 5.7 mg/dL [facility] Specimen Plasma specimen Performing Organization Address [facility] Phon e Number [facility] DEPARTMENT OF PATHOLOGY [address] [place] [address] [address] [place] [phone] [facility] Folate level (02/26/2019 3:00 PM PER DIEM NURSE) Pathologist [facility] Folate >20.0 4.8 - 24.2 ng/mL [facility] Specimen Serum Performing Organization Address City/[facility]/ZIP Code Phon e Number [facility] DEPARTMENT OF PATHOLOGY AND [address] [place] [address] [place] [id number] [place] [address] Ferritin level (02/26/2019 3:00 PM PER DIEM NURSE) Pathologist Sig [facility] Ferritin level 738 (H) 13 - 150 ng/mL [facility] Specimen Plasma specimen Performing Organization Address City/[facility] Code Phon e Number [facility] DEPARTMENT OF PATHOLOGY AND [address] [place] [address] [facility] [address] [place] [address] Echocardiogram complete w contrast and 3D if needed (02/26/2019 11:30 AM PER DIEM NURSE) Pathologist Sig [facility] AoV Area, Vmax 2.95 cm2 [facility] AoV Area, VTI 3.30 cm2 [facility] AoV Mean PG 4.00 mmHg [facility] AoV Peak PG 5.86 mmHg HM [facility] AoV Vmax 1.21 m/s HM [facility] AoV VTI 0.27 m [facility] IVS,d 0.94 cm HM [facility] IVS/LVPW,2D 1.15 HM [facility] Left Atrium Dimension Anterior 3.70 cm HM [facility] LV,d 4.35 cm HM [facility] LV EF,2D 62.39 % [facility] LV,s 3.14 cm HM [facility] LVOT area 3.80 cm2 HM [facility] LVOT Diam,S 2.20 cm HM [facility] LVOT Vmax 0.94 m/s HM [facility] LVOT VTI 0.24 m HM [facility] LVPWD,d 0.82 cm [facility] TR Vpeak 2.51 mm/s [facility] MV E A ratio 0.63 [facility] TR pk grad 25.20 mmHg SYNGO [...] City/State/ZIP Code Phon e Number [facility] [address] [place] [address], Partial thromboplastin time, activated (02/25/2019 11:41 PM PER DIEM NURSE) PTT 36.8 (H) 23.0 - 36.0 [place] Comment: sec MINDEN PTT therapeutic range for unfractionated heparin is HOSPITAL 61.0-112.0 seconds which corresponds to Anti-Xa 0.3-0.7 U/ml. Specimen Blood Performing Organization Address City/State/ZIP Code Phon e Number [facility] DEPARTMENT OF PATHOLOGY [address] [facility]. [place], [place] X [address] AND GENOMIC MEDICINE [place] [facility] [address] [facility] [place] [address] HOSPITAL Prothrombin time with INR (02/25/2019 11:41 PM PER DIEM NURSE) Prothrombin time 13.7 11.5 - 14.5 [facility] INR 1.1 [place] Comment: MIROSLAVA MATTHEWS [facility] International Normalized Ratio (INR) is a [facility] monitoring tool for patients who are stable on oral anticoagulant therapy. An INR of 2.0-3.0 is suggested for deep vein thrombosis/pulmonary embolism. Specimen Blood Performing Organization Address [facility] Phon e Number [facility] DEPARTMENT OF PATHOLOGY [address] [place] [address] Lipase level (02/25/2019 11:41 PM PER DIEM NURSE) Pathologist Sig nature Lipase 27 13 - 60 U/L [facility] Specimen Plasma specimen Performing Organization Address 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
--- OUTSIDE RECORDS SUMMARY | 2020-02-06 13:43 | XMS REPORT | Continuity of Care Document ---
:1950 Author Organization [facility] Care Team Providers Name Role Phone [facility] Unavailable Un available Problems Problem Status Onset [...] TID, # 180 cap, 2 Refill(s), Pharmacy: [facility] #[id number], 160.02, cm, 10/17/19 14:23:00 CDT, Height, 76.818, kg, 10/17/19 14:23:00 CDT, Weight pregabalin 50 MG 50 mg = 1 Active Misch er Oral Capsule cap, PO, 020 Neuro [Lyrica] Bedtime, # 30 cap, 3 Refill(s), Pharmacy: [facility] #[id number], 160.02, cm, 10/17/19 14:23:00 CDT, Height, 76.818, kg, 10/17/19 14:23:00 CDT, Weight baclofen 10 mg 10 mg = 1 Active [facility] oral tablet tab, PO, 020 Neuro Bedtime, # 30 tab, 3 Refill(s), [facility]acy: [facility] #[id number] baclofen 10 mg 10 mg = 1 No Longer Misch er oral tablet tab, PO, Active 020 Neuro Bedtime, # 30 tab, 3 Refill(s) gabapentin 100 200 mg = 2 Active Mische r MG Oral Capsule cap, PO, 020 Neuro TID, # 180 cap, 2 Refill(s), Pharmacy: [facility] #[id number] bumetanide 2 mg 2 mg = 1 [...] Bedtime, # 30 tab, 3 Refill(s), Pharmacy: [facility][id number] thiamine 100 mg 100 mg = 1 [...] Comments Source Systolic (mm Hg) 98 10/17/2019 [facility] Torin ro Diastolic (mm Hg) 59 10/17/2019 [facility] Ne uro Heart Rate 76 10/17/2019 [facility] Respitory Rate 16 10/17/2019 [facility] Neuro Height 160.02 cm 10/17/2019 [facility] Neuro Weight 76.818 10/17/2019 [facility] Neuro BMI Calculated 30 10/17/[facility] Systolic (mm Hg) 93 06/19/2019 [facility] [facility] Diastolic (mm Hg) 52 06/19/2019 [facility] Ne uro Heart Rate 99 06/19/2019 [facility] Neuro Respitory Rate 16 06/19/2019 [facility] Neuro Height 160.02 cm 06/19/2019 [facility] Weight 82.727 06/19/2019 [facility] Neuro BMI Calculated 32.31 06/19/2019 [facility] Neuro Systolic (mm Hg) 106 05/02/2019 [facility] Torin ro Diastolic (mm Hg) 48 05/02/2019 [facility] Ne uro Heart Rate 73 05/02/2019 [facility] Neuro Respitory Rate 16 05/02/2019 [facility] Neuro Height 160.02 cm 05/02/2019 [facility] Neuro Weight 85.455 05/02/2019 [facility] Neuro BMI Calculated 33.37 05/02/2019 [facility] Neuro Encounters Location Location Encounter Encounter Reason Attending ADM NC Stat us Source Details Type Number For Provider Date Date Visit MNA Outpatient [id number] Melo 05/02 05/03 [facility] Neurology [place] /2019 [facility] [place] MNA Outside [id number] 06/06 [facility] Neurology Medical /2019 [facility] [place] Records Outpatient [id number] Melo 06/18 Active [facility] [place] /2020 [place] [facility] Outpatient [id number] Melo 06/18 06/19 [facility] Neurology [place] /2019 [facility] [place] Outpatient [id number] Melo 07/16 Active [facility] [place] /2020 [place] M[facility] Outpatient [id number] Melo 07/16 07/17 [facility] Neurology [place] /2019 [facility] [place] Outpatient [id number] Melo 10/16 Active [facility] /2020 [place] Outpatient [id number] Melo 10/16 Active [facility] /2020 [place] M[facility] Ambulatory [id number] Melo 10/16 10/16 [facility] Neurology Pre-Reg [place] /2019 [facility] [place] MNA Outpatient [id number] Melo 10/16 10/17 [facility] Neurology [place] /2019 [facility] [place] Outpatient [id number] Melo 12/02 Active [facility]NA Outpatient [id number] Melo 12/02 12/03 [facility] [place] Outpatient [id number] Melo 03/03 Active [facility] [place] Procedures No Data Provided for This Section [...]
--- OUTSIDE RECORDS SUMMARY | 2020-02-06 13:43 | XMS REPORT | Clinical Summary ---
:1950 Author Organization [facility] Address [address] [place] [address] Care Team Providers Name Role Phone Pcp, No Primary Care Provider Unavailable Allergies Not on File Medications Not on file Active Problems Not on file Social History Tobacco Use Types Packs/Day Years Used Date Never Assessed Sex Assigned at Date Recorded Not on file Last Filed Vital Signs Not on file Plan of Treatment Not on file Results Not on fileafter 02/05/2019 Insurance Payer Benefit Plan / Subscriber ID Effective Phone Address T ype Group Dates MEDICARE MEDICARE A B [id number] 2014-Pre[place] Medicare nt BLUE BCBS INDEMNITY [id number] 2014-Pre[place] [phone] [address] CR[place] [id number] [place] [address]
--- OUTSIDE RECORDS SUMMARY | 2020-02-06 13:46 | XMS REPORT | Continuity of Care Document ---
:1950 Author Organization [facility] t Address [address] [place] [address] 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 [place] encephalop encephalop 00:00: st athy athy 00 ESRD on ESRD on Disease Active [place] peritoneal peritoneal 4-16 Me thodi dialysis dialysis 00:00: st 00 Chronic Chronic Disease Active [place] hypotensio hypotensio 4-16 Me thodi n n 00:00: st 00 Acute Acute Disease Active [place] cystitis cystitis 4-16 Method i without without 00:00: st hematuria hematuria 00 Fever Fever Disease Active [place] 4-13 Methodi 00:00: st 00 Left-sided Left-sided Disease Active 2018-04 [place] weakness weakness 1-19 Method i 00:00: st 00 Dyslipidem Dyslipidem Disease Active [place] ia ia 7 Methodi 00:00: st 00 Hospital Hospital Disease Active 2017- [place] on discharge discharge 7- Meth an[place] follow-up follow-up 00:00: st 00 S/P S/P Disease Active [place] coronary coronary 7-25 Method i angioplast angioplast [...] 2019-12-06 Memor ia (finding) 00:48:35 l Ataxia James (finding) Active Problem 12/06/2019 [facility] Diabetes [...] 2019-12-06 M emoria ve 00:48:35 l disorder, [place] systemic Hypertensi arterial ve (disorder) disorder, systemic [...] Active 2019-12-06 M emoria (disorder) 00:48:35 l [place] Neuropathy (disorder) Active Problem 12/06/2019 [facility] [...] Date Stop Date Source Natural father Cancer [facility] thodist Natural father Hypertension [place] Nondenominational Natural mother Cancer [facility] thodist Social History Social Habit Start Date Stop Date Quantity Comments Source Sex Assigned At [facility] ethodist Tobacco use and 2019-05-09 2019-05-09 Never used [facility] ethodist exposure 00:00:00 00:00:00 Alcohol intake 2019-05-09 2019-05-09 Current [place] Me thodist 00:00:00 00:00:00 non-drinker of alcohol [...] Herm chioma 00 cap, 2 Refill(s), Pharmacy: [facility] #[id number], 160.02, cm, 10/17/19 14:23:00 CDT, Height, 76.818, [...] [Lyrica] 00 30 cap, 3 Refill(s), Pharmacy: [facility] STORE #[id number], 160.02, cm, 10/17/19 14:23:00 CDT, Height, 76.818, [...] st 38 evening. insulin 2020-0 Yes 10U Q.[id number] Inject [place] ASPART 4-22 [id number] 10-16 Method i (NovoLOG) 18:07: 3D Units [...] daily. mg tablet bethanechol 2020-0 Yes 5mg Q.[id number] Take 5 mg [place] (URECHOLINE 4-22 [id number] by mouth 3 Methodi ) 5 MG 18:07: 3D (three) st tablet 38 times a day. gabapentin 2020-0 Yes 200mg Q.[id number] Take 200 [place] (NEURONTIN) 4-22 [id number] mg by M ethodi 100 mg 18:07: 3D mouth 3 st capsule 38 (three) times a day. sevelamer 2020-0 Yes 800mg Q.[id number] Take 800 [place] (RENVELA) 4-22 [id number] mg by Met hodi 800 mg 18:07: [...] Methodi 18:07: st 38 ergocalcife 2020-0 Yes [id number] Q7D Take [place] 4-22 50,000 Methodi (VITAMIN 18:07: Units by st D2) 50,000 38 mouth once unit a week. capsule cholecalcif 2020-0 Yes [id number] Q30D Take [place] pamela, 4-22 50,000 [...] nn 00 30 tab, 3 Refill(s), [id number] baclofen 10 2020-0 No 10 mg = 1 M emoria mg oral 4-08 tab, PO, l tablet 20:52: Bedtime, # Sarah nn 00 30 tab, 3 Refill(s) gabapentin 2020-0 Yes 200 mg = 2 M emoria 100 MG Oral 3-11 cap, PO, l Capsule 23:13: TID, # 180 Herm chioma 00 cap, 2 Refill(s), Pharmacy: [facility] #[id number] bumetanide 2020-0 Yes 2 mg = 1 Mem oria 2 mg oral 3-11 tab, PO, l tablet 21:10: Daily, 0 James 00 Refill(s) Hydroxyzine 2020-0 Yes 25 mg = 1 M emoria Hydrochlori 3-11 tab, PO, l de 25 MG 21:10: BID, 0 [place] Oral Tablet 00 Refill(s) midodrine 2020-0 Yes 5 mg = 2 Anthony fariba 2.5 mg oral 3-11 tab, PO, l tablet 21:10: BID, 0 [place] 00 Refill(s) ondansetron 2020-0 Yes 4 mg = 1 Me moria 4 mg oral 3-11 tab, PO, l tablet 21:10: QID, 0 James 00 Refill(s) Calcitriol 2020-0 Yes PO, Every Me moria 3-11 Other Day, l 21:10: 0 [place] 00 Refill(s) Alprazolam 2020-0 Yes 0.25 mg [...] 13 :00 sevelamer 2019-0 2020- No 2400mg Q.[id number] Take 2,400 [place] (RENVELA) 05-12 [id number] mg by Nc thodi 800 mg 16:21: 00:00 3D mouth [...] st 13 :00 morning. cholecalcif 2019-2019- No [id number] Q30D Take Iván jennan pamela, 05-12 50,000 [...] 30 days. sevelamer 2019-0 2019- No 3200mg Q.[id number] Take 4 [place] (RENVELA) 05-12 03- [id number] tablets Methodi 800 mg 00:00: 23:59 3D [...] 51 :00 nightly. ergocalcife 2019-0 2020- No [id number] Q7D Take Iván ston rol 05-09 50,000 Methodi (VITAMIN 16:50: 00:[address] D2) 50,000 47 :00 mouth once unit a week. ( capsule Monday ) Vitamin D3 2020-0 Yes 0 Memoria 50,000 intl 1-24 Refill(s) l units oral 00:01: [place] capsule 00 sevelamer 2020-0 Yes 0 Memoria [...] mg oral 1-24 Refill(s) l capsule 00:01: [place] 00 pravastatin 2020-0 Yes 0 Memori a 40 mg oral 1-24 Refill(s) l tablet 00:01: [place] 00 3 ML 2020-0 Yes 0 Memoria [...] [Keppra] 00 30 tab, 3 Refill(s), Pharmacy: [facility] #[id number] thiamine 0 Yes 100 mg = 1 [...] for 30 days. methylPREDN 2018-04- No 4mg Q.[id number] Take 1 [place] ISolone 04-30 [id number] tablet (4 Methodi (MEDROL) 4 00:00: 23:59 [...] Systolic (mm Hg) 2019-10-17 19:23:00 Anthony uli [place] Diastolic (mm Hg) 2019-10-17 19:23:00 [facility] [place] Heart Rate 2019-10-17 19:23:00 [facility] Respitory Rate 2019-10-17 19:23:00 Cori busch [place] Height 2019-10-17 19:23:00 160.02 cm [facility] Weight 2019-10-17 19:23:00 [facility] BMI Calculated 2019-10-17 19:23:00 Cori busch [place] Systolic blood 2019-07-31 16:03:21 128 mm[Hg] [place] pressure Diastolic blood 2019-07-31 16:03:21 59 mm[Hg] [place] Nondenominational pressure Heart rate 2019-07-31 16:03:21 102 /min Rivas Damonist Respiratory rate 2019-07-31 16:03:21 16 /min Letitia ton Nondenominational Oxygen saturation in 2019-07-31 16:03:21 95 /min Rivas Keys Arterial blood by Pulse oximetry Body temperature 2019-07-31 12:03:42 36.22 Katherine [place]ondenominational Body weight 2019-07-31 04:58:14 79.153 kg [place] Nondenominational BMI 2019-07-31 04:58:14 29.95 kg/m2 [place] Nondenominational Body height 2019-07-26 14:46:00 162.6 cm [place] Nondenominational Systolic (mm Hg) 2019-06-19 19:58:00 Anthony rial James Diastolic (mm Hg) 2019-06-19 19:58:00 Mem orial James Heart Rate 2019-06-19 19:58:00 [facility] [place] Respitory Rate 2019-06-19 19:58:00 Memori al [place] Height 2019-06-19 19:58:00 160.02 cm [facility] Weight 2019-06-19 19:58:00 [facility] [place] BMI Calculated 2019-06-19 19:58:00 Memori al [place] Systolic (mm Hg) 2019-05-02 20:00:00 Anthony rial [place] Diastolic (mm Hg) 2019-05-02 20:00:00 Mem orial [place] Heart Rate 2019-05-02 20:00:00 [facility] [place] Respitory Rate 2019-05-02 20:00:00 Memori al James Height 2019-05-02 20:00:00 160.02 cm [facility] James Weight 2019-05-02 20:00:00 [facility] [place] BMI Calculated 2019-05-02 20:00:00 Memori al [place] Procedures Procedure Date / Time Performing Clinician Source Performed SINGLE ANTIGEN BEADS 2019-10-24 18:00:00 Franko Albrecht Nondenominational POC GLUCOSE 2019-07-31 17:01:00 Charisma Montes ethodist POC GLUCOSE 2019-07-31 12:05:00 Charisma Montes ethodist POC GLUCOSE 2019-07-31 08:04:00 Charisma Montes ethodist POC GLUCOSE 2019-07-30 20:43:00 Charisma Montes ethodist POC GLUCOSE 2019-07-30 16:05:00 Charisma Montes ethodist POC GLUCOSE 2019-07-30 11:36:00 Charisma Montes ethodist POC GLUCOSE 2019-07-30 08:04:00 Charisma Montes ethodist COMPREHENSIVE METABOLIC 2019-07-30 04:30:00 Vandana Felipe Nondenominational PANEL HC COMPLETE BLD COUNT 2019-07-30 04:30:00 FelipeVandana n Nondenominational W/AUTO DIFF ESTIMATED GFR 2019-07-30 04:30:00 Vandana Felipe [place] Meth odist POC GLUCOSE 2019-07-29 21:17:00 Charisma Montes ethodist POC GLUCOSE 2019-07-29 18:01:00 Charisma Montes ethodist POC GLUCOSE 2019-07-29 16:57:00 Charisma Montes ethodist POC GLUCOSE 2019-07-29 12:45:00 Charisma Montes ethodist POC GLUCOSE 2019-07-29 07:56:00 Charisma Montes ethodist COMPREHENSIVE METABOLIC 2019-07-29 07:45:00 Vandana Felipe Nondenominational PANEL HC COMPLETE BLD COUNT 2019-07-29 07:45:00 FelipeVandana Nondenominational W/AUTO DIFF ESTIMATED GFR 2019-07-29 07:45:00 Reese Felipedeedee [place] Meth odist SMEAR REVIEW 2019-07-29 07:45:00 Felipe, Vandana [place] Meth odist POC GLUCOSE 2019-07-28 20:59:00 Charisma Motnes ethodist POC GLUCOSE 2019-07-28 16:54:[address] HEAD WO CONTRAST 2019-07-28 14:00:54 Vandana Felipe Nondenominational POC GLUCOSE 2019-07-28 13:39:00 Charisma Montes ethodist ARTERIAL BLOOD GAS 2019-07-28 13:27:00 Vandana Felipe ethodist AMMONIA LEVEL 2019-07-28 13:12:00 Vandana Felipe Meth odist POC GLUCOSE 2019-07-28 12:07:00 Charisma Montes ethodist POC GLUCOSE 2019-07-28 07:29:00 Charisma Montes ethodist COMPREHENSIVE METABOLIC 2019-07-28 06:45:00 Vandana Felipe Nondenominational PANEL HC COMPLETE BLD COUNT 2019-07-28 06:45:00 Vandana Felipe n Nondenominational W/AUTO DIFF ESTIMATED GFR 2019-07-28 06:45:00 Vandana Felipe [place] Meth odist POC GLUCOSE 2019-07-27 20:37:00 Charisma Montes ethodist POC GLUCOSE 2019-07-27 17:41:00 Charisma Montes ethodist POC GLUCOSE 2019-07-27 12:40:00 Charisma Montes ethodist POC GLUCOSE 2019-07-27 08:19:00 Charisma Montes ethodist HC COMPLETE BLD COUNT 2019-07-27 06:00:00 Vandana Felipe Nondenominational W/AUTO DIFF COMPREHENSIVE METABOLIC 2019-07-27 06:00:00 Vandana Felipe Nondenominational PANEL ESTIMATED GFR 2019-07-27 06:00:00 MatteoReesedeedee [place] Meth odist POC GLUCOSE 2019-07-26 20:42:00 Charisma Montes ethodist POC GLUCOSE 2019-07-26 16:18:00 Charisma Montes ethodist XR FOOT 3+ VW LEFT 2019-07-26 14:44:14 Adryan Swanson on Nondenominational POC GLUCOSE 2019-07-26 11:42:00 Charisma Montes ethodist POC GLUCOSE 2019-07-26 07:28:00 Charisma Montes ethodist BASIC METABOLIC PANEL 2019-07-26 05:30:00 Maki Sams Nondenominational HC COMPLETE BLD COUNT 2019-07-26 05:30:00 Vandana Felipe Nondenominational W/AUTO DIFF ESTIMATED GFR 2019-07-26 05:30:00 Maki Sams Meth odist POC GLUCOSE 2019-07-25 20:42:00 Charisma Montes ethodist POC GLUCOSE 2019-07-25 16:35:00 Charisma Montes ethodist XR KNEE 1 OR 2 VW LEFT 2019-07-25 15:40:00 Vandana Felipe on Nondenominational XR TIBIA FIBULA 2 VW LEFT 2019-07-25 15:39:44 Vandana Felipe [place] Nondenominational US DUPLEX VENOUS LOWER 2019-07-25 15:17:49 Vandana Felipe on Nondenominational EXTREMITY LEFT POC GLUCOSE 2019-07-25 12:39:00 Charisma [...] BRAIN WO CONTRAST 2019-07-24 11:53:54 Bin Abdul Nondenominational POC GLUCOSE 2019-07-24 08:20:00 Charisma Montes ethodist HC COMPLETE BLD COUNT 2019-07-24 05:45:00 Vandana Felipe Nondenominational W/AUTO DIFF COMPREHENSIVE METABOLIC 2019-07-24 05:45:00 Vandana Felipe Nondenominational PANEL ESTIMATED GFR 2019-07-24 05:45:00 Vandana Felipe Meth odist SMEAR REVIEW 2019-07-24 05:45:00 Vandana Felipe Meth odist POC GLUCOSE 2019-07-23 21:44:00 Charisma Montes Mick ethodist POC GLUCOSE 2019-07-23 15:59:00 Charisma Montes Rivas Barton ethodist POC GLUCOSE 2019-07-23 11:42:00 Charisma Montes Rivas Barton ethodist URINE CULTURE 2019-07-23 11:36:00 Naomi Roe Meth odist URINALYSIS SCREEN AND 2019-07-23 11:10:00 Naomi Roe Nondenominational MICROSCOPY, WITH REFLEX TO CULTURE PHOSPHORUS LEVEL 2019-07-23 09:29:00 Maki Sams Met hodist CT HEAD WO CONTRAST 2019-07-23 09:14:22 Bin Abdul on Nondenominational CT ABDOMEN PELVIS WO 2019-07-23 09:13:25 Maki Sams Nondenominational CONTRAST POC GLUCOSE 2019-07-23 08:01:00 Charisma Montes Mick ethodist POC GLUCOSE 2019-07-23 05:41:00 Charisma Montes Mick ethodist POC GLUCOSE 2019-07-22 23:13:00 Charisma Montes Mick ethodist POC GLUCOSE 2019-07-22 22:08:00 Charisma Montes Mick ethodist POC GLUCOSE 2019-07-22 20:59:00 Charisma Montes Mick ethodist POC GLUCOSE 2019-07-22 18:37:00 Charisma Montes Mick ethodist EEG SLEEP/COMA 2019-07-22 17:25:28 Amy Stark BLOOD CULTURE, AEROBIC & 2019-07-22 13:10:00 Amy Stark Nondenominational ANAEROBIC AMMONIA LEVEL 2019-07-22 13:10:00 Amy Stark VENOUS BLOOD GAS 2019-07-22 13:10:00 Amy Stark on Nondenominational HEPATITIS B SURFACE 2019-07-22 13:10:00 Maki Sams Nondenominational ANTIGEN HEPATITIS B SURFACE AB, 2019-07-22 13:10:00 Maki Sams Nondenominational QUANTITATIVE XR CHEST 1 VW PORTABLE 2019-07-22 12:06:10 Charisma Montes Nondenominational POC GLUCOSE 2019-07-22 12:02:00 Charisma Montes ethodist POC GLUCOSE 2019-07-22 09:20:00 Nancy Tierney Meth odist HC COMPLETE BLD COUNT 2019-07-22 04:53:00 Naomi Roe Nondenominational W/AUTO DIFF COMPREHENSIVE METABOLIC 2019-07-22 04:53:00 Naomi Roe Nondenominational PANEL ESTIMATED GFR 2019-07-22 04:53:00 Nancy Tierney Meth odist COVID-19 QUALITATIVE PCR 2019-07-22 00:45:00 Naomi Roe Nondenominational SINGLE ANTIGEN BEADS 2019-06-11 13:27:00 Franko Albrecht Nondenominational 3M2UQOY 2019-05-24 00:00:00 ENCPL 6E3IKZE 2019-05-24 00:00:00 ENCPL 2U0GANP 2019-05-24 00:00:00 ENCPL 1E6VJWE 2019-05-24 00:00:00 ENCPL POC GLUCOSE 2019-05-12 12:58:00 Diana Angulo Me thodist POC GLUCOSE 2019-05-12 07:07:00 Diana Angulo Me thodist PHOSPHORUS LEVEL 2019-05-12 05:30:00 Maki Sams hodist HC COMPLETE BLD COUNT 2019-05-12 05:30:00 Taty Vaca Nondenominational W/AUTO DIFF BASIC METABOLIC PANEL 2019-05-12 05:30:00 Taty Vaca Nondenominational ESTIMATED GFR 2019-05-12 05:30:00 Taty Vaca Nondenominational 9D8Q89J 2019-05-12 00:00:00 ENCPL 8P8A34C 2019-05-12 00:00:00 ENCPL 7P7V62N 2019-05-12 00:00:00 ENCPL 0Z3Z30F 2019-05-12 00:00:00 ENCPL 5O9Y12J 2019-05-12 00:00:00 ENCPL 0R2R10J 2019-05-12 00:00:00 ENCPL 5E8F32Y 2019-05-12 00:00:00 ENCPL 1T0E92H 2019-05-12 00:00:00 ENCPL 4G0P85Y 2019-05-12 00:00:00 ENCPL 7X9W08T 2019-05-12 00:00:00 ENCPL 9F8M39V 2019-05-12 00:00:00 ENCPL 5Q3O33Q 2019-05-12 00:00:00 ENCPL 9F8Q82F 2019-05-12 00:00:00 ENCPL 8C2C84Y 2019-05-12 00:00:00 ENCPL 1O5A13C 2019-05-12 00:00:00 ENCPL 9B3V33K 2019-05-12 00:00:00 ENCPL 2U3Y70O 2019-05-12 00:00:00 ENCPL 6M3J49U 2019-05-12 00:00:00 ENCPL 3E4C11K 2019-05-12 00:00:00 ENCPL 7C1Z80Q 2019-05-12 00:00:00 ENCPL 8I9U03V 2019-05-12 00:00:00 ENCPL 5D4P19Y 2019-05-12 00:00:00 ENCPL 2A9H59K 2019-05-12 00:00:00 ENCPL 2J9Q68E 2019-05-12 00:00:00 ENCPL 8O4Q65A 2019-05-12 00:00:00 ENCPL 4H7S29O 2019-05-12 00:00:00 ENCPL 9L4E44U 2019-05-12 00:00:00 ENCPL 6G6M03T 2019-05-12 00:00:00 ENCPL 2L6C36R 2019-05-12 00:00:00 ENCPL 2C5C63D 2019-05-12 00:00:00 ENCPL 2B9U75Z 2019-05-12 00:00:00 ENCPL 0L7S38Q 2019-05-12 00:00:00 ENCPL 3A6X17S 2019-05-12 00:00:00 ENCPL 1A1F16V 2019-05-12 00:00:00 ENCPL 9C0N04N 2019-05-12 00:00:00 ENCPL POC GLUCOSE 2019-05-11 20:41:00 Diana Angulo Me thodist BASIC METABOLIC PANEL 2019-05-11 18:30:00 Maki Sams Chandrika moreno Nondenominational ESTIMATED GFR 2019-05-11 18:30:00 Maki Sams Meth [...] OR 3 VW 2019-05-10 15:27:28 Toño Dietrich [facility] Nondenominational MRI CERVICAL SPINE WO 2019-05-10 15:14:38 Toño [...] BLD COUNT 2019-05-10 05:55:00 Taty Vaca joel Nondenominational W/AUTO DIFF BASIC METABOLIC PANEL 2019-05-10 05:55:00 Taty Vaca joel Nondenominational ESTIMATED GFR 2019-05-10 05:55:00 Taty Vaca Nondenominational POC GLUCOSE 2019-05-09 21:57:00 Diana Angulo Me thodist LACTIC ACID LEVEL, SEPSIS 2019-05-09 21:08:00 Malik aMrino - NOW AND REPEAT 2X EVERY 3 [...] B1 LEVEL, WHOLE 2019-05-09 15:55:00 Toño Dietrich Nondenominational BLOOD THYROID STIMULATING 2019-05-09 15:55:00 Toño Dietrich HORMONE LIPID PANEL 2019-05-09 15:55:00 Toño Dietrich Meth odist HEMOGLOBIN A1C 2019-05-09 15:55:00 Toño Dietrich Meth odist AMMONIA LEVEL 2019-05-09 15:55:00 Toño Dietrich Meth odist IONIZED CALCIUM 2019-05-09 15:55:00 Toño Dietrich Meth odist CT HEAD WO CONTRAST 2019-05-09 15:18:39 Malik Marino on Nondenominational HC COMPLETE BLD COUNT 2019-05-09 14:40:00 Malik Marino Nondenominational W/AUTO DIFF COMPREHENSIVE METABOLIC 2019-05-09 14:40:00 Malik Marino Nondenominational PANEL TROPONIN 2019-05-09 14:40:00 Malik Marino ethodist LACTIC ACID LEVEL, SEPSIS 2019-05-09 14:40:00 Malik Marino - NOW AND REPEAT 2X EVERY 3 HOURS B NATRIURETIC PEPTIDE 2019-05-09 14:40:00 Malik Marino N[facility]enominational THYROID STIMULATING 2019-05-09 14:40:00 Malik Marino on Nondenominational HORMONE ESTIMATED GFR 2019-05-09 14:40:00 Malik Marino ethodist URINE CULTURE 2019-05-09 14:39:00 Malik Marino ethodist URINALYSIS SCREEN AND 2019-05-09 14:21:00 Malik Marino Nondenominational MICROSCOPY, WITH REFLEX TO CULTURE ECG ED PRELIMINARY 2019-05-09 14:07:18 Malik Marino Nondenominational INTERPRETATION ECG 12-LEAD 2019-05-09 14:05:11 Malik Marino ethodist 2U2XZFL 2019-04-23 00:00:00 ENCPL 7C3MOFT 2019-04-23 00:00:00 ENCPL 7T5ZEQF 2019-04-23 00:00:00 ENCPL 3D9WAES 2019-04-23 00:00:00 ENCPL 9A4WOBT 2019-04-23 00:00:00 ENCPL 4Z8JEGN 2019-04-23 00:00:[address] LUMBAR SPINE WO 2019-02-27 16:32:58 Nancy Tierney ethodist CONTRAST POC GLUCOSE 2019-02-27 11:30:00 Unique Calix ethodist POC GLUCOSE 2019-02-27 07:41:00 Unique [facility] ethodist HC COMPLETE BLD COUNT 2019-02-27 03:30:00 Karely Frias W/AUTO DIFF [place] COMPREHENSIVE METABOLIC 2019-02-27 03:30:00 Karely Frias Nondenominational PANEL [place] MAGNESIUM LEVEL 2019-02-27 03:30:00 Karely Frias Meth odneto [place] PHOSPHORUS LEVEL 2019-02-27 03:30:00 Karely Frias Met hodist T[place] IONIZED CALCIUM 2019-02-27 03:30:00 Karely Frias Meth odist Tiffanie ESTIMATED GFR 2019-02-27 03:30:00 Karely Frias Meth odist Tiffanie POC GLUCOSE 2019-02-26 22:17:00 Unique [facility] M ethodist MRI BRAIN WO CONTRAST 2019-02-26 21:26:20 Toño Dietrich Nondenominational POC GLUCOSE 2019-02-26 18:40:00 Gilberto, Unique [place] M ethodist EEG AWAKE/DROWSY LESS THAN 2019-02-26 18:27:07 Toño Dietrich Nondenominational 41 MIN VITAMIN B12 LEVEL 2019-02-26 15:00:00 Toño Dietrich Nc thodist VITAMIN B1 LEVEL, WHOLE 2019-02-26 15:00:00 Toño Dietrich Nondenominational BLOOD URIC ACID LEVEL 2019-02-26 15:00:00 Toño Dietrich odist HEPATITIS B SURFACE 2019-02-26 15:00:00 Maki Sams Nondenominational ANTIGEN HEPATITIS B SURFACE AB, 2019-02-26 15:00:00 Maki Sams Nondenominational QUANTITATIVE FOLATE LEVEL 2019-02-26 15:00:00 Елена Dangelo Met hodist FERRITIN LEVEL 2019-02-26 15:00:00 Елена Dangelo Met hodist TOTAL IRON BINDING 2019-02-26 15:00:00 Елена Dangelo Nondenominational CAPACITY THYROID STIMULATING 2019-02-26 15:00:00 Елена Dangelo Nondenominational HORMONE POC GLUCOSE 2019-02-26 12:25:00 Unique Calix M ethodist TTE COMPLETE, WO CONTRAST, 2019-02-26 11:30:00 Karely Frias Nondenominational W DOPPLER ([id number]) [place] BASIC METABOLIC PANEL 2019-02-26 09:45:00 Jennifer [...] WO CONTRAST 2019-02-26 00:25:03 Jennifer Mcmahan n Nondenominational Mila XR CHEST 1 VW PORTABLE 2019-02-26 00:03:13 Jennifer Mcmahan Mila HC COMPLETE BLD COUNT 2019-02-25 23:41:00 Jennifer Mcmahan W/AUTO DIFF Mila PROTHROMBIN TIME WITH INR 2019-02-25 23:41:00 Jennifer Mcmahan Mila PARTIAL THROMBOPLASTIN 2019-02-25 23:41:00 Jennifer Mcmahan Nondenominational TIME (PTT) Mila COMPREHENSIVE METABOLIC 2019-02-25 23:41:00 Jennifer Mcmahan [facility]enominational PANEL Mila LIPASE LEVEL 2019-02-25 23:41:00 Jennifer Mcmahan Me thodist Mila PHOSPHORUS LEVEL 2019-02-25 23:41:00 Jennifer Mcmahan M ethodist Mila MAGNESIUM LEVEL 2019-02-25 23:41:00 Jennifer Mcmahan Me thodist Mila ESTIMATED GFR 2019-02-25 23:41:00 Jennifer Mcmahan Me thodist Mila GA CRITICAL CARE, E/M 2019-02-25 23:23:08 Jennifer Mcmahan 30-74 MINUTES Imla ECG ED PRELIMINARY 2019-02-25 23:23:08 Jennifer Mcmahan INTERPRETATION Mila ECG 12-LEAD 2019-02-25 22:42:55 Jennifer Mcmahan Me thodist Mila SINGLE ANTIGEN BEADS 2019-02-14 14:26:00 Franko Albrecht [facility]enominational Plan of Care Planned Activity Planned Date Details Comments Source Future Scheduled 2020-01-12 BREAST CANCER [facility] thodist Test 00:00:00 SCREENING [code = BREAST CANCER SCREENING] Future Scheduled 2019-11-09 INFLUENZA VACCINE [place] Test 00:00:00 [code = INFLUENZA VACCINE] Future Scheduled 2014 65+ PNEUMOCOCCAL [place] [facility] Test 00:00:00 VACCINE (1 of 1 - PPSV23) [code = 65+ PNEUMOCOCCAL VACCINE (1 of 1 - PPSV23)] Future Scheduled 1999-08-12 COLONOSCOPY SCREENING [place] Test 00:00:00 [code = COLONOSCOPY SCREENING] Future Scheduled 1999-08-12 SHINGLES VACCINES (#1) [place] [facility] Test 00:00:00 [code = SHINGLES VACCINES (#1)] Future Scheduled 1959-08-12 DIABETES: RETINAL EYE [place] [facility] Test 00:00:00 EXAM [code = DIABETES: RETINAL EYE EXAM] Future Scheduled 1959-08-12 [facility]:00:00 [code = DIABETIC FOOT EXAM] Encounters Start End Encounter Admission Attending Care Care Encounter Source Date/Time Date/Time Type Type Clinicians Facility Department ID 2020-01-16 2020-01-16 [facility] [id number] [place] 00:00:00 00:00:00 FRANKO [id number] 2019-12-12 2019-12-12 [facility] [id number] [place] 00:00:00 00:00:00 FRANKO [address] 2019-12-03 2019-12-03 [id number] 13:15:00 23:59:59 Melo Anguiano 2019-11-15 2019-11-15 ANGEL Mcdowell [id number] 00:00:00 00:00:00 Taty Gan [id number] [place] [id number] Professio [phone] [facility] 220 [facility] 2019-11-04 2019-11-04 [facility] [id number] 00:00:00 00:00:00 Ramirez Acuñaton [id number] [place] [id number] Professio [phone] nal 220 [facility] 2019-10-24 2019-10-24 Outpatient [facility] [id number] [place] 00:00:00 00:00:00 AHMED [facility] 2019-10-17 2019-10-17 Outpatient XAVIER RojasMISCHER MHMISCHER [id number] 14:45:00 23:59:59 Melo 04 [facility] 2019-10-17 2019-10-17 Outpatient JOSE RojasSCHER MHMISCHER [id number] 14:45:00 14:45:00 Melo 03 [facility] 2019-08-13 2019-08-13 Outpatient TIGRE, [facility] [id number] [place] 00:00:00 00:00:00 AHMED [facility] 2019-07-21 2019-07-31 Inpatient PIEDADJAMIEOBDULIA, [facility] [id number] [place] 00:00:00 00:00:00 CHARISMA [facility] 2019-07-21 2019-07-21 Emergency [facility] Sejal [id number] [place] 00:00:00 00:00:00 9[facility] 2019-07-17 2019-07-17 Outpatient XAVIER RojasMISCHER MHMISCHER [id number] 15:30:00 23:59:59 Melo 02 [facility] 2019-07-11 2019-07-11 Outpatient TIGRE, [facility] [id number] [place] 00:00:00 00:00:00 AHMED [facility] 2019-06-19 2019-06-19 Outpatient XAVIER RojasMISCHER MHMISCHER [id number] 14:30:00 23:59:59 Melo 01 [facility] 2019-06-11 2019-06-11 Outpatient TIGRE [facility] [id number] [place] 00:00:00 00:00:00 AHMED [address] 2019-06-06 2019-06-07 [id number] 12:22:16 23:59:59 00 2019-05-09 2019-05-12 Outpatient DIANA ANGULO [facility] [id number] [place] 00:00:00 00:00:[address] 2019-05-02 2019-05-02 [id number] 13:30:00 23:59:59 Melo 00 [facility] 2019-02-25 2019-02-27 Inpatient PASTORA, [facility] [id number] [place] 00:00:00 00:00:00 NANCY [address] Results Test Description Test Time Test Comments Results Result Comments Source Single antigen beads 2019-10-31 15:13:20 Test Item Value Reference Range Interpretation Comme nts SAB serum ID (test code = 5866) [id number] SAB serum collection D&T (test code = 5867) 10/24/2019 06:00 PM SAB class I antibody assignment (test code = B57,B58 5870) SAB cPRA class I (test code = 5868) 11 SAB class II antibody assignment (test code = Negative 5871) SAB cPRA class II (test code = 5869) 0 Case number (test code = 0629774) [id number] Single antigen beads (test code = 4604) See link below for PDF Lab Report [facility] rhczqco6200-90-15 17:02:26 Test Item Value Reference Range Interpretation Comments POC glucose (test code 205 mg/dL 65-99 H Opera tor Name: = 76650-6) Jeaneth Pierre ID : [id number] able: RN Notified Lab Interpretation Abnormal (test code = 98050-1) Rivas KeysComprehensive metabolic xxtqo6197-12-80 05:48:40 Test Item Value Reference Range Interpretation Comments Sodium (test code = 2951-2) 134 135- 148 mEq/L L Potassium (test code = 2823-3) 3.7 3.5- 5.0 mEq/L Chloride (test code = 5-0) 95 98- 112 mEq/L L CO2 (test code = 2027-9) 26 24- 31 mEq/L Anion gap (test code = 65204-6) 13@ANIO 7- 15 mEq/L BUN (test code = 3094-0) 35 mg/dL 8-23 H Creatinine (test code = 2160-0) 8.82 mg/dL 0.5-0.9 H Glucose (test code = 2345-7) 282 mg/dL 65-99 H Calcium (test code = 33249-5) 10.1 mg/dL 8.8-10.2 Protein (test code = [...] 1974-05) Lab Interpretation (test code = Abnormal 41078-0) Rivas MethodistEstimated [id number] 05:48:40 Test Item Value Reference Range Interpretation Comments Estimated GFR (test 4 mL/min/1.73 m2 A [facility] Units code = 5488) InterpretationG 1 >=90 Estrella l or highG2 60-89 Mildly decrease dG3a 45-59 Mil dly to moderately decr tvkobT6v 30-44 Moderately to s everely decreasedG4 15-29 Severe ly decreasedG5 <15 Kidney bg lureThe eGFR was calcul ated using the Chron ic Kidney Disease Epidemiology Collaboration ( CKD-EPI) equation. Interpretation is based on recommendati ons of the National Ki dney Foundation-Kidn ey Disease Outcome s Quality Initiat veena (NKF-KDOQI) pub lished in 2013. Lab Interpretation Abnormal (test code = 00463-8) Rivas DamonistCBC with platelet and ibeagccwbfar8094-57-18 05:29:47 Test Item Value Reference Range Interpretation Comments WBC (test code = 57566-1) 13.3 4.5- 11.0 k/uL H RBC (test code = 04367-5) 3.31 m/uL 4.2-5.5 L HGB (test code = 718-7) 10.2 g/dL 12-16 L HCT (test code = 4544-3) 33.2 % 37-47 L MCV (test code = 787-2) 100.3 fL 82-100 H MCH (test code = 785-6) 30.8 pg 27-34 MCHC (test code = 786-4) 30.7 g/dL 31-37 L RDW - SD (test code = 51918-1) 53.6 fL 37-55 MPV (test code = 19435-4) 10.8 fL 6.9-11 Platelet count (test code = 262 K/uL 150-400 80379-8) Nucleated RBC (test code = 86236-4) 0.00 /100 WBC Neutrophils (test code = 68911-4) 66.0 % 39-69 Lymphocytes (test code = 17171-7) 24.5 % 25-45 L Monocytes (test code = 78648-2) 6.7 % 0-10 Eosinophils (test code = 71009-3) 1.6 % 0-5 Basophils (test code = 44209-6) 0.8 % 0-1 Immature granulocytes (test code = 0.4 % 0-1 05391-8) Lab Interpretation (test code = Abnormal 50583-6) Rivas Geronimomear zrhlmy7057-92-10 09:36:06 Test Item Value Reference Range Interpretation Comments Platelet slide review (test code Sanjeev adequate = 66009-4) Anisocytosis (test code = 702-1) Moderate Enlarged platelets (test code = Moderate A 31241-8) Giant platelets (test code = Occasional 5908-9) Lab Interpretation (test code = Abnormal 58797-2) Rivas Samson Head Wo Ivweaciv9207-85-75 14:10:02Hm Interface, Radiology Results 07/28/2019 2:13 PM [...] IMPRESSION:1. No CT evidence of acute intracranial abnormality.HMTW-[id number] MethodistAmmonia level 2019-07-28 13:39:18 Test Item Value Reference Range Interpretation Comments Ammonia (test code = 1841-6) 31 umol/L -51 [place] MethodistArterial blood mav6029-80-83 13:38:44 Test Item Value Reference Range Interpretation Comments pH, arterial (test code = 2744-1) 7.35 7.35-7.45 pCO2, arterial (test code = 49 35- 45 mmHg H 2018-11) pO2, arterial (test code = 76 80- 90 mmHg L 2703-7) Bicarbonate, arterial (test code 26.6 mmol/L 21-28 = 1960-4) Base excess, arterial (test code 1 -2 - 2 mEq-L = 1925-7) O2 saturation, arterial (test 94 % 95-100 L code = 2708-6) Lab Interpretation (test code = Abnormal 33092-2) Rivas KeysBlood culture, aerobic & kdgdizxau8891-74-86 18:33:04 Test Item Value Reference Range Interpretation Comments Blood culture No growth Specimen isolate (test after 5 days InformationSpe guardian hospitalen code = 600-7) of Source: BloodS pecimen incubation. Site: Hand Ji mccall Rivas MethodistXR Foot 3+ Vw Ohhv5587-05-30 14:47:12Hm Interface, Radiology Results Incoming - 07/26/2019 2:50 PM CDTEXAMINATION: XR FOOT 3 VW LEFTCLI NICAL HISTORY: foot traumaCOMPARISON: None.TECHNIQUE: 3 views of the left foot obtained.IMPRESSION:Detail is limited as the patient's sock was not removed prior to obtaining the x-ray, for some reason. Atherosclerotic calcification. Mild to moderate degenerative change at the ankle. No acute fracture or dislocation identified. [facility]-[id number] [facility] metabolic panel 2019-07-26 07:05:05 Test Item Value Reference Range Interpretation Comments Sodium (test code = 2951-2) 136 135- 148 mEq/L Potassium (test code = 2823-3) 3.6 3.5- 5.0 mEq/L Chloride (test code = 2075-0) 95 98- 112 mEq/L L CO2 (test code = 2027-9) 25 24- 31 mEq/L Anion gap (test code = 78498-8) 16@ANIO 7- 15 mEq/L H BUN (test code = 3094-0) 39 mg/dL 8-23 H Creatinine (test code = 2160-0) 8.26 mg/dL 0.5-0.9 H Glucose (test code = 2345-7) 287 mg/dL 65-99 H Calcium (test code = 63104-2) 9.9 mg/dL 8.8-10.2 Lab Interpretation (test code = Abnormal 03457-2) [place] MethodistXR Knee 1 Or 2 Vw Pgsk3990-73-42 15:43:32Hm Interface, Radiology Results 07/25/2019 3:46 PM [...] joint degenerative changes. Small knee joint effusion.4.Vascular calcifications.[facility]-[id number] MethodistXR Tibia Fibula 2 Vw Dyde8788-06-20 15:43:32Hm Interface, Radiology Results 07/25/2019 3:46 PM [...] joint degenerative changes. Small knee joint effusion.4.Vascular calcifications.[facility]-[id number] MethodistUs duplex venous lower sfxgdtkut6623-93-47 15:19:09Hm Interface, Radiology Results 07/25/2019 3:22 PM [...] There is no evidence of deep venous thrombosis.[facility]-[id number] MethodistHepatitis B surface Ab, quantitative 2019-07-24 18:25:57 [...] to MMWR Decembe r 2004/Vol. 54(No . 16);1-, and f or healthcare work ers refer to MMWR Decembe r 2012/Vol. 62(No . 10);1-19.Refere nce Interval: anti- HBs 9.99 IU/L or less .. ..... Obeembis31.00 I U/L or greater .... PositiveResults greater than 1,000.00 I U/L are reported as gre ater than 1,000.00 IU/L. This assay should not be u sed for blood donor scr eening, associated re-e ntry protocols, or f or screening Human Cell, Tissues and Katherine lular and Tissue-Based Pr oducts (HCT/P).Perform ed by [facility],[address] [facility],[place] [address] .[facility]lab.c om, Mario Gotti do, MD, Lab. Director [place] MethodistUrinalysis screen and microscopy, with reflex to culture 2019-07-24 16:36:57 Test Item Value Reference Range Interpretation Comments Specimen site (test code = Catheterized 2941638) Color, UA (test code = 5778-6) Yellow Appearance, UA (test code = Turbid 5767-9) Specific gravity, UA (test code 1.010 1.001-1.030 = 5811-5) pH, UA (test code = 5803-2) 5.0 5.0-9.0 Protein, UA (test code = 2+ Negative A 60317-9) Glucose, UA (test code = 1+ Negative A 14502-2) Ketones, UA (test code = 2514-8) Negative Negative Bilirubin, UA (test code = Negative Negative 5770-3) Blood, UA (test code = 5794-3) Moderate Negative A Nitrite, UA (test code = 5802-4) Negative Negative Urobilinogen, UA (test code = <2.0 <2.0 E.U./dL 70626-9) Leukocyte esterase, UA (test Moderate Negative A code = 5799-2) WBC, UA (test code = 5821-4) >200 0- 4 /HPF H RBC, UA (test code = 27049-8) 40 0- 5 /HPF H Bacteria, UA (test code = Moderate None seen A 29248-1) WBC clumps, UA (test code = Moderate A 65468-9) Yeast, UA (test code = 44077-5) None seen Yeast with pseudohyphae, UA None seen (test code = 70035-7) Lab Interpretation (test code = Abnormal 16157-7) [place] MethodistMRI Brain Wo Fblxkuew6260-53-90 12:00:22Hm Interface, Radiology Results 07/24/2019 12:03 PM [...] intracranial abnormality identified. No change from prior exams.[facility]-[id number] MethodistPhosphorus dnygq1293-08-87 09:51:22 Test Item Value Reference Range Interpretation Comments Phosphorus (test code = 2777-1) 6.2 mg/dL 2.4-4.5 H Lab Interpretation (test code = Abnormal 31351-8) [place] MethodistCT Abdomen Pelvis Wo Uabnrwgn7725-73-11 09:25:11 Interface, Radiology Results - 07/23/2019 9:28 AM CDTEXAMINATION: CT ABDOMEN PELVIS [...] common bile duct dilation.Many other findings as above.[facility]-[id number] MethodistEEG (routine)2019-07-22 18:46:29Date of Study Completion: July [...] observed. Clinical Correlation:1. Therewas evidence of a ujbtopkj-tz-woayar encephalopathy, part of which is metabolic in etiology. Clinical correlation is recommended. 2. There was no definitive evidence of interictal epileptiform discharges, electrographic seizures, or status epilepticus seen over the course of this tracing.[place] MethodistHepatitis B surface ukidusd8694-74-29 17:40:01 Test Item Value Reference Range Interpretation Comments Hepatitis B surface Ag (test Non-reactive Non-reactive code = 5195-3) [place] MethodistCOVID-19 qualitative CVA9806-70-02 13:39:49 Test Item Value Reference Range Interpretation Comments Interpretation (test Negative results do code = 5965180) not preclude 2019-nCoV infection and should not be used as the sole basis for treatment or other patient management decisions. Negative results must be combined with clinical observations, patient history, and epidemiological information. COVID-19 qualitative Not-Detected Not-Detected PCR result (test code = 33596-6) COVID-19 qualitative See link below for C ase Number: PCR (test code = PDF Lab Report [id number]) [place] MethodistVenous blood wgb0823-07-04 13:35:36 Test Item Value Reference Range Interpretation [...] (test code = 19.3 mmol/L 21-28 L 45167-3) Lab Interpretation (test code = Abnormal 45470-0) Rivas MethodistXR Chest 1 Vw Xvtnggfa3659-05-56 12:10:14Hm Interface, Radiology Results Incoming - 07/22/2019 12:13 PM CDTEXAMINATION: XR CHEST 1 VW PORTABLECLINICAL HISTORY: Cough Covid rule outCOMPARISON: February 25, 2019 chestIMPRESSION:No acute abnormality single view chestThe lungs are hypoexpanded but clear.The heart is not enlarged. Mild vascular ectasia and atherosclerosis becoming more prominentThe bony structures are within normal limits.Nosuspicious findings for COVID-19. [id number] MethodistAnaerobic tunvrns8845-79-64 07:51:14 Test Item Value Reference Range Interpretation Comments Anaerobic No anaerobic Specimen culture isolate organisms InformationS pecimen (test code = isolated. Source: Periton eal 552) fluidSpecimen S ite: Peritoneal flui d Rivas MethodistAerobic pxlxqjf9559-47-18 21:05:18 Test Item Value Reference Range Interpretation Comments Aerobic culture No growth Specimen isolate (test after 3 days. InformationSp ecimen code = 498) Source: Periton eal fluidSpecimen S ite: Peritoneal flui d Rivas DamonistVitamin B1 level, whole fgbec7087-99-56 11:37:25 Test Item Value Reference Range Interpretation Comments Vitamin B1 (test code 232 nmol/L 70-180 H INTERP RETIVE = 42872-1) INFORMATION: Vi tamin B1, Whole Blood This assay measures the concentration o f thiamine diphos phate (TDP), the prim jayy active form of vitamin B1. Approximate ly 90 percent of camilla min B1 present in whol e blood is TDP. Thiamin e and thiamine monophosphate, which comprise the re maining 10 percent, are not measured.Test developed and characteristics determined by [facility]. S ee Compliance Stat ement B: [employer]WoowUp/CSP erforme d by [place],[address] [facility], [place] [address] quy .graciela Vacunek.konstantin, Mario Caldwell MD, Lab. Direct or Lab Interpretation Abnormal (test code = 84784-3) [place] MethodistGram yasbs2678-65-13 22:41:03Gram stain isolateRare WBC'sNo organisms seen Comment: Specimen InformationSpecimen Source: Peritoneal fluidSpecimen Site: Peritoneal fluid [facility] Nondenominational XR Lumbar Spine 2 Or 3 [id number] 16:16:47Hm Interface, Radiology Results 05/10/2019 4:19 PM [...] L3-4.Calcified atherosclerosis abdominal aorta.Drain present in the pelvis.[facility]-[id number] MethodistXR Sacrum And Boxecc1314-45-24 16:02:19Hm Interface, Radiology Results 05/10/2019 4:05 PM [...] loss. Facet arthropathy of the lower lumbar spine.[facility]-[id number] Scott & White Heart and Vascular Hospital – DallasI Cervical Spine Wo Lipuzzvx7013 15:37:15Hm Interface, Radiology Results 05/10/2019 3:40 PM [...] No acute osseous abnormality or significant stenosis identified.[facility]-[id number] MethodistCell count and differential, body rqxlq1376-10-96 14:19:44 Test Item Value Reference Range Interpretation Comments Misc fluid type (test PD fluid code = 00572-9) Color, fluid (test Colorless code = 6824-7) Appearance, fluid Clear (test code = 9335-1) RBC, fluid (test code SEE COMMENT /CMM 1+ (0 - 500 = 90271-4) RBC/CMM) Nucleated cells, 37 /CMM fluid (test code = 79973-9) Fluid mononuclear Diff to follow cell (test code = 1407) Neutrophils, fluid 51 % (test code = 34172-0) Lymphocytes, fluid 35 % (test code = 43114-3) Eosinophils, fluid 2 % (test code = 23590-1) Macrophages, fluid 12 % (test code = 49789-3) Rivas MethodistECG 12 codh7707-79-63 07:38:32 Test Item Value Reference Range Interpretation Comments Ventricular rate (test 87 code = 253) Atrial rate (test code 87 = 255) GA interval (test code 132 = 266) QRSD [...] wave abnormality now evident in Lateral leads- Rivas KeysLactic acid level, SEPSIS - Now and repeat 2x every 3 hours 2019-05-09 21:35:40 Test Item Value Reference Range Interpretation Comments Lactic acid (test code = 22156-7) 1.4 mmol/L 0.5-2.2 [place] MethodnetoVitamin B12 wkslo3258-12-62 20:42:55 Test Item Value Reference Range Interpretation Comments Vitamin B12 (test 807 pg/mL 211-946 Significan t overlap code = 2132-9) exists betwee n normal and deficiency states.However, most patients with deficiencies wi ll have Serum B12 <2 00 pg/mL. Rivas KeysUs carotid gpdjyd6057-22-14 18:07:47Hm Interface, Radiology Results - 05/09/2019 6:10 [...] significant (greater than 50%) extracranial carotid arterial stenosis.[facility]-[id number] MethodistHemoglobin I1h9983-92-73 16:52:29 Test Item Value Reference Range Interpretation Comments Hemoglobin A1C (test 7.0 % 4-5.6 H HbA1c c utoffs for code = 80369-9) diagnosing diabetes:4.0% - 5.6% = normal5.7% - 6.4% = increased risk for diabetes (prediabetes)9> =6.5% = hgvazeci5Mfky s for glycemic contro l (ADA 2016)< 7.0% Ta rget for non adults with demetrio betes. More or less stringent targe ts may be appropriate for individual karyn ents. <7.5% Target for Children and adolescents wit h type 1 diabetes. Lab Interpretation (test Abnormal code = 98775-8) [place] MethodistThyroid stimulating jggiuzb9749-57-40 16:37:17 Test Item Value Reference Range Interpretation Comments TSH (test code = 3016-3) 2.03 0.27- 4.20 uIU/mL [place] MethodistLipid cwxkz6623-71-85 16:27:42 Test Item Value Reference Interpretation Comments Range Cholesterol (test 79 mg/dL 0-199 code = 2093-3) Triglycerides (test 139 mg/dL 0-149 code = 2571-8) HDL cholesterol 22 mg/dL 40-54398 L (test code = 2085-9) LDL cholesterol 32 mg/dL 0-99 (test code = 2089-1) Lipid panel See below Total Cholester ol (mg/dL) interpretation (test < 200 code = 93824-4) Desirable 200-239 Borderline -high >=240 Hi gh [...] mg/dL) Lab Interpretation Abnormal (test code = 30490-4) Rivas MethodistIonized pzyswwd4253-36-59 16:08:42 Test Item Value Reference Range Interpretation Comments pH (test code = 2753-2) 7.29 Ionized calcium (test code = 1.14 mmol/L 1.11-1.32 ) Rivas DamonistB natriuretic jyggtil6553-47-11 15:24:36 Test Item Value Reference Range Interpretation Comments BNP (test code = 39902-1) 75 pg/mL 0-100 [place] NhmzlhiusUsoefudj9665-76-57 15:23:56 Test Item Value Reference Range Interpretation Comments Troponin (test code 0.011 ng/mL 0-0.04 In patie nts suspected = 42609-6) of having a mary cardial infarction, tonia [...] decreased by le ss than 0.020 ng/mL [place] [facility] Preliminary Interpretation - Not an Yiohy1336-86-69 14:07:18Malik Marino MD 05/10/2019 12:43 [facility] Preliminary Interpretation - Not an OrderPerformed by: Malik Marino, [facility] HOSPITALuthorized by: Malik Marino MDBreedsville MethodistNE Lumbar Spine Wo Mexbuyyc4142-65-06 17:51:13Hm Interface, Radiology Results 02/27/2019 5:54 PM [...] spine is recommended.No acute lumbar spine bony abnormality.[facility]-[id number] MethodistMagnesium brlel4697-87-20 04:33:46 Test Item Value Reference Range Interpretation Comments Magnesium (test code = 55548-1) 2.3 mg/dL 1.6-2.4 [place] MethodistHepatitis B surface eoyhmrdw0671-43-08 23:06:52 Test Item Value Reference Range Interpretation Comments Hepatitis B surface Ab (test code = Reactive Non-reactive A 00761-5) Lab Interpretation (test code = Abnormal 14792-7) [place] MethodistFerritin bgcld4861-37-48 22:40:11 Test Item Value Reference Range Interpretation Comments Ferritin level (test code = 2276-4) 738 ng/mL 13-150 H Lab Interpretation (test code = Abnormal 10666-9) [place] MethodistEchocardiogram complete w contrast and 3D if bmcxzl8426-68-52 21:16:04 Test Item Value Reference Range Interpretation Comments AoV Area, Vmax (test 2.95 cm2 code = 6716131495) AoV Area, VTI (test 3.30 cm2 code = 8923043960) AoV Mean PG (test code 4.00 mmHg = 4089628196) AoV Peak PG (test code 5.86 mmHg = 1567211912) AoV Vmax (test code = 1.21 m/s 4194667430) AoV VTI (test code = 0.27 m 7364029332) IVS,d (test code = 0.94 cm 9432076249) IVS/LVPW,2D (test code 1.15 = 7301222561) Left Atrium Dimension 3.70 cm Anterior (test code = 8881319284) LV,d (test code = 4.35 cm 4727274591) LV EF,2D (test code = 62.39 % 1712044418) LV,s (test code = 3.14 cm 9181009208) LVOT area (test code = 3.80 cm2 8658855002) LVOT Diam,S (test code 2.20 cm = 3112342499) LVOT Vmax (test code = 0.94 m/s 4380290049) LVOT VTI (test code = 0.24 m 0368622645) LVPWD,d (test code = 0.82 cm 4924215107) TR Vpeak (test code = 2.51 mm/s 3651511620) MV E A ratio (test code 0.63 = 2461457512) TR pk grad (test code = 25.20 mmHg 0829360453) E wave decelartion time 289.00 msec (test code = 9258470772) MV Peak A Jez (test 0.97 m/s code = 6058094225) MV valve area p 1/2 2.62 cm2 method (test code = 2208783124) MV Peak E Jez (test 0.61 m/s code = 6638849955) MV stenosis pressure 83.81 ms 1/2 time (test code = 4530976132) AV LVOT peak gradient 3.52 mmHg (test code = 6584022228) Ao Root,d,2D (test code 3.60 cm = 5623500156) LV SYS VOL (test code = 39.12 ml 0374360281) LV MATTHEWS VOL (test code 85.36 ml = 5033238812) LV SV Teich 2D (test 46.24 ml code = 4007462422) LV Vol s Teich PSAX 39.12 ml (test code = 7426618549) AoV Vmn (test code = 0.92 5773827621) LV FS Teich 2D (test 27.82 code = 8240000589) MV AE ratio (test code 1.59 = 7671592618) LV FS Cube 2D (test 27.82 code = 1382601508) LVOT Vmn (test code = 0.72 4995199968) Aov area Vmn (test code 2.95 cm2 = 2895460570) LVOT mean grad (test 2.00 mmHg code = 3953691262) MAX Pred HR (test code 150.45 = 0847047637) 85 of MPHR (test code = 127.89 3876887011) Ao d LA s ratio (test 0.97 code = 6708447963) Calc MPHR (test code = 150.45 bpm 0770066950) LV SV Cube 2D (test 51.35 ml code = 9717304008) LV vol d cube 2D (test 82.31 ml code = 9786630523) LV vol s cube 2D (test 30.96 ml code = 9226898583) MV Decel slope (test 2.12 m/s2 code = 2702427611) Pred Exer Dur R1 (test 6.87 code = 3500009695) Pred METS R1 (test code 5.66 = 8948013797) Velocity Ratio (V1/V2) 0.78 m/s (test code = 4689) EF (test code = 54.17 % 0877885241) E/A ratio (test code = 0.63 3582951645) MARCE (test code = MARCE) Left ventricular systolic function is normal. Left Ventricular ejection fraction is 50 - 55%. Mild mitral annular calcification. Spectral Doppler shows impaired relaxation pattern of left ventricular diastolic filling. [place] MethodistFolate ohzcl8936-07-19 19:38:17 Test Item Value Reference Range Interpretation Comments Folate (test code = 2284-8) >20.0 4.8-24.2 [place] MethodistEE (routine)2019-02-26 19:11:11Date of Service: February 26, 2019.Date [...] should be considered if pursuinga diagnosis of epilepsy.[place] MethodistTotal iron binding mulbanhx3292-20-91 17:20:04 Test Item Value Reference Range Interpretation Comments Iron level (test code = 2498-4) 27 ug/dL 37-145 L Iron binding capacity (test code = 203 ug/dL 260-460 L 2500-7) % Saturation (test code = 2502-3) 13.3 % 15-38 L Lab Interpretation (test code = Abnormal 78362-6) [place] MethodistUric acid iispy8338-32-55 16:46:21 Test Item Value Reference Range Interpretation Comments Uric acid (test code = 3084-1) 7.0 mg/dL 2.4-5.7 H Lab Interpretation (test code = Abnormal 37905-8) [place] MethodistLipase trbno0625-40-50 00:36:49 Test Item Value Reference Range Interpretation Comments Lipase (test code = 3040-3) 27 U/L 13-60 [place] MethodistPartial thromboplastin time, vbvdxjyie4602-09-37 00:13:20 Test Item Value Reference Range Interpretation Comments PTT (test code = 36.8 23.0- 36.0 sec H PTT thera peutic range 3173-2) for unfractiona bette heparin is61.0- 112.0 seconds which corresponds to Anti-Xa0.3-0.7 U/ml. Lab Interpretation Abnormal (test code = 08469-8) [facility]Prothrombin time with IRL0850-65-00 00:12:26 Test Item Value Reference Range Interpretation Comments Prothrombin time (test 13.7 11.5- 14.5 sec code = 5902-2) INR (test code = 1.1 The Interna tiformerly [facility] 34418-5) Normalized Rati o (INR) is a therapeutic m onitoring tool for patien ts who are stable on oral anticoagulant t herapy. An INR of 2.0-3.0 is suggested for d eep vein thrombosis/pulm onary embolism. [place] NondenominationalCRITICAL RCOF1285-93-48 23:23:08Jennifer Mcmahan DO 02/26/2019 7:34 PMCritical CarePerformed by: Jennifer Mcmahan DOAuthorized by: Jennifer Mcmahan DO Critical care provider statement: Critical care time (minutes): 38 Critical care was necessary to treat or prevent imminent or life-threateningdeterioration of the following conditions: Metabolic crisis and MEDIA PLANNER / BUYER failure or compromise Criticalcare was time spent [...]
[2020-02-06 14:17] LABS: Basophils % 0.5 % (0-1.3); Hematocrit 37.2 % (36.0-45.0); Lymphocytes % 7.2 % (15.3-44.8); MPV 10.1 fL (7.6-11.3); Protime INR 1.16; RBC Red Blood Cell Count 3.88 M/uL (3.86-4.86)
--- NOTE | 2020-02-06 14:31 | RAD REPORT ---
EXAM DESCRIPTION: CT - Chest Abd Pelvis Wo Con - 02/06/2020 2:03 pm CLINICAL HISTORY: chest pain, abdominal pain, peritoneal dialysis patient COMPARISON: Chest For Pe Angio dated 01/16/2020; Abdomen Pelvis Wo Contrast dated 07/21/2019 TECHNIQUE: Axial 5 millimeter thick images of the chest, abdomen and pelvis were obtained without IV contrast. Oral contrast was administered. All CT scans are performed using dose optimization technique as appropriate and may include automated exposure control or mA/KV adjustment according to patient size. FINDINGS: The head and neck were inadvertently imaged on this examination. No gross abnormalities ar e significant findings noted. Patchy airspace opacification present in the perihilar right upper lobe and perihilar superior segmen t right lower lobe. Patient has a small left pleural effusion with partial atelectasis of the left lo wer lobe. This is slightly larger than seen January 15. No pneumothorax. No chest wall mass or abnorma l axillary lymphadenopathy seen. Mediastinal and hilar regions show no mass or lymphadenopathy. No pericardial thickening or effusion. Dense coronary artery calcifications are present. No axillary lym phadenopathy. No acute bone finding evident. The liver, spleen and pancreas show no significant findings for non contrast imaging. Several puncta te gallstones are present layering in the gallbladder. No active gallbladder process seen. No biliary tree dilatation. No hydronephrosis or suspicious renal mass. Isodense masses and pyelonephritis cannot be excluded on non contrast imaging. Lobulated renal contours and lateral upper pole right renal cyst unchanged from short interval examination. Small right adrenal mass is stable in believed to be incidental. Perinep hric stranding stable as well. No urinary bladder abnormalities. No gastric dilatation or gastric wall thickening. Small hiatal hernia present. Several distended but nondilated fluid-filled small bowel loops are present. Does extends from the ligament of Treitz to th e proximal ileum. There is a smooth transition into normal diameter mid and distal ileum. Finding wou ld favor an ileus or enteritis pattern. No obstructing mass seen. Mechanical small bowel obstruction is not currently suspected. Only trace amounts of free fluid are seen in the peritoneal cavity. A few punctate free air densities are noted which would not be unexpected in a peritoneal dialysis patient. No evidence to suggest the free air is from the perforated viscus. Patient has left-sided diverticulosis without diverticulitis . No hernia, mass or bulky lymphadenopathy. Atrophic uterus is seen with calcifications. No suspicious ovarian finding. Dense arterial tree calcifications are present. Disc and bony degenerative changes are present withou t destructive process. IMPRESSION: Very minimal patchy pneumonia changes in the right perihilar right upper lobe and right lower lobe. Small left pleural effusion with partial atelectasis left lower lobe. Pleural fluid has increased fro m comparison. Multiple distended loops of proximal small bowel without obstructing mass or abrupt transition. Patte rn would favor ileus or enteritis over a mechanical small bowel obstruction. Cholelithiasis without evidence for active gallbladder or biliary tree process.
--- NOTE | 2020-02-06 14:33 | RAD REPORT ---
EXAM DESCRIPTION: RAD - Chest Single View - 02/06/2020 2:22 pm CLINICAL HISTORY: CHEST PAIN COMPARISON: Portable January 17, 2020 TECHNIQUE: AP portable chest image was obtained 02/06/2020 2:22 pm . FINDINGS: No peripheral mass or consolidation. Increased interstitial pattern is similar to comparis on. Heart size is accentuated by shallow inspiration and portable technique. Upper lobe vasculature w ithin normal limits No measurable pleural effusion and no pneumothorax. No acute bony abnormality see n. No acute aortic findings suspected. IMPRESSION: No acute cardiopulmonary process. No significant change from comparison.
[2020-02-06 14:41] LABS: ALT/SGPT 8 U/L (12-78); AST/SGOT 9 U/L (15-37); Albumin 2.3 g/dL (3.4-5.0); Alkaline Phosphatase 156 U/L (45-117); BUN Blood Urea Nitrogen 36 mg/dL (7-18); Bicarbonate 27 mmol/L (21-32); Bilirubin Direct < 0.1 mg/dL (0-0.2); Bilirubin Total 0.3 mg/dL (0.2-1.0); Glucose Level 117 mg/dL (74-106); Lipase 22 U/L (73-393); Magnesium 1.7 mg/dL (1.8-2.4); NT PRO-BNP 15556 pg/mL (<125); Potassium 3.9 mmol/L (3.5-5.1); Protein, Total 6.3 g/dL (6.4-8.2); Troponin (Emerg Dept Use Only) < 0.02 ng/mL (0.0-0.045)
[2020-02-06 14:58] LABS: Sodium Level 135 mmol/L (136-145)
[2020-02-06] MEDS ORDERED: MORPHINE 4 MG/ML SYR ONE (15:05)
[2020-02-06] MEDS ORDERED: ONDANSETRON 4 MG/2 ML VIAL ONE (15:05)
--- NOTE | 2020-02-06 15:38 | RAD REPORT ---
EXAM DESCRIPTION: US - Abdomen Exam Limited - 02/06/2020 3:01 pm CLINICAL HISTORY: ABD PAIN COMPARISON: Abdomen Exam Complete dated 01/17/2020; Chest Abd Pelvis Wo Con dated 02/06/2020 FINDINGS: Gallbladder is well filled but not dilated. Patient has multiple small mobile gallstones u p to 10 mm in size. Most are 5 mm or less. Gallstones are more numerous than suspected by the CT stud y. No pericholecystic fluid. Gallbladder wall is upper normal. Common bile duct is normal with no com mon duct stone identified. IMPRESSION: Multi stone cholelithiasis within a distended but nondilated gallbladder. Gallstones are more numerous than suggested by the CT study. Gallbladder wall thickness is upper normal. No pericholecystic fluid. No biliary tree abnormality.
[2020-02-06] MEDS ORDERED: Levofloxacin 250mg IV 250 MG/50 ML BAG IV ONE (16:00)
[2020-02-06] MEDS ORDERED: VANCOMYCIN/NS 1 gm 1 GM/250 ML BAG IVPB ONE (16:00)
--- NOTE | 2020-02-06 16:01 | EDPHYS ---
Physician Documentation [facility] Name: Marquita Ramirez Age: 69 yrs Sex: Female : 1950 Arrival Date: 02/06/2020 Time: 13:07 Bed 16 Private MD: ED Physician Ramirez Kuo HPI: 02/05 13:39 This 69 yrs old Female presents to ER via Wheelchair with complaints of jmm Abdominal Pain. 13:39 The patient presents with abdominal pain. Onset: The symptoms/episode began/occurred jmm gradually, 2 week(s) ago. The symptoms radiate to chest. The symptoms are described as achy, sharp. Modifying factors: The symptoms are alleviated by nothing, the symptoms are aggravated by nothing. This is a 69 year old female with a history of ESRD that presents to the ED with complaints of ongoing abdominal pain since being admitted for a similar complaint 2 week prior. Pain has intensified over the past 2 days. Patient localizes pain to the chest on the right side, the left side of the abdomen. . Historical: - Allergies: 13:09 No Known Allergies; sv - Home Meds: 13:42 allopurinol 100 mg Oral tab nightly [Active]; Tylenol #3 1 tab TID prn Oral [Active]; sv Norvasc 10 mg Oral tab 1 tab once daily [Active]; aspirin 81 mg Oral TbEC 1 tab once daily [Active]; Bystolic 10 mg oral tab 1 tab once daily [Active]; Plavix 75 mg Oral tab 1 tab once daily [Active]; docusate sodium 100 mg Oral cap 1 cap once daily [Active]; famotidine 20 mg Oral tab 1 tab once daily [Active]; gabapentin 100 mg Oral cap 1 caps twice a day [Active]; metolazone 5 mg oral tab MWF [Active]; Pravachol 40 mg Oral tab 1 tab nightly [Active]; probiotics [Active]; Renvela 800 mg Oral tab 2 tabs 3 times per day [Active]; Vitqamin B1 1 tab daily [Active]; Vitamin D2 50,000 units a week for 12 weeks [Active]; insulin nogolog [Active]; alprazolam 0.25 mg Oral tab daily prn [Active]; hydroxyzine HCl 25 mg Oral tab BID PRN [Active]; midodrine 2.5 mg Oral tab 2 tabs BID [Active]; Vitamin D3 50,000 units a month [Active]; Zofran 4mg QID prn [Active]; - PMHx: 13:09 PERITONEAL DIALYSIS; sv 16:56 Hypertension; Diabetes - IDDM; ESRD; ss 17:12 Kidney stones; ss - PSHx: 17:12 cardiac stent; ; Lithotripsy; ss - Immunization history:: Adult Immunizations. - Social history:: Smoking status: . ROS: 13:39 Constitutional: Negative for fever, chills, and weight loss. jm 13:39 Cardiovascular: Positive for chest pain. 13:39 Abdomen/GI: Positive for abdominal pain. 13:39 All other systems are negative. Exam: 13:39 Head/Face: atraumatic. Eyes: EOMI, no conjunctival erythema appreciated ENT: Moist jm Mucus Membranes Neck: Trachea midline, Supple Chest/axilla: Normal chest wall appearance and motion. Cardiovascular: Regular rate and rhythm. No edema appreciated Respiratory: Normal respirations, no respiratory distress appreciated 13:39 Constitutional: The patient appears alert, awake, in obvious pain. 13:39 Abdomen/GI: Inspection: abdomen appears normal, Bowel sounds: normal, Palpation: soft, moderate abdominal tenderness, in the right upper quadrant and left upper quadrant. 13:39 Back: ROM is normal. 13:39 Musculoskeletal/extremity: ROM: intact in all extremities. 13:39 Skin: Appearance: Color: normal in color. 13:39 Neuro: Motor: is normal. Vital Signs: 13:19 BP 142 / 45; Pulse 76; Resp 20; Temp 97.9; Pulse Ox 99% ; Weight 72.9 kg; Height 5 ft. sv 4 in. (162.56 cm); 14:00 BP 126 / 58; Pulse 83; Resp 16; ss 15:30 BP 141 / 48; Pulse 74; Resp 18; Pulse Ox 100% ; sv 16:00 BP 132 / 51; Pulse 73; Resp 16; Pulse Ox 98% ; sv 17:13 BP 107 / 55; Pulse 74; Resp 16; Pulse Ox 99% on R/A; ss 13:19 Body Mass Index 27.59 (72.90 kg, 162.56 cm) sv MDM: 13:37 Patient medically screened. [facility] 15:58 Data reviewed: vital signs, nurses notes. Counseling: I had a detailed discussion with [facility] the patient and/or guardian regarding: the historical points, exam findings, and any diagnostic results supporting the discharge/admit diagnosis, lab results, the need for further work-up and treatment in the hospital. ED course: I discussed the patient with Dr. Ochoa whom will consult on admission. . 02/05 13:39 Order name: Basic Metabolic Panel; Complete Time: 15:26 [facility] 02/05 13:39 Order name: CBC with Diff; Complete Time: 16:27 [facility] 02/05 13:39 Order name: LFT's; Complete Time: 15:26 [facility] 02/05 13:39 Order name: Magnesium; Complete Time: 15:26 [facility] 02/05 13:39 Order name: NT PRO-BNP; Complete Time: 15:26 [facility] 02/05 13:39 Order name: PT-INR; Complete Time: 15:04 [facility] 02/05 13:39 Order name: Troponin (emerg Dept Use Only); Complete Time: 15: [facility] 02/05 13:39 Order name: XRAY Chest (1 view); Complete Time: 15:04 [facility] 02/05 13:39 Order name: Lipase; Complete Time: 15:26 [facility] 02/05 13:39 Order name: CT Chest Abdomen Pelvis W/O Contrast; Complete Time: 15:04 [facility] 02/05 15:05 Order name: Procalcitonin; Complete Time: 17:03 [facility] 02/05 15:05 Order name: Blood Culture Adult (2) [facility] 02/05 15:05 Order name: Lactate; Complete Time: 16:27 [facility] 02/05 16:14 Order name: CBC Smear Scan; Complete Time: 16:27 [facility] 02/05 13:39 Order name: EKG; Complete Time: 13:40 [facility] 02/05 13:39 Order name: Cardiac monitoring; Complete Time: 15:49 [facility] 02/05 13:39 Order name: EKG - Nurse/Tech; Complete Time: 14:00 [facility] 02/05 13:39 Order name: IV Saline Lock; Complete Time: 15:40 [facility] 02/05 13:39 Order name: Labs collected and sent; Complete Time: 14:00 [facility] 02/05 13:39 Order name: O2 Per Protocol; Complete Time: 14:00 [facility] 02/05 13:39 Order name: O2 Sat Monitoring; Complete Time: 14:00 [facility] 02/05 13:39 Order name: US Abdomen Limited; Complete Time: 15:44 [facility] Administered Medications: 15:40 Drug: Zofran (Ondansetron) 4 mg Route: IVP; Site: right wrist; ss 16:30 Follow up: Response: No adverse reaction ss 15:45 Drug: morphine 4 mg Route: IVP; Site: right wrist; ss 16:30 Follow up: Response: No adverse reaction; Pain is decreased ss 16:46 Drug: LevaQUIN 250 mg Volume: 50 ml; Route: IVPB; Infused Over: 60 mins; Site: right ss wrist; 17:20 Follow up: Response: No adverse reaction; IV Status: Completed infusion; IV Intake: 50mlem 17:24 Not Given (Levaquin still infusing. Vancomycin to be given on 2nd floor): vancoMYCIN 1 ss grams IVPB once over 2 hrs Disposition: 02/06 15:56 Co-signature as Attending Physician, Ramirez Kuo MD I agree with the assessment and kdr plan of care. Disposition: 02/06/20 16:00 Hospitalization ordered by Belen Hernandez for Inpatient Admission. Preliminary diagnosis are Ileus, unspecified, Pneumonia in diseases classified elsewhere. - Bed requested for Telemetry/MedSurg (Inpatient). - Status is Inpatient Admission. ss - Condition is Stable. - Problem is new. - Symptoms have improved. Signatures: Dispatcher [employer] Misti Leiva RN RN sv Rittger, Kevin, MD MD kdr Mickail, Joel, PA PA [facility] Kori Mustafa RN RN Marcela Tran Edgar RN em Corrections: (The following items were deleted from the chart) 02/05 16:53 16:00 Hospitalization Ordered by A David ANGELES for Inpatient Admission. Preliminary eb diagnosis is Ileus, unspecified; Pneumonia in diseases classified elsewhere. Bed requested for Telemetry/MedSurg (Inpatient). Status is Inpatient Admission. Condition is Stable. Problem is new. Symptoms have improved. [facility] 17:37 16:53 02/06/2020 16:00 Hospitalization Ordered by A David ANGELES for Inpatient Admission. ss Preliminary diagnosis is Ileus, unspecified; Pneumonia in diseases classified elsewhere. Bed requested for Telemetry/MedSurg (Inpatient). Status is Inpatient Admission. Condition is Stable. Problem is new. Symptoms have improved. eb
--- NOTE | 2020-02-06 16:01 | ER ---
Nurse's Notes [facility] Name: Marquita Ramirez Age: 69 yrs Sex: Female : 1950 Arrival Date: 02/06/2020 Time: 13:07 Bed 16 Private MD: Diagnosis: Ileus, unspecified;Pneumonia in diseases classified elsewhere Presentation: 02/05 13:10 Chief complaint: Friend and/or Co-Worker states: abd pain, nausea since this past sv weekend. Hx gallstones. Coronavirus screen: Client denies travel out of the [place] in the last 14 days. At this time, the client does not indicate any symptoms associated with coronavirus-19. Ebola Screen: No symptoms or risks identified at this time. Risk Assessment: Do you want to hurt yourself or someone else? Patient reports no desire to harm self or others. Onset of symptoms was January 2020. 13:10 Method Of Arrival: Wheelchair sv 13:10 Acuity: SHADIA 3 sv 13:19 Initial Sepsis Screen: Does the patient meet any 2 criteria? No. Patient's initial sv sepsis screen is negative. Does the patient have a suspected source of infection? No. Patient's initial sepsis screen is negative. Triage Assessment: 13:10 General: Appears in no apparent distress. uncomfortable, Behavior is calm, cooperative, sv appropriate for age. Pain: Complains of pain in abdomen. Neuro: Level of Consciousness is awake, alert, obeys commands, Gait is steady. Respiratory: Respiratory effort is even, unlabored. GI: Reports upper abdominal pain, nausea. Historical: - Allergies: 13:09 No Known Allergies; sv - Home Meds: 13:42 allopurinol 100 mg Oral tab nightly [Active]; Tylenol #3 1 tab TID prn Oral [Active]; sv Norvasc 10 mg Oral tab 1 tab once daily [Active]; aspirin 81 mg Oral TbEC 1 tab once daily [Active]; Bystolic 10 mg oral tab 1 tab once daily [Active]; Plavix 75 mg Oral tab 1 tab once daily [Active]; docusate sodium 100 mg Oral cap 1 cap once daily [Active]; famotidine 20 mg Oral tab 1 tab once daily [Active]; gabapentin 100 mg Oral cap 1 caps twice a day [Active]; metolazone 5 mg oral tab MWF [Active]; Pravachol 40 mg Oral tab 1 tab nightly [Active]; probiotics [Active]; Renvela 800 mg Oral tab 2 tabs 3 times per day [Active]; Vitqamin B1 1 tab daily [Active]; Vitamin D2 50,000 units a week for 12 weeks [Active]; insulin nogolog [Active]; alprazolam 0.25 mg Oral tab daily prn [Active]; hydroxyzine HCl 25 mg Oral tab BID PRN [Active]; midodrine 2.5 mg Oral tab 2 tabs BID [Active]; Vitamin D3 50,000 units a month [Active]; Zofran 4mg QID prn [Active]; - PMHx: 13:09 PERITONEAL DIALYSIS; sv 16:56 Hypertension; Diabetes - IDDM; ESRD; ss 17:12 Kidney stones; ss - PSHx: 17:12 cardiac stent; ; Lithotripsy; ss - Immunization history:: Adult Immunizations. - Social history:: Smoking status: . Screenin:30 Abuse screen: Denies threats or abuse. Denies injuries from another. Nutritional ss screening: No deficits noted. Tuberculosis screening: Never had TB. Fall Risk None identified. Assessment: 17:05 Reassessment: Attempted to call report. Nurse unavailable and will call back. ss 17:23 Reassessment: Report given to WHITNEY Vazquez. ss Vital Signs: 13:19 BP 142 / 45; Pulse 76; Resp 20; Temp 97.9; Pulse Ox 99% ; Weight 72.9 kg; Height 5 ft. sv 4 in. (162.56 cm); 14:00 BP 126 / 58; Pulse 83; Resp 16; ss 15:30 BP 141 / 48; Pulse 74; Resp 18; Pulse Ox 100% ; sv 16:00 BP 132 / 51; Pulse 73; Resp 16; Pulse Ox 98% ; sv 17:13 BP 107 / 55; Pulse 74; Resp 16; Pulse Ox 99% on R/A; ss 13:19 Body Mass Index 27.59 (72.90 kg, 162.56 cm) sv ED Course: 13:07 Patient arrived in ED. ds1 13:08 Arm band placed on. sv 13:10 Jay Marquez PA is PHCP. jmm 13:10 Ramirez Kuo MD is Attending Physician. jmm 13:19 Triage completed. sv 13:30 Patient has correct armband on for positive identification. Bed in low position. Call ss light in reach. Adult w/ patient. 13:57 EKG done, by ED staff, reviewed by Ramirez Kuo MD. em 13:59 Kori Mustafa RN is Primary Nurse. ss 14:03 CT Chest Abdomen Pelvis W/O Contrast In Process Unspecified. EDMS 14:21 XRAY Chest (1 view) In Process Unspecified. EDMS 15:02 US Abdomen Limited In Process Unspecified. EDMS 15:20 Missed attempt(s): 24 gauge in left upper arm. Bleeding controlled, band aid applied, jp3 catheter tip intact. 15:35 Inserted saline lock: 24 gauge in right wrist, using aseptic technique. Blood collected.jp3 15:39 First set of blood cultures drawn by ak. jp3 15:59 Belen Hernandez MD is Hospitalizing Provider. jmm 16:40 Second set of blood cultures drawn by ak. jp3 17:08 No provider procedures requiring assistance completed. Patient admitted, IV remains in ss place. Administered Medications: 15:40 Drug: Zofran (Ondansetron) 4 mg Route: IVP; Site: right wrist; ss 16:30 Follow up: Response: No adverse reaction ss 15:45 Drug: morphine 4 mg Route: IVP; Site: right wrist; ss 16:30 Follow up: Response: No adverse reaction; Pain is decreased ss 16:46 Drug: LevaQUIN 250 mg Volume: 50 ml; Route: IVPB; Infused Over: 60 mins; Site: right ss wrist; 17:20 Follow up: Response: No adverse reaction; IV Status: Completed infusion; IV Intake: 50mlem 17:24 Not Given (Levaquin still infusing. Vancomycin to be given on 2nd floor): vancoMYCIN 1 ss grams IVPB once over 2 hrs Intake: 17:20 IV: 50ml; Total: 50ml. em Outcome: 16:00 Decision to Hospitalize by Provider. jmm 17:08 Condition: good ss 17:08 Instructed on the need for admit. 17:35 Admitted to Med/surg family with patient, via wheelchair, room 205. ss 17:37 Patient left the ED. ss Signatures: Dispatcher [facility] EDMS Sahil, WHITNEY Chappell RN, Joel, PA PA jmm Munoz, Edgar, RN RN em Sanford, Demi ds1 Kori Mustafa RN RN ss Fidencio Hanson jp3 Corrections: (The following items were deleted from the chart) 14:14 13:19 Temp 97.9F; 72.9 kg; Height 5 ft. 4 in.; BMI: 27.5; sv sv
[2020-02-06 16:14] LABS: Blood Morphology Comment NOT SEEN (NOT SEEN); Platelet Estimate ADEQ; White Blood Cell Scan OK (OK)
[2020-02-06] MEDS ORDERED: MORPHINE 4 MG/ML SYR IV PRN (16:48)
[2020-02-06] MEDS ORDERED: HYDROMORPHONE HCL 1 MG/ML INJ IV PRN (18:14)
[2020-02-06] MEDS: HYDROMORPHONE HCL 1 MG/ML INJ IV PRN ×2 (19:41→22:45)
[2020-02-06] MEDS ORDERED: D5W 1,000 ML IV ONE (20:45)
[2020-02-06] MEDS: ONDANSETRON 4 MG/2 ML VIAL IV PRN (20:55)
[2020-02-06] MEDS ORDERED: D5W 1,000 ML IV SCH (21:00)
--- NOTE | 2020-02-06 22:02 | CON ---
Date of Consultation: 02/06/2020 Reason For Consultation: Abdominal pain. History Of Present Illness: The patient is a 69-year-old female with multiple medical problems, who presented to the ER with one-day history of lower chest, upper abdominal pain, now in the left lower quadrant, associated with nausea, but no vomiting, no diarrhea. She does take MiraLAX for constipati on p.r.n. No blood in her stool. No dysuria or hematuria. No sore throat or runny nose. She does have occasional cough with yellowish sputum occasionally. No chest pain currently and low-grade feve rs prior to admission. The pain is crampy in nature. She came to the floor and had a severe episode of left lower quadrant abdominal pain. She states it was more like a spasm and it went away after s he was given Dilaudid. She states that morphine did not help her that much. Review of Systems: Otherwise unremarkable. Past Medical History: Significant for hypertension, diabetes, end-stage renal disease. Past Surgical History: Cardiac stent, , lithotripsy, peritoneal dialysis, catheter placemen t. Allergies: NONE. Medications Reviewed: She is on Plavix. Social History: She does not smoke or drink alcohol. Family History: Noncontributory. Physical Examination: Vital Signs: Stable currently. She is not tachycardic. She is not dyspneic. She is not tachypneic . Blood pressure is between 110 to high 130s systolic and diastolic is between 48 and 58, O2 sats ar e 98% to 99%. General: She is awake, alert, and oriented x3. She was using her phone when I walked into the room. She did not appear to be in any acute distress. Cranial nerves 2 through 12 are grossly within nor mal limits. Neck: No neck masses. No JVD. Throat clear. Neck is supple. Chest: Clear. Heart: S1 and S2. Abdomen: Soft. There is diffuse tenderness. There is more on the left side but there is no rigidit y. There are hypoactive bowel sounds. There is minimal rebound on the left side but none on the any where else. There is no involuntary guarding at all. Extremities: Adequately perfused. Nontender. Neuro: Nonfocal. Laboratory Data: White count is 14.4, with a left shift. INR is 1.16. Her CO2 is 27, lactic acid i s 1.6, her procalcitonin is 0.98. Ultrasound shows multi-stone cholelithiasis without evidence of ch olecystitis. A chest, abdomen, and pelvis CT done without IV contrast shows very minimal patchy pneu moniae changes in the right perihilar, right upper lobe, and right lower lobe; small left pleural eff usion with partial atelectasis of the left lower lobe. Pleural fluid has increased from comparison. Multiple distended loops of proximal small bowel from the ligament of Treitz to the proximal ileum w ithout obstructing or abrupt transition. This pattern would favor either an ileus or enteritis over a mechanical small bowel obstruction and cholelithiasis without evidence of active gallbladder or surinder iary tree process. Assessment: A 69-year-old female with multiple medical problems with pneumonia and either an ileus o r gastroenteritis. Recommendation: Keep the patient n.p.o. at this time. Agree with the IV antibiotics consisting of L evaquin and vancomycin. The patient needs serial abdominal exam and we will repeat the blood work in the morning and also get an abdominal x-ray flat and upright and we will re-evaluate the patient ear ly in the morning and make further recommendations as the case develops. We will follow this patient very closely. HAMMAD/ANAMARIA Voice ID: [id number] Report ID: [id number]
[2020-02-07 00:29] VITALS: BMI 27.6
[2020-02-07] MEDS: HYDROMORPHONE HCL 1 MG/ML INJ IV PRN ×5 (01:50→19:39)
[2020-02-07 06:13] LABS: Absolute Lymphocytes (CBC) 1.4 K/uL (0.7-4.9); Basophils % 0.7 % (0-1.3); Hematocrit 30.7 % (36.0-45.0); Lymphocytes % 11.6 % (15.3-44.8); MPV 9.7 fL (7.6-11.3)
[2020-02-07 06:28] LABS: Magnesium 1.7 mg/dL (1.8-2.4); Potassium 4.1 mmol/L (3.5-5.1)
[2020-02-07] MEDS ORDERED: MAGNESIUM SULFATE 1 gm IVPB 1 GM/100 ML BAG IV ONE (07:30)
[2020-02-07] MEDS ORDERED: D5W 1,000 ML IV SCH (08:00)
--- NOTE | 2020-02-07 08:35 | RAD REPORT ---
EXAM DESCRIPTION: RAD - Abdomen W Erect - 02/07/2020 7:37 am CLINICAL HISTORY: ileus vs enteritis? COMPARISON: Chest Abd Pelvis Wo Con dated 02/06/2020 TECHNIQUE: Supine and upright views of the abdomen were obtained. FINDINGS: No abnormal gaseous distention of the stomach. Multiple distended but nondilated small bow el loops are present. Peritoneal dialysis catheter is present in the pelvis. Stool is seen scattered in nondilated colon. Air in the colon extends to the distal most rectum. No free air or pneumatosis. No suspicious calcifications. IMPRESSION: Ileus or enteritis pattern is still evident and favored over developing small bowel obst ruction. . Small bowel pattern is not clearly progressive. Air in the colon is present and extends to the level of the distal rectum.
[2020-02-07] MEDS ORDERED: FAMOTIDINE 20 MG/2 ML VIAL IV SCH (09:00)
[2020-02-07] MEDS: ONDANSETRON 4 MG/2 ML VIAL IV PRN ×2 (09:10→16:23)
--- NOTE | 2020-02-07 10:00 | PN ---
Date of Progress Note: 02/07/2020 Subjective: Patient is complaining of left lower quadrant pain. States that it is more consistent pain now. Objective: Vital Signs: Stable. She is afebrile. Laboratory Data: White count is slightly low at 12,000. Abdominal x-ray reviewed, shows dilatation of the small bowel. No increase since last night on the CAT scan and there is no free air. There is air in the colon down to the rectum. So there was no evidence of obstruction. Abdomen however is soft on the right side. On the left side is very tender with rebound and beginning to be rigid. Assessment: Peritonitis, left lower quadrant in a patient with peritoneal dialysis catheter. Recommendation: Discussed the case with Dr. Miles of Nephrology as well as Dr. Hernandez because the patient is complex in nature with peritoneal dialysis catheter, which is not managed in our hospital. The best course of action would be to transfer this patient to a tertiary care facility where she can be evaluated for either removal and then insertion of a new catheter at that facility. Continue antibiotics. Plan of care discussed with Dr. Miles and Dr. Hernandez. /MODL Voice ID: [id number] Report ID: [id number] MATIAS
--- NOTE | 2020-02-07 10:03 | P.CNS ---
Date of Consult: 02/07/20 Reason for Consult: ESRD , fluid and electrolytes management Chief Complaint: Abd pain History of Present Illness: A 69 Y/o woman with PMHX of ESRD on PD, DM with neuropathy and HTN Pt was admitted for Lt lower abdominal pain pain started 3 days ago , sharp in nature , non radiating pt is progressively worse , non related to food denied chest pain, palpitatiin , fever or chills general: AAOX3, NAD , obese Neck; Supple, No elevated JVD hear: RRR, normal S1,2 no murmur or rub Chest: CTAB, no rlaes or wheezes Abdomen: Soft , Lt lower quadrant tenderness Extremities No edema or ulcer ESRD on PD will resume PD tonight renal dose meds Anemia of chronic disease no need for epogen Abdominal pain US: cholilithiasis Abd CT : findinbg suggest ileus need to r/o peritonitis, will transfer to [facility] where we can send for PD fluid MBD hold on Binders DM as per primary Allergies No Known Allergies Allergy (Verified 01/07/20 14:01) Home Medications: ALPRAZolam [Xanax*] 1 tab PO DAILYPRN PRN 01/16/20 Allopurinol 1 tab PO BEDTIME 01/16/20 Amlodipine [Norvasc*] 1 tab PO DAILY 01/16/20 Aspirin Chewable [Aspirin Chewable*] 1 tab PO DAILY 01/16/20 Cephalexin [Keflex*] 1 tab PO DAILY 01/16/20 Clopidogrel Bisulfate [Plavix*] 1 tab PO DAILY 01/16/20 Codeine/APAP [Tylenol #3*] 1 tab PO TIDP PRN 01/16/20 Docusate [Colace Cap*] 1 tab PO DAILY 01/16/20 Ergocalciferol (Vitamin D2) [Vitamin D2] 1 tab PO SEECOM 01/16/20 Gabapentin 1 tab PO TID 01/16/20 Hydroxyzine HCl [Atarax] 25 mg PO BIDP PRN 01/16/20 Insulin Aspart [Novolog] See Protocol SQ DAILY 01/16/20 Insulin Degludec [Tresiba] 6 unit SQ DAILY 01/16/20 Lactobacillus Acidophilus [Probiotic] 1 tab PO DAILY 01/16/20 Midodrine HCl [Proamatine*] 2 tab PO BID 01/16/20 Nebivolol HCl [Bystolic*] 1 tab PO DAILY 01/16/20 Ondansetron [Zofran (Odt)*] 1 tab PO QIDP PRN 01/16/20 Pravastatin Sodium 1 tab PO BEDTIME 01/16/20 Sevelamer Carbonate [Renvela*] 2 tab PO TID 01/16/20 Thiamine HCl [Vitamin B-1] 50 mg PO DAILY 01/16/20 metOLazone [Metolazone] 1 tab PO SEECOM 01/16/20 Famotidine [Pepcid*] 1 tab PO DAILY 02/06/20 - Past Medical/Surgical History Diabetic: Yes -: peritoneal dialysis 3 years in 2020 -: IDDM -: Hypertension -: anemia -: CS x3 -: kidney stones removal -: heart stent x1 -2018 - Family History Father Medical History: Cancer Notes: larynx Brother Medical History: Cancer Notes: cancer layrnx Mother Medical History: Cancer Notes: Breast - Social History Alcohol use: No CD- Drugs: No Caffeine use: No Place of Residence: Home Physical Examination Temp Pulse Resp BP Pulse Ox 97.7 F 76 16 139/60 93 02/07/20 08:00 02/07/20 08:00 02/07/20 08:00 02/07/20 08:00 02/07/20 08:00 Laboratory Data (last 24 hrs) 02/06/20 13:56: PT 13.7 H, INR 1.16 02/06/20 13:56: WBC 14.4 H, Hgb 12.2, Hct 37.2, Plt Count 339 02/06/20 13:56: Sodium 135 L, Potassium 3.9, BUN 36 H, Creatinine 7.24 H*, Glucose 117 H, Magnesium 1.7 L, Total Bilirubin 0.3, AST 9 L, ALT 8 L, Alkaline Phosphatase 156 H, Lipase 22 L
--- NOTE | 2020-02-07 10:44 | EKG ---
Test Date: 2020-02-06 Test Time: 13:54:18 Transition Mgr Rn: ELIZ MEASUREMENT RESULTS: Intervals: Rate: 73 WA: 136 QRSD: 88 QT: 402 QTc: 442 [place]: P: 38 WA: 136 QRS: -17 T: -16 INTERPRETIVE STATEMENTS: Normal sinus rhythm Moderate voltage criteria for LVH, may be normal variant Borderline ECG Compared to ECG 01/16/2020 14:12:30 Left ventricular hypertrophy now present Atrial premature complex(es) no longer present Short WA interval no longer present Myocardial infarct finding no longer present Electronically Signed On 02-07-20 10:43:36 CDT by Farzad Gu
[2020-02-07 11:27] VITALS: O2SAT 93
[2020-02-07] MEDS ORDERED: Levofloxacin500mg IV 500 MG/100 ML BAG IV SCH (16:00)
[2020-02-07] MEDS ORDERED: Levofloxacin500mg IV 500 MG/100 ML BAG IV ONE (17:00)
[2020-02-07] MEDS ORDERED: LEVOFLOXACIN 750MG/D5W 150 ML IV ONE (17:00)
[2020-02-07 20:37] VITALS: BP 110/55; TEMP 97.1
--- NOTE | 2020-02-08 20:43 | HP ---
Date of Admission: 02/06/2020 Chief Complaint: Chest pain and abdominal pain. History Of Present Illness: This is a 69-year-old very pleasant female, who came into the hospital e mergency room with complaints of pain in the right lower anterior and lateral chest wall region. Thi s started about 2 to 3 days ago and got worse over period of time. Denies any hemoptysis. No shortn ess of breath. No cough or congestion. After she came into emergency room, she started having abdom inal pain also. After she was evaluated, she was admitted to the hospital. Dr. Fernandez was consulted from General Surgery because of the patient's severe pain. She was given morphine 4 mg and within 30 minutes of that morphine dose, she was complaining of severe pain. So at that time, I did talk to Joy Fernandez myself and requested him to evaluate her for any acute surgical abdomen and then subsequentl y I also saw her on the floor. She denies any nausea, vomiting, fever, chills. Allergies: REGLAN CAUSING HER TO FEEL NERVOUS. Medications: List reviewed. Review of Systems: GI: As mentioned above. Respiratory: As mentioned above. All other systems reviewed and negative. Past Medical History: Significant for posterior reversible encephalopathy syndrome diagnosed in 2016 ; history of seizure disorder; neuropathy; diabetes mellitus; hypertension; mixed hyperlipidemia; cor onary artery disease; end-stage renal disease, on peritoneal dialysis; osteoarthritis; gout; anemia d ue to chronic kidney disease; and insomnia. Past Surgical History: Coronary artery stent placement in October 2017, appendectomy, ureteral stent, a nd . Family History: Father , had throat cancer. Mother had diabetes, breast cancer. Social History: Negative for smoking and alcohol use. Physical Examination: Vital Signs: Temperature 97, pulse 74, respiratory rate 16, blood pressure 139/60, oxygen saturation 94%. Height 5 feet 4 inches, weight 160 pounds. General: Awake, alert, oriented, not in distress. HEENT: Head atraumatic, normocephalic. Conjunctivae nonerythematous. Sclerae white. Mouth, no thr ush or edema noted. Ears/Nose, no mass, lesion, discharge noted. Neck: Supple. No JVD, lymph nodes, bruit, thyromegaly noted. Lungs: Presence of rales noted in the right lower 1/3 region. Not in any respiratory distress. Heart: Normal heart sounds. No murmur or gallop. Abdomen: Presence of peritoneal dialysis catheter. No distention, but presence of tenderness, diffu sely scattered all over abdomen. No guarding. No rigidity. No rebound tenderness. Bowel sounds pr esent. Extremities: No leg edema. No calf tenderness. Skin: No rash, ulcer, cellulitis. Lymphatics: No lymph node enlargement in neck, supraclavicular, infraclavicular region. Neuro: No focal neurological deficit. Chest: Unremarkable. External Genitalia: Deferred. Rectal: Deferred. Laboratory Data: White count 14.4, hemoglobin 12.2, platelets 339. Sodium 135, potassium 3.9, chlor bola 96, bicarb 27, BUN 36, creatinine 7.24, glucose 117, magnesium 1.7. Liver function tests unremar kable. ProBNP 15,556. Procalcitonin 0.98. Ultrasound of her abdomen shows evidence of multi stone cholelithiasis with distended, but known dilated gallbladder. Gallbladder wall is upper limit of nor mal. Chest x-ray shows no acute cardiopulmonary abnormality. CAT scan of the abdomen and pelvis wit hout contrast shows minimal patchy pneumonia changes in right perihilar, right upper lobe, and right lower lobe; small left pleural effusion and gallstones. Impression: 1.Pneumonia. 2.Peritonitis. 3.Rule out ileus. 4.End-stage renal disease, on peritoneal dialysis. 5.Seizure disorder. 6.Peripheral neuropathy. 7.Diabetes mellitus. 8.Hypertension. 9.Mixed hyperlipidemia. 10.Coronary artery disease. 11.Osteoarthritis. 12.Gout. 13.Anemia due to chronic kidney disease. Plan: Admit the patient to hospital for further evaluation and management of this problem. The karyn ent is appropriate for inpatient and is expected to spend 2 midnights in hospital. CAT scan showed s ome changes of illness. I was concerned about her clinical presentation could be due to peritonitis, especially having her peritoneal dialysis catheter in place. The details were discussed with nephro logist and general surgeon. Empiric antibiotics started, Levaquin and vancomycin. We will continue that. The patient will be care being as recommended by Dr. Fernandez and since she is a diabetic patient , we will go ahead and keep her n.p.o., monitor her blood sugar every hour, and give her maintenance IV fluid around 25 cc/hour and nurse to contact me if she has any hypoglycemia problem. Details and plan of treatment discussed with the patient and the patient's nurse for close sugar monitoring. ELENA/MODL Voice ID: [id number]
--- NOTE | 2020-02-08 22:58 | DS ---
Date of Discharge: 02/07/2020 Disposition: Transferred to [facility] for higher level of care. Physical Examination: HEENT: Unremarkable. Lungs: Presence of rales noted in the right lower lung field, unchanged from yesterday. Heart: Sounds normal. Abdomen: Soft. Bowel sounds normal. No guarding, rigidity, distention, but presence of tenderness, unchanged from yesterday. No rebound tenderness. Extremities: No leg edema. Laboratory Data: Today, sodium 135, potassium 4.1, chloride 98, bicarb 26, BUN 44, creatinine 1.95, glucose 62, magnesium 1.7. White count 11.9, hemoglobin 10.2, and platelets of 254. Hospital Course: A 69-year-old pleasant female patient, came into hospital emergency room after she was evaluated. She was admitted to the hospital with pneumonia and possibility of peritonitis. CAT scan had shown some changes of ileus type of problem. Abdominal x-ray done today by Dr. Fernandez raises concern about possibility of early bowel obstruction. In any case, her abdominal pain and tendernes s has not improved. She was given empiric antibiotic, Levaquin and vancomycin. She continues to hav e significant generalized tenderness, so wax pot tender contacted me and informed me at this point the recommendation is to go ahead and transfer her to [facility] for higher level of care considering possib ility of peritonitis and peritoneal dialysis catheter, which may require to be removed. We will not be able to handle all those car at our hospital and she requires higher level of care, so decision wa s made to transfer her to [facility] and I did communicate with Dr. Castelan, hospitalist, at this hospital, who accepted the patient and the patient was transferred in stable condition. The patient did have u rinary retention today and a straight cath was ordered. The patient was transferred in stable condit ion via ground ambulance. Final Diagnoses: 1.Pneumonia. 2.Peritonitis. 3.End-stage renal disease, on peritoneal dialysis. 4.Anemia due to chronic kidney disease. 5.Coronary artery disease. 6.Mixed hyperlipidemia. 7.Hypertension. 8.Diabetes mellitus. 9.Peripheral neuropathy. 10.Seizure disorder. 11.Insomnia. 12.Posterior reversible encephalopathy syndrome. Discharge Medications And Instructions: See copy of transfer order for details. ELENA/MODL Voice ID: [id number] Report ID: [id number]
[2020-02-09] MEDS ORDERED: Levofloxacin500mg IV 500 MG/100 ML BAG IV SCH (17:00)
== END 2020-02-07 21:46 | disposition short-term general hospital (02) | DRG 193 ==
LOC: ER 13:05 → ERHOLD 16:48 → 2ND 17:23
PROVIDERS: ADMIT Internal Medicine; ATTEND Internal Medicine
DX: J18.9 Pneumonia, unspecified organism (principal); K65.9 Peritonitis, unspecified; N18.6 End stage renal disease; I67.83 Posterior reversible encephalopathy syndrome; I12.0 Hypertensive chronic kidney disease with stage 5 chronic kidney disease or end stage renal disease; K56.699 Other intestinal obstruction unspecified as to partial versus complete obstruction; E11.22 Type 2 diabetes mellitus with diabetic chronic kidney disease; I25.10 Atherosclerotic heart disease of native coronary artery without angina pectoris; E11.42 Type 2 diabetes mellitus with diabetic polyneuropathy; G47.00 Insomnia, unspecified; M10.9 Gout, unspecified; M19.90 Unspecified osteoarthritis, unspecified site; D63.1 Anemia in chronic kidney disease; E78.2 Mixed hyperlipidemia; D63.8 Anemia in other chronic diseases classified elsewhere; E66.9 Obesity, unspecified; R33.9 Retention of urine, unspecified; R00.0 Tachycardia, unspecified; Z79.02 Long term (current) use of antithrombotics/antiplatelets; Z79.899 Other long term (current) drug therapy; Z95.5 Presence of coronary angioplasty implant and graft; Z79.82 Long term (current) use of aspirin; Z68.27 Body mass index [BMI] 27.0-27.9, adult; Z99.2 Dependence on renal dialysis; Z79.4 Long term (current) use of insulin; Z90.49 Acquired absence of other specified parts of digestive tract; Z20.828 Contact with and (suspected) exposure to other viral communicable diseases
CPT/HCPCS: 36415; 71045; 71250; 74019; 74176; 76705; 80048; 80076; 83605; 83690; 83735; 83880; 84100; 84145; 84484; 85025; 85610; 87040; 93005; 96365; 96375; 99285; J1170; J2405; J3370; J3475; U0003